=== PATIENT | female | born 1955 | race Caucasian/White ===

== ENCOUNTER → 2018-06-28 14:50 | Outpatient (CLI) | payer OTHER, SELFPAY ==
[2016-03-18 11:58] VITALS: BMI 38.9
[2018-06-28 17:03] LABS: Absolute Lymphocyte Count 2.25 X10^3/ul (0.83-4.51); Absolute Neutrophil Count 7.1 X10^3/uL (2.0-7.7); Basophil# 0.04 X10^3/uL; Basophil% 0.4 % (0-1); Eosinophil# 0.26 X10^3/uL; Eosinophils% 2.5 % (0-5); Hematocrit 44.6 % (37-47); Hemoglobin 14.6 g/dl (12.0-15.0); Lymphocyte # 2.25 X10^3/ul (4.0); Lymphocyte % 21.8 % (19-41); Mean Corp Hgb Conc 32.7 g/gl (32-36); Mean Corpuscular Hgb 28.9 pg (27.0-32.0); Mean Corpuscular Volume 88.1 fL (81-99); Monocyte# 0.66 X10^3/uL; Monocyte% 6.4 % (0-10); Neutrophil # 7.06 X10^3/uL (2.7-7.7); Neutrophil % 68.6 % (47-70); POSITIVE COUNT NO; POSITIVE DIFFERENTIAL NO; POSITIVE MORPHOLOGY NO; Platelet Count 277 K/mm3 (150-450); RBC Distribution Width CV 13.2 % (11.6-14.6); RBC Distribution Width SD 41.8 fl (35.1-43.9); Red Blood Count 5.06 M/mm3 (4.2-5.4); White Blood Count 10.3 K/mm3 (4.4-11.0)
[2018-06-28 17:26] LABS: AST(SGOT) 22 U/L (15-37); Alanine Aminotransfer ALT/SGPT 25 U/L (13-56); Alkaline Phosphatase 84 U/L (45-117); Anion Gap 9 (5-15); BUN 24 mg/dL (7-18); BUN/Creat Ratio 20.9 RATIO (10-20); Calcium,Total 9.1 mg/dL (8.5-10.1); Chloride 109 mmol/L (98-107); Creatinine, Serum 1.15 mg/dL (0.55-1.02); EST Glomerular Filtration Rate 51 mL/min (>60); Est Glom Filt Rate - Afr Amer 61 mL/min (>60); Glucose 93 mg/dL (74-106); Potassium 4.5 mmol/L (3.5-5.1); Sodium Level 143 mmol/L (136-145); Thyroid Stim Hormone (TSH) 1.44 uIU/mL (0.358-3.74)
== END ==
PROVIDERS: Visit Provider Family Medicine Geriatric Medicine
DX: R53.83 Other fatigue (principal)
CPT/HCPCS: 36415; 80053; 84443; 85025

== ENCOUNTER → 2019-07-01 | Outpatient (CLI) | payer OTHER, SELFPAY ==
[2016-03-18 11:58] VITALS: BMI 38.9
[2019-07-01 17:25] LABS: Absolute Lymphocyte Count 1.74 X10^3/uL (0.83-4.51); Absolute Neutrophil Count 5.8 X10^3/uL (2.0-7.7); Basophil# 0.05 X10^3/uL; Basophil% 0.6 % (0-1); Eosinophils% 2.4 % (0-5); Hematocrit 44.8 % (37-47); Hemoglobin 14.3 g/dL (12.0-15.0); Lymphocyte # 1.74 X10^3/ul (4.0); Lymphocyte % 20.7 % (19-41); Mean Corp Hgb Conc 31.9 g/dL (32-36); Mean Corpuscular Hgb 28.4 pg (27.0-32.0); Mean Corpuscular Volume 88.9 fL (81-99); Mean Platelet Vol. 10.7 fl (6.2-12.0); Monocyte# 0.64 X10^3/uL; Monocyte% 7.6 % (0-10); NRBC Flagged by Analyzer 0 % (0-5); Neutrophil # 5.75 X10^3/uL (2.7-7.7); Neutrophil % 68.5 % (47-70); Platelet Count 270 K/mm3 (150-450); RBC Distribution Width CV 13.2 % (11.6-14.6); RBC Distribution Width SD 42.6 fl (35.1-43.9); Red Blood Count 5.04 M/mm3 (4.2-5.4); White Blood Count 8.4 K/mm3 (4.4-11.0)
[2019-07-01 17:36] LABS: ALB/GLOB Ratio 0.9 RATIO (0.9-2.4); AST(SGOT) 21 U/L (15-37); Alanine Aminotransfer ALT/SGPT 27 U/L (13-56); Albumin, Serum 3.8 g/dL (3.2-5.0); Alkaline Phosphatase 73 U/L (45-117); Anion Gap 5 (5-15); BUN 18 mg/dL (7-18); BUN/Creat Ratio 15.9 RATIO (10-20); Chloride 107 mmol/L (98-107); Creatinine, Serum 1.13 mg/dL (0.55-1.02); EST Glomerular Filtration Rate 51 mL/min (>60); Est Glom Filt Rate - Afr Amer 62 mL/min (>60); Globulin 4.1 g/dL (2.2-4.2); Glucose 75 mg/dL (74-106); Potassium 3.8 mmol/L (3.5-5.1); Protein, Total 7.9 g/dL (6.4-8.2); Sodium Level 142 mmol/L (136-145); Thyroid Stim Hormone (TSH) 1.65 uIU/mL (0.358-3.74)
== END | disposition home or self-care (01) ==
LOC: POLAB3 13:11
PROVIDERS: PCP Family Medicine Geriatric Medicine; Visit Provider Family Medicine Geriatric Medicine
DX: R53.83 Other fatigue (principal)
CPT/HCPCS: 36415; 80053; 84443; 85025

== ENCOUNTER → 2019-07-12 | Outpatient (CLI) | payer OTHER, SELFPAY ==
--- NOTE | 2019-07-12 09:50 | BI_ITS ---
MAMMOGRAPHY - BILATERAL SCREENING REASON FOR EXAM: Female, 63 years old. Routine annual screening examination. PERTINENT HISTORY: Patient diagnosed with neurofibromatosis-1 TECHNIQUE: Digital bilateral breast jimmy (3D mammographic acquisition) in the CC and MLO projections. 2-D mediolateral oblique (MLO) and craniocaudad (CC) views of both breasts were obtained. CAD: Full Field Digital Mammography with Computer Added Detection was performed. COMPARISON: Previous mammogram obtained on 03/14/2018 FINDINGS: Breast Composition: Scattered gas density is identified. There are no dominant masses or suspicious calcifications. No other significant abnormalities are identified. BI/SCREEN MAMM (CAD) W/JIMMY BILAT IMPRESSION: Stable bilateral screening mammogram. Yearly follow-up mammogram recommended. (A) ASSESSMENT CATEGORY: BIRADS Category 1: Negative. A letter regarding these results will be sent to the patient by the facility within 30 days. Approximately 10% of breast cancers are not detected by mammography. A normal mammogram should not delay biopsy of a clinically suspicious abnormality. [id number] Electronically Signed: Augustine Marie, at 15:48 EST Tel , Service support ,
== END | disposition home or self-care (01) ==
LOC: OPBI 09:49
PROVIDERS: PCP Family Medicine Geriatric Medicine; Referring Provider Family Medicine Geriatric Medicine; Visit Provider Family Medicine Geriatric Medicine
DX: Z12.31 Encounter for screening mammogram for malignant neoplasm of breast (principal)
CPT/HCPCS: 77063; 77067

== ENCOUNTER → 2020-01-03 | Outpatient (CLI) | payer MEDICARE, SELFPAY ==
[2016-03-18 11:58] VITALS: BMI 38.9
[2020-01-03 11:04] LABS: Absolute Lymphocyte Count 1.82 X10^3/uL (0.83-4.51); Basophil# 0.03 X10^3/uL; Basophil% 0.5 % (0-1); Eosinophil# 0.25 X10^3/uL; Eosinophils% 3.8 % (0-5); Hematocrit 43.4 % (37-47); Hemoglobin 13.7 g/dL (12.0-15.0); Lymphocyte # 1.82 X10^3/ul (4.0); Lymphocyte % 27.5 % (19-41); Mean Corp Hgb Conc 31.6 g/dL (32-36); Mean Corpuscular Hgb 28.2 pg (27.0-32.0); Mean Corpuscular Volume 89.3 fL (81-99); Mean Platelet Vol. 10.3 fl (6.2-12.0); Monocyte# 0.53 X10^3/uL; NRBC Flagged by Analyzer 0 % (0-5); Neutrophil # 3.97 X10^3/uL (2.7-7.7); Neutrophil % 59.9 % (47-70); Platelet Count 276 K/mm3 (150-450); RBC Distribution Width CV 12.9 % (11.6-14.6); RBC Distribution Width SD 41.8 fl (35.1-43.9); Red Blood Count 4.86 M/mm3 (4.2-5.4); White Blood Count 6.6 K/mm3 (4.4-11.0)
[2020-01-03 11:21] LABS: Vitamin D,25 Hydroxy 36.5 ng/mL
[2020-01-03 11:27] LABS: ALB/GLOB Ratio 1.1 RATIO (0.9-2.4); AST(SGOT) 18 U/L (15-37); Alanine Aminotransfer ALT/SGPT 19 U/L (13-56); Albumin, Serum 3.8 g/dL (3.2-5.0); Alkaline Phosphatase 66 U/L (45-117); Anion Gap 2 (5-15); BUN 19 mg/dL (7-18); BUN/Creat Ratio 18.3 RATIO (10-20); Calcium,Total 8.8 mg/dL (8.5-10.1); Chloride 110 mmol/L (98-107); Creatinine, Serum 1.04 mg/dL (0.55-1.02); EST Glomerular Filtration Rate 57 mL/min (>60); Est Glom Filt Rate - Afr Amer 68 mL/min (>60); Globulin 3.6 g/dL (2.2-4.2); Glucose 96 mg/dL (74-106); Potassium 4.7 mmol/L (3.5-5.1); Protein, Total 7.4 g/dL (6.4-8.2); Sodium Level 142 mmol/L (136-145); Thyroid Stim Hormone (TSH) 1.77 uIU/mL (0.358-3.74)
== END | disposition home or self-care (01) ==
LOC: POLAB3 10:24
PROVIDERS: PCP Family Medicine Geriatric Medicine; Visit Provider Family Medicine Geriatric Medicine
DX: E55.9 Vitamin D deficiency, unspecified (principal); R53.83 Other fatigue
CPT/HCPCS: 36415; 80053; 82306; 84443; 85025

== ENCOUNTER → 2020-07-02 10:10 | Outpatient (CLI) | payer MEDICARE, SELFPAY ==
[2016-03-18 11:58] VITALS: BMI 38.9
[2020-07-02 12:50] LABS: Absolute Lymphocyte Count 1.71 X10^3/uL (0.83-4.51); Absolute Neutrophil Count 4.5 X10^3/uL (2.0-7.7); Basophil# 0.04 X10^3/uL; Basophil% 0.6 % (0-1); Eosinophil# 0.19 X10^3/uL; Eosinophils% 2.7 % (0-5); Hematocrit 44.2 % (37-47); Hemoglobin 14.2 g/dL (12.0-15.0); Lymphocyte # 1.71 X10^3/ul (4.0); Lymphocyte % 24.7 % (19-41); Mean Corp Hgb Conc 32.1 g/dL (32-36); Mean Corpuscular Hgb 28.2 pg (27.0-32.0); Mean Corpuscular Volume 87.9 fL (81-99); Monocyte# 0.46 X10^3/uL; Monocyte% 6.7 % (0-10); NRBC Flagged by Analyzer 0 % (0-5); Neutrophil # 4.47 X10^3/uL (2.7-7.7); Neutrophil % 64.7 % (47-70); Platelet Count 281 K/mm3 (150-450); RBC Distribution Width CV 12.8 % (11.6-14.6); RBC Distribution Width SD 41.1 fl (35.1-43.9); Red Blood Count 5.03 M/mm3 (4.2-5.4); White Blood Count 6.9 K/mm3 (4.4-11.0)
[2020-07-02 13:13] LABS: Vitamin D,25 Hydroxy 28.4 ng/mL
[2020-07-02 13:24] LABS: AST(SGOT) 20 U/L (15-37); Alanine Aminotransfer ALT/SGPT 20 U/L (13-56); Albumin, Serum 3.9 g/dL (3.2-5.0); Alkaline Phosphatase 69 U/L (45-117); Anion Gap 4 (5-15); BUN 20 mg/dL (7-18); BUN/Creat Ratio 18.3 RATIO (10-20); Calcium,Total 9.1 mg/dL (8.5-10.1); Chloride 107 mmol/L (98-107); Creatinine, Serum 1.09 mg/dL (0.55-1.02); EST Glomerular Filtration Rate 53 mL/min (>60); Est Glom Filt Rate - Afr Amer 65 mL/min (>60); Globulin 4.1 g/dL (2.2-4.2); Glucose 87 mg/dL (74-106); Potassium 4.4 mmol/L (3.5-5.1); Sodium Level 140 mmol/L (136-145); Thyroid Stim Hormone (TSH) 1.63 uIU/mL (0.358-3.74)
== END ==
PROVIDERS: PCP Family Medicine Geriatric Medicine; Visit Provider Family Medicine Geriatric Medicine
DX: E55.9 Vitamin D deficiency, unspecified (principal); R53.83 Other fatigue
CPT/HCPCS: 36415; 80053; 82306; 84443; 85025

== ENCOUNTER → 2021-01-21 10:01 | Outpatient (CLI) | payer MEDICARE, SELFPAY ==
[2021-01-21 11:12] LABS: Absolute Lymphocyte Count 1.61 X10^3/uL (0.83-4.51); Absolute Neutrophil Count 4.5 X10^3/uL (2.0-7.7); Basophil# 0.03 X10^3/uL; Basophil% 0.4 % (0-1); Eosinophil# 0.18 X10^3/uL; Eosinophils% 2.6 % (0-5); Hematocrit 42.3 % (37-47); Lymphocyte # 1.61 X10^3/ul (0.83-4.51); Mean Corp Hgb Conc 33.1 g/dL (32-36); Mean Corpuscular Hgb 29.2 pg (27.0-32.0); Mean Corpuscular Volume 88.1 fL (81-99); Mean Platelet Vol. 10.5 fl (6.2-12.0); Monocyte# 0.62 X10^3/uL; Monocyte% 8.9 % (0-10); NRBC Flagged by Analyzer 0 % (0-5); Neutrophil # 4.52 X10^3/uL (2.7-7.7); Neutrophil % 64.7 % (47-70); Platelet Count 270 K/mm3 (150-450); RBC Distribution Width CV 12.9 % (11.6-14.6); RBC Distribution Width SD 41.8 fl (35.1-43.9)
[2021-01-21 11:38] LABS: Vitamin D,25 Hydroxy 32.5 ng/mL
[2021-01-21 11:46] LABS: ALB/GLOB Ratio 0.9 RATIO (0.9-2.4); AST(SGOT) 17 U/L (15-37); Alanine Aminotransfer ALT/SGPT 23 U/L (13-56); Albumin, Serum 3.7 g/dL (3.2-5.0); Alkaline Phosphatase 81 U/L (45-117); Anion Gap 6 (5-15); BUN 18 mg/dL (7-18); BUN/Creat Ratio 18.6 RATIO (10-20); Calcium,Total 9.1 mg/dL (8.5-10.1); Chloride 107 mmol/L (98-107); Creatinine, Serum 0.97 mg/dL (0.55-1.02); EST Glomerular Filtration Rate 61 mL/min (>60); Est Glom Filt Rate - Afr Amer 74 mL/min (>60); Glucose 89 mg/dL (74-106); Potassium 4.3 mmol/L (3.5-5.1); Protein, Total 7.7 g/dL (6.4-8.2); Sodium Level 141 mmol/L (136-145); Thyroid Stim Hormone (TSH) 1.31 uIU/mL (0.358-3.74)
== END ==
PROVIDERS: PCP Family Medicine Geriatric Medicine; Referring Provider Family Medicine Geriatric Medicine; Visit Provider Family Medicine Geriatric Medicine
DX: E55.9 Vitamin D deficiency, unspecified (principal); R53.83 Other fatigue
CPT/HCPCS: 36415; 80053; 82306; 84443; 85025

== ENCOUNTER 2021-05-21 11:30 | Outpatient (CLI) | payer MEDICARE, SELFPAY | END 2021-05-21 23:59 | disposition short-term general hospital (02) | LOC: PSN 11:31 | PROVIDERS: PCP Family Medicine Geriatric Medicine; Referring Provider Family Medicine Geriatric Medicine; Visit Provider Family Medicine Geriatric Medicine | DX: R68.83 Chills (without fever) (principal) | CPT/HCPCS: 87635; 87804; 87807; C9803; U0003; U0005 ==

== ENCOUNTER 2021-06-04 08:05 | Outpatient (CLI) | payer MEDICARE, SELFPAY ==
--- NOTE | 2021-06-04 08:10 | RAD_ITS ---
STUDY: X-RAY CHEST REASON FOR EXAM: Female, 65 years old. Technologist Notes HX BRONCHITIS X COUPLE WEEKS, HAD PAIN COUPLE DAYS AGO BUT NOT TODAY COUGH TECHNIQUE: XR Chest 2 Views COMPARISON: Prior comparison studies are not available for review at this time. FINDINGS: There is no demonstrated pleural abnormality. Normal size heart. Normal mediastinum and marcos. Normal visualized pulmonary arteries. There is atherosclerotic calcification of the aortic arch with tortuosity. There are diffuse degenerative changes of the visualized thoracic spine. There is degenerative osteoarthritis of the bilateral shoulders. There is no demonstrated abnormality of the visualized soft tissue structures of the upper abdomen. RAD/Chest PA and Lateral IMPRESSION: There are no acute findings. Electronically Signed: Darwin Garcia MD at 14:53 EST , Service support ,
== END 2021-06-04 23:59 | disposition short-term general hospital (02) ==
PROVIDERS: PCP Family Medicine Geriatric Medicine; Referring Provider Family Medicine Geriatric Medicine; Visit Provider Family Medicine Geriatric Medicine
DX: R05.9 Cough, unspecified (principal)
CPT/HCPCS: 71046

== ENCOUNTER 2021-07-20 14:32 | Outpatient (CLI) | payer MEDICARE, SELFPAY ==
--- NOTE | 2021-07-20 14:33 | BI_ITS ---
MAMMOGRAPHY - BILATERAL SCREENING REASON FOR EXAM: Female, 65 years old. Routine annual screening examination. PERTINENT HISTORY: Non-contributory. Remote left excisional breast biopsy. TECHNIQUE: Digital bilateral breast jimmy (3D mammographic acquisition) in the CC and MLO projections. 2-D mediolateral oblique (MLO) and craniocaudad (CC) views of both breasts were obtained. CAD: Full Field Digital Mammography with Computer Added Detection was performed. COMPARISON: Comparison is made with prior examination of 07/12/2019. FINDINGS: Breast Composition: There are scattered areas of fibroglandular density. There are no dominant masses or suspicious calcifications. A tissue clip marker is seen in the upper slightly medial portion of the right breast. No other significant abnormalities are identified. There has been no significant change since the prior study. BI/SCRN MAMM (CAD)W/JIMMY BILAT IMPRESSION: Stable bilateral screening mammogram. Yearly follow-up mammogram recommended. (A) ASSESSMENT CATEGORY: BIRADS Category 2: Benign. A letter regarding these results will be sent to the patient by the facility within 30 days. Approximately 10% of breast cancers are not detected by mammography. A normal mammogram should not delay biopsy of a clinically suspicious abnormality. [id number] Electronically Signed: Homero Mantilla MD at 15:20 EST ,
== END 2021-07-20 23:59 | disposition home or self-care (01) ==
LOC: OPBI 14:32
PROVIDERS: Visit Provider Internal Medicine
DX: Z12.31 Encounter for screening mammogram for malignant neoplasm of breast (principal)
CPT/HCPCS: 77063; 77067

== ENCOUNTER → 2022-01-20 | Outpatient (CLI) | payer MEDICARE, SELFPAY ==
[2022-01-20 10:08] LABS: Absolute Lymphocyte Count 1.71 X10^3/uL (0.83-4.51); Absolute Neutrophil Count 4.2 X10^3/uL (2.0-7.7); Basophil# 0.03 X10^3/uL; Basophil% 0.4 % (0-1); Eosinophil# 0.27 X10^3/uL; Hemoglobin 14.4 g/dL (12.0-15.0); Lymphocyte # 1.71 X10^3/ul (0.83-4.51); Lymphocyte % 25.2 % (19-41); Mean Corp Hgb Conc 32.7 g/dL (32-36); Mean Corpuscular Hgb 29.1 pg (27.0-32.0); Mean Corpuscular Volume 89.1 fL (81-99); Mean Platelet Vol. 9.5 fl (6.2-12.0); Monocyte# 0.57 X10^3/uL; Monocyte% 8.4 % (0-10); NRBC Flagged by Analyzer 0 % (0-5); Neutrophil # 4.15 X10^3/uL (2.7-7.7); Neutrophil % 61.1 % (47-70); Platelet Count 247 K/mm3 (150-450); RBC Distribution Width CV 13.6 % (11.6-14.6); RBC Distribution Width SD 44.3 fl (35.1-43.9); Red Blood Count 4.94 M/mm3 (4.2-5.4); White Blood Count 6.8 K/mm3 (4.4-11.0)
[2022-01-20 10:36] LABS: Vitamin D,25 Hydroxy 22.4 ng/mL
[2022-01-20 11:08] LABS: ALB/GLOB Ratio 0.8 RATIO (0.9-2.4); AST(SGOT) 36 U/L (15-37); Alanine Aminotransfer ALT/SGPT 37 U/L (13-56); Albumin, Serum 3.5 g/dL (3.2-5.0); Alkaline Phosphatase 84 U/L (45-117); Anion Gap 6 (5-15); BUN 13 mg/dL (7-18); BUN/Creat Ratio 12.3 RATIO (10-20); Calcium,Total 9.4 mg/dL (8.5-10.1); Chloride 107 mmol/L (98-107); Cholesterol 238 mg/dL (200); Creatinine, Serum 1.06 mg/dL (0.55-1.02); EST Glomerular Filtration Rate 55 mL/min (>60); Est Glom Filt Rate - Afr Amer 66 mL/min (>60); Globulin 4.2 g/dL (2.2-4.2); Glucose 95 mg/dL (74-106); High Density Lipoprotein 63 mg/dL; Potassium 4.3 mmol/L (3.5-5.1); Protein, Total 7.7 g/dL (6.4-8.2); Sodium Level 141 mmol/L (136-145); Triglycerides 212 mg/dL; Very Low Density Lipoprotein 42 mg/dL (5-40)
== END | disposition home or self-care (01) ==
LOC: LAB 09:26
PROVIDERS: Visit Provider Internal Medicine
DX: Q85.02 Neurofibromatosis, type 2 (principal); E78.00 Pure hypercholesterolemia, unspecified; M17.0 Bilateral primary osteoarthritis of knee; J45.909 Unspecified asthma, uncomplicated; E55.9 Vitamin D deficiency, unspecified
CPT/HCPCS: 36415; 80053; 80061; 82306; 84443; 85025

== ENCOUNTER → 2022-05-25 | Outpatient (CLI) | payer MEDICARE, SELFPAY ==
[2022-05-25 10:19] LABS: Erythrocyte Sedimentation Rate 39 mm/hr (0-30)
[2022-05-25 10:24] LABS: Absolute Lymphocyte Count 1.96 X10^3/uL (0.83-4.51); Absolute Neutrophil Count 4.5 X10^3/uL (2.0-7.7); Basophil# 0.03 X10^3/uL; Basophil% 0.4 % (0-1); Eosinophil# 0.25 X10^3/uL; Eosinophils% 3.4 % (0-5); Hematocrit 44.6 % (37-47); Hemoglobin 14.5 g/dL (12.0-15.0); Lymphocyte # 1.96 X10^3/ul (0.83-4.51); Lymphocyte % 26.6 % (19-41); Mean Corp Hgb Conc 32.5 g/dL (32-36); Mean Corpuscular Hgb 28.7 pg (27.0-32.0); Mean Corpuscular Volume 88.1 fL (81-99); Mean Platelet Vol. 10.3 fl (6.2-12.0); Monocyte# 0.65 X10^3/uL; Monocyte% 8.8 % (0-10); NRBC Flagged by Analyzer 0 % (0-5); Neutrophil # 4.46 X10^3/uL (2.7-7.7); Neutrophil % 60.5 % (47-70); Platelet Count 258 K/mm3 (150-450); RBC Distribution Width CV 13.6 % (11.6-14.6); RBC Distribution Width SD 43.7 fl (35.1-43.9); Red Blood Count 5.06 M/mm3 (4.2-5.4); White Blood Count 7.4 K/mm3 (4.4-11.0)
[2022-05-25 10:54] LABS: ALB/GLOB Ratio 0.9 RATIO (0.9-2.4); AST(SGOT) 16 U/L (15-37); Alanine Aminotransfer ALT/SGPT 17 U/L (13-56); Albumin, Serum 3.6 g/dL (3.2-5.0); Alkaline Phosphatase 76 U/L (45-117); Anion Gap 5 (5-15); BUN 14 mg/dL (7-18); BUN/Creat Ratio 14.2 RATIO (10-20); CPK Total, Creatine Kinase 53 U/L (26-192); CRP 5.24 mg/L (0.0-3.0); Calcium,Total 9.5 mg/dL (8.5-10.1); Chloride 109 mmol/L (98-107); Creatinine, Serum 0.99 mg/dL (0.55-1.02); EST Glomerular Filtration Rate 60 mL/min (>60); Est Glom Filt Rate - Afr Amer 72 mL/min (>60); Globulin 3.9 g/dL (2.2-4.2); Glucose 92 mg/dL (74-106); Potassium 4.3 mmol/L (3.5-5.1); Protein, Total 7.5 g/dL (6.4-8.2); Sodium Level 141 mmol/L (136-145); Thyroid Stim Hormone (TSH) 3.46 uIU/mL (0.358-3.74)
== END | disposition home or self-care (01) ==
LOC: LAB 08:35
PROVIDERS: Referring Provider Internal Medicine; Visit Provider Internal Medicine
DX: Q85.02 Neurofibromatosis, type 2 (principal); R52 Pain, unspecified; M79.10 Myalgia, unspecified site; E78.00 Pure hypercholesterolemia, unspecified
CPT/HCPCS: 36415; 80053; 82550; 84443; 85025; 85652; 86140

== ENCOUNTER → 2023-03-10 | Outpatient (CLI) | payer MEDICARE, SELFPAY ==
--- NOTE | 2023-03-10 10:26 | BI_ITS ---
MAMMOGRAPHY - BILATERAL SCREENING REASON FOR EXAM: Female, 67 years old. Routine annual screening examination. PERTINENT HISTORY: Non-contributory. Remote left excisional breast biopsy and right needle breast biopsy. TECHNIQUE: Digital bilateral breast jimmy (3D mammographic acquisition) in the CC and MLO projections. 2-D mediolateral oblique (MLO) and craniocaudad (CC) views of both breasts were obtained. CAD: Full Field Digital Mammography with Computer Added Detection was performed. COMPARISON: Comparison is made with prior study of July 20, 2021 and February 10, 2020. FINDINGS: Breast Composition: There are scattered areas of fibroglandular density. There are no dominant masses or suspicious calcifications. A tissue clip marker is seen in the upper slightly medial portion of the right breast. No other significant abnormalities are identified. There has been no significant change since the prior study. BI/SCRN MAMM (CAD)W/JIMMY BILAT IMPRESSION: Stable bilateral screening mammogram. Yearly follow-up mammogram recommended. (A) ASSESSMENT CATEGORY: BIRADS Category 2: Benign. A letter regarding these results will be sent to the patient by the facility within 30 days. Approximately 10% of breast cancers are not detected by mammography. A normal mammogram should not delay biopsy of a clinically suspicious abnormality. [id number] Electronically Signed: Homero Mantilla MD at 12:17 EDT ,
== END | disposition home or self-care (01) ==
LOC: OPBI 10:25
PROVIDERS: PCP Internal Medicine; Referring Provider Internal Medicine; Visit Provider Internal Medicine
DX: Z12.31 Encounter for screening mammogram for malignant neoplasm of breast (principal)
CPT/HCPCS: 77063; 77067

== ENCOUNTER → 2023-12-12 | Outpatient (CLI) | payer MEDICARE, SELFPAY ==
[2023-12-12 09:14] LABS: Absolute Lymphocyte Count 1.73 X10^3/uL (0.83-4.51); Absolute Neutrophil Count 4.4 X10^3/uL (2.0-7.7); Basophil# 0.05 X10^3/uL; Basophil% 0.7 % (0-1); Eosinophil# 0.26 X10^3/uL; Eosinophils% 3.7 % (0-5); Hematocrit 40.1 % (37-47); Hemoglobin 13.2 g/dL (12.0-15.0); Lymphocyte # 1.73 X10^3/ul (0.83-4.51); Lymphocyte % 24.7 % (19-41); Mean Corp Hgb Conc 32.9 g/dL (32-36); Mean Corpuscular Hgb 28.7 pg (27.0-32.0); Mean Corpuscular Volume 87.2 fL (81-99); Mean Platelet Vol. 10.4 fl (6.2-12.0); Monocyte# 0.52 X10^3/uL; Monocyte% 7.4 % (0-10); NRBC Flagged by Analyzer 0 % (0-5); Neutrophil % 62.9 % (47-70); Platelet Count 259 K/mm3 (150-450); RBC Distribution Width CV 13.3 % (11.6-14.6); RBC Distribution Width SD 42.3 fl (35.1-43.9)
[2023-12-12 09:42] LABS: Vitamin D,25 Hydroxy 40.1 ng/mL
[2023-12-12 09:51] LABS: Hemoglobin A1c 5.3 % (3.8-5.6)
[2023-12-12 09:54] LABS: Cholesterol 154 mg/dL (200); High Density Lipoprotein 56 mg/dL; Thyroid Stim Hormone (TSH) 2.11 uIU/mL (0.358-3.74); Triglycerides 125 mg/dL; Very Low Density Lipoprotein 25 mg/dL (5-40)
== END | disposition home or self-care (01) ==
LOC: LAB 08:22
PROVIDERS: PCP Internal Medicine; Referring Provider Internal Medicine; Visit Provider Internal Medicine
DX: E78.00 Pure hypercholesterolemia, unspecified (principal); Q85.02 Neurofibromatosis, type 2; E55.9 Vitamin D deficiency, unspecified; Z13.220 Encounter for screening for lipoid disorders; R73.9 Hyperglycemia, unspecified; R52 Pain, unspecified
CPT/HCPCS: 36415; 80061; 82306; 83036; 84443; 85025

== ENCOUNTER 2024-10-15 15:12 | Emergency (ER) | payer MEDICARE, SELFPAY ==
[2024-10-15 15:14] VITALS: BP 162/100; PULSE 84; RESP 18; TEMP 36.5; O2SAT 97; BMI 39.1
--- NOTE | 2024-10-15 15:25 | EX.ED.GENINJ ---
HPI History of Present Illness Chief Complaint: Bite Narrative Narrative: 69-year-old female past medical history of neurofibromatosis 2, presents with injury to her right hand and her right lower extremity. She states she was out walking her dog when one of the neighbors dogs came out of nowhere and tried to attack her dog. She got tangled up and spun around. She says Andreas does scratch versus a bite to her right lower extremity on the anterior tibial area near her ankle. She also experienced a dog bite to her right hand on the thenar eminence. She states her shoulders are sore bilaterally. She did not fall and hit her head. There was no loss of consciousness. This happened approximately 2 hours prior to arrival. She is unsure of her last tetanus immunization. While she states she has sore shoulders, she can move them around. She was able to get up and ambulate independently. She complains of right hand soreness and the linear abrasion to her right lower leg. [facility] Medical History Need for influenza vaccination SVT (supraventricular tachycardia) COVID hx of gamma knife Asthma High cholesterol NF2 (neurofibromatosis 2) Home Medications ?Medication ?Instructions ?Recorded ?Last Taken ?Type montelukast 10 mg tablet 10 mg PO DAILY PRN allergy 07/05/21 Unknown Rx symptoms #90 tabs albuterol sulfate 90 mcg/actuation inhalation PRN 07/28/22 Unknown History aerosol inhaler Handicap placard #1 ea 02/09/23 Unknown Rx ginseng PO 02/09/23 Unknown History multivitamin 1 tab PO DAILY 02/09/23 Unknown History probiotic PO 02/09/23 Unknown History trazodone 50 mg tablet 50 mg PO BID #180 tabs 04/16/24 Unknown Rx atorvastatin 20 mg tablet 20 mg PO DAILY #90 tabs 06/24/24 Unknown Rx amoxicillin 875 mg-potassium 1 tab PO BID #10 tabs 10/15/24 Unknown Rx clavulanate 125 mg tablet Allergy/AdvReac Type Severity Reaction Status Date / Time codeine AdvReac Mild Nausea Verified 10/15/24 15:13 Family History Other Diabetes Heart disease Surgical History Hx of hysterectomy Social History household members: spouse Smoking Status: Never smoker alcohol intake: never substance use type: does not use ROS ROS ED ROS Narrative Was positive for dog bite to right hand and scratch versus bite to right lower extremity. Positive shoulder soreness. No hitting of head, no loss of consciousness. EXAM Physical Exam Narrative Exam Narrative: GCS 15. ABCs are intact. PERRL, EOMI. Cardiovascular examination regular rate and rhythm. Lungs are clear to auscultation bilaterally. Abdomen soft nontender with positive bowel sounds. Neurological examination is nonfocal, nonlateralizing, able to ambulate in the ED. Able to raise arms above head without difficulty. Inspection of the right hand does show small puncture wound to the thenar eminence. Able to oppose thumb. No active bleeding. Positive linear abrasion approximately 3 cm anterior tibial surface/anterior ankle without active bleeding, not gaping. Const Vital Signs: 10/15/24 15:14 Temperature 97.7 F L Temperature Source Temporal Pulse Rate 84 Respiratory Rate 18 Blood Pressure 162/100 H Blood Pressure Mean 120 Pulse Ox 97 Oxygen Delivery Method Room Air MDM MDM MDM Narrative Medical decision making narrative: Differential diagnosis includes but not limited to dog bite causing contusion to right hand versus underlying fracture. Patient was concerned because it is a neighborhood dog, but they were told that rabies vaccination is not current. She was told of the low incidence of rabies in a domesticated animal, and additionally the animal in question can be watched and quarantined. X-rays of the right hand interpreted by myself independently shows no evidence of acute osseous abnormality. I reviewed the radiology report which confirms my independent interpretation. I do not feel that she needs x-rays of the shoulders as I have very low suspicion for dislocation and she has full range of motion and only describes soreness, there is no bony tenderness. Her wounds were cleansed and dressed. As there are only small wounds on her hand, I discussed with her the possibility of infection and advised not to close any wounds regardless. She was given her first dose of Augmentin here in the emergency department and prophylaxis written for the next 5 days. She will take [id number] medications as needed. She was given a Boostrix immunization. She is motivated for discharge. She had already been seen ambulating in the emergency department without difficulty. Return instructions to the emergency department were reviewed. She should have a wound check by her primary care provider in 2 days and return with any drainage of pus from the wounds, fever, increased redness, new or worsening symptoms. Disposition is discharged home in stable condition. Radiography Diagnostic Testing: Clinical Impression(s) from Imaging Studies Hand X-Ray 10/15/24 15:40 IMPRESSION: Degenerative changes at the 1st carpometacarpal joint. No acute osseous abnormalities. Reading Location: [place] [address] Discharge Plan Triage Chief Complaint: Bite ED Provider: Asaf Haskins Dx/Rx/DC Orders Clinical Impression: Dog bite of right hand, Dog scratch Instructions: ED Abrasion, ED Dog Bite Prescriptions: New amoxicillin-pot clavulanate 875-125 mg tablet 1 tab PO BID Qty: 10 0RF No Action albuterol sulfate 90 mcg/actuation HFA aerosol inhaler INHALATION PRN multivitamin Tablet 1 tab PO DAILY ginseng PO probiotic PO (DME) Handicap placard See Rx Instructions .Route .MEDSUPPLY Qty: 1 0RF Rx Instructions: 5 year rx [id number] montelukast 10 mg tablet 10 mg PO DAILY PRN (Reason: allergy symptoms) Qty: 90 3RF trazodone 50 mg tablet 50 mg PO BID Qty: 180 3RF atorvastatin 20 mg tablet 20 mg PO DAILY Qty: 90 3RF Primary Care Provider: Maria Elena Sapp Referrals: Maria Elena Sapp MD [Primary Care Provider] - 2 Days for wound check Activity Restrictions/Additional Instructions: Antibiotic as directed for prophylaxis. Ice and elevate your hand when possible. Return to the emergency department with fever, drainage of pus from wounds, new or worsening symptoms. Print Language: Portuguese Disposition Disposition: Home, Self Care
--- NOTE | 2024-10-15 15:40 | RAD_ITS ---
PROCEDURE: HAND MIN 3 VIEWS 10/15/2024 REASON FOR EXAM: Dog bite. TECHNIQUE: Three (3) view(s) of the right hand. COMPARISON: No relevant prior FINDINGS: Bones: Degenerative changes at the 1st carpometacarpal joint. No fractures, dislocations, or subluxations. Joints: Unremarkable. Soft tissues: Unremarkable. Other: Other significant findings. RAD/Hand Min 3 Views IMPRESSION: Degenerative changes at the 1st carpometacarpal joint. No acute osseous abnormalities. Reading Location: [place] [id number]
[2024-10-15] MEDS: Diphth,Pertuss(Acell),Tet Vac 0.5 ML Vial IM (15:44)
[2024-10-15] MEDS: Amox/Clavulanate 875 MG Tablet PO (16:30)
[2024-10-15 16:31] VITALS: BP 109/93; PULSE 77; RESP 19; TEMP 36.6; O2SAT 97
== END 2024-10-15 16:38 | disposition home or self-care (01) ==
PROVIDERS: Emergency Provider Emergency Medicine; PCP Internal Medicine; Visit Provider Emergency Medicine
DX: S61.451A Open bite of right hand, initial encounter (principal); Q85.02 Neurofibromatosis, type 2; E78.00 Pure hypercholesterolemia, unspecified; W54.0XXA Bitten by dog, initial encounter; Y93.K1 Activity, walking an animal; Z23 Encounter for immunization
CPT/HCPCS: 73130; 90471; 90715; 99282

== ENCOUNTER → 2025-02-20 | Outpatient (CLI) | payer MEDICARE, SELFPAY ==
[2025-02-20 08:53] LABS: Hematocrit 40.0 % (37-47); Hemoglobin 13.2 g/dL (12.0-15.0); Immature Granulocytes Count 0.060 X10^3/uL (0.0-0.0); Mean Corp Hgb Conc 33.0 g/dL (32-36); Mean Corpuscular Volume 86.8 fL (81-99); Mean Platelet Vol. 9.9 fl (6.2-12.0); NRBC Flagged by Analyzer 0 % (0-5); Platelet Count 300 K/mm3 (150-450); RBC Distribution Width CV 13.4 % (11.6-14.6); RBC Distribution Width SD 42.4 fl (35.1-43.9); Red Blood Count 4.61 M/mm3 (4.2-5.4); White Blood Count 9.0 K/mm3 (4.4-11.0)
[2025-02-20 09:51] LABS: AST(SGOT) 18 U/L (<=31); Alanine Aminotransfer ALT/SGPT 8 U/L (<=34); Albumin, Serum 4.1 g/dL (3.4-4.8); Alkaline Phosphatase 108 U/L (35-104); Anion Gap 9 (5-15); BUN 17 mg/dL (4-19); BUN/Creat Ratio 16.3 RATIO (10-20); Calcium,Total 9.1 mg/dL (7.6-11.0); Carbon Dioxide 26.6 mmol/L (21.0-32.0); Chloride 106 mmol/L (98-108); Globulin 3.2 g/dL (2.2-4.2); Glucose 101 mg/dL (70-99); Potassium 5.0 mmol/L (3.3-5.1); Vitamin B12 882 pg/mL (180-914); Vitamin D,25 Hydroxy 31.9 ng/mL (30-100)
[2025-02-20 11:24] LABS: Cholesterol 179 mg/dL (<=200); Low Density Lipoprotein Calc. 93 mg/dL; Triglycerides 150 mg/dL; Very Low Density Lipoprotein 30 mg/dL (5-40); cholesterol:hdl ratio screen 3.21
== END | disposition home or self-care (01) ==
LOC: LAB 07:50
PROVIDERS: PCP Internal Medicine; Referring Provider Internal Medicine; Visit Provider Internal Medicine
DX: E78.00 Pure hypercholesterolemia, unspecified (principal); Q85.02 Neurofibromatosis, type 2; M17.0 Bilateral primary osteoarthritis of knee; I47.10 Supraventricular tachycardia, unspecified; Z13.220 Encounter for screening for lipoid disorders; E55.9 Vitamin D deficiency, unspecified; E53.8 Deficiency of other specified B group vitamins
CPT/HCPCS: 36415; 80053; 80061; 82306; 82607; 84443; 85025

== ENCOUNTER → 2025-02-25 | Outpatient (CLI) | payer MEDICARE, SELFPAY ==
--- NOTE | 2025-02-25 14:45 | BI_ITS ---
EXAM: SCRN MAMM (CAD)W/JIMMY BILAT DATE: 02/25/2025 CLINICAL HISTORY: F, Age 69 y/o , BREAST CANCER SCREENING No family history. Prior right needle breast biopsy as well as left excisional breast biopsy. TECHNIQUE: Procedure Code: BISMWCADBTOM Modality: MG Procedure: SCRN MAMM (CAD)W/JIMMY BILAT COMPARISON: Prior exam(s) dated March 10, 2023.. FINDINGS: TISSUE DENSITY: There are scattered areas of fibroglandular density. Bilateral Breast Mammographic Findings: No significant masses, calcifications or other abnormalities are identified. A tissue clip marker is once again seen in the deep upper medial aspect of the right breast. No suspicious masses, areas of developing architectural distortion, or suspicious calcifications. There has been no significant interval change. BI/SCRN MAMM (CAD)W/JIMMY BILAT IMPRESSION: Stable bilateral screening mammogram. OVERALL FINAL ASSESSMENT BI-RADS 2: BENIGN RECOMMENDATION: Routine annual follow-up in 1 Year Additional Recommendation none A letter with findings and recommendations will be mailed to the patient. Reading Location: [place] [address]
--- NOTE | 2025-02-25 14:45 | BI_ITS ---
EXAM: SCRN MAMM (CAD)W/JIMMY BILAT DATE: 02/25/2025 CLINICAL HISTORY: F, Age 69 y/o , BREAST CANCER SCREENING No family history. Prior right needle breast biopsy as well as left excisional breast biopsy. TECHNIQUE: Procedure Code: BISMWCADBTOM Modality: MG Procedure: SCRN MAMM (CAD)W/JIMMY BILAT COMPARISON: Prior exam(s) dated March 10, 2023.. FINDINGS: TISSUE DENSITY: There are scattered areas of fibroglandular density. Bilateral Breast Mammographic Findings: No significant masses, calcifications or other abnormalities are identified. A tissue clip marker is once again seen in the deep upper medial aspect of the right breast. No suspicious masses, areas of developing architectural distortion, or suspicious calcifications. There has been no significant interval change. BI/SCRN MAMM (CAD)W/JIMMY BILAT IMPRESSION: Stable bilateral screening mammogram. OVERALL FINAL ASSESSMENT BI-RADS 2: BENIGN RECOMMENDATION: Routine annual follow-up in 1 Year Additional Recommendation none A letter with findings and recommendations will be mailed to the patient. Reading Location: [place] [address]
== END | disposition home or self-care (01) ==
LOC: OPBI 14:23
PROVIDERS: PCP Internal Medicine; Referring Provider Internal Medicine; Visit Provider Internal Medicine
DX: Z12.31 Encounter for screening mammogram for malignant neoplasm of breast (principal)
CPT/HCPCS: 77063; 77067

== ENCOUNTER 2025-05-03 08:06 | Emergency (ER) | payer MEDICARE, SELFPAY ==
[2025-05-03] VITALS (7 sets, daily range): BP systolic 104–154; BP diastolic 54–113; PULSE 66–108; RESP 18–19; TEMP 36.8; O2SAT 98–100; BMI 40.8
--- NOTE | 2025-05-03 08:25 | EKG12_ITS ---
Test Reason : REPEAT Blood Pressure : */* mmHG Vent. Rate : 67 BPM Atrial Rate : 67 BPM P-R Int : 142 ms QRS Dur : 84 ms QT Int : 396 ms P-R-T Axes : 48 9 8 degrees QTcB Int : 418 ms Normal sinus rhythm Normal ECG Confirmed by Luis Felipe Egan ([id number]), supervising editor news reel AMBER WHEATLEY ([id number]) on 05/06/2025 11:23:54 AM Also confirmed by Luis Felipe Egan ([id number]), supervising editor news reel AMBER WHEATLEY ([id number]) on 05/07/2025 10:48:07 AM Referred By: Confirmed By: Luis Felipe Egan
--- NOTE | 2025-05-03 08:45 | EDS_ITS ---
HPI History of Present Illness Chief Complaint: Palpitations Narrative Narrative: Patient is a 69-year-old female presenting to the emergency department for palpitations, lightheadedness and shortness of breath. Patient has a past medical history of SVT, neurofibromatosis 2, hyperlipidemia and asthma. Patient states she woke up this morning and felt normal. She put on her tennis shoes to walk on the treadmill when she began having heart palpitations and then developed shortness of breath and lightheadedness. She states the symptoms lasted about an hour until she got here and sat down. She states all of her symptoms except some mild shortness of breath are gone now. She denies recent viral-like symptoms including fever, chills, sore throat or congestion. Denies any GI symptoms including abdominal pain, nausea or vomiting. Denies any history of DVT or PE. Denies any recent travel, hospitalizations or surgeries. Denies any leg swelling that she knows of. Denies any new medications, excessive caffeine or alcohol/drug use. [facility] Medical History Need for influenza vaccination SVT (supraventricular tachycardia) COVID hx of gamma knife Asthma High cholesterol NF2 (neurofibromatosis 2) Home Medications ?Medication ?Instructions ?Recorded ?Last Taken ?Type montelukast 10 mg tablet 10 mg PO DAILY PRN allergy 0 07/05/21 Unknown Rx symptoms #90 tabs albuterol sulfate 90 mcg/actuation inhalation PRN 07/13 11/04 Unknown History aerosol inhaler Handicap placard #1 ea 02/09/23 Unknown Rx ginseng PO 02/09/23 Unknown History multivitamin 1 tab PO DAILY 02/09/23 Unkn own History probiotic PO 02/09/23 Unknown History atorvastatin 20 mg tablet 20 mg PO DAILY #90 tabs 06/15 Unknown Rx azithromycin 250 mg tablet See Rx Instructions PO .COM PLEX #6 02/18/25 Unknown Rx (Zithromax) tabs trazodone 50 mg tablet 50 mg PO BID #180 tabs 02/20 Unknown Rx Allergy/AdvReac Type Severity Reaction Status Date / Time codeine AdvReac Mild Nausea Verified 05/03/25 08:11 Family History Other Diabetes Heart disease Surgical History Hx of hysterectomy Social History household members: spouse Smoking Status: Never smoker alcohol intake: never substance use type: does not use ROS ROS ED ROS Narrative see HPI EXAM Physical Exam Narrative Exam Narrative: Vital signs: Reviewed General: Alert and orientedx3. No acute distress. Well appearing, nontoxic. HEENT: Head is normocephalic and atraumatic, sinuses nontender, pupils equal round and reactive. Nares are patent. Oropharynx and throat exams normal. Neck: Supple without lymphadenopathy nontender Cardiovascular: Tachycardic rate and regular rhythm, no murmurs. No rubs or gallops. Normal S1 and S2 Respiratory: Clear to auscultation bilaterally. No wheezes, rales, rhonchi Abdominal: Soft and nontender. Normal bowel sounds. No guarding or rebound. Nonsurgical abdomen Extremities: No leg swelling. No tenderness. No bruising. Normal range of motion. Normal sensation. Skin: No rash or redness. Neurological: Cranial nerves II through XII are grossly intact. Normal strength and sensation. Normal cerebellar function The rest of the physical exam is unremarkable Const Vital Signs: 05/03/25 08:06 05/03/25 08:12 05/03/25 09:30 Temperature 98.3 F Temperature Source Oral Pulse Rate 108 H Respiratory Rate 18 Respiratory Effort Normal Respiratory Pattern Normal Blood Pressure 154/113 H 104/72 Blood Pressure Mean 126 82 Pulse Ox 100 Oxygen Delivery Method Room Air Room Air 05/03/25 10:00 05/03/25 11:05 05/03/25 12:00 Temperature Temperature Source Pulse Rate 88 75 67 Respiratory Rate 19 H 18 Respiratory Effort Respiratory Pattern Blood Pressure 119/54 L 137/79 H 110/87 H Blood Pressure Mean 75 98 94 Pulse Ox 98 99 99 Oxygen Delivery Method Room Air Room Air Room Air 05/03/25 13:00 05/03/25 14:00 Temperature Temperature Source Pulse Rate 66 66 Respiratory Rate 18 18 Respiratory Effort Respiratory Pattern Blood Pressure 112/82 H 110/80 Blood Pressure Mean 92 90 Pulse Ox 99 99 Oxygen Delivery Method MDM MDM MDM Narrative Medical decision making narrative: Patient is a 69-year-old female presenting to the emergency department for palpitations, shortness of breath and lightheadedness. Patient was seen and examined. Vitals show tachycardia at a rate of 108 with respirations of 18. Patient saturating 100% on room air and is afebrile. Initial blood pressure of 154/113. Differential includes but is not limited to: Cardiac dysrhythmia including her history of SVT, ACS, pneumonia, electrolyte disturbance, thyroid disturbance EKG shows sinus tachycardia at a rate of [address] and T wave abnormalities. Nothing meeting STEMI criteria. No dysrhythmia. CBC with no leukocytosis and a normal hemoglobin. TSH and magnesium within normal limits. BMP with no significant abnormalities. D-dimer is elevated at .79, CTA of the chest ordered. On my review I do not see any large pulmonary embolism. Radiology read with no evidence of pulmonary embolism. Initial troponin of 21. Patient was reevaluated and updated on the lab findings. Heart rate is much improved now in the 80s. She states that she is no longer short of breath. She does not have a special agent secret service that she has seen for her palpitations. I will refer her to the on-call special agent secret service, Dr. Rogers for follow up. She has had about 3 episodes in the past year I do not think she requires a beta-felecia at time of discharge in the emergency department. There was issues with her second troponin hemolyzing. Second troponin was delayed for this reason. Repeat troponin of 80. Given the significant change in troponin a repeat EKG was ordered that shows normal sinus rhythm at a rate of 67 with no ischemic changes. No dysrhythmia. I did speak with on-call special agent secret service, Dr. Rogers who recommended if the third troponin was stable she could be discharged. If it changed significantly to call back. Third troponin stable at 77. Patient is asymptomatic now. With this significant initial delta change I did discuss admission with her for further cardiac workup. May be secondary to an episode of a fib with RVR or SVT but difficulty to prove and she has never had a cardiac workup such as ECHO or stress test. She is agreeable. I spoke with hospitalist, Dr. Vera who evaluated the patient and spoke with Dr. Rogers again and he recommended discharge. Dr. Vera recommended discharge based on this discussion and she discussed plan with the patient. Patient states she would like to go home and follow up with cardiology. Again, I did recommended admission for cards but cardiology and hospitalist felt that she could be discharged and patient herself felt that she could go home and will follow up. She was given strict return precautions if she develops any new or worsening symptoms. Clinical impression Palpitations History & Record Review Discussion w/independent historian: Patient Lab Data Attestation: I reviewed the patient's lab results. Labs: Laboratory Results - last 24 hr 05/03/25 05/03/25 05/03/25 08:35 10:35 11:41 WBC 8.2 RBC 5.20 Hgb 15.0 Hct 45.5 MCV 87.5 MCH 28.8 MCHC 33.0 RDW Std Deviation 42.5 RDW Coeff of Charles 13.2 Plt Count 348 MPV 10.4 Immature Gran % (Auto) 0.500 Neut % (Auto) 63.2 Lymph % (Auto) 26.6 [place] % (Auto) 5.5 Eos % (Auto) 3.6 Baso % (Auto) 0.6 Absolute Neuts (auto) 5.2 Absolute Lymphs (auto) 2.19 Nucleated RBC % 0 D-Dimer Quant (PE/DVT) 0.79 H* Sodium 144 Potassium 3.9 Chloride 107 Carbon Dioxide 21.8 Anion Gap 16 H BUN 19 Creatinine 1.07 Estim Creat Clear Calc 46.60 L Est GFR (MDRD) Non-Af 56 L BUN/Creatinine Ratio 17.5 Glucose 131 H Calcium 9.5 Magnesium 2.0 Troponin T High Sens 21 H Troponin T Hi Sens 2 Hr Cancelled 80 H* Troponin T Hi Sens 4Hr TSH 2.840 05/03/25 13:38 WBC RBC Hgb Hct MCV MCH MCHC RDW Std Deviation RDW Coeff of Charles Plt Count MPV Immature Gran % (Auto) Neut % (Auto) Lymph % (Auto) [place] % (Auto) Eos % (Auto) Baso % (Auto) Absolute Neuts (auto) Absolute Lymphs (auto) Nucleated RBC % D-Dimer Quant (PE/DVT) Sodium Potassium Chloride Carbon Dioxide Anion Gap BUN Creatinine Estim Creat Clear Calc Est GFR (MDRD) Non-Af BUN/Creatinine Ratio Glucose Calcium Magnesium Troponin T High Sens Troponin T Hi Sens 2 Hr Troponin T Hi Sens 4Hr 77 H* TSH Radiography Diagnostic Testing: Clinical Impression(s) from Imaging Studies Chest CTA 05/03/25 09:20 IMPRESSION: No evidence of pulmonary embolism. Reading Location: [facility] Discharge Plan Triage Chief Complaint: Palpitations ED Provider: Zahra Kong Dx/Rx/DC Orders Clinical Impression: Heart palpitations, Dyspnea, Light-headedness Instructions: ED Dyspnea, ED Heart Palpitations, Arrhythmias Prescriptions: No Action albuterol sulfate 90 mcg/actuation HFA aerosol inhaler INHALATION PRN multivitamin Tablet 1 tab PO DAILY ginseng PO probiotic PO (DME) Handicap placard See Rx Instructions .Route .MEDSUPPLY Qty: 1 0RF Rx Instructions: 5 year rx [id number] montelukast 10 mg tablet 10 mg PO DAILY PRN (Reason: allergy symptoms) Qty: 90 3RF atorvastatin 20 mg tablet 20 mg PO DAILY Qty: 90 3RF azithromycin [Zithromax] 250 mg tablet See Rx Instructions PO .COMPLEX Qty: 6 0RF Rx Instructions: For 250 mg dose pack: take 500 mg today (day 1), then 250 mg for 4 days (days 2-5) PO trazodone 50 mg tablet 50 mg PO BID Qty: 180 3RF Primary Care Provider: Maria Elena Sapp Referrals: Daniel Rogers MD [Med Staff - Active Staff, Interventional Cardiology] - As soon as possible Maria Elena Sapp MD [Primary Care Provider, Internal Medicine - [facility]] Activity Restrictions/Additional Instructions: Follow-up with the special agent secret service below as soon as possible. Your evaluation in the Emergency Department did not reveal any acute reason for admission. However, I want to emphasize that you may be early in the course of a disease process or illness even if it is not present. For this reason you should follow-up within 24 hours for reevaluation with either your primary care physician or if necessary back here in the Emergency Department. You should return to the Emergency Department immediately if your symptoms worsen or new symptoms develop. Print Language: [place] Disposition Disposition: Home, Self Care
[2025-05-03] MEDS: 0.9% Normal Saline (1000mL) 1,000 ML 1000 ML IV (08:48)
[2025-05-03 08:50] LABS: Hematocrit 45.5 % (37-47); Hemoglobin 15.0 g/dL (12.0-15.0); Immature Granulocytes Count 0.040 X10^3/uL (0.0-0.0); Mean Corp Hgb Conc 33.0 g/dL (32-36); Mean Corpuscular Volume 87.5 fL (81-99); Mean Platelet Vol. 10.4 fl (6.2-12.0); NRBC Flagged by Analyzer 0 % (0-5); Platelet Count 348 K/mm3 (150-450); RBC Distribution Width CV 13.2 % (11.6-14.6); RBC Distribution Width SD 42.5 fl (35.1-43.9); Red Blood Count 5.20 M/mm3 (4.2-5.4); White Blood Count 8.2 K/mm3 (4.4-11.0)
[2025-05-03 09:16] LABS: D-Dimer Quantitative (DVT/PE) 0.79 FEU/ug/m (0.27-0.49)
[2025-05-03 09:19] LABS: Magnesium 2.0 mg/dL (1.5-2.2); Troponin T High Sensitivity 21 ng/L (<=14)
[2025-05-03 09:20] LABS: Anion Gap 16 (5-15); BUN 19 mg/dL (4-19); BUN/Creat Ratio 17.5 RATIO (10-20); Calcium,Total 9.5 mg/dL (7.6-11.0); Carbon Dioxide 21.8 mmol/L (21.0-32.0); Chloride 107 mmol/L (98-108); Estimated Creatinine Clearance 46.60 ml/min (50-250); Glucose 131 mg/dL (70-99); Potassium 3.9 mmol/L (3.3-5.1)
--- NOTE | 2025-05-03 09:20 | CT_ITS ---
PROCEDURE: CTA CHEST W/WO CONTRAST 05/03/2025 REASON FOR EXAM: TACHY, ELEVATED DDIMER TECHNIQUE: Procedure Code: [id number] Modality: CT Procedure: CTA CHEST W/WO CONTRAST Multiplanar Sagittal and Coronal images were obtained. CONTRAST: Isovue 370 VOLUME: 75 mL One or more dose reduction techniques were used (e.g., Automated exposure control, adjustment of the mA and/or kV according to patient size, use of iterative reconstruction technique). RADIATION DOSE SUMMARY: CTDlvol: 14.09 mGy DLP: 444.36 mGycm COMPARISON: None. # of known CTs in the past 12 months: 0 # of known Cardiac Nuclear Medicine Studies in the past 12 months: 0 FINDINGS: Thoracic Aorta: No aneurysm. No dissection. Heart: No cardiomegaly. Atherosclerotic calcifications of the coronary arteries. Pulmonary Vessels: No evidence of pulmonary embolism. Hardware: Unremarkable. Lymph nodes: No lymphadenopathy. Lungs and Airways: Clear. Pleura: No pleural effusion or pneumothorax. Upper Abdomen: No acute abdominal abnormalities. Bones: No acute bony abnormalities. CT/CTA Chest W/WO Contrast IMPRESSION: No evidence of pulmonary embolism. Reading Location: [id number]
--- OUTSIDE RECORDS SUMMARY | 2025-05-03 09:38 | XMS RPT_ITS | CCD ---
Author Organization [facility] Care Team Providers Care Construction Project Administrator Name Role Phone Leif Rose Chi Primary Care Provider MD Merrill Sapp Primary Care Provider Unavail able MD Merrill Sapp Referring Provider UnavailGLYNN Lyles Attending Provider Unavailab Dr. Merrill Cassidy Attending Provider Merrill Sapp MD Primary Care Provider Merrill Sapp MD Primary Care Provider [facility], Chel Unavailable Unavailable MD Merrill Sapp Primary Care Provider Unavail able Dr. Merrill Sapp Attending Provider [phone] Eddi CHARLES, Concha A Unavailable [phone] MD Merrill Pittman Primary Care Provider Tsering vailable Dr. Merrill Sapp Attending Provider [phone] Merrill Sapp MD Primary Care Provider [phone] [facility], Chel Unavailable Unavailable Dr. Merrill Sapp MD Primary Care Provider Asaf Haskins MD Emergency Provider Dr. Merrill Sapp MD Primary Care Physician Dr. Merrill Sapp MD Attending Physician Asaf Haskins Attending Unavailable Merrill Sapp Primary Care Unavailable Merrill Sapp Referring Unavailable Merrill Sapp Attending Unavailable Merrill Sapp Primary Care Unavailable Merrill Sapp Referring Unavailable Merrill Sapp Attending Unavailable Merrill Sapp Primary Care Unavailable Merrill Sapp Attending Unavailable Senait, Merrill Primary Care Unavailable Senait, Merrill Attending Unavailable Senait, Merrill Primary Care Unavailable PEERXAVIER BANEGAS Referring Unavailable SENAIT, MERRILL M Primary Care Unavailable PEERXAVIER BANEGAS Attending Unavailable SELF Referring Unavailable SENAIT, MERRILL M Primary Care Unavailable PEERXAVIER BANEGAS Referring Unavailable SENAIT, MERRILL M Primary Care Unavailable PEERBASSAM, XAVIER Attending Unavailable PEERBASSAM, XAVIER Referring Unavailable SENAIT, MERRILL M Primary Care Unavailable PEERBASSAM, XAVIER Referring Unavailable SENAIT, MERRILL M Primary Care Unavailable PEEREBCYNMXAVIER Referring Unavailable SENAIT, MERRILL M Primary Care Unavailable PEERALISEM, XAVIER Referring Unavailable SENAIT, MERRILL M Primary Care Unavailable PEERBASSAM, XAVIER Attending Unavailable PEERBASSAM, XAVIER Referring Unavailable SENAIT, MERRILL M Primary Care Unavailable SHERINE ADAMS Attending Unavailable XAVIER SIDHU Referring Unavailable SENAIT, MERRILL M Primary Care Unavailable Allergies Allergy Classification Reported Allergen(s) Allergy Type Date of Onset Reaction(s) Facility (20 sources) Acetaminophen / HYDROcodone; Translations: [HYDROCODONE-ACETA MINOPHEN] Drug Allergy 12-28-2011 [facility] (20 sources) Acetaminophen / oxyCODONE; Translations: [OXYCODONE-ACETAMI NOPHEN] Drug Allergy 12-28-2011 [facility] (20 sources) Codeine; Translations: [CODEINE] Drug Allergy 12-28-2011 [facility] (20 sources) Erythromycin; Translations: [ERYTHROMYCIN] Drug Allergy 03-31-2005 [facility] (1 source) Codeine Drug Allergy 02-13-2025 [facility] Repository Medications Current Medications Medication Drug Class(es) Dates Sig (Normalized) Sig (Original) [id number] 200 actuat albuterol 0.09 mg/actuat metered dose inhaler (20 sources) beta2-Adrenergic Agonist Start: 07-22-2020 End: 07-28-2022 Albuterol Sulfate 90 mcg/actuation HFA aerosol inhaler Active INHALATION as needed July 28, 2022 9:02am Complies with drug therapy Start: 07-22-2020 End: 07-28-2022 Albuterol Sulfate Active INHALATION July 28, 2022 9:02am Start: 05-29-2014 take 2 puff(s) by in halation every four hours as needed albuterol HFA (PROAIR HFA) 90 mcg/actuation inhaler Indications: Unspecified asthma, with status asthmaticus Inhale 2 Puffs as instructed every 4 hours as needed. 2 Inhaler 3 05/29/2014 Active Comment on above: Inhale 2 Puffs as in structed every 4 hours as needed. cholecalciferol 0.125 mg oral capsule (1 source) Vitamin D Start: 07-31-19 17 End: 08-17-19 22 take 1 capsule by mouth once daily Cholecalciferol, Vitamin D3, 5,000 unit cap Indications: Vitamin D deficiency Take 1 capsule by mouth once daily. 0 07/30/2016 08/16/2021 Discontinued Comment on above: Take 1 capsule by mo [facility] once daily. cholecalciferol, vitamin D3, (VITAMIN D3 ORAL) (20 sources) take 2000 mg by mouth once daily cholecalciferol, vitamin D3, (VITAMIN D3 ORAL) Take 2,000 mg by mouth once daily. Active take 2000 mg by mouth once daily cholecalciferol, vitamin D3, (VITAMIN D3 ORAL) Take 2,000 mg by mouth once daily. 0 Active Comment on above: Take 2,000 mg by shaylee once daily. COMPOUNDED PRESCRIPTION (20 sources) Start: 12-14-19 13 COMPOUNDED PRESCRIPTION CPAP @ 13 cm of water with humidification. Mask (per patient preference) optional chin strap (if indicated) , filters, tubing, humidifier and lifetime supplies. Dx. QUINTIN 327.23 1 Device 0 12/13/2012 Active Comment on above: CPAP @ 13 cm of wate r with humidification. Mask (per patient preference) optional chin strap (if indicated) , filters, tubing, humidifier and lifetime supplies. Dx. QUINTIN 327.23 fluticasone / salmeterol (20 sources) Corticosteroid, beta2-Adrenergic Agonist take 1 puff(s) by inhalation twice daily as needed fluticasone-salmeter ol (ADVAIR, WIXELA) 250-50 mcg/dose inhaler Inhale 1 Puff as instructed as needed. Uses as needed, originally prescribed as twice daily Active take 1 puff(s) by in halation twice daily as needed fluticasone-salmeterol (ADVAIR, WIXELA) 250-50 mcg/dose inhaler Inhale 1 Puff as instructed as needed. Uses as needed, originally prescribed as twice daily 0 Active take 1 puff(s) by in halation twice daily fluticasone-salmeterol (ADVAIR DISKUS) 2 50-50 mcg/dose inhaler Inhale 1 Puff as instructed twice daily. 0 Active take 1 puff(s) by in halation twice daily fluticasone-salmeterol (ADVAIR DISKUS) 2 50-50 mcg/dose inhaler Inhale 1 Puff as instructed twice daily. 0 Active Comment on above: Inhale 1 Puff as ins tructed twice daily. Inhale 1 Puff as ins tructed as needed. Uses as needed, originally prescribed as twice daily ginseng (3 sources) Start: 02-09-2023 ginseng Active PO February 09, 2023 12:00am Complies with drug therapy Start: 02-09-2023 ginseng Active PO February 09, 2023 12:00am Handicap placard (3 sources) Start: 02-09-[address] Active 0 .Route .MEDSUPPLY 1 0 February 09, 2023 12:00am Primary osteoarthritis of both knees Bilateral primary osteoarthritis of knee 5 year rx [id number] , M17.0 osteoarthritis 5 year rx [id number] Start: 02-09-[address] Active 0 .Route .MEDSUPPLY 1 February 09, 2023 12:00am 5 year rx [id number] iv contrast (will be provided with radiology test) (19 sources) Start: 04-17-2024 iv contrast (w ill be provided with radiology test) 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 If Pt. 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 If Pt. 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 If Pt. has a central line or IVAD, may access for administration according to line specific nursing protocol.Once exam is complete flush line and de-access according to line specific nursing protocol in the MR contrast administration guidelines link 1 Each 03/04/2024 Active Start: 03-04-2024 End: 03-05-2024 inject 1 dose intravenously once, then inject 1 dose intravenously once iv contrast (will be provided with radiology test) Indications: Neurofibromatosis (HCC) MRI C,T,L SPINE Inject, intravenously, once for 1 dose. No IV access, insert saline lock prior to the beginning of sedation, infusion, injection of imaging exam. Discontinue saline lock post exam. If Pt. has a central line or IVAD, may access for administration according to line specific nursing protocol. Once exam is complete flush line and de-access according to line specific nursing protocol in the MR contrast administration guidelines link. 1 Each 03/04/2024 03/05/2024 Active Start: 02-20-2023 End: 02-21-2023 inject 1 dose intravenously once iv contrast (will be provided with radiology test) Indications: Neurofibromatosis (HCC) , Vestibular schwannoma (HCC) MRI Brain Inject, intravenously, once for 1 dose.No IV access, insert saline lock prior to beginning of sedation, infusion, injection of imaging exam.Discontinue saline lock post exam. If Pt. has a central line or IVAD, may access for administration according to line specific nursing protocol.Once exam is complete flush line and de-access according to line specific nursing protocol in the MR contrast administration guidelines link 1 Each 0 02/20/2023 02/21/2023 Active Start: 08-17-2022 End: 08-18-2022 inject 1 dose intravenously once iv contrast (will be provided with radiology test) Indications: Neurofibromatosis (HCC) MRI Brain Inject, intravenously, once for 1 dose.No IV access, insert saline lock prior to beginning of sedation, infusion, injection of imaging exam.Discontinue saline lock post exam. If Pt. has a central line or IVAD, may access for administration according to line specific nursing protocol.Once exam is complete flush line and de-access according to line specific nursing protocol in the MR contrast administration guidelines link 1 Each 0 08/17/2022 08/18/2022 Active Start: 07-13-2022 End: 07-14-2022 iv contrast (will be provide d with radiology test) Indications: Neurofibromatosis (HCC) , NF2 (neurofibromatosis 2) (HCC) MRI C,T,L SPINE Inject, intravenously, once for 1 dose. No IV access, insert saline lock prior to the beginning of sedation, infusion, injection of imaging exam. Discontinue saline lock post exam. If Pt. has a central line or IVAD, may access for administration according to line specific nursing protocol. Once exam is complete flush line and de-access according to line specific nursing protocol in the MR contrast administration guidelines link. 1 Each 0 07/13/2022 07/14/2022 Active Start: 01-10-2022 End: 01-11-2022 inject 1 dose intravenously once iv contrast (will be provided with radiology test) Indications: Vestibular schwannoma (HCC) MRI Brain Inject, intravenously, once for 1 dose.No IV access, insert saline lock prior to beginning of sedation, infusion, injection of imaging exam.Discontinue saline lock post exam. If Pt. has a central line or IVAD, may access for administration according to line specific nursing protocol.Once exam is complete flush line and de-access according to line specific nursing protocol in the MR contrast administration guidelines link 1 Each 0 01/10/2022 01/11/2022 Active Comment on above: MRI Brain Inject, in travenously, once for 1 dose.No IV access, insert saline lock prior to beginning of sedation, infusion, injection of imaging exam.Discontinue saline lock post exam. If Pt. has a central line or IVAD, may access for administration according to line specific nursing protocol.Once exam is complete flush line and de-access according to line specific nursing protocol in the MR contrast administration guidelines link MRI C,T,L SPINE Inje ct, intravenously, once for 1 dose. No IV access, insert saline lock prior to the beginning of sedation, infusion, injection of imaging exam. Discontinue saline lock post exam. If Pt. has a central line or IVAD, may access for administration according to line specific nursing protocol. Once exam is complete flush line and de-access according to line specific nursing protocol in the MR contrast administration guidelines link. lapatinib 250 mg oral tablet (1 source) Kinase Inhibitor Start: End: 022 take 5 tablets by mouth once daily lapatinib (TYKERB) 250 mg tablet Indications: Vestibular schwannoma (HCC) , Sensorineural hearing loss (SNHL) of both ears , NF2 (neurofibromatosis 2) (HCC) Take 5 tablets (1250mg) by mouth once daily. Take on an empty stomach. 150 tablet 2 03/11/2021 08/16/2021 Discontinued Comment on above: Take 5 tablets (1250 mg) by mouth once daily. Take on an empty stomach. MULTIVITAMIN ORAL (20 sources) take 1 capsule by mouth once daily MULTIVITAMIN ORAL Take 1 capsule by mouth once daily. Active take 1 capsule by mouth once sharon ly MULTIVITAMIN ORAL Take 1 capsule by mouth once daily. 0 Active Comment on above: Take 1 capsule by [facility] once daily. Multivitamin preparation (1 source) Start: 02-09-2023 take 1 tablet by mouth once daily Multivitamin Active 1 TABLET PO DAILY February 09, 2023 12:00am Multivitamin tablet (2 sources) Start: 02-09-2023 Multivitamin tablet Active 1 {tbl} PO DAILY February 09, 2023 12:00am Complies with drug therapy Start: 02-09-2023 Multivitamin t ablet Active 1 {tbl} PO DAILY February 09, 2023 12:00am probiotic (3 sources) Start: 02-09-2023 probiotic Acti ve PO February 09, 2023 12:00am Complies with drug therapy Start: 02-09-2023 probiotic Acti ve PO February 09, 2023 12:00am Completed/Discontinued Medications Medication Drug Class(es) Dates Sig (Normalized) Sig (Original) amLODIPine (5 sources) Dihydropyridine Calcium Channel Jean Carlos Start: 03-18-2016 End: 07-28-2022 Amlodipine Besylate (Bulk) 1 GM powder Discontinued 5 g PO DAILY March 18, 2016 12:00am July 28, 2022 9:02am Start: 03-18-2016 End: 07-28-2022 take 5 g by mouth once daily Amlodipine Besylate (Bulk ) Discontinued 5 GM PO DAILY March 18, 2016 12:00am July 28, 2022 9:02am Start: 03-18-2016 take 5 g by mouth once daily A mlodipine Besylate (Bulk) Active 5 GM PO DAILY March 17, 2016 11:00pm Start: 03-18-2016 take 5 g by mouth once daily A mlodipine Besylate (Bulk) Active 5 GM PO DAILY March 18, 2016 12:00am amoxicillin 875 mg / clavulanate 125 mg oral tablet (2 sources) Penicillin-class Antibacterial Start: 10-15-2024 End: 02-13-2025 Amoxicillin-Pot Clavulanate 875-125 mg tablet Discontinued 1 {tbl} PO TWICE A DAY 10 October 15, 2024 12:00am February 13, 2025 10:53am atorvastatin 20 mg oral tablet (20 sources) HMG-CoA Reductase Inhibitor Start: 06-04-2018 End: 06-24-2024 take 1 tablet by mouth once daily Atorvastatin 20 mg tablet Discontinued 20 mg PO DAILY 90 3 August 09, 2023 1:09pm June 24, 2024 4:32pm Start: 03-18-2016 End: 07-05-2021 Lipitor Discontinued Novembe r 2015 11:00pm July 05, 2021 8:44am Start: 03-18-2016 End: 07-05-2021 Lipitor Discontinued Novembe r 2015 12:00am July 05, 2021 9:44am Comment on above: Take 1 tablet by shaylee th daily at bedtime. benzonatate 200 mg oral capsule (5 sources) Non-narcotic Antitussive Start: End: take 1 capsule by mouth three times daily as needed for cough Benzonatate 200 mg capsule Discontinued 200 mg PO THREE TIMES A DAY as needed for cough 60 1 December 23, 2021 12:00am February 14, 2024 2:57pm 4 ml bevacizumab 25 mg/ml injection (14 sources) Vascular Endothelial Growth Factor Inhibitor Start: End: 3 Bevacizumab (Avastin) 25 mg/mL solution Discontinued mg INTRAVIT January 20, 2022 12:00am July 28, 2022 9:03am every 6 weeks End: 07-13-2022 bevacizumab (AVASTIN INTRAVE NOUS) Inject intravenously every 6 weeks. 0 07/13/2022 Discontinued bevacizumab (DENVER STIN INTRAVENOUS) Inject intravenously every 6 weeks. 0 Active Comment on above: Inject intravenously every 6 weeks. clobetasol propionate 0.5 mg/ml topical cream (5 sources) Corticosteroid Start: 07-22-2020 End: 07-28-2022 Clobetasol 0.05 % cream Discontinued g TOPICAL July 22, 2020 1:00am July 28, 2022 9:03am Start: 07-22-2020 End: 07-28-2022 Clobetasol Discontinued GM T OPICAL July 22, 2020 1:00am July 28, 2022 9:03am dexamethasone 6 mg oral tablet (5 sources) Corticosteroid Start: 12-23-2021 End: 07-28-2022 take 1 tablet by mouth once daily Dexamethasone 6 mg tablet Discontinued 6 mg PO DAILY 5 0 December 23, 2021 12:00am July 28, 2022 9:03am guaiFENesin 400 mg oral tablet (5 sources) Start: 12-23-2021 End: 07-28-2022 take 1 tablet by mouth three times daily as needed for cough Guaifenesin 400 mg tablet Discontinued 400 mg PO THREE TIMES A DAY as needed for congestion, cough 30 0 December 23, 2021 12:00am July 28, 2022 9:03am methylPREDNISolone 4 mg oral tablet (4 sources) Corticosteroid Start: 05-26-2022 End: 07-28-2022 take 1 tablet by mouth once Methylprednisolone (Medrol (Ricardo)) 4 mg tablets,dose pack Discontinued 0 PO per package directions 21 0 May 26, 2022 1:00am July 28, 2022 9:03am PO PER PKG DIR montelukast 10 mg oral tablet (20 sources) Leukotriene Receptor Antagonist Start: 07-22-2020 End: 07-05-2021 Montelukast 10 mg tablet Discontinued {tbl} PO July 22, 2020 1:00am July 05, 2021 10:27am Start: 05-29-2014 End: 07-05-2021 take 1 tablet by mouth once daily as needed Montelukast 10 mg tablet Discontinued 10 mg PO DAILY as needed for allergy symptoms 60 1 July 05, 2021 10:26am July 05, 2021 4:17pm Comment on above: Take 1 tablet by shaylee once daily. predniSONE 10 mg oral tablet (8 sources) Start: 2 End: 3 predniSONE (DELTASONE) 10 mg tablet Take by mouth four (4) tabs x3 days; then three (3) tabs x3days; then two (2) tabs x3 days; then one (1) tab a day x3 days 30 tablet 0 03/31/2022 07/13/2022 Discontinued Comment on above: Take by mouth four ( 4) tabs x3 days; then three (3) tabs x3days; then two (2) tabs x3 days; then one (1) tab a day x3 days traZODone hydrochloride 50 mg oral tablet (20 sources) Serotonin Reuptake Inhibitor Start: End: 4 take 1 tablet by mouth twice daily Trazodone 50 mg tablet Discontinued 50 mg PO TWICE A DAY 180 3 August 09, 2023 1:09pm April 16, 2024 5:07pm Start: 07-22-2020 End: 07-05-2021 Trazodone 50 mg tablet Disco ntinued {tbl} PO July 22, 2020 1:00am July 05, 2021 9:45am Start: 06-05-2018 take 2 tablets by mo uth once daily at bedtime traZODone (DESYREL) 50 mg tablet Indications: Insomnia, unspecified type Take 2 tablets by mouth daily at bedtime. 180 tablet 06/05/2018 Active Comment on above: Take 2 tablets by mo uth daily at bedtime. Problems Active Problems Problem Classification Problem Date Documented Date Episodic/Chronic Asthma (20 sources) Mild intermittent asthma; Translations: [Mild intermittent asthma, uncomplicated] 01-12-2016 Chronic Cardiac dysrhythmias (2 sources) Supraventricular tachycardia; Translations: [Supraventricular tachycardia] 02-14-2024 Chronic Chronic kidney disease (20 sources) Chronic kidney disease stage 3; Translations: [CKD (chronic kidney disease) stage 3, GFR 30-59 ml/min] Onset: 03-09-2018 03-09-2018 Chronic Disorders of lipid metabolism (20 sources) Hyperlipidemia; Translations: [Hyperlipidemia, unspecified] Onset: 03-06-2025 01-31-2017 Chronic E Codes: Natural/environment (2 sources) Dog scratch; Translations: [Other contact with dog, initial encounter] 10-15-2024 Episodic Essential hypertension (20 sources) Essential hypertension; Translations: [Essential (primary) hypertension] Onset: 07-30-2016 07-30-2016 Chronic Immunizations and screening for infectious disease (3 sources) Needs influenza immunization; Translations: [Encounter for immunization] Onset: 02-13-2025 04-18-2024 Episodic Nervous system congenital anomalies (20 sources) Neurofibromatosis type 2; Translations: [Neurofibromatosis, type 2] Onset: 02-04-2013 03-07-2018 Chronic Nutritional deficiencies (20 sources) Vitamin D deficiency; Translations: [Vitamin D deficiency, unspecified] Onset: 12-13-2012 12-13-2012 Chronic Osteoarthritis (8 sources) Primary gonarthrosis, bilateral; Translations: [Bilateral primary osteoarthritis of knee] Onset: 02-13-2025 Chronic Other and unspecified benign neoplasm (20 sources) Acoustic neuroma; Translations: [Benign neoplasm of cranial nerves] Onset: 04-21-2016 04-21-2016 Chronic Other and unspecified benign neoplasm (2 sources) Benign neoplasm of cranial nerves; Translations: [Benign neoplasm of cranial nerves] Chronic Other connective tissue disease (4 sources) Muscle pain; Translations: [Myalgia, unspecified site] 05-25-2022 Episodic Other connective tissue disease (2 sources) Myalgia, unspecified site; Translations: [Myalgia and myositis, unspecified] 05-25-2022 Episodic Other ear and sense organ disorders (20 sources) Sensorineural hearing loss, bilateral; Translations: [Sensorineural hearing loss, bilateral] Onset: 03-07-2018 03-07-2018 Chronic Other ear and sense organ disorders (1 source) Asymmetrical sensorineural hearing loss; Translations: [Sensorineural hearing loss, bilateral] Chronic Other ear and sense organ disorders (1 source) Bilateral tinnitus; Translations: [Tinnitus, bilateral] Episodic Other nutritional; endocrine; and metabolic disorders (20 sources) Body mass index 40+ - severely obese; Translations: [Body mass index (BMI) 40.0-44.9, adult] Onset: 01-13-2016 01-13-2016 Chronic Other screening for suspected conditions (not mental disorders or infectious disease) (6 sources) Patient encounter status; Translations: [Encounter for other screening for malignant neoplasm of breast] Onset: 03-07-2025 07-05-2021 Episodic Residual codes; unclassified (20 sources) Obstructive sleep apnea syndrome; Translations: [Obstructive sleep apnea (adult) (pediatric)] Onset: 11-28-2013 05-10-2021 Chronic Residual codes; unclassified (4 sources) Diffuse pain; Translations: [Pain, unspecified] 05-25-2022 Episodic Residual codes; unclassified (2 sources) Pain, unspecified; Translations: [Generalized pain] 05-25-2022 Episodic Unclassified (1 source) Supraventricular tachycardia, unspecified; Translations: [Supraventricular tachycardia, unspecified] Onset: 02-13-2025 Unclassified (1 source) Established Patient Onset: 09-03-2024 Viral infection (6 sources) Disease caused by 2019-nCoV; Translations: [COVID-19] Episodic Past or Other Problems Problem Classification Problem Date Documented Date Episodic/Chronic Malaise and fatigue (20 sources) Malaise and fatigue; Translations: [Other malaise] Onset: 03-07-2018 03-07-2018 Episodic Open wounds of extremities (3 sources) Dog bite of hand; Translations: [Open bite of right hand, initial encounter] Onset: 10-17-2024 10-15-2024 Episodic Other and unspecified benign neoplasm (14 sources) Benign neoplasm of cranial nerve; Translations: [Benign neoplasm of cranial nerves] Onset: 10-31-2011 Resolved: 01-31-2017 01-31-2017 Chronic Other connective tissue disease (14 sources) Plantar fascial fibromatosis; Translations: [Plantar fascial fibromatosis] Onset: 06-21-2005 Resolved: 01-31-2017 01-31-2017 Episodic Other ear and sense organ disorders (20 sources) Hearing loss; Translations: [Unspecified hearing loss, unspecified ear] Onset: 06-24-2013 Resolved: 07-13-2022 06-24-2013 Chronic Other nervous system disorders (20 sources) Abnormal gait; Translations: [Unspecified abnormalities of gait and mobility] Onset: 05-20-2005 05-20-2005 Episodic Other nervous system disorders (20 sources) Facial palsy; 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] Onset: 03-07-2018 03-07-2018 Episodic Residual codes; unclassified (20 sources) Insomnia; Translations: [Insomnia, unspecified] Onset: 01-12-2016 01-12-2016 Episodic Spondylosis; intervertebral disc disorders; other back problems (20 sources) Spinal stenosis in cervical region; Translations: [Spinal stenosis, cervical region] Onset: 05-13-2016 05-13-2016 Episodic Sprains and strains (14 sources) Sprain of foot; Translations: [Unspecified sprain of unspecified foot, initial encounter] Onset: 12-13-2005 Resolved: 01-12-2016 01-12-2016 Episodic Unclassified (5 sources) hx of gamma knife 12-11-2021 Results Test Name Value Interpretation Reference Range Facility MRI BRAIN WO/W IVCONon 03-17 MRI BRAIN WO/W IVCON * * *Final Report* * * DATE OF EXAM: Mar 17 2025 11:21AM WRM [id number] - MRI BRAIN WO/W IVCON / PROCEDURE REASON: NF2 (neurofibromatosis 2) ([facility]) * * * * Physician Interpretation * * * * COMPARISONS: MRI brain from 09/03/2024. HISTORY: Neurofibromatosis 2. TECHNIQUE: MRI brain without and with contrast. MRI perfusion examination. MQ: [id number] CONTRAST: 16 mL Dotarem IV. RESULT: MRI BRAIN and MR PERFUSION: Acute abnormality: None. 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 These do not reveal any elevated CBV on perfusion to suggest neovascularity. Overall appearance remains stable from prior MR. No restricted diffusion concerning for acute ischemia. No susceptibility concerning for acute bleed. Age expected stable sulci, gyri, ventricles, CSF spaces, brain, bones and skull base with mild microvascular ischemia. No collections. On contrast no additional abnormal enhancement in brain or meninges. IMPRESSION: 1. 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 2. Stable senescent microvascular ischemia. 3. Overall stable brain without any acute intracranial abnormality. Sales And Marketing Agent: [facility] COUNTY[facility]elsey Transcribe Date/Time: Mar 17 2025 11:29A Dictated by : KEELEY RODRIGUES MD This examination was interpreted and the report reviewed and electronically signed by: KEELEY RODRIGUES MD on Mar 17 2025 11:32AM EST [id number] N Normal [facility] SCRN MAMM (CAD)W/JIMMY BILATo n 02-25-2025 SCRN MAMM (CAD)W/JIMMY BILAT [facility] Imaging Services [address] [place] [id number] SCRN MAMM (CAD)W/JIMMY BILAT MR#: [id number] Acct: [id number] Name: CLAIRE WHITING Rep #: [id number] : 1955 F 69 From: Homero zambrano MD PCP: Dr. Merrill Sapp MD Status: [facility] Study: SCRN MAMM (CAD)W/JIMMY BILAT Date of Exam: 02/12 09/06 Exam# [id number] Ordering Dr: Merrill Sapp MD EXAM: SCRN MAMM (CAD)W/JIMMY BILAT DATE: 02/25/2025 CLINICAL HISTORY: F, Age 69 y/o , BREAST CANCER SCREENING No family history. Prior right needle breast biopsy as well as left excisional breast biopsy. TECHNIQUE: Procedure Code: BISMWCADBTOM Modality: MG Procedure: SCRN MAMM (CAD)W/JIMMY BILAT COMPARISON: Prior exam(s) dated March 10, 2023.. FINDINGS: TISSUE DENSITY: There are scattered areas of fibroglandular density. Bilateral Breast Mammographic Findings: No significant masses, calcifications or other abnormalities are identified. A tissue clip marker is once again seen in the deep upper medial aspect of the right breast. No suspicious masses, areas of developing architectural distortion, or suspicious calcifications. There has been no significant interval change. BI/SCRN MAMM (CAD)W/JIMMY BILAT IMPRESSION: Stable bilateral screening mammogram. OVERALL FINAL ASSESSMENT BI-RADS 2: BENIGN RECOMMENDATION: Routine annual follow-up in 1 Year Additional Recommendation none A letter with findings and recommendations will be mailed to the patient. Reading Location: [place] [address] CC: Dr. Merrill Sapp MD Sales And Marketing Agent: Signed Normal [facility] CBC W/Diff, Automatedon 10-0 Absolute Lymph 2.13 X10 3/uL Normal 0.83-4.51 [facility] Comment on above: Performed By: #### L 100.0100, L500.4100, L506.1001, L500.4050, L501.9520, L503.0106 #### [facility] [address] [place], [address] Absolute Neut 5.8 X10 3/uL Normal 2.0-7.7 [facility] Comment on above: Performed By: #### L 100.0100, L500.4100, L506.1001, L500.4050, L501.9520, L503.0106 #### [facility] [address] [place], [address] Basophils/100 WBC (Bld) 0.6 % Normal 0-1 [facility] Comment on above: Performed By: #### L 100.0100, L500.4100, L506.1001, L500.4050, L501.9520, L503.0106 #### [facility] [address] [place], [address] Eosinophils/100 WBC (Bld) 3.7 % Normal 0-5 [facility] Comment on above: Performed By: #### L 100.0100, L500.4100, L506.1001, L500.4050, L501.9520, L503.0106 #### [facility] [address] [place], [address] Erythrocyte distribution width (RBC) [Ratio] 13.4 % Normal 11.6-14.6 [facility] Comment on above: Performed By: #### L 100.0100, L500.4100, L506.1001, L500.4050, L501.9520, L503.0106 #### [facility] [address] [place], [address] Hematocrit (Bld) [Volume fraction] 40.0 % Normal 37-47 [facility] Comment on above: Performed By: #### L 100.0100, L500.4100, L506.1001, L500.4050, L501.9520, L503.0106 #### [facility] [address] [place], [address] Hemoglobin (Bld) [Mass/Vol] 13.2 g/dL Normal 12.0-15.0 [facility] Comment on above: Performed By: #### L 100.0100, L500.4100, L506.1001, L500.4050, L501.9520, L503.0106 #### [facility] [address] [place], [address] IG% 0.700 Normal 0.0-0.9 [facility] Comment on above: Result Comment: IG% - Immature Granulocytes (promyelocytes, myelocytes and metamyelocytes) > 1% indicates that a LEFT SHIFT is Present. Performed By: #### L 100.0100, L500.4100, L506.1001, L500.4050, L501.9520, L503.0106 #### [facility] [address] [place], [address] Lymphocytes/100 WBC (Bld) 23.7 % Normal 19-41 [facility] Comment on above: Performed By: #### L 100.0100, L500.4100, L506.1001, L500.4050, L501.9520, L503.0106 #### [facility] [address] [place], [address] MCH (RBC) [Entitic mass] 28.6 pg Normal 27.0-32.0 [facility] Comment on above: Performed By: #### L 100.0100, L500.4100, L506.1001, L500.4050, L501.9520, L503.0106 #### [facility] [address] [place], [address] MCHC (RBC) [Mass/Vol] 33.0 g/dL Normal 32-36 [facility] Comment on above: Performed By: #### L 100.0100, L500.4100, L506.1001, L500.4050, L501.9520, L503.0106 #### [facility] [address] [place], [address] MCV (RBC) [Entitic vol] 86.8 fL Normal 81-99 [facility] Comment on above: Performed By: #### L 100.0100, L500.4100, L506.1001, L500.4050, L501.9520, L503.0106 #### [facility] [address] [place], [address] Monocytes/100 WBC (Bld) 7.0 % Normal 0-10 [facility] Comment on above: Performed By: #### L 100.0100, L500.4100, L506.1001, L500.4050, L501.9520, L503.0106 #### [facility] [address] [place], [address] Neutrophils/100 WBC (Bld) 64.3 % Normal 47-70 [facility] Comment on above: Performed By: #### L 100.0100, L500.4100, L506.1001, L500.4050, L501.9520, L503.0106 #### [facility] [address] [place], [address] Nucleated RBC (Bld) [#/Vol] 0 10*3/uL Normal 0-5 [facility] Comment on above: Performed By: #### L 100.0100, L500.4100, L506.1001, L500.4050, L501.9520, L503.0106 #### [facility] [address] [place], [address] Platelet mean volume (Bld) [Entitic vol] 9.9 fL Normal 6.2-12.0 [facility] Comment on above: Performed By: #### L 100.0100, L500.4100, L506.1001, L500.4050, L501.9520, L503.0106 #### [facility] [address] [place], [address] Platelets (Bld) [#/Vol] 300 10*3/uL Normal 150-450 [facility] Comment on above: Performed By: #### L 100.0100, L500.4100, L506.1001, L500.4050, L501.9520, L503.0106 #### [facility] [address] [place], [address] RBC (Bld) [#/Vol] 4.61 10*6/uL Normal 4.2-5.4 [facility] Comment on above: Performed By: #### L 100.0100, L500.4100, L506.1001, L500.4050, L501.9520, L503.0106 #### [facility] [address] [place], [address] RDW SD 42.4 fl Normal 35.1-43.9 [facility] Comment on above: Performed By: #### L 100.0100, L500.4100, L506.1001, L500.4050, L501.9520, L503.0106 #### [facility] [address] [place], [address] WBC (Bld) [#/Vol] 9.0 10*3/uL Normal 4.4-11.0 [facility] Comment on above: Performed By: #### L 100.0100, L500.4100, L506.1001, L500.4050, L501.9520, L503.0106 #### [facility] [address] [place], [address] Comprehensive Metabolic Prof [facility] 02-20-2025 Albumin [Mass/Vol] 4.1 g/dL Normal 3.4-4.8 [facility] Comment on above: Performed By: #### L 100.0100, L500.4100, L506.1001, L500.4050, L501.9520, L503.0106 #### [facility] [address] [place], [address] Albumin/Globulin [Mass ratio] 1.3 {ratio} Normal 0.9-2.4 [facility] Comment on above: Performed By: #### L 100.0100, L500.4100, L506.1001, L500.4050, L501.9520, L503.0106 #### [facility] [address] [place], [address] ALK PHOS 108 U/L High 35-104 [facility] Comment on above: Performed By: #### L 100.0100, L500.4100, L506.1001, L500.4050, L501.9520, L503.0106 #### [facility] [address] [place], [address] ALT [Catalytic activity/Vol] 8 U/L Normal <=34 [facility] Comment on above: Performed By: #### L 100.0100, L500.4100, L506.1001, L500.4050, L501.9520, L503.0106 #### [facility] [address] [place], [address] AST [Catalytic activity/Vol] 18 U/L Normal <=31 [facility] Comment on above: Performed By: #### L 100.0100, L500.4100, L506.1001, L500.4050, L501.9520, L503.0106 #### [facility] [address] [place], [address] Bilirubin [Mass/Vol] 0.50 mg/dL Normal 0.00-1.30 [facility] Comment on above: Performed By: #### L 100.0100, L500.4100, L506.1001, L500.4050, L501.9520, L503.0106 #### [facility] [address] [place], [address] BUN/CRE 16.3 RATIO Normal 10-20 [facility] Comment on above: Performed By: #### L 100.0100, L500.4100, L506.1001, L500.4050, L501.9520, L503.0106 #### [facility] [address] [place], [address] Calcium [Mass/Vol] 9.1 mg/dL Normal 7.6-11.0 [facility] Comment on above: Performed By: #### L 100.0100, L500.4100, L506.1001, L500.4050, L501.9520, L503.0106 #### [facility] [address] [place], [address] Chloride [Moles/Vol] 106 mmol/L Normal 98-108 [facility] Comment on above: Performed By: #### L 100.0100, L500.4100, L506.1001, L500.4050, L501.9520, L503.0106 #### [facility] [address] [place], [address] CO2 [Moles/Vol] 26.6 mmol/L Normal 21.0-32.0 [facility] Comment on above: Performed By: #### L 100.0100, L500.4100, L506.1001, L500.4050, L501.9520, L503.0106 #### [facility] [address] [place], [address] Creatinine [Mass/Vol] 1.01 mg/dL Normal 0.70-1.20 [facility] Comment on above: Performed By: #### L 100.0100, L500.4100, L506.1001, L500.4050, L501.9520, L503.0106 #### [facility] [address] [place], [address] GAP 9 Normal 5-15 [facility] Comment on above: Performed By: #### L 100.0100, L500.4100, L506.1001, L500.4050, L501.9520, L503.0106 #### [facility] [address] [place], [address] GFR/1.73 sq M.predicted among non-blacks MDRD (S/P/Bld) [Vol rate/Area] 60 mL/min/{1.73_m2} Normal >60 [facility] Comment on above: Result Comment: mL/m in/1.73m2 CKD-EPI Creatinine Equation (2020) Performed By: #### L 100.0100, L500.4100, L506.1001, L500.4050, L501.9520, L503.0106 #### [facility] [address] [place], [address] Globulin (S) [Mass/Vol] 3.2 g/dL Normal 2.2-4.2 [facility] Comment on above: Performed By: #### L 100.0100, L500.4100, L506.1001, L500.4050, L501.9520, L503.0106 #### [facility] [address] [place], [address] Glucose [Mass/Vol] 101 mg/dL High 70-99 [facility] Comment on above: Performed By: #### L 100.0100, L500.4100, L506.1001, L500.4050, L501.9520, L503.0106 #### [facility] [address] [place], [address] Potassium [Moles/Vol] 5.0 mmol/L Normal 3.3-5.1 [facility] Comment on above: Performed By: #### L 100.0100, L500.4100, L506.1001, L500.4050, L501.9520, L503.0106 #### [facility] [address] [place], [address] Sodium [Moles/Vol] 141 mmol/L Normal 133-145 [facility] Comment on above: Performed By: #### L 100.0100, L500.4100, L506.1001, L500.4050, L501.9520, L503.0106 #### [facility] [address] [place], [address] T PROT 7.3 g/dL Normal 5.9-8.4 [facility] Comment on above: Performed By: #### L 100.0100, L500.4100, L506.1001, L500.4050, L501.9520, L503.0106 #### [facility] [address] [place], [address] Urea nitrogen [Mass/Vol] 17 mg/dL Normal 4-19 [facility] Comment on above: Performed By: #### L 100.0100, L500.4100, L506.1001, L500.4050, L501.9520, L503.0106 #### [facility] [address] [place], [address] Lipid Profileon 02-20-2025 CHOL:HDL 3.21 Normal [facility] Comment on above: Performed By: #### L 100.0100, L500.4100, L506.1001, L500.4050, L501.9520, L503.0106 ####[facility] [address] [place], [address] Cholesterol [Mass/Vol] 179 mg/dL Normal <=200 [facility] Comment on above: Result Comment: Chol esterol level, Desirable <200 mg/dL Borderline high cholesterol 200-239 mg/dL High cholesterol >=240 mg/dL Recommendations of the NCEP Adult Treatment Panel for the following risk-cutoff thresholds for the [place] population. Performed By: #### L 100.0100, L500.4100, L506.1001, L500.4050, L501.9520, L503.0106 ####[facility] [address] [place], [address] Cholesterol in HDL [Mass/Vol] 56 mg/dL Normal [facility] Comment on above: Result Comment: Yesenia onal Cholesterol Education Program (NCEP) guidelines: <40 mg/dL: Low HDL-cholesterol (major risk factor for CHD) >= 60 mg/dL: High HDL-cholesterol (negative risk factor for CHD) HDL-cholesterol is affected by a number of factors, e.g. smoking, exercise, hormones, sex and age. Performed By: #### L 100.0100, L500.4100, L506.1001, L500.4050, L501.9520, L503.0106 ####[facility] [address], [address] Cholesterol in LDL [Mass/Vol] 93 mg/dL Normal [facility] Comment on above: Result Comment: Bord ftsbqh=116-756 mg/dL Higher Pnhx=831 mg/dL or greater Friedwald Equation for LDL-C Performed By: #### L 100.0100, L500.4100, L506.1001, L500.4050, L501.9520, L503.0106 ####[facility] [address] [place], [address] Cholesterol in VLDL [Mass/Vol] 30 mg/dL Normal 5-40 [facility] Comment on above: Performed By: #### L 100.0100, L500.4100, L506.1001, L500.4050, L501.9520, L503.0106 ####[facility] [address], [address] Triglyceride [Mass/Vol] 150 mg/dL Normal [facility] Comment on above: Result Comment: The drugs N-Acetylcysteine and Metamizole may falsely depress this assay. Normal range: <150 mg/dL Borderline High: 150-199 mg/dL High: 200-499 mg/dL Very High: >500 mg/dL Performed By: #### L 100.0100, L500.4100, L506.1001, L500.4050, L501.9520, L503.0106 ####[facility] [address] [place], [address] Thyroid Stim Hormone (TSH)on 02-20-2025 TSH 2.790 uIU/mL Normal 0.300-4.200 [facility] Comment on above: Performed By: #### L 100.0100, L500.4100, L506.1001, L500.4050, L501.9520, L503.0106 #### [facility] [address] [place], [address] Vitamin B12on 02-20-2025 Cobalamin (Vitamin B12) [Mass/Vol] 882 pg/mL Normal 180-914 [facility] Comment on above: Performed By: #### L 100.0100, L500.4100, L506.1001, L500.4050, L501.9520, L503.0106 #### [facility] [address] [place], [address] Vitamin D,25 Hydroxyon 02-20 Vitamin D 25-OH 31.9 ng/mL Normal 30-100 [facility] Comment on above: Result Comment: Rahel min D Status Deficiency: <20 ng/mL (50nmol/L) Insufficiency: 20-30 ng/mL (50-75 nmol/L) Sufficiency: 30-100 ng/mL (75-250 nmol/L) Toxicity: >100 ng/mL (>250 nmol/L) Performed By: #### L 100.0100, L500.4100, L506.1001, L500.4050, L501.9520, L503.0106 #### [facility] [address] [place], [address] MR/BMS.Bon 02-13-2025 MR/BMS.B [facility] [address] [place] [address] OFFICE VISIT Date of Service: 02/13/25 MR#: [id number] Acct: [id number] Name: CLAIRE WHITING Rep #: [id number] : 1955 Provider: Dr. Merrill leong MD Age/Sex: 69/F Location: 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 Accompanied by: Is patient in pain?: No Allergies codeine Adverse Reaction (Mild, Verified 02/13/25 10:52) Nausea Medications ???Medication ???Instructions ???Recorded ???Confirmed ???Type montelukast 10 mg tablet 10 mg PO DAILY PRN allergy 2 2 02/13/25 Rx symptoms #90 tabs albuterol sulfate 90 mcg/actuation inhalation PRN 07/28/22 02/13/25 History aerosol inhaler Handicap placard #1 ea 02/09/23 02/13/25 Rx ginseng PO 02/09/23 02/13/25 History multivitamin 1 tab PO DAILY 02/09/23 02/13/25 H istory probiotic PO 02/09/23 02/13/25 History trazodone 50 mg tablet 50 mg PO BID #180 tabs 04/16/24 Rx atorvastatin 20 mg tablet 20 mg PO DAILY #90 tabs 06/24/24 1 Rx Have you fallen in the past year?: No PFSH Medical History Need for influenza vaccination SVT (supraventricular tachycardia) COVID hx of gamma knife Asthma High cholesterol NF2 (neurofibromatosis 2) Surgical History Hx of hysterectomy Family History Other Diabetes Heart disease Social History household members: spouse Smoking Status: Never smoker alcohol intake: never substance use type: does not use HPI HPI Chief Complaint: No acute concerns Details: CLAIRE WHITING, is a 69 F who presents to the office today for annual follow-up. Overall patient states she has been. She has no new specific concerns or issues. She has been getting twice yearly MRI. She has a history of neurofibromatosis, bilateral acoustic neuromas. They have been stable issues. 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 High cholesterol for which she is taking atorvastatin 20 mg daily for primary prevention long-term. She is on trazodone which has been stable. Otherwise multivitamin, ginseng, probiotic [id number]. Review of systems per chart. Denies any chest pain, chest pains, shortness of breath wheeze cough or congestion. No fever or chills. No nausea or vomiting. Appetite has been stable. No change in bowel movements. No dysuria, urgency or frequency. No significant nocturia symptoms. No urinary incontinence. Due for mammogram. States she has been having some difficulty with her CPAP. Was previously initially initiated by Dr. Barrett. Her DME supplier is all at [facility]. She states she believes the machine is about 5 years old. She states when it is turned on, it wants to shut off on its own within about 10 minutes. When she turns it back on again it seems to be fine she states so she is not sure what is going on with that. Have asked her to reach out to her DME provider. If it needs replaced they can update us if needed. Physical exam. Vital signs on chart. PERRLA. Sclera are clear. TMs are unremarkable with normal light reflexes. Canals are unremarkable. Left hearing appliance. Posterior pharynx is unremarkable. No cervical or supraclavicular lymph nodes enlarged or tender. No clear thyromegaly. No thyroid nodules readily palpable. Lungs are without wheeze, rhonchi, rales. No E/A changes are heard. Heart is regular. Not tachycardic. No clear murmur, rub, or gallop is identified. The abdomen is soft. Bowel sounds are present. Nontender nondistended abdomen. No clear palpable masses in the abdomen. No significant leg edema. Cranial nerve examination 2 through 12 are grossly unremarkable nonlateralizing. No obvious rashes. ROS Const Constitutional: No body ache, chills, excessive sweating, fatigue, fever(s), frequent falls, headache(s), snoring, weakness or change in appetite Eyes Eyes: No blurry vision, change in vision, eye pain or Light sensitivity ENT ENT: No abnormal hearing, ear or mastoid pain, tinnitus, nasal congestion, headache(s), neck pain or sore throat Resp Respiratory: No cough, shortness of breath, snoring or wheezing Cardio Cardiology: No chest pain at rest, chest pain (more content not included)... Normal [facility] Emergency Department Summary on 10-15-2024 Emergency Department Summary [facility] Medical Records Department [address] [place] [address] Emergency Department Summary 10/15/24 MR#: [id number] Acct: [id number] Name: CLAIRE WHITING Rep #: [id number] : 1955 69 From: Asaf Haskins MD PCP: Dr. Merrill Sapp MD Status:REG ER Location: ED HPI History of Present Illness Chief Complaint: Bite Narrative Narrative: 69-year-old female past medical history of neurofibromatosis 2, presents with injury to her right hand and her right lower extremity. She states she was out walking her dog when one of the neighbors dogs came out of nowhere and tried to attack her dog. She got tangled up and spun around. She says Andreas does scratch versus a bite to her right lower extremity on the anterior tibial area near her ankle. She also experienced a dog bite to her right hand on the thenar eminence. She states her shoulders are sore bilaterally. She did not fall and hit her head. There was no loss of consciousness. This happened approximately 2 hours prior to arrival. She is unsure of her last tetanus immunization. While she states she has sore shoulders, she can move them around. She was able to get up and ambulate independently. She complains of right hand soreness and the linear abrasion to her right lower leg. [facility] Medical History Need for influenza vaccination SVT (supraventricular tachycardia) COVID hx of gamma knife Asthma High cholesterol NF2 (neurofibromatosis 2) Home Medications ???Medication ???Instructions ???Recorded ???Last Taken ???Type montelukast 10 mg tablet 10 mg PO DAILY PRN allergy 2 Unknown Rx symptoms #90 tabs albuterol sulfate 90 mcg/actuation inhalation PRN 07/28/22 Unknown History aerosol inhaler Handicap placard #1 ea 02/09/23 Unknown Rx ginseng PO 02/09/23 Unknown History multivitamin 1 tab PO DAILY 02/09/23 Unknown Hi story probiotic PO 02/09/23 Unknown History trazodone 50 mg tablet 50 mg PO BID #180 tabs 04/16/24 Un known Rx atorvastatin 20 mg tablet 20 mg PO DAILY #90 tabs 06/24/24 U nknown Rx amoxicillin 875 mg-potassium 1 tab PO BID #10 tabs 10/15/24 Unk nown Rx clavulanate 125 mg tablet Allergy/AdvReac Type Severity Reaction Status Date / Time codeine AdvReac Mild Nausea Verified 10/15/24 15:13 Family History Other Diabetes Heart disease Surgical History Hx of hysterectomy Social History household members: spouse Smoking Status: Never smoker alcohol intake: never substance use type: does not use ROS ROS ED ROS Narrative Was positive for dog bite to right hand and scratch versus bite to right lower extremity. Positive shoulder soreness. No hitting of head, no loss of consciousness. EXAM Physical Exam Narrative Exam Narrative: GCS 15. ABCs are intact. PERRL, EOMI. Cardiovascular examination regular rate and rhythm. Lungs are clear to auscultation bilaterally. Abdomen soft nontender with positive bowel sounds. Neurological examination is nonfocal, nonlateralizing, able to ambulate in the ED. Able to raise arms above head without difficulty. Inspection of the right hand does show small puncture wound to the thenar eminence. Able to oppose thumb. No active bleeding. Positive linear abrasion approximately 3 cm anterior tibial surface/anterior ankle without active bleeding, not gaping. Const Vital Signs: 10/15/24 15:14 Temperature 97.7 F L Temperature Source Temporal Pulse Rate 84 Respiratory Rate 18 Blood Pressure 162/100 H Blood Pressure Mean 120 Pulse Ox 97 Oxygen Delivery Method Room Air MDM MDM MDM Narrative Medical decision making narrative: Differential diagnosis includes but not limited to dog bite causing contusion to right hand versus underlying fracture. Patient was concerned because it is a neighborhood dog, but they were told that rabies vaccination is not current. She was told of the low incidence of rabies in a domesticated animal, and additionally the animal in question can be watched and quarantined. X-rays of the right hand interpreted by myself independently shows no evidence of acute osseous abnormality. I reviewed the radiology report which confirms my independent interpretation. I do not feel that she needs x-rays of the shoulders as I have very low suspicion for dislocation and she has full range of motion and only describes soreness, there is no bony tenderness. Her wounds were cleansed and dressed. As there are only small wounds on her hand, I discussed with her the possibility of infection and advised not to close any wounds regardless. She was given her first d (more content not included)... Normal [facility] Hand Min 3 Viewson Hand Min 3 Views [facility] [address], [place] [id number] Hand Min 3 Views MR#: [id number] Acct: [id number] Name: CLAIRE WHITING Rep #: [id number] : 1955 F 69 From: Eddie Cortes MD PCP: Dr. Merrill Sapp MD Status: REG ER Study: Hand Min 3 Views Date of Exam: 10/15/24 Exam# [id number] Ordering Dr: Asaf Haskins MD PROCEDURE: HAND MIN 3 VIEWS 10/15/2024 REASON FOR EXAM: Dog bite. TECHNIQUE: Three (3) view(s) of the right hand. COMPARISON: No relevant prior FINDINGS: Bones: Degenerative changes at the 1st carpometacarpal joint. No fractures, dislocations, or subluxations. Joints: Unremarkable. Soft tissues: Unremarkable. Other: Other significant findings. RAD/Hand Min 3 Views IMPRESSION: Degenerative changes at the 1st carpometacarpal joint. No acute osseous abnormalities. Reading Location: [place] [address] CC: Dr. Asaf Haskins MD; Dr. Merrill Sapp MD Sales And Marketing Agent: Signed Normal [facility] CNOVon 09-03-2024 CNOV Office Visit (NSCAMN ) CLAIRE WHITING ([id number]) 1955 F Date Time Provider Department 09/03/24 3:00 PM XAVIER SIDHU [facility] During your visit today, we recorded the following information about you: Temperature Pulse Respiration Blood pressure 98.1 degrees 74/minute 18/minute 149/82 Weight 79.5 kg Xavier Sidhu MD 09/06/2024 6:55 AM Signed [facility] CLINICAL NOTE [facility] Solid Tumor Oncology PATIENT NAME: Claire Whiting CLINIC NO.: [id number] ATTENDING PHYSICIAN: Xavier Sidhu MD DATE OF SERVICE: September 03, 2024 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 Right sided lesion measuring 1.0 x 1.4 cm, left sided lesion measuring 1.3 x 0.7 cm. Audiogram on 09/19/11 showed mild hearing loss on the left. Dec 2011: stereotactic radiosurgery (Gamma knife) right Feb 2013: stereotactic radiosurgery (Gamma knife) left Aug 2013: Began 3-month course of bevacizumab for progressive left hearing loss Jul 2014: Restarted bevacizumab with notable improvement in hearing. Jan 2015: Johnson stopped and hearing improvement maintained for 8 months September 2015: Hearing worse treated with steroids with improvement Nov 2015: Hearing began to decline and she restarted steroids. Dec 2015: Began bevacizumab. Mar 2016: Progressive disease clinically in face of MRI improvement. Johnson stopped per patient preference Mar 2021: Restarted bevacizumab. May 2022: Johnson stopped due to intolerance (arthralgias, myalgias). CURRENT MANAGEMENT: Surveillance SUBJECTIVE: January 05, 2016 - Accompanied today by: spouse. Currently, the patient reports stable hearing loss on the left side, wears a hearing aid, stable imbalance sensation/continues to use a cane; no falls, improved left facial droop. Of note, she has trouble with balance and uses a cane intermittently or hangs on to her for support when walking. Frequently stumbles. No recent falls. In addition she noticed her short term memory loss has worsened since she started treatment. Patient denies ARORA, weakness, numbness, difficulty walking, difficulty using arms, syncope, seizures, speech difficulty, vision difficulty. No fevers/chills or other constitutional symptoms. April 21, 2016 - Here for follow up. For past 6 weeks she has had worsening LE (R>L) numbness with weakness necessitating transition from cane to walker. Several falls without injury. Hearing went away 5 days ago and restarted prednisone on her own. She now takes 20 mg q am and feels the hearing is returning to level 6 days ago. States that it feels like she has sand in her shoes. Feels exhausted and had HTN necessitating antihypertensives. In fact she had HTNsive crisis with ARORA and BP 260/130. With these effects and the loss of hearing, she does not want further bevacizumab. Progress notes from intervening providers: 09/28/18 - She presents today with her for follow-up with new MRI brain and spine for review. She complains of sharp, shooting, non radiating pain on the right frontal side of her head, occurring multiple times a day and lasting 5 to 30 seconds each time. The head pain started back in August and has become more frequent throughout the day. She has not tried taking medication for the pain. She continues to have numbness and tingling (Neuropathy) in bilateral feet and issues with balance. She uses a cane to ambulate and denies any falls. Does admit to 4/10 lower back pain that is worse in the morning and gets better throughout the day. She has since stopped taking the Ritalin for fatigue, and states she did not notice a difference in her fatigue. She is otherwise doing well. 03/09/20 - Here today via VIRTUAL VISIT for follow-up and new imaging to review. Since her last visit, she notes her fatigue has improved. She continues to have headaches, neuropathy, and balance issues, ambulating with a cane. Otherwise she is doing well and denies any new concerns or complaints. 12/29/20 - Presents today unaccompanied via VIRTUAL VISIT for follow-up with new MRI brain for review. Last seen by me 03/09/20; today she states her balance has continued to worsen. She notes gradual decrease even over the last 3 months. She continues to ambulate with a cane. February 02, 2021 - Last seen by me 04/21/16. Has worsened balance; when she stands up from chair she easily falls back. Ambulates with a cane. Has twitching in face - right and left, lateral to chin with numbness/tingling right upper lip. Deaf in right ear (more content not included)... Normal [facility] Office Visit (CDISMN ) CLAIRE WHITING ([id number]) 1955 F Date Time Provider Department 09/03/24 11:30 [facility] today, we recorded the following information about you: Sherine Adams AUD 09/06/2024 8:32 AM Signed [facility] Surgical [place] [facility] Department Section of Audiology AUDIOLOGIC EVALUATION REPORT Name: Claire Von Whiting [facility]#: [id number] Date of Service: 09/03/2024 Date of : 1955 Age: [age] year old Referred by: Xavier Sidhu MD Referred for: Evaluation of suspected change in hearing, tinnitus, or balance. Referral documented: In an order in [facility] Patient's major complaints: Re-test hearing bilateral Claire Longoria Henok was seen for recheck audiologic evaluation. 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 Previous audiologic evaluation conducted on 03/31/2022 indicated moderately-severe sloping to profound hearing loss in the right ear and moderate sloping to severe sensorineural hearing loss in the left ear. Patient currently utilizes hearing aids fit at [facility] in [place] 3 years ago. The following history was obtained by way of patients previous medical record and direct patient interview: Hearing loss: No change in hearing. Tinnitus:constant bilateral tinnitus Dizziness: balance concerns, however denied true vertigo. Of note, utilizes a cane to ambulate. Otalgia: Denied Otorrhea:Denied Aural Pressure: Denied Noise Exposure: Denied Family History of Hearing Loss: Denied History of ear infections: Denied Otologic Surgical History: Denied History of chemotherapy/ radiation: History is significant for gamma knife radiation in 2011 and 2013 Head trauma: Denied Hearing Aid Use: Utilizes monaural right hearing aid from [employer] in [place] 3 years ago. Refer to audiogram under Procedures tab for results. Risk of Falls Documentation for over 65 years old: No history of falls reported so minimal to no risk IMPRESSIONS RIGHT EAR: Sensorineural hearing loss LEFT EAR: Sensorineural hearing loss Comparison of today's results with previous test results (03/31/2022): Today's results reveal no significant change in both ears. NOTE: A decrease of 20 dB HL at any one test frequency, a decrease of 10 dB HL at any two adjacent test frequencies, or a loss of response at three consecutive frequencies where responses were previously obtained is considered a significant change per JOSE EDUARDO 1994 guidelines. AUDIOLOGIC EVALUATION Following is a brief interpretation of the obtained findings from the audiologic evaluation. Refer to the Auditory Test Record for complete audiometric results. The patient was counseled about the test findings and appropriate audiologic recommendations were made. SUMMARY: Audiogram can be viewed under Procedures tab. OTOSCOPY RIGHT EAR: Otoscopic inspection revealed ear canal was clear with an identifiable cone of light. LEFT EAR: Otoscopic inspection revealed ear canal was clear with an identifiable cone of light. TYMPANOMETRY Description of procedure: This test is an objective evaluation of middle ear function. CPT code: 20966 RIGHT EAR: Did not test. LEFT EAR: Did not test. ACOUSTIC REFLEXES Description of procedure: This test is an objective measure of auditory and facial nerve pathways. CPT code: 41412, 79919 RIGHT EAR PROBE EAR: (ipsi right stimulus ear; contralateral left stimulus ear): Acoustic Reflex Pattern Did not test Acoustic Reflex Decay (left stimulus ear): Did not test. LEFT EAR PROBE EAR: (ipsi left stimulus ear; contralateral right stimulus ear): Acoustic Reflex Pattern Did not test Acoustic Reflex Decay (right stimulus ear):Did not test. PURE TONE AUDIOMETRY AND SPEECH TESTING Description of procedure: This test is an objective evaluation hearing sensitivity via air and bone conduction and speech recognition testing. CPT code:00804 RIGHT EAR: Hearing Sensitivity: Severe to profound SNHL. No audible AC responses obtained at the level of the equipment. No BC responses obtained at the limits for the equipment 750-8000 Hz. Masked bone conduction documented on previous audiogram from outside facility (12/13/2021), no responses at the limits of the equipment. See scanned docs for results/above. Word Recognition Score: WRS deferred due to inability to obtain SRT/SAT. NR at 110 dB HL. LEFT EAR: Hearing Sensitivity: Mild at 125 Hz sloping to severe at 8000 Hz. Word Recognition Score: Poor (62%). WRS is consistent with hearing sensitivity. Words were presented at 95 dB HL which is above (greater than or equal to 60 dB HL) intensity level for average conversational speech. The NU-6 Word List (25 words) was used. and Contralateral masking was used. RECOMMENDATIONS * Continue medical follow-up with (more content not included)... Normal [facility] MR Brain WO and W contrast I Von 09-03-2024 IMPRESSION: * Bilateral presumed vestibular schwannomas, unchanged since 02/23/2024. * No acute intracranial abnormality. No new lesion. Chronic changes as described. Sales And Marketing Agent: MARLI Transcribe Date/Time: Sep 03 2024 1:26P Dictated by : FESTUS WOODWARD MD This examination was interpreted and the report reviewed and electronically signed by: KATY SAWYER MD on Sep 03 2024 4:12PM [facility] DIVISION OF RADIOLOGY * * *Final Report* * * DATE OF EXAM: Sep 03 2024 1:21PM [facility] 0295 - MRI BRAIN WO/W IVCON / PROCEDURE REASON: NF2 (neurofibromatosis 2) (HCC) * * * * Physician Interpretation * * * * EXAMINATION: MRI BRAIN WO/W IVCON HISTORY: Neurofibromatosis type II. Vestibular schwannomas, presumed. Surveillance study. TECHNIQUE: Routine brain MRI protocol without and with contrast including diffusion and perfusion images. MQ: MRBWOW_2 Contrast: 15 mL Dotarem IV COMPARISON: MR brain dated 02/23/2024 RESULT: Acute Change: No acute intracranial process. Hemorrhage: No parenchymal hemorrhage on susceptibility weighted images. Mass Lesion / Mass Effect: Two homogenously enhancing masses at the bilateral cerebellopontine angles extending into the internal auditory canal, larger on the left compared to the right. The mass on the left measures approximately 12 x 15 x 12 mm (AP x TV x CC), and the mass on the right measures 7 x 11 x 7 mm (AP x TV x CC). Utilizing the 3-D coefficient technique, no significant interval change. Elsewhere, no new parenchymal, dural, or leptomeningeal leptomeningeal enhancement. No extra-axial collection. No midline shift. Perfusion: Suspected mildly increased CBV perfusion parameter along the bilateral enhancing lesions along the internal auditory canals. No definite perfusion abnormality. Chronic Change: Punctate T2/FLAIR hyperintensities in the supratentorial white matter. Parenchyma: Mild parenchymal volume loss for age. Ventricles: Ventricular enlargement concordant with the degree of parenchymal volume loss. Skull Base: Grossly normal pituitary region. Unremarkable craniocervical junction. No marrow replacing process. Vasculature: Patent major intracranial arterial structures and dural venous sinuses. Other: Grossly clear imaged paranasal sinuses. Clear mastoid air cells. Bilateral lens replacements. Unremarkable extracranial soft tissues. DIVISION OF RADIOLOGY Provider, [facility] - 09/03/2024 * * *Final Report* * * DATE OF EXAM: Sep 03 2024 1:21PM [facility] 0295 - MRI BRAIN WO/W IVCON / PROCEDURE REASON: NF2 (neurofibromatosis 2) (HCC) * * * * Physician Interpretation * * * * EXAMINATION: MRI BRAIN WO/W IVCON HISTORY: Neurofibromatosis type II. Vestibular schwannomas, presumed. Surveillance study. TECHNIQUE: Routine brain MRI protocol without and with contrast including diffusion and perfusion images. MQ: MRBWOW_2 Contrast: 15 mL Dotarem IV COMPARISON: MR brain dated 02/23/2024 RESULT: Acute Change: No acute intracranial process. Hemorrhage: No parenchymal hemorrhage on susceptibility weighted images. Mass Lesion / Mass Effect: Two homogenously enhancing masses at the bilateral cerebellopontine angles extending into the internal auditory canal, larger on the left compared to the right. The mass on the left measures approximately 12 x 15 x 12 mm (AP x TV x CC), and the mass on the right measures 7 x 11 x 7 mm (AP x TV x CC). Utilizing the 3-D coefficient technique, no significant interval change. Elsewhere, no new parenchymal, dural, or leptomeningeal leptomeningeal enhancement. No extra-axial collection. No midline shift. Perfusion: Suspected mildly increased CBV perfusion parameter along the bilateral enhancing lesions along the internal auditory canals. No definite perfusion abnormality. Chronic Change: Punctate T2/FLAIR hyperintensities in the supratentorial white matter. Parenchyma: Mild parenchymal volume loss for age. Ventricles: Ventricular enlargement concordant with the degree of parenchymal volume loss. Skull Base: Grossly normal pituitary region. Unremarkable craniocervical junction. No marrow replacing process. Vasculature: Patent major intracranial arterial structures and dural venous sinuses. Other: Grossly clear imaged paranasal sinuses. Clear mastoid air cells. Bilateral lens replacements. Unremarkable extracranial soft tissues. IMPRESSION IMPRESSION: * Bilateral presumed vestibular schwannomas, unchanged since 02/23/2024. * No acute intracranial abnormality. No new lesion. Chronic changes as described. Sales And Marketing Agent: MARLI Transcribe Date/Time: Sep 03 2024 1:26P Dictated by : FESTUS WOODWARD MD This examination was interpreted and the report reviewed and electronically signed by: KATY SAWYER MD on Sep 03 2024 4:12PM EST [facility] Radiology Study observation (narrative) [facility] MR Brain WO and W contrast I VOrdered By: [facility]cf Provider on 09-03-2024 [facility] MRI BRAIN WO/W IVCONon 09-03 MRI BRAIN WO/W IVCON * * *Final Report* * * DATE OF EXAM: Sep 03 2024 1:21PM [facility] 0295 - MRI BRAIN WO/W IVCON / PROCEDURE REASON: NF2 (neurofibromatosis 2) (HCC) * * * * Physician Interpretation * * * * EXAMINATION: MRI BRAIN WO/W IVCON HISTORY: Neurofibromatosis type II. Vestibular schwannomas, presumed. Surveillance study. TECHNIQUE: Routine brain MRI protocol without and with contrast including diffusion and perfusion images. MQ: MRBWOW_2 Contrast: 15 mL Dotarem IV COMPARISON: MR brain dated 02/23/2024 RESULT: Acute Change: No acute intracranial process. Hemorrhage: No parenchymal hemorrhage on susceptibility weighted images. Mass Lesion / Mass Effect: Two homogenously enhancing masses at the bilateral cerebellopontine angles extending into the internal auditory canal, larger on the left compared to the right. The mass on the left measures approximately 12 x 15 x 12 mm (AP x TV x CC), and the mass on the right measures 7 x 11 x 7 mm (AP x TV x CC). Utilizing the 3-D coefficient technique, no significant interval change. Elsewhere, no new parenchymal, dural, or leptomeningeal leptomeningeal enhancement. No extra-axial collection. No midline shift. Perfusion: Suspected mildly increased CBV perfusion parameter along the bilateral enhancing lesions along the internal auditory canals. No definite perfusion abnormality. Chronic Change: Punctate T2/FLAIR hyperintensities in the supratentorial white matter. Parenchyma: Mild parenchymal volume loss for age. Ventricles: Ventricular enlargement concordant with the degree of parenchymal volume loss. Skull Base: Grossly normal pituitary region. Unremarkable craniocervical junction. No marrow replacing process. Vasculature: Patent major intracranial arterial structures and dural venous sinuses. Other: Grossly clear imaged paranasal sinuses. Clear mastoid air cells. Bilateral lens replacements. Unremarkable extracranial soft tissues. IMPRESSION: * Bilateral presumed vestibular schwannomas, unchanged since 02/23/2024. * No acute intracranial abnormality. No new lesion. Chronic changes as described. Sales And Marketing Agent: MARLI Transcribe Date/Time: Sep 03 2024 1:26P Dictated by : FESTUS WOODWARD MD This examination was interpreted and the report reviewed and electronically signed by: KATY SAWYER MD on Sep 03 2024 4:12PM EST [id number] Normal [facility] Office Visit Reporton [address] [facility] [address] [place] [id number] OFFICE VISIT Date of Service: 04/18/24 MR#: [id number] Acct: [id number] Patient: CLAIRE WHITING Rep #: [id number] : 1955 Provider: IMB NURSE Age/Sex: 68/F Location: [facility] Status: Signed Intake Vital Signs 02/14/24 15:00 Height 4 ft 7 in Weight: 172 lb BMI 39.9 BP 135/81 H Blood Pressure Location Lt brachial Position Sitting Pulse 58 L Pulse Source Monitor Temp 98.7 F Temp Source Temporal Pulse Oximetry (%) 94 Oxygen Delivery Method room air Intake Visit Reasons: Flu Shot Chief Complaint: 1 year fu Allergies codeine Adverse Reaction (Mild, Verified 02/14/24 14:50) Nausea Have you fallen in the past year?: No Immunizations Fluad Triv (65y up)(PF) 45 mcg (15 mcg x 3)/0.5 mL IM syringe Performing Provider: Merrill Sapp MD Performing Location: [facility] Administered by: Anastasia Call RN on 04/18/24 14:26 Dose Route Admin Location Dispensed Lot Number Expiration Date [facility] Man ufacturer 45 mcg IM Right Deltoid 0.5 mL [id number] 09/13/24 52963-514-34 [employer]. VIS Given Date VIS Provided VIS Publication Date 04/18/24 Single Vaccine 24 Eligibility Eligibility Date Funding Source Not Applicable Assessment and Plan Assessment and Plan (1) Need for influenza vaccination: Status: Acute Orders: Orders Influenza Immunization Today Z23 - Encounter for immunization Clinical Quality Measures Falls Risk Screening/Assistive Devices Have you fallen in the past year?: No 04/18/24 1436 Date Merrill Sapp MD Cosign Signature: Date (if applicable) CC: Normal [facility] MR Cervical spine WO and W c ontrast Robin 04-15-2024 * * *Final Report* * * DATE OF EXAM: Apr 15 2024 2:46PM [facility] 0298 - MRI CERVICAL SPINE WO/W IVCON / PROCEDURE REASON: Neurofibromatosis (HCC) * * * * Physician Interpretation * * * * EXAMINATION: MRI THORACIC SPINE WO/W IVCON, MRI LUMBAR SPINE WO/W IVCON, MRI CERVICAL SPINE WO/W IVCON CLINICAL HISTORY: Neurofibromatosis (HCC) TECHNIQUE: Routine cervical, thoracic, and lumbosacral spine MR protocol without gadolinium. MQ: MRCTLWO_3 COMPARISON: Spine MRI from 08/16/2022 and 09/26/2018 RESULT: No abnormal intrinsic cord signal. No abnormal enhancing intradural or extradural enhancing lesions of the spine. CERVICAL: Counting reference: Craniocervical junction. Anatomic Variants: None. 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 Alignment: Alignment is anatomic. Craniocervical junction: Craniocervical junction is normal. Cord: The cervical spinal cord is within normal limits of signal intensity and morphology. Bone marrow signal/fracture: No evidence of pathologic marrow infiltration. No evidence of prior fracture. Cervical soft tissues: The paraspinal soft tissues are within normal limits. Canal and foramina: Intervertebral discs: Multilevel disc desiccation with loss of intranuclear T2 signal and disc height. C2-C3: No significant canal or foraminal stenosis. C3-C4: No significant canal or foraminal stenosis. C4-C5: No significant canal or foraminal stenosis. C5-C6: Posterior disc osteophyte complex with left posterolateral disc protrusion effaces ventral CSF and deforms the ventral cord, asymmetric to the left, mild to moderate canal stenosis. Uncovertebral proliferation with moderate left and mild right neural foraminal stenosis. C6-C7: Broad-based posterolateral disc bulge with right paracentral disc protrusion reaches and deforms the cord with mild canal stenosis. Uncovertebral proliferation with moderate right and mild left neural foraminal stenosis. C7-T1 No significant canal and neural foraminal stenosis. THORACIC: Counting reference: Craniocervical and lumbosacral junctions. For the purposes of this report, L4-5 is considered the level of the iliac crest and assume there are 5 lumbar-type vertebrae. Anatomic variant: None. Localizer images: Unremarkable. Alignment: Alignment is anatomic. Cord: The thoracic spinal cord is within normal limits of signal intensity and morphology. Bone marrow signal/fracture: No evidence of pathologic marrow infiltration. No evidence of prior fracture. Thoracic soft tissues: The paraspinal soft tissues are within normal limits. Canal and foramina: No significant thoracic canal or foraminal stenosis within the constraints of the study. LUMBAR: Counting reference: Craniocervical and lumbosacral junctions. For the purposes of this report, L4-5 is considered the level of the iliac crest and there are 5 lumbar-type vertebrae. Anatomic variant: Transitional S1 vertebral body. Localizer images: Unremarkable. Alignment: Alignment is anatomic. Bone marrow signal/fracture: No evidence of pathologic marrow infiltration. No evidence of prior fracture. Endplate changes are seen at L2-L3 with endplate edema as before. Conus: The conus is within normal limits of signal intensity and morphology. Paraspinal soft tissues: Paraspinal soft tissues are within normal limits. Canal and foramina: No significant lumbar canal or foraminal stenosis within the constraints of the study. L1-L2: No significant canal stenosis. L2-L3: Posterolateral disc osteophyte complex, extends into the neural foramen and facet joint arthrosis with mild to moderate bilateral canal stenosis. Mild to moderate canal stenosis. L3-L4: Mild posterolateral disc bulge is no significant stenosis. L4-L5: Posterolateral disc bulge, slightly asymmetric to the left, with associated annular fissure, with minimal left neural foraminal stenosis. No significant canal or right neural foraminal stenosis. L5-S1: No significant canal or foraminal stenosis. Mild bilateral facet joint arthrosis. Sacrum and iliac wings: The visualized sacrum and iliac wings are within normal limits. The presacral soft tissues are normal in appearance. DIVISION OF RADIOLOGY Provider, [facility] - 04/15/2024 * * *Final Report* * * DATE OF EXAM: Apr 15 2024 2:46PM [facility] 0298 - MRI CERVICAL SPINE WO/W IVCON / PROCEDURE REASON: Neurofibromatosis (HCC) * * * * Physician Interpretation * * * * EXAMINATION: MRI THORACIC SPINE WO/W IVCON, MRI LUMBAR SPINE WO/W IVCON, MRI CERVICAL SPINE WO/W IVCON CLINICAL HISTORY: Neurofibromatosis (HCC) TECHNIQUE: Routine cervical, thoracic, and lumbosacral spine MR protocol without gadolinium. MQ: [id number] COMPARISON: Spine MRI from 08/16/2022 and 09/26/2018 RESULT: No abnormal intrinsic cord signal. No abnormal enhancing intradural or extradural enhancing lesions of the spine. CERVICAL: Counting reference: Craniocervical junction. Anatomic Variants: None. 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 Alignment: Alignment is anatomic. Craniocervical junction: Craniocervical junction is normal. Cord: The cervical spinal cord is within normal limits of signal intensity and morphology. Bone marrow signal/fracture: No evidence of pathologic marrow infiltration. No evidence of prior fracture. Cervical soft tissues: The paraspinal soft tissues are within normal limits. Canal and foramina: Intervertebral discs: Multilevel disc desiccation with loss of intranuclear T2 signal and disc height. C2-C3: No significant canal or foraminal stenosis. C3-C4: No significant canal or foraminal stenosis. C4-C5: No significant canal or foraminal stenosis. C5-C6: Posterior disc osteophyte complex with left posterolateral disc protrusion effaces ventral CSF and deforms the ventral cord, asymmetric to the left, mild to moderate canal stenosis. Uncovertebral proliferation with moderate left and mild right neural foraminal stenosis. C6-C7: Broad-based posterolateral disc bulge with right paracentral disc protrusion reaches and deforms the cord with mild canal stenosis. Uncovertebral proliferation with moderate right and mild left neural foraminal stenosis. C7-T1 No significant canal and neural foraminal stenosis. THORACIC: Counting reference: Craniocervical and lumbosacral junctions. For the purposes of this report, L4-5 is considered the level of the iliac crest and assume there are 5 lumbar-type vertebrae. Anatomic variant: None. Localizer images: Unremarkable. Alignment: Alignment is anatomic. Cord: The thoracic spinal cord is within normal limits of signal intensity and morphology. Bone marrow signal/fracture: No evidence of pathologic marrow infiltration. No evidence of prior fracture. Thoracic soft tissues: The paraspinal soft tissues are within normal limits. Canal and foramina: No significant thoracic canal or foraminal stenosis within the constraints of the study. LUMBAR: Counting reference: Craniocervical and lumbosacral junctions. For the purposes of this report, L4-5 is considered the level of the iliac crest and there are 5 lumbar-type vertebrae. Anatomic variant: Transitional S1 vertebral body. Localizer images: Unremarkable. Alignment: Alignment is anatomic. Bone marrow signal/fracture: No evidence of pathologic marrow infiltration. No evidence of prior fracture. Endplate changes are seen at L2-L3 with endplate edema as before. Conus: The conus is within normal limits of signal intensity and morphology. Paraspinal soft tissues: Paraspinal soft tissues are within normal limits. Canal and foramina: No significant lumbar canal or foraminal stenosis within the constraints of the study. L1-L2: No significant canal stenosis. L2-L3: Posterolateral disc osteophyte complex, extends into the neural foramen and facet joint arthrosis with mild to moderate bilateral canal stenosis. Mild to moderate canal stenosis. L3-L4: Mild posterolateral disc bulge is no significant stenosis. L4-L5: Posterolateral disc bulge, slightly asymmetric to the left, with associated annular fissure, with minimal left neural foraminal stenosis. No significant canal or right neural foraminal stenosis. L5-S1: No significant canal or foraminal stenosis. Mild bilateral facet joint arthrosis. Sacrum and iliac wings: The visualized sacrum and iliac wings are within normal limits. The presacral soft tissues are normal in appearance. IMPRESSION IMPRESSION: No mass or pathological intradural enhancing lesions involving the cervicothoracic or lumbar spine. No abnormal intrinsic cord signal. Mild to moderate degenerative spondylosis at L2-L3 and, as described above. Degenerative cervical spondylosis particularly at C5-C6 and C6-C7, as described above. Cervical Anatomic Variant: None. Assume 7 cervical vertebrae with counting from the craniocervical junction. Anatomic Thoracic/Lumbar Variant: Transitional S1 vertebral body. L4-5 is considered th (more content not included)... [facility] MR Lumbar spine WO and W con trast Robin 04-15-2024 * * *Final Report* * * DATE OF EXAM: Apr 15 2024 2:46PM [facility] 0304 - MRI LUMBAR SPINE WO/W IVCON / PROCEDURE REASON: Neurofibromatosis (HCC) * * * * Physician Interpretation * * * * EXAMINATION: MRI THORACIC SPINE WO/W IVCON, MRI LUMBAR SPINE WO/W IVCON, MRI CERVICAL SPINE WO/W IVCON CLINICAL HISTORY: Neurofibromatosis (HCC) TECHNIQUE: Routine cervical, thoracic, and lumbosacral spine MR protocol without gadolinium. MQ: [id number]_[email or web address] COMPARISON: Spine MRI from 08/16/2022 and 09/26/2018 RESULT: No abnormal intrinsic cord signal. No abnormal enhancing intradural or extradural enhancing lesions of the spine. CERVICAL: Counting reference: Craniocervical junction. Anatomic Variants: None. 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 Alignment: Alignment is anatomic. Craniocervical junction: Craniocervical junction is normal. Cord: The cervical spinal cord is within normal limits of signal intensity and morphology. Bone marrow signal/fracture: No evidence of pathologic marrow infiltration. No evidence of prior fracture. Cervical soft tissues: The paraspinal soft tissues are within normal limits. Canal and foramina: Intervertebral discs: Multilevel disc desiccation with loss of intranuclear T2 signal and disc height. C2-C3: No significant canal or foraminal stenosis. C3-C4: No significant canal or foraminal stenosis. C4-C5: No significant canal or foraminal stenosis. C5-C6: Posterior disc osteophyte complex with left posterolateral disc protrusion effaces ventral CSF and deforms the ventral cord, asymmetric to the left, mild to moderate canal stenosis. Uncovertebral proliferation with moderate left and mild right neural foraminal stenosis. C6-C7: Broad-based posterolateral disc bulge with right paracentral disc protrusion reaches and deforms the cord with mild canal stenosis. Uncovertebral proliferation with moderate right and mild left neural foraminal stenosis. C7-T1 No significant canal and neural foraminal stenosis. THORACIC: Counting reference: Craniocervical and lumbosacral junctions. For the purposes of this report, L4-5 is considered the level of the iliac crest and assume there are 5 lumbar-type vertebrae. Anatomic variant: None. Localizer images: Unremarkable. Alignment: Alignment is anatomic. Cord: The thoracic spinal cord is within normal limits of signal intensity and morphology. Bone marrow signal/fracture: No evidence of pathologic marrow infiltration. No evidence of prior fracture. Thoracic soft tissues: The paraspinal soft tissues are within normal limits. Canal and foramina: No significant thoracic canal or foraminal stenosis within the constraints of the study. LUMBAR: Counting reference: Craniocervical and lumbosacral junctions. For the purposes of this report, L4-5 is considered the level of the iliac crest and there are 5 lumbar-type vertebrae. Anatomic variant: Transitional S1 vertebral body. Localizer images: Unremarkable. Alignment: Alignment is anatomic. Bone marrow signal/fracture: No evidence of pathologic marrow infiltration. No evidence of prior fracture. Endplate changes are seen at L2-L3 with endplate edema as before. Conus: The conus is within normal limits of signal intensity and morphology. Paraspinal soft tissues: Paraspinal soft tissues are within normal limits. Canal and foramina: No significant lumbar canal or foraminal stenosis within the constraints of the study. L1-L2: No significant canal stenosis. L2-L3: Posterolateral disc osteophyte complex, extends into the neural foramen and facet joint arthrosis with mild to moderate bilateral canal stenosis. Mild to moderate canal stenosis. L3-L4: Mild posterolateral disc bulge is no significant stenosis. L4-L5: Posterolateral disc bulge, slightly asymmetric to the left, with associated annular fissure, with minimal left neural foraminal stenosis. No significant canal or right neural foraminal stenosis. L5-S1: No significant canal or foraminal stenosis. Mild bilateral facet joint arthrosis. Sacrum and iliac wings: The visualized sacrum and iliac wings are within normal limits. The presacral soft tissues are normal in appearance. DIVISION OF RADIOLOGY Provider, [facility] - 04/15/2024 * * *Final Report* * * DATE OF EXAM: Apr 15 2024 2:46PM [facility] 0304 - MRI LUMBAR SPINE WO/W IVCON / PROCEDURE REASON: Neurofibromatosis (HCC) * * * * Physician Interpretation * * * * EXAMINATION: MRI THORACIC SPINE WO/W IVCON, MRI LUMBAR SPINE WO/W IVCON, MRI CERVICAL SPINE WO/W IVCON CLINICAL HISTORY: Neurofibromatosis (HCC) TECHNIQUE: Routine cervical, thoracic, and lumbosacral spine MR protocol without gadolinium. MQ: [id number]_[email or web address] COMPARISON: Spine MRI from 08/16/2022 and 09/26/2018 RESULT: No abnormal intrinsic cord signal. No abnormal enhancing intradural or extradural enhancing lesions of the spine. CERVICAL: Counting reference: Craniocervical junction. Anatomic Variants: None. 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 Alignment: Alignment is anatomic. Craniocervical junction: Craniocervical junction is normal. Cord: The cervical spinal cord is within normal limits of signal intensity and morphology. Bone marrow signal/fracture: No evidence of pathologic marrow infiltration. No evidence of prior fracture. Cervical soft tissues: The paraspinal soft tissues are within normal limits. Canal and foramina: Intervertebral discs: Multilevel disc desiccation with loss of intranuclear T2 signal and disc height. C2-C3: No significant canal or foraminal stenosis. C3-C4: No significant canal or foraminal stenosis. C4-C5: No significant canal or foraminal stenosis. C5-C6: Posterior disc osteophyte complex with left posterolateral disc protrusion effaces ventral CSF and deforms the ventral cord, asymmetric to the left, mild to moderate canal stenosis. Uncovertebral proliferation with moderate left and mild right neural foraminal stenosis. C6-C7: Broad-based posterolateral disc bulge with right paracentral disc protrusion reaches and deforms the cord with mild canal stenosis. Uncovertebral proliferation with moderate right and mild left neural foraminal stenosis. C7-T1 No significant canal and neural foraminal stenosis. THORACIC: Counting reference: Craniocervical and lumbosacral junctions. For the purposes of this report, L4-5 is considered the level of the iliac crest and assume there are 5 lumbar-type vertebrae. Anatomic variant: None. Localizer images: Unremarkable. Alignment: Alignment is anatomic. Cord: The thoracic spinal cord is within normal limits of signal intensity and morphology. Bone marrow signal/fracture: No evidence of pathologic marrow infiltration. No evidence of prior fracture. Thoracic soft tissues: The paraspinal soft tissues are within normal limits. Canal and foramina: No significant thoracic canal or foraminal stenosis within the constraints of the study. LUMBAR: Counting reference: Craniocervical and lumbosacral junctions. For the purposes of this report, L4-5 is considered the level of the iliac crest and there are 5 lumbar-type vertebrae. Anatomic variant: Transitional S1 vertebral body. Localizer images: Unremarkable. Alignment: Alignment is anatomic. Bone marrow signal/fracture: No evidence of pathologic marrow infiltration. No evidence of prior fracture. Endplate changes are seen at L2-L3 with endplate edema as before. Conus: The conus is within normal limits of signal intensity and morphology. Paraspinal soft tissues: Paraspinal soft tissues are within normal limits. Canal and foramina: No significant lumbar canal or foraminal stenosis within the constraints of the study. L1-L2: No significant canal stenosis. L2-L3: Posterolateral disc osteophyte complex, extends into the neural foramen and facet joint arthrosis with mild to moderate bilateral canal stenosis. Mild to moderate canal stenosis. L3-L4: Mild posterolateral disc bulge is no significant stenosis. L4-L5: Posterolateral disc bulge, slightly asymmetric to the left, with associated annular fissure, with minimal left neural foraminal stenosis. No significant canal or right neural foraminal stenosis. L5-S1: No significant canal or foraminal stenosis. Mild bilateral facet joint arthrosis. Sacrum and iliac wings: The visualized sacrum and iliac wings are within normal limits. The presacral soft tissues are normal in appearance. IMPRESSION IMPRESSION: No mass or pathological intradural enhancing lesions involving the cervicothoracic or lumbar spine. No abnormal intrinsic cord signal. Mild to moderate degenerative spondylosis at L2-L3 and, as described above. Degenerative cervical spondylosis particularly at C5-C6 and C6-C7, as described above. Cervical Anatomic Variant: None. Assume 7 cervical vertebrae with counting from the craniocervical junction. Anatomic Thoracic/Lumbar Variant: Transitional S1 vertebral body. L4-5 is considered the (more content not included)... [facility] MR Thoracic spine WO and W c ontrast Robin 04-15-2024 * * *Final Report* * * DATE OF EXAM: Apr 15 2024 2:46PM [facility] 0326 - MRI THORACIC SPINE WO/W IVCON / PROCEDURE REASON: Neurofibromatosis (HCC) * * * * Physician Interpretation * * * * EXAMINATION: MRI THORACIC SPINE WO/W IVCON, MRI LUMBAR SPINE WO/W IVCON, MRI CERVICAL SPINE WO/W IVCON CLINICAL HISTORY: Neurofibromatosis (HCC) TECHNIQUE: Routine cervical, thoracic, and lumbosacral spine MR protocol without gadolinium. MQ: [id number]_[email or web address] COMPARISON: Spine MRI from 08/16/2022 and 09/26/2018 RESULT: No abnormal intrinsic cord signal. No abnormal enhancing intradural or extradural enhancing lesions of the spine. CERVICAL: Counting reference: Craniocervical junction. Anatomic Variants: None. 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 Alignment: Alignment is anatomic. Craniocervical junction: Craniocervical junction is normal. Cord: The cervical spinal cord is within normal limits of signal intensity and morphology. Bone marrow signal/fracture: No evidence of pathologic marrow infiltration. No evidence of prior fracture. Cervical soft tissues: The paraspinal soft tissues are within normal limits. Canal and foramina: Intervertebral discs: Multilevel disc desiccation with loss of intranuclear T2 signal and disc height. C2-C3: No significant canal or foraminal stenosis. C3-C4: No significant canal or foraminal stenosis. C4-C5: No significant canal or foraminal stenosis. C5-C6: Posterior disc osteophyte complex with left posterolateral disc protrusion effaces ventral CSF and deforms the ventral cord, asymmetric to the left, mild to moderate canal stenosis. Uncovertebral proliferation with moderate left and mild right neural foraminal stenosis. C6-C7: Broad-based posterolateral disc bulge with right paracentral disc protrusion reaches and deforms the cord with mild canal stenosis. Uncovertebral proliferation with moderate right and mild left neural foraminal stenosis. C7-T1 No significant canal and neural foraminal stenosis. THORACIC: Counting reference: Craniocervical and lumbosacral junctions. For the purposes of this report, L4-5 is considered the level of the iliac crest and assume there are 5 lumbar-type vertebrae. Anatomic variant: None. Localizer images: Unremarkable. Alignment: Alignment is anatomic. Cord: The thoracic spinal cord is within normal limits of signal intensity and morphology. Bone marrow signal/fracture: No evidence of pathologic marrow infiltration. No evidence of prior fracture. Thoracic soft tissues: The paraspinal soft tissues are within normal limits. Canal and foramina: No significant thoracic canal or foraminal stenosis within the constraints of the study. LUMBAR: Counting reference: Craniocervical and lumbosacral junctions. For the purposes of this report, L4-5 is considered the level of the iliac crest and there are 5 lumbar-type vertebrae. Anatomic variant: Transitional S1 vertebral body. Localizer images: Unremarkable. Alignment: Alignment is anatomic. Bone marrow signal/fracture: No evidence of pathologic marrow infiltration. No evidence of prior fracture. Endplate changes are seen at L2-L3 with endplate edema as before. Conus: The conus is within normal limits of signal intensity and morphology. Paraspinal soft tissues: Paraspinal soft tissues are within normal limits. Canal and foramina: No significant lumbar canal or foraminal stenosis within the constraints of the study. L1-L2: No significant canal stenosis. L2-L3: Posterolateral disc osteophyte complex, extends into the neural foramen and facet joint arthrosis with mild to moderate bilateral canal stenosis. Mild to moderate canal stenosis. L3-L4: Mild posterolateral disc bulge is no significant stenosis. L4-L5: Posterolateral disc bulge, slightly asymmetric to the left, with associated annular fissure, with minimal left neural foraminal stenosis. No significant canal or right neural foraminal stenosis. L5-S1: No significant canal or foraminal stenosis. Mild bilateral facet joint arthrosis. Sacrum and iliac wings: The visualized sacrum and iliac wings are within normal limits. The presacral soft tissues are normal in appearance. DIVISION OF RADIOLOGY Provider, [facility] - 04/15/2024 * * *Final Report* * * DATE OF EXAM: Apr 15 2024 2:46PM [facility] 0326 - MRI THORACIC SPINE WO/W IVCON / PROCEDURE REASON: Neurofibromatosis (HCC) * * * * Physician Interpretation * * * * EXAMINATION: MRI THORACIC SPINE WO/W IVCON, MRI LUMBAR SPINE WO/W IVCON, MRI CERVICAL SPINE WO/W IVCON CLINICAL HISTORY: Neurofibromatosis (HCC) TECHNIQUE: Routine cervical, thoracic, and lumbosacral spine MR protocol without gadolinium. MQ: [email or web address] COMPARISON: Spine MRI from 08/16/2022 and 09/26/2018 RESULT: No abnormal intrinsic cord signal. No abnormal enhancing intradural or extradural enhancing lesions of the spine. CERVICAL: Counting reference: Craniocervical junction. Anatomic Variants: None. 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 Alignment: Alignment is anatomic. Craniocervical junction: Craniocervical junction is normal. Cord: The cervical spinal cord is within normal limits of signal intensity and morphology. Bone marrow signal/fracture: No evidence of pathologic marrow infiltration. No evidence of prior fracture. Cervical soft tissues: The paraspinal soft tissues are within normal limits. Canal and foramina: Intervertebral discs: Multilevel disc desiccation with loss of intranuclear T2 signal and disc height. C2-C3: No significant canal or foraminal stenosis. C3-C4: No significant canal or foraminal stenosis. C4-C5: No significant canal or foraminal stenosis. C5-C6: Posterior disc osteophyte complex with left posterolateral disc protrusion effaces ventral CSF and deforms the ventral cord, asymmetric to the left, mild to moderate canal stenosis. Uncovertebral proliferation with moderate left and mild right neural foraminal stenosis. C6-C7: Broad-based posterolateral disc bulge with right paracentral disc protrusion reaches and deforms the cord with mild canal stenosis. Uncovertebral proliferation with moderate right and mild left neural foraminal stenosis. C7-T1 No significant canal and neural foraminal stenosis. THORACIC: Counting reference: Craniocervical and lumbosacral junctions. For the purposes of this report, L4-5 is considered the level of the iliac crest and assume there are 5 lumbar-type vertebrae. Anatomic variant: None. Localizer images: Unremarkable. Alignment: Alignment is anatomic. Cord: The thoracic spinal cord is within normal limits of signal intensity and morphology. Bone marrow signal/fracture: No evidence of pathologic marrow infiltration. No evidence of prior fracture. Thoracic soft tissues: The paraspinal soft tissues are within normal limits. Canal and foramina: No significant thoracic canal or foraminal stenosis within the constraints of the study. LUMBAR: Counting reference: Craniocervical and lumbosacral junctions. For the purposes of this report, L4-5 is considered the level of the iliac crest and there are 5 lumbar-type vertebrae. Anatomic variant: Transitional S1 vertebral body. Localizer images: Unremarkable. Alignment: Alignment is anatomic. Bone marrow signal/fracture: No evidence of pathologic marrow infiltration. No evidence of prior fracture. Endplate changes are seen at L2-L3 with endplate edema as before. Conus: The conus is within normal limits of signal intensity and morphology. Paraspinal soft tissues: Paraspinal soft tissues are within normal limits. Canal and foramina: No significant lumbar canal or foraminal stenosis within the constraints of the study. L1-L2: No significant canal stenosis. L2-L3: Posterolateral disc osteophyte complex, extends into the neural foramen and facet joint arthrosis with mild to moderate bilateral canal stenosis. Mild to moderate canal stenosis. L3-L4: Mild posterolateral disc bulge is no significant stenosis. L4-L5: Posterolateral disc bulge, slightly asymmetric to the left, with associated annular fissure, with minimal left neural foraminal stenosis. No significant canal or right neural foraminal stenosis. L5-S1: No significant canal or foraminal stenosis. Mild bilateral facet joint arthrosis. Sacrum and iliac wings: The visualized sacrum and iliac wings are within normal limits. The presacral soft tissues are normal in appearance. IMPRESSION IMPRESSION: No mass or pathological intradural enhancing lesions involving the cervicothoracic or lumbar spine. No abnormal intrinsic cord signal. Mild to moderate degenerative spondylosis at L2-L3 and, as described above. Degenerative cervical spondylosis particularly at C5-C6 and C6-C7, as described above. Cervical Anatomic Variant: None. Assume 7 cervical vertebrae with counting from the craniocervical junction. Anatomic Thoracic/Lumbar Variant: Transitional S1 vertebral body. L4-5 is considered th (more content not included)... [facility] Radiology Study observation (narrative) [facility] MRI CERVICAL SPINE WO/W IVCO Non 04-15-2024 MRI CERVICAL SPINE WO/W IVCON * * *Final Report* * * DATE OF EXAM: Apr 15 2024 2:46PM [id number] - MRI CERVICAL SPINE WO/W IVCON / PROCEDURE REASON: Neurofibromatosis (HCC) * * * * Physician Interpretation * * * * EXAMINATION: MRI THORACIC SPINE WO/W IVCON, MRI LUMBAR SPINE WO/W IVCON, MRI CERVICAL SPINE WO/W IVCON CLINICAL HISTORY: Neurofibromatosis (HCC) TECHNIQUE: Routine cervical, thoracic, and lumbosacral spine MR protocol without gadolinium. MQ: [id number] COMPARISON: Spine MRI from 08/16/2022 and 09/26/2018 RESULT: No abnormal intrinsic cord signal. No abnormal enhancing intradural or extradural enhancing lesions of the spine. CERVICAL: Counting reference: Craniocervical junction. Anatomic Variants: None. 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 Alignment: Alignment is anatomic. Craniocervical junction: Craniocervical junction is normal. Cord: The cervical spinal cord is within normal limits of signal intensity and morphology. Bone marrow signal/fracture: No evidence of pathologic marrow infiltration. No evidence of prior fracture. Cervical soft tissues: The paraspinal soft tissues are within normal limits. Canal and foramina: Intervertebral discs: Multilevel disc desiccation with loss of intranuclear T2 signal and disc height. C2-C3: No significant canal or foraminal stenosis. C3-C4: No significant canal or foraminal stenosis. C4-C5: No significant canal or foraminal stenosis. C5-C6: Posterior disc osteophyte complex with left posterolateral disc protrusion effaces ventral CSF and deforms the ventral cord, asymmetric to the left, mild to moderate canal stenosis. Uncovertebral proliferation with moderate left and mild right neural foraminal stenosis. C6-C7: Broad-based posterolateral disc bulge with right paracentral disc protrusion reaches and deforms the cord with mild canal stenosis. Uncovertebral proliferation with moderate right and mild left neural foraminal stenosis. C7-T1 No significant canal and neural foraminal stenosis. THORACIC: Counting reference: Craniocervical and lumbosacral junctions. For the purposes of this report, L4-5 is considered the level of the iliac crest and assume there are 5 lumbar-type vertebrae. Anatomic variant: None. Localizer images: Unremarkable. Alignment: Alignment is anatomic. Cord: The thoracic spinal cord is within normal limits of signal intensity and morphology. Bone marrow signal/fracture: No evidence of pathologic marrow infiltration. No evidence of prior fracture. Thoracic soft tissues: The paraspinal soft tissues are within normal limits. Canal and foramina: No significant thoracic canal or foraminal stenosis within the constraints of the study. LUMBAR: Counting reference: Craniocervical and lumbosacral junctions. For the purposes of this report, L4-5 is considered the level of the iliac crest and there are 5 lumbar-type vertebrae. Anatomic variant: Transitional S1 vertebral body. Localizer images: Unremarkable. Alignment: Alignment is anatomic. Bone marrow signal/fracture: No evidence of pathologic marrow infiltration. No evidence of prior fracture. Endplate changes are seen at L2-L3 with endplate edema as before. Conus: The conus is within normal limits of signal intensity and morphology. Paraspinal soft tissues: Paraspinal soft tissues are within normal limits. Canal and foramina: No significant lumbar canal or foraminal stenosis within the constraints of the study. L1-L2: No significant canal stenosis. L2-L3: Posterolateral disc osteophyte complex, extends into the neural foramen and facet joint arthrosis with mild to moderate bilateral canal stenosis. Mild to moderate canal stenosis. L3-L4: Mild posterolateral disc bulge is no significant stenosis. L4-L5: Posterolateral disc bulge, slightly asymmetric to the left, with associated annular fissure, with minimal left neural foraminal stenosis. No significant canal or right neural foraminal stenosis. L5-S1: No significant canal or foraminal stenosis. Mild bilateral facet joint arthrosis. Sacrum and iliac wings: The visualized sacrum and iliac wings are within normal limits. The presacral soft tissues are normal in appearance. IMPRESSION: No mass or pathological intradural enhancing lesions involving the cervicothoracic or lumbar spine. No abnormal intrinsic cord signal. Mild to moderate degenerative spondylosis at L2-L3 and, as described above. Degenerative cervical spondylosis particularly at C5-C6 and C6-C7, as described above. Cervical Anatomic Variant: None. Assume 7 cervical vertebrae with counting from the craniocervical junction. Anatomic Thoracic/Lumbar Variant: Transitional S1 vertebral body. L4-5 is considered the level of the iliac crest and there are 5 lumbar-type vertebrae. Sales And Marketing Agent: MARLI Transcribe Date/Time: Apr 15 2024 3:28P Dictated by : Saul REGAN (more content not included)... Normal [facility] MRI LUMBAR SPINE WO/W IVCONo n 04-15-2024 MRI LUMBAR SPINE WO/W IVCON * * *Final Report* * * DATE OF EXAM: Apr 15 2024 2:46PM [id number] - MRI LUMBAR SPINE WO/W IVCON / PROCEDURE REASON: Neurofibromatosis (HCC) * * * * Physician Interpretation * * * * EXAMINATION: MRI THORACIC SPINE WO/W IVCON, MRI LUMBAR SPINE WO/W IVCON, MRI CERVICAL SPINE WO/W IVCON CLINICAL HISTORY: Neurofibromatosis (HCC) TECHNIQUE: Routine cervical, thoracic, and lumbosacral spine MR protocol without gadolinium. MQ: [id number]_3 COMPARISON: Spine MRI from 08/16/2022 and 09/26/2018 RESULT: No abnormal intrinsic cord signal. No abnormal enhancing intradural or extradural enhancing lesions of the spine. CERVICAL: Counting reference: Craniocervical junction. Anatomic Variants: None. 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 Alignment: Alignment is anatomic. Craniocervical junction: Craniocervical junction is normal. Cord: The cervical spinal cord is within normal limits of signal intensity and morphology. Bone marrow signal/fracture: No evidence of pathologic marrow infiltration. No evidence of prior fracture. Cervical soft tissues: The paraspinal soft tissues are within normal limits. Canal and foramina: Intervertebral discs: Multilevel disc desiccation with loss of intranuclear T2 signal and disc height. C2-C3: No significant canal or foraminal stenosis. C3-C4: No significant canal or foraminal stenosis. C4-C5: No significant canal or foraminal stenosis. C5-C6: Posterior disc osteophyte complex with left posterolateral disc protrusion effaces ventral CSF and deforms the ventral cord, asymmetric to the left, mild to moderate canal stenosis. Uncovertebral proliferation with moderate left and mild right neural foraminal stenosis. C6-C7: Broad-based posterolateral disc bulge with right paracentral disc protrusion reaches and deforms the cord with mild canal stenosis. Uncovertebral proliferation with moderate right and mild left neural foraminal stenosis. C7-T1 No significant canal and neural foraminal stenosis. THORACIC: Counting reference: Craniocervical and lumbosacral junctions. For the purposes of this report, L4-5 is considered the level of the iliac crest and assume there are 5 lumbar-type vertebrae. Anatomic variant: None. Localizer images: Unremarkable. Alignment: Alignment is anatomic. Cord: The thoracic spinal cord is within normal limits of signal intensity and morphology. Bone marrow signal/fracture: No evidence of pathologic marrow infiltration. No evidence of prior fracture. Thoracic soft tissues: The paraspinal soft tissues are within normal limits. Canal and foramina: No significant thoracic canal or foraminal stenosis within the constraints of the study. LUMBAR: Counting reference: Craniocervical and lumbosacral junctions. For the purposes of this report, L4-5 is considered the level of the iliac crest and there are 5 lumbar-type vertebrae. Anatomic variant: Transitional S1 vertebral body. Localizer images: Unremarkable. Alignment: Alignment is anatomic. Bone marrow signal/fracture: No evidence of pathologic marrow infiltration. No evidence of prior fracture. Endplate changes are seen at L2-L3 with endplate edema as before. Conus: The conus is within normal limits of signal intensity and morphology. Paraspinal soft tissues: Paraspinal soft tissues are within normal limits. Canal and foramina: No significant lumbar canal or foraminal stenosis within the constraints of the study. L1-L2: No significant canal stenosis. L2-L3: Posterolateral disc osteophyte complex, extends into the neural foramen and facet joint arthrosis with mild to moderate bilateral canal stenosis. Mild to moderate canal stenosis. L3-L4: Mild posterolateral disc bulge is no significant stenosis. L4-L5: Posterolateral disc bulge, slightly asymmetric to the left, with associated annular fissure, with minimal left neural foraminal stenosis. No significant canal or right neural foraminal stenosis. L5-S1: No significant canal or foraminal stenosis. Mild bilateral facet joint arthrosis. Sacrum and iliac wings: The visualized sacrum and iliac wings are within normal limits. The presacral soft tissues are normal in appearance. IMPRESSION: No mass or pathological intradural enhancing lesions involving the cervicothoracic or lumbar spine. No abnormal intrinsic cord signal. Mild to moderate degenerative spondylosis at L2-L3 and, as described above. Degenerative cervical spondylosis particularly at C5-C6 and C6-C7, as described above. Cervical Anatomic Variant: None. Assume 7 cervical vertebrae with counting from the craniocervical junction. Anatomic Thoracic/Lumbar Variant: Transitional S1 vertebral body. L4-5 is considered the level of the iliac crest and there are 5 lumbar-type vertebrae. Sales And Marketing Agent: [employer] Transcribe Date/Time: Apr 15 2024 3:28P Dictated by : MARIA M LOPEZ MD (more content not included)... Normal [facility] MRI THORACIC SPINE WO/W IVCO Non 04-15-2024 MRI THORACIC SPINE WO/W IVCON * * *Final Report* * * DATE OF EXAM: Apr 15 2024 2:46PM [id number] - MRI THORACIC SPINE WO/W IVCON / PROCEDURE REASON: Neurofibromatosis (HCC) * * * * Physician Interpretation * * * * EXAMINATION: MRI THORACIC SPINE WO/W IVCON, MRI LUMBAR SPINE WO/W IVCON, MRI CERVICAL SPINE WO/W IVCON CLINICAL HISTORY: Neurofibromatosis (HCC) TECHNIQUE: Routine cervical, thoracic, and lumbosacral spine MR protocol without gadolinium. MQ: [email or web address]_3 COMPARISON: Spine MRI from 08/16/2022 and 09/26/2018 RESULT: No abnormal intrinsic cord signal. No abnormal enhancing intradural or extradural enhancing lesions of the spine. CERVICAL: Counting reference: Craniocervical junction. Anatomic Variants: None. 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 Alignment: Alignment is anatomic. Craniocervical junction: Craniocervical junction is normal. Cord: The cervical spinal cord is within normal limits of signal intensity and morphology. Bone marrow signal/fracture: No evidence of pathologic marrow infiltration. No evidence of prior fracture. Cervical soft tissues: The paraspinal soft tissues are within normal limits. Canal and foramina: Intervertebral discs: Multilevel disc desiccation with loss of intranuclear T2 signal and disc height. C2-C3: No significant canal or foraminal stenosis. C3-C4: No significant canal or foraminal stenosis. C4-C5: No significant canal or foraminal stenosis. C5-C6: Posterior disc osteophyte complex with left posterolateral disc protrusion effaces ventral CSF and deforms the ventral cord, asymmetric to the left, mild to moderate canal stenosis. Uncovertebral proliferation with moderate left and mild right neural foraminal stenosis. C6-C7: Broad-based posterolateral disc bulge with right paracentral disc protrusion reaches and deforms the cord with mild canal stenosis. Uncovertebral proliferation with moderate right and mild left neural foraminal stenosis. C7-T1 No significant canal and neural foraminal stenosis. THORACIC: Counting reference: Craniocervical and lumbosacral junctions. For the purposes of this report, L4-5 is considered the level of the iliac crest and assume there are 5 lumbar-type vertebrae. Anatomic variant: None. Localizer images: Unremarkable. Alignment: Alignment is anatomic. Cord: The thoracic spinal cord is within normal limits of signal intensity and morphology. Bone marrow signal/fracture: No evidence of pathologic marrow infiltration. No evidence of prior fracture. Thoracic soft tissues: The paraspinal soft tissues are within normal limits. Canal and foramina: No significant thoracic canal or foraminal stenosis within the constraints of the study. LUMBAR: Counting reference: Craniocervical and lumbosacral junctions. For the purposes of this report, L4-5 is considered the level of the iliac crest and there are 5 lumbar-type vertebrae. Anatomic variant: Transitional S1 vertebral body. Localizer images: Unremarkable. Alignment: Alignment is anatomic. Bone marrow signal/fracture: No evidence of pathologic marrow infiltration. No evidence of prior fracture. Endplate changes are seen at L2-L3 with endplate edema as before. Conus: The conus is within normal limits of signal intensity and morphology. Paraspinal soft tissues: Paraspinal soft tissues are within normal limits. Canal and foramina: No significant lumbar canal or foraminal stenosis within the constraints of the study. L1-L2: No significant canal stenosis. L2-L3: Posterolateral disc osteophyte complex, extends into the neural foramen and facet joint arthrosis with mild to moderate bilateral canal stenosis. Mild to moderate canal stenosis. L3-L4: Mild posterolateral disc bulge is no significant stenosis. L4-L5: Posterolateral disc bulge, slightly asymmetric to the left, with associated annular fissure, with minimal left neural foraminal stenosis. No significant canal or right neural foraminal stenosis. L5-S1: No significant canal or foraminal stenosis. Mild bilateral facet joint arthrosis. Sacrum and iliac wings: The visualized sacrum and iliac wings are within normal limits. The presacral soft tissues are normal in appearance. IMPRESSION: No mass or pathological intradural enhancing lesions involving the cervicothoracic or lumbar spine. No abnormal intrinsic cord signal. Mild to moderate degenerative spondylosis at L2-L3 and, as described above. Degenerative cervical spondylosis particularly at C5-C6 and C6-C7, as described above. Cervical Anatomic Variant: None. Assume 7 cervical vertebrae with counting from the craniocervical junction. Anatomic Thoracic/Lumbar Variant: Transitional S1 vertebral body. L4-5 is considered the level of the iliac crest and there are 5 lumbar-type vertebrae. Sales And Marketing Agent: [employer] Transcribe Date/Time: Apr 15 2024 3:28P Dictated by : Saul REGAN (more content not included)... Normal [facility] No Panel Informationon 04-15 IMPRESSION: No mass or pathological intradural enhancing lesions involving the cervicothoracic or lumbar spine. No abnormal intrinsic cord signal. Mild to moderate degenerative spondylosis at L2-L3 and, as described above. Degenerative cervical spondylosis particularly at C5-C6 and C6-C7, as described above. Cervical Anatomic Variant: None. Assume 7 cervical vertebrae with counting from the craniocervical junction. Anatomic Thoracic/Lumbar Variant: Transitional S1 vertebral body. L4-5 is considered the level of the iliac crest and there are 5 lumbar-type vertebrae. Sales And Marketing Agent: PS[employer]CH[employer]IC Transcribe Date/Time: Apr 15 2024 3:28P Dictated by : MARIA M LOPEZ MD This examination was interpreted and the report reviewed and electronically signed by: MARIA M LOPEZ MD on Apr 15 2024 3:55PM [facility] DIVISION OF RADIOLOGY Radiology Study observation (narrative) [facility] No Panel InformationOrdered By: Ccf Provider on 04-15-2024 [facility] MR Brain WO and W contrast I Von 02-23-2024 IMPRESSION: Unchanged vestibular schwannomas bilaterally Sales And Marketing Agent: PSYCHIATRIC Transcribe Date/Time: Feb 23 2024 1:35P Dictated by : ELIOT KELSEY MD This examination was interpreted and the report reviewed and electronically signed by: ELIOT KELSEY MD on Feb 23 2024 1:49PM [facility] DIVISION OF RADIOLOGY * * *Final Report* * * DATE OF EXAM: Feb 23 2024 12:10PM 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 MQ: MRBWOW_2 Contrast: 15 mL Dotarem IV COMPARISON: Multiple prior brain MRIs, most recently 02/13/2023 RESULT: Acute Change: There is no evidence of restricted diffusion to suggest an acute infarct. Hemorrhage: No evidence of prior parenchymal hemorrhage on the gradient echo images. Mass Lesion/ Mass Effect: An enhancing masses in the internal auditory canal and cerebellopontine angle bilaterally measure up to 0.7 x 1.0 cm on the right and 1.1 x 1.7 cm on the left, similar to previous No significant mass effect.. No new mass or abnormal enhancement. No abnormal extra-axial collection. Chronic Change: Nonspecific T2 hyperintense signal in the white matter, similar to previous and likely related to chronic small vessel ischemic disease. Parenchyma: No significant volume loss for age. The brain parenchyma is otherwise within normal limits of signal intensity and morphology. Ventricles: Normal caliber and morphology. Skull Base: Hypothalamic and pituitary region are unremarkable. Craniocervical junction is normal. No significant marrow replacement process. Vasculature: Major intracranial arterial structures and dural venous sinuses show typical flow voids. Other: Bilateral lens replacements. The paranasal sinuses and mastoid air cells are clear. The extracranial soft tissues are unremarkable. DIVISION OF RADIOLOGY Provider, [facility] - 02/23/2024 * * *Final Report* * * DATE OF EXAM: Feb 23 2024 12:10PM 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 MQ: MRBWOW_2 Contrast: 15 mL Dotarem IV COMPARISON: Multiple prior brain MRIs, most recently 02/13/2023 RESULT: Acute Change: There is no evidence of restricted diffusion to suggest an acute infarct. Hemorrhage: No evidence of prior parenchymal hemorrhage on the gradient echo images. Mass Lesion/ Mass Effect: An enhancing masses in the internal auditory canal and cerebellopontine angle bilaterally measure up to 0.7 x 1.0 cm on the right and 1.1 x 1.7 cm on the left, similar to previous No significant mass effect.. No new mass or abnormal enhancement. No abnormal extra-axial collection. Chronic Change: Nonspecific T2 hyperintense signal in the white matter, similar to previous and likely related to chronic small vessel ischemic disease. Parenchyma: No significant volume loss for age. The brain parenchyma is otherwise within normal limits of signal intensity and morphology. Ventricles: Normal caliber and morphology. Skull Base: Hypothalamic and pituitary region are unremarkable. Craniocervical junction is normal. No significant marrow replacement process. Vasculature: Major intracranial arterial structures and dural venous sinuses show typical flow voids. Other: Bilateral lens replacements. The paranasal sinuses and mastoid air cells are clear. The extracranial soft tissues are unremarkable. IMPRESSION IMPRESSION: Unchanged vestibular schwannomas bilaterally Sales And Marketing Agent: [facility] Transcribe Date/Time: Feb 23 2024 1:35P Dictated by : ELIOT KELSEY MD This examination was interpreted and the report reviewed and electronically signed by: ELIOT KELSEY MD on Feb 23 2024 1:49PM [facility] Radiology Study observation (narrative) [facility] MR Brain WO and W contrast I VOrdered By: Ccf Provider on 02-23-2024 [facility] MRI BRAIN WO/W IVCONon 02-13 [facility] No Panel Informationon 08-14 [facility] MRI BRAIN WO/W IVCONon 07-12 [facility] Absolute lymphocyte countOrd ered By: Dr. Sapp on 05-25-2022 Lymphocytes Auto (Unsp spec) [#/Vol] 1.96 10*3/uL 0.83-4.51 [facility] Basophil percentageOrdered B y: Dr. Sapp on 05-25-2022 Basophils/100 WBC (Bld) 0.4 % 0-1 [facility] Bilirubin [Mass/Vol] 0.60 mg/dL 0.20-1.00 [facility] Comment on above: For patients on eltr ombopag therapy, use of Dimension [place] TBIL is not recommended. Chloride [Moles/Vol] 109 mmol/L 98-107 [facility] Eosinophils/100 WBC (Bld) 3.4 % 0-5 [facility] Glucose [Mass/Vol] 92 mg/dL 74-106 [facility] Neutrophils (Bld) [#/Vol] 4.5 10*3/uL 2.0-7.7 [facility] Neutrophils/100 WBC (Bld) 60.5 % 47-70 [facility] Potassium [Moles/Vol] 4.3 mmol/L 3.5-5.1 [facility] Protein [Mass/Vol] 7.5 g/dL 6.4-8.2 [place] [facility] S[facility] [Moles/Vol] 141 mmol/L 136-145 [facility] WBC (Bld) [#/Vol] 7.4 10*3/uL 4.4-11.0 [facility] Blood erythrocytes count (nu mber/volume)Ordered By: Dr. Sapp on 05-25-2022 RBC (Bld) [#/Vol] 5.06 10*6/uL 4.2-5.4 [facility] Blood hemoglobin measurement (mass/volume)Ordered By: Dr. Sapp on 05-25-2022 Hemoglobin (Bld) [Mass/Vol] 14.5 g/dL 12.0-15.0 [facility] Blood lymphocytes/100 leukoc ytesOrdered By: Dr. Sapp on 05-25-2022 Lymphocytes/100 WBC (Bld) 26.6 % 19-41 [facility] Blood monocytes/100 leukocyt esOrdered By: Dr. Sapp on 05-25-2022 Monocytes/100 WBC (Bld) 8.8 % 0-10 [facility] Blood platelet mean volumeOr dered By: Dr. Sapp on 05-25-2022 Platelet mean volume (Bld) [Entitic vol] 10.3 fL 6.2-12.0 [facility] Determination of erythrocyte mean corpuscular volume (MCV)Ordered By: Dr. Sapp on 05-25-2022 MCV (RBC) [Entitic vol] 88.1 fL 81-99 [facility] Erythrocyte sedimentation ra teOrdered By: Dr. Sapp on 05-25-2022 ESR (Bld) [Velocity] 39 mm/h 0-30 [facility] Hematocrit Auto (Bld) [Volum e fraction]Ordered By: Dr. Sapp on 05-25-2022 Hematocrit (Bld) [Volume fraction] 44.6 % 37-47 [facility] Laboratory - Chemistry and C hemistry - challengeOrdered By: Dr. Sapp on 05-25-2022 ALP [Catalytic activity/Vol] 76 U/L 45-117 [facility] ALT [Catalytic activity/Vol] 17 U/L 13-56 [facility] CK [Catalytic activity/Vol] 53 U/L 26-192 [facility] CO2 [Moles/Vol] 27.0 mmol/L 21.0-32.0 [facility] Globulin (S) [Mass/Vol] 3.9 g/dL 2.2-4.2 [facility] Urea nitrogen/Creatinine [Mass ratio] 14.2 mg/mg 10-20 [facility] Laboratory - Hematology and Cell countsOrdered By: Dr. Sapp on 05-25-2022 Erythrocyte distribution width (RBC) [Entitic vol] 43.7 fL 35.1-43.9 [facility] Erythrocyte distribution width (RBC) [Ratio] 13.6 % 11.6-14.6 [facility] Immature granulocytes/100 WBC (Bld) 0.300 % 0.0-0.9 [facility] Comment on above: IG% - Immature Granu locytes (promyelocytes, myelocytes and metamyelocytes) > 1% indicates that a LEFT SHIFT is Present. MCH (RBC) [Entitic mass] 28.7 pg 27.0-32.0 [facility] Nucleated RBC/100 WBC (Bld) [Ratio] 0 % 0-5 [facility] MCHC Auto (RBC) [Mass/Vol]Or dered By: Dr. Sapp on 05-25-2022 MCHC (RBC) [Mass/Vol] 32.5 g/dL 32-36 [facility] No Panel InformationOrdered By: Dr. Sapp on 05-25-2022 Estimated GFR (MDRD) Amer 72 mL/min >60 [facility] Comment on above: GFR Calc Estimated GFR (MDRD) Non-Af Amer 60 mL/min >60 [facility] Comment on above: Non- GFR Calc Thyroid Stimulating Hormone (TSH) 3.46 uIU/mL 0.358-3.74 [facility] Platelets bldOrdered By: Dr. Sapp on 05-25-2022 Platelets (Bld) [#/Vol] 258 10*3/uL 150-450 [facility] Serum or plasma C reactive p rotein measurement (mass/volume)Ordered By: Dr. Sapp on 05-25-2022 CRP [Mass/Vol] 5.24 mg/L 0.0-3.0 [facility] Comment on above: C-Reactive Protein ( CRP) provides useful information for thediagnosis, therapy and monitoring of inflammatory processesand associated diseases. For the evaluation of Relative Riskfor Cardiovascular Disease, a High Sensitivity CRP (HSCRP)should be ordered. Serum or plasma albumin afsaneh urement (mass/volume)Ordered By: Dr. Sapp on 05-25-2022 Albumin [Mass/Vol] 3.6 g/dL 3.2-5.0 [facility] Serum or plasma albumin/glob ulin mass ratioOrdered By: Dr. Sapp on 05-25-2022 Albumin/Globulin [Mass ratio] 0.9 {ratio} 0.9-2.4 [facility] Serum or plasma calcium afsaneh urement (mass/volume)Ordered By: Dr. Sapp on 05-25-2022 Calcium [Mass/Vol] 9.5 mg/dL 8.5-10.1 [facility] Serum or plasma creatinine m easurement (mass/volume)Ordered By: Dr. Sapp on 05-25-2022 Creatinine [Mass/Vol] 0.99 mg/dL 0.55-1.02 [facility] Comment on above: The validity of the calculated GFR & GFRAA in patients over 70 years has not been determined. Clinical correlation is essential. Serum or plasma urea nitroge n measurement (mass/volume)Ordered By: Dr. Sapp on 05-25-2022 Urea nitrogen [Mass/Vol] 14 mg/dL 7-18 [facility] Thin prep Papanicolaou smear with manual screeningOrdered By: Dr. Sapp on 05-25-2022 Thin prep Papanicolaou smear with manual screening 16 U/L 15-37 [facility] Thin prep Papanicolaou smear with manual screening 5 5-15 [facility] CBC W Auto Differential pane l (Bld)on 05-19-2022 Basophils (Bld) [#/Vol] 0.04 10*3/uL <0.11 k/uL [facility] Basophils/100 WBC (Bld) 0.4 % [facility] Differential cell count method Nom (Bld) Auto [facility] Eosinophils (Bld) [#/Vol] 0.24 10*3/uL <0.46 k/uL [facility] Eosinophils/100 WBC (Bld) 2.5 % [facility] Erythrocyte distribution width (RBC) [Ratio] 13.5 % 11.5 - 15.0 % [facility] Hematocrit (Bld) [Volume fraction] 41.9 % 36.0 - 46.0 % [facility] Hemoglobin (Bld) [Mass/Vol] 14.0 g/dL 11.5 - 15.5 g/dL [facility] Immature granulocytes (Bld) [#/Vol] 0.04 10*3/uL <0.10 k/uL [facility] Immature granulocytes/100 WBC (Bld) 0.4 % [facility] Lymphocytes (Bld) [#/Vol] 2.39 10*3/uL 1.00 - 4.00 k/uL [facility] Lymphocytes/100 WBC (Bld) 24.9 % [facility] MCH (RBC) [Entitic mass] 28.8 pg 26.0 - 34.0 pg [facility] MCHC (RBC) [Mass/Vol] 33.4 g/dL 30.5 - 36.0 g/dL [facility] MCV (RBC) [Entitic vol] 86.2 fL 80.0 - 100.0 fL [facility] Monocytes (Bld) [#/Vol] 0.77 10*3/uL <0.87 k/uL [facility] Monocytes/100 WBC (Bld) 8.0 % [facility] Neutrophils (Bld) [#/Vol] 6.13 10*3/uL 1.45 - 7.50 k/uL [facility] Neutrophils/100 WBC (Bld) 63.8 % [facility] Nucleated RBC (Bld) [#/Vol] <0.01 k/uL [facility] Nucleated RBC/100 WBC (Bld) [Ratio] 0.0 /100 WBC [facility] Platelet mean volume (Bld) [Entitic vol] 9.8 fL 9.0 - 12.7 fL [facility] Platelets (Bld) [#/Vol] 260 10*3/uL 150 - 400 k/uL [facility] RBC (Bld) [#/Vol] 4.86 10*6/uL 3.90 - 5.2 0 m/uL [facility] WBC (Bld) [#/Vol] 9.61 10*3/uL 3.70 - 11. 00 k/uL [facility] URINALYSIS, DIPSTICK ONLYon 05-19-2022 Bilirubin Ql (U) Negative Negative [facility] Clarity (Unsp spec) Clear Clear [facility] Color (U) Colorless Yellow [facility] Glucose Test strip (U) [Mass/Vol] Negative Trace, Negative [facility] Hemoglobin Ql (U) Negative Negative, Trace [facility] Ketones Ql (U) Negative Trace, Negative [facility] Leukocyte esterase Test strip Ql (U) Negative Negative, 25 [place]/mL [facility] Nitrite Ql (U) Negative Negative [facility] pH (U) 5.5 [pH] 5.0 - 8.0 [facility] Protein (U) [Mass/Vol] Negative Trace , Negative [facility] Specific gravity (U) [Rel density] 1.010 1.005 - 1.030 [facility] Urobilinogen Ql (U) Negative Negative [facility] Absolute lymphocyte counton 01-20-2022 Lymphocytes Auto (Unsp spec) [#/Vol] 1.71 10*3/uL 0.83-4.51 [facility] Work Phone: Basophil percentageon 2021 Basophils/100 WBC (Bld) 0.4 % 0-1 [facility] Work Phone: Bilirubin [Mass/Vol] 0.60 mg/dL 0.20-1.00 [facility] Work Phone: [phone] Comment on above: For patients on eltr ombopag therapy, use of Dimension [place] TBIL is not recommended. Chloride [Moles/Vol] 107 mmol/L 98-107 [facility] Work Phone: [phone] Cholesterol [Mass/Vol] 238 mg/dL <200 [facility] Work Phone: [phone] Comment on above: <200 mg/dL Desirable 200-240 mg/dL Borderline >240 mg/dL High Risk Eosinophils/100 WBC (Bld) 4.0 % 0-5 [facility] Work Phone: [phone] Glucose [Mass/Vol] 95 mg/dL 74-106 [facility] Work Phone: [phone] Neutrophils (Bld) [#/Vol] 4.2 10*3/uL 2.0-7.7 [facility] Work Phone: Neutrophils/100 WBC (Bld) 61.1 % 47-70 [facility] Work Phone: [phone] Potassium [Moles/Vol] 4.3 mmol/L 3.5-5.1 [facility] Work Phone: Protein [Mass/Vol] 7.7 g/dL 6.4-8.2 [facility] Work Phone: [phone] Sodium [Moles/Vol] 141 mmol/L 136-145 [facility] Work Phone: Triglyceride [Mass/Vol] 212 mg/dL <199 [facility] Work Phone: [phone] Comment on above: The drugs N-Acetylcy steine and Metamizole may falsely depress this assay.Serum Triglycerides Reference Interval Normal <150 mg/dL Borderline high 150 - 199 mg/dL High 200 - 499 mg/dL Very High > or = 500 mg/dL WBC (Bld) [#/Vol] 6.8 10*3/uL 4.4-11.0 [facility] Work Phone: Blood erythrocytes count (nu mber/volume)on 01-20-2022 RBC (Bld) [#/Vol] 4.94 10*6/uL 4.2-5.4 [facility] Work Phone: Blood hemoglobin measurement (mass/volume)on 01-20-2022 Hemoglobin (Bld) [Mass/Vol] 14.4 g/dL 12.0-15.0 [facility] Work Phone: Blood lymphocytes/100 leukoc yteson 01-20-2022 Lymphocytes/100 WBC (Bld) 25.2 % 19-41 [facility] Work Phone: Blood monocytes/100 leukocyt eson 01-20-2022 Monocytes/100 WBC (Bld) 8.4 % 0-10 [facility] Work Phone: Blood platelet mean volumeon 01-20-2022 Platelet mean volume (Bld) [Entitic vol] 9.5 fL 6.2-12.0 [facility] Work Phone: Determination of erythrocyte mean corpuscular volume (MCV)on 01-20-2022 MCV (RBC) [Entitic vol] 89.1 fL 81-99 [facility] Work Phone: Hematocrit Auto (Bld) [Volum e fraction]on 01-20-2022 Hematocrit (Bld) [Volume fraction] 44.0 % 37-47 [facility] Work Phone: Laboratory - Chemistry and C hemistry - challengeon 01-20-2022 ALP [Catalytic activity/Vol] 84 U/L 45-117 [facility] Work Phone: ALT [Catalytic activity/Vol] 37 U/L 13-56 [facility] Work Phone: CO2 [Moles/Vol] 28.0 mmol/L 21.0-32.0 [facility] Work Phone: Globulin (S) [Mass/Vol] 4.2 g/dL 2.2-4.2 [facility] Work Phone: Urea nitrogen/Creatinine [Mass ratio] 12.3 mg/mg 10-20 [facility] Work Phone: Laboratory - Hematology and Cell countson 01-20-2022 Erythrocyte distribution width (RBC) [Entitic vol] 44.3 fL 35.1-43.9 [facility] Work Phone: Erythrocyte distribution width (RBC) [Ratio] 13.6 % 11.6-14.6 [facility] Work Phone: Immature granulocytes/100 WBC (Bld) 0.900 % 0.0-0.9 [facility] Work Phone: Comment on above: IG% - Immature Granu locytes (promyelocytes, myelocytes and metamyelocytes) > 1% indicates that a LEFT SHIFT is Present. MCH (RBC) [Entitic mass] 29.1 pg 27.0-32.0 [facility] Work Phone: Nucleated RBC/100 WBC (Bld) [Ratio] 0 % 0-5 [facility] Work Phone: MCHC Auto (RBC) [Mass/Vol]on 01-20-2022 MCHC (RBC) [Mass/Vol] 32.7 g/dL 32-36 [facility] Work Phone: No Panel Informationon 01-20 Estimated GFR (MDRD) Amer 66 mL/min >60 [facility] Work Phone: Comment on above: GFR Calc Estimated GFR (MDRD) Non-Af Amer 55 mL/min >60 [facility] Work Phone: Comment on above: Non- GFR Calc Thyroid Stimulating Hormone (TSH) 2.80 uIU/mL 0.358-3.74 [facility] Work Phone: Vitamin D 25-Hydroxy 22.4 ng/mL [facility] Work Phone: Comment on above: Vitamin D 25(OH) Sta tus Range Deficiency <20 ng/mL (50nmol/L) Insufficiency 20 - 30 ng/mL (50 - 75 nmol/L) Sufficiency 30 - 100 ng/mL (75 - 250 nmol/L) Toxicity >100 ng/mL (>250 nmol/L) Platelets bldon 01-20-2022 Platelets (Bld) [#/Vol] 247 10*3/uL 150-450 [facility] Work Phone: Serum or plasma albumin afsaneh urement (mass/volume)on 01-20-2022 Albumin [Mass/Vol] 3.5 g/dL 3.2-5.0 [facility] Work Phone: Serum or plasma albumin/glob ulin mass ratioon 01-20-2022 Albumin/Globulin [Mass ratio] 0.8 {ratio} 0.9-2.4 [facility] Work Phone: Serum or plasma calcium afsaneh urement (mass/volume)on 01-20-2022 Calcium [Mass/Vol] 9.4 mg/dL 8.5-10.1 [facility] Work Phone: Serum or plasma cholesterol in HDL measurement (mass/volume)on 01-20-2022 Cholesterol in HDL [Mass/Vol] 63 mg/dL >40 [facility] Work Phone: Comment on above: The drugs N-Acetylcy steine and Metamizole may falsely depress this assay. Reference Range HDL <40 mg/dL Low HDL Cholesterol HDL >or= 60 mg/dL High HDL Cholesterol Serum or plasma cholesterol in VLDL measurement (mass/volume)on 01-20-2022 Cholesterol in VLDL [Mass/Vol] 42 mg/dL 5-40 [facility] Work Phone: Serum or plasma creatinine m easurement (mass/volume)on 01-20-2022 Creatinine [Mass/Vol] 1.06 mg/dL 0.55-1.02 [facility] Work Phone: Comment on above: The validity of the calculated GFR & GFRAA in patients over 70 years has not been determined. Clinical correlation is essential. Serum or plasma low density lipoprotein (LDL) cholesterol measurement (mass/volume)on 01-20-2022 Cholesterol in LDL [Mass/Vol] 133 mg/dL 0-130 [facility] Work Phone: Serum or plasma urea nitroge n measurement (mass/volume)on 01-20-2022 Urea nitrogen [Mass/Vol] 13 mg/dL 7-18 [facility] Work Phone: Thin prep Papanicolaou smear with manual screeningon 01-20-2022 Thin prep Papanicolaou smear with manual screening 36 U/L 15-37 [facility] Work Phone: Thin prep Papanicolaou smear with manual screening 6 5-15 [facility] Work Phone: MRI BRAIN WO/W IVCONon 01-03 [facility] CBC W Auto Differential pane l (Bld)on 09-15-2021 Abs Immature Gran 0.07 k/uL <0.10 k/uL [facility] Basophils (Bld) [#/Vol] 0.04 10*3/uL <0.11 k/uL [facility] Basophils/100 WBC (Bld) 0.3 % [facility] Differential cell count method Nom (Bld) Auto [facility] Eosinophils (Bld) [#/Vol] 10*3/uL <0.46 k/uL [facility] Eosinophils/100 WBC (Bld) 0.0 % [facility] Erythrocyte distribution width (RBC) [Ratio] 14.1 % 11.5 - 15.0 % [facility] Hematocrit (Bld) [Volume fraction] 39.4 % 36.0 - 46.0 % [facility] Hemoglobin (Bld) [Mass/Vol] 13.3 g/dL 11.5 - 15.5 g/dL [facility] Immature Gran % 0.6 % [facility] Lymphocytes (Bld) [#/Vol] 1.11 10*3/uL 1.00 - 4.00 k/uL [facility] Lymphocytes/100 WBC (Bld) 9.2 % [facility] MCH (RBC) [Entitic mass] 30.8 pg 26.0 - 34.0 pg [facility] MCHC (RBC) [Mass/Vol] 33.8 g/dL 30.5 - 36.0 g/dL [facility] MCV (RBC) [Entitic vol] 91.2 fL 80.0 - 100.0 fL [facility] Monocytes (Bld) [#/Vol] 0.26 10*3/uL <0.87 k/uL [facility] Monocytes/100 WBC (Bld) 2.2 % [facility] Neutrophils (Bld) [#/Vol] 10.55 10*3/uL High 1.45 - 7.50 k/uL [facility] Neutrophils/100 WBC (Bld) 87.7 % [facility] Nucleated RBC (Bld) [#/Vol] 10*3/uL <0.01 k/uL [facility] Nucleated RBC/100 WBC (Bld) [Ratio] 0.0 /100 WBC [facility] Platelet mean volume (Bld) [Entitic vol] 8.0 fL Low 9.0 - 12.7 fL [facility] Platelets (Bld) [#/Vol] 312 10*3/uL 150 - 400 k/uL [facility] RBC (Bld) [#/Vol] 4.32 10*6/uL 3.90 - 5.2 0 m/uL [facility] WBC (Bld) [#/Vol] 12.03 10*3/uL High 3.70 - 11 .00 k/uL [facility] Comprehensive metabolic 2000 panelon 09-15-2021 Albumin [Mass/Vol] 4.1 g/dL 3.9 - 4.9 g/dL [facility] ALP [Catalytic activity/Vol] 91 U/L 34 - 123 U/L [facility] ALT [Catalytic activity/Vol] 37 U/L 7 - 38 U/L [facility] Anion gap [Moles/Vol] 12 mmol/L 9 - 18 mmol/L [facility] AST [Catalytic activity/Vol] 18 U/L 13 - 35 U/L [facility] Bilirubin [Mass/Vol] 0.3 mg/dL 0.2 - 1 .3 mg/dL [facility] Calcium [Mass/Vol] 8.8 mg/dL 8.5 - 10. 2 mg/dL [facility] Chloride [Moles/Vol] 105 mmol/L 97 - 10 5 mmol/L [facility] CO2 [Moles/Vol] 22 mmol/L 22 - 30 mmol/L [facility] Creatinine [Mass/Vol] 0.66 mg/dL 0.58 - 0.96 mg/dL [facility] Estimated Glomerular Filtration Rate 97 mL/min/1.73m >=60 mL/min/1.73m [facility] Glucose [Mass/Vol] 142 mg/dL High 74 - 99 mg/dL [facility] Potassium [Moles/Vol] 3.7 mmol/L 3.7 - 5.1 mmol/L [facility] Protein [Mass/Vol] 6.4 g/dL 6.3 - 8.0 g/dL [facility] Sodium [Moles/Vol] 139 mmol/L 136 - 144 mmol/L [facility] Urea nitrogen [Mass/Vol] 16 mg/dL 7 - 21 mg/dL [facility] Vital Signs Date Time Vital Sign Value Performing Clinician Facility 02-13-2025 10:59-0400 Body height 142.[address] Merrill Sapp MD Work Phone: [facility] 02-13-2025 10:59-0400 Body mass index (BMI) [Ratio] 39.2 kg/m2 Dr. Merrill Sapp MD Work Phone: [facility] 02-13-2025 10:59-0400 Body temperature 98.4 [degF] Dr. Merrill Sapp MD Work Phone: [facility] 02-13-2025 10:59-0400 Body weight 79.[address] Merrill Sapp MD Work Phone: [facility] 02-13-2025 10:59-0400 Diastolic blood pressure 78 mm[Hg] Dr. Merrill Sapp MD Work Phone: [facility] 02-13-2025 10:59-0400 Heart rate 66 /min Dr. Merrill Sapp MD Work Phone: [facility] 02-13-2025 10:59-0400 Respiratory rate 16 /min Dr. Merrill Sapp MD Work Phone: [facility] 02-13-2025 10:59-0400 SaO2% (BldA) [Mass fraction] 97 % Dr. Merrill Sapp MD Work Phone: [facility] 02-13-2025 10:59-0400 Systolic blood pressure 134 mm[Hg] Dr. Merrill Sapp MD Work Phone: [facility] 10-15-2024 16:31-0400 Body temperature 98 [degF] Dr. Merrill Sapp MD Work Phone: [facility] 10-15-2024 16:31-0400 Diastolic blood pressure 93 mm[Hg] Dr. Merrill Sapp MD Work Phone: [facility] 10-15-2024 16:31-0400 Heart rate 77 /min Dr. Merrill Sapp MD Work Phone: [facility] 10-15-2024 16:31-0400 Respiratory rate 19 /min Dr. Merrill Sapp MD Work Phone: [facility] 10-15-2024 16:31-0400 SaO2% (BldA) [Mass fraction] 97 % Dr. Merrill Sapp MD Work Phone: [facility] 10-15-2024 16:31-0400 Systolic blood pressure 109 mm[Hg] Dr. Merrill Sapp MD Work Phone: [facility] 10-15-2024 15:14-0400 Body height 142.[address] Merrill Sapp MD Work Phone: [facility] 10-15-2024 15:14-0400 Body mass index (BMI) [Ratio] 39.1 kg/m2 Dr. Merrill Sapp MD Work Phone: [facility] 10-15-2024 15:14-0400 Body weight 79.[address] Merrill Sapp MD Work Phone: [facility] 02-09-2023 14:32-0400 Body height 139.7 cm MD Merrill NORTON [facility] 02-09-2023 14:32-0400 Body mass index (BMI) [Ratio] 39.8 kg/m2 MD Merrill Senait [facility] 02-09-2023 14:32-0400 Body temperature 98.3 [degF] MD Merrill Sapp [facility] 02-09-2023 14:32-0400 Body weight 77.79 kg MD Merrill Sapp [facility] 02-09-2023 14:32-0400 Diastolic blood pressure 85 mm[Hg] MD Merrill Sapp [facility] 02-09-2023 14:32-0400 Heart rate 65 /min Merrillyadira Sapp [facility] 02-09-2023 14:32-0400 Respiratory rate 16 /min MD Merrill Sapp [facility] 02-09-2023 14:32-0400 SaO2% (BldA) [Mass fraction] 95 % Merrillyadira Sapp [facility] 02-09-2023 14:32-0400 Systolic blood pressure 129 mm[Hg] Merrillyadira Sapp [facility] 05-25-2022 08:03-0500 Body temperature 97.6 [degF] Merrillyadira Sapp [facility] 05-25-2022 08:03-0500 Body weight 73.65 kg Merrillyadira Sapp [facility] 05-25-2022 08:03-0500 Diastolic blood pressure 86 mm[Hg] Merrillyadira Sapp [facility] 05-25-2022 08:03-0500 Heart rate 69 /min MD Merrill Sapp [facility] 05-25-2022 08:03-0500 Respiratory rate 16 /min Merrillyadira Sapp [facility] 05-25-2022 08:03-0500 SaO2% (BldA) [Mass fraction] 97 % Merrillyadira Sapp [facility] 05-25-2022 08:03-0500 Systolic blood pressure 144 mm[Hg] Merrillyadira Sapp [facility] 05-23-2022 08:11-0500 Body height 139.7 cm MD Merrill Sapp [facility] 05-19-2022 12:49-0500 Body temperature 97.39 [degF] Treatment Wstr Work Phone: [facility] 05-19-2022 12:49-0500 Body weight 73.94 kg Treatment [facility]str Work Phone: [facility] 05-19-2022 12:49-0500 Diastolic blood pressure 65 mm[Hg] Treatment [facility]str Work Phone: [facility] 05-19-2022 12:49-0500 Heart rate 67 /min Treatment [facility] Work Phone: [facility] 05-19-2022 12:49-0500 Respiratory rate 22 /min Treatment [facility]str Work Phone: [facility] 05-19-2022 12:49-0500 Systolic blood pressure 139 mm[Hg] Treatment [facility]str Work Phone: [facility] 04-08-2022 12:59-0500 Body temperature 98.01 [degF] Treatment [facility]str Work Phone: [facility] 04-08-2022 12:59-0500 Body weight 74.62 kg Treatment [facility] Work Phone: [facility] 04-08-2022 12:59-0500 Diastolic blood pressure 56 mm[Hg] Treatment [facility]str Work Phone: [facility] 04-08-2022 12:59-0500 Heart rate 69 /min Treatment [facility] Work Phone: [facility] 04-08-2022 12:59-0500 Systolic blood pressure 149 mm[Hg] Treatment [facility] Work Phone: [facility] 02-24-2022 13:07-0400 Body temperature 98.6 [degF] Treatment [facility]str Work Phone: [facility] 02-24-2022 13:07-0400 Body weight 74.39 kg Treatment [facility]str Work Phone: [facility] 02-24-2022 13:07-0400 Diastolic blood pressure 61 mm[Hg] Treatment [facility]str Work Phone: [facility] 02-24-2022 13:07-0400 Heart rate 65 /min Treatment [facility] Work Phone: [facility] 02-24-2022 13:07-0400 Systolic blood pressure 142 mm[Hg] Treatment [facility]str Work Phone: [facility] 01-20-2022 08:22-0400 Body temperature 98.1 [degF] MD Merrill Sapp [facility] Work Phone: 01-20-2022 08:22-0400 Body weight 74.55 kg MD Merrill Sapp [facility] Work Phone: 01-20-2022 08:22-0400 Diastolic blood pressure 80 mm[Hg] MD Merrill Sapp [facility] Work Phone: 01-20-2022 08:22-0400 Heart rate 65 /min MD Arredondo Senait [facility] Work Phone: 01-20-2022 08:22-0400 Respiratory rate 16 /min MD Merrill Gomezchner [facility] Work Phone: 01-20-2022 08:22-0400 SaO2% (BldA) [Mass fraction] 97 % MD Arredondo [facility] Work Phone: 01-20-2022 08:22-0400 Systolic blood pressure 126 mm[Hg] MD Arredondo [facility] Work Phone: 01-12-2022 13:18-0400 Body temperature 97.39 [degF] Treatment Wstr Work Phone: [facility] 01-12-2022 13:18-0400 Body weight 74.84 kg Treatment Wstr Work Phone: [facility] 01-12-2022 13:18-0400 Diastolic blood pressure 85 mm[Hg] Treatment Wstr Work Phone: [facility] 01-12-2022 13:18-0400 Heart rate 73 /min Treatment Wstr Work Phone: [facility] 01-12-2022 13:18-0400 Systolic blood pressure 147 mm[Hg] Treatment Wstr Work Phone: [facility] 12-23-2021 09:35-0400 Body height 139.7 cm MD Merrill Sapp [facility] Work Phone: 12-23-2021 09:35-0400 Body mass index (BMI) [Ratio] 36.7 kg/m2 [facility] 12-23-2021 09:35-0400 Body temperature 99.6 [degF] MD Merrill Sapp [facility] Work Phone: 12-23-2021 09:35-0400 Body weight 71.66 kg Merrill [facility] Work Phone: 12-23-2021 09:35-0400 Diastolic blood pressure 72 mm[Hg] [facility] Work Phone: 12-23-2021 09:35-0400 Heart rate 82 /min Merrill [facility] Work Phone: 12-23-2021 09:35-0400 Respiratory rate 14 /min Merrill [facility] Work Phone: 12-23-2021 09:35-0400 SaO2% (BldA) [Mass fraction] 96 % MD Arredondo [facility] Work Phone: 12-23-2021 09:35-0400 Systolic blood pressure 138 mm[Hg] MD Arredondo [facility] Work Phone: 11-10-2021 15:15-0400 Body temperature 96.91 [degF] Treatment Wstr Work Phone: [facility] 11-10-2021 15:15-0400 Diastolic blood pressure 73 mm[Hg] Treatment Wstr Work Phone: [facility] 11-10-2021 15:15-0400 Heart rate 66 /min Treatment Wstr Work Phone: [facility] 11-10-2021 15:15-0400 Systolic blood pressure 152 mm[Hg] Treatment Wstr Work Phone: [facility] 10-13-2021 15:08-0400 Body temperature 97.11 [degF] Treatment Wstr Work Phone: [facility] 10-13-2021 15:08-0400 Body weight 73.48 kg Treatment Wstr Work Phone: [facility] 10-13-2021 15:08-0400 Diastolic blood pressure 72 mm[Hg] Treatment Wstr Work Phone: [facility] 10-13-2021 15:08-0400 Heart rate 67 /min Treatment Wstr Work Phone: [facility] 10-13-2021 15:08-0400 Systolic blood pressure 152 mm[Hg] Treatment Wstr Work Phone: [facility] 09-15-2021 15:00-0400 Body temperature 97.81 [degF] Treatment Wstr Work Phone: [facility] 09-15-2021 15:00-0400 Body weight 67.13 kg Treatment Wstr Work Phone: [facility] 09-15-2021 15:00-0400 Diastolic blood pressure 54 mm[Hg] Treatment Wstr Work Phone: [facility] 09-15-2021 15:00-0400 Heart rate 74 /min Treatment Wstr Work Phone: [facility] 09-15-2021 15:00-0400 Systolic blood pressure 126 mm[Hg] Treatment Wstr Work Phone: [facility] 08-18-2021 14:55-0400 Body temperature 97.2 [degF] Treatment Wstr Work Phone: [facility] 08-18-2021 14:55-0400 Body weight 73.94 kg Treatment Wstr Work Phone: [facility] 08-18-2021 14:55-0400 Diastolic blood pressure 74 mm[Hg] Treatment Wstr Work Phone: [facility] 08-18-2021 14:55-0400 Heart rate 63 /min Treatment Wstr Work Phone: [facility] 08-18-2021 14:55-0400 SaO2% (BldA) [Mass fraction] 96 % Treatment Wstr Work Phone: [facility] 08-18-2021 14:55-0400 Systolic blood pressure 142 mm[Hg] Treatment Wstr Work Phone: [facility] Encounters Encounter Date Encounter Type Care Provider Facility Start: 03-19-2025 End: 03-19-2025 ambulatory XAVIER SIDHU Facility:[facility] Start: 03-17-2025 ambulatory XAVIER SIDHU Facilit y:[facility] Start: 02-25-2025 End: 02-25-2025 ambulatory Merrill Sapp Facility:[facility] Start: 02-20-2025 End: 02-20-2025 ambulatory Merrill Sapp Facility:[facility] Start: 02-13-2025 End: 02-13-[address] Merrill Sapp MD [facility] Work Phone: Start: 02-13-2025 End: 02-13-[address] Merrill Sapp MD Work Phone: -[facility] Start: 10-15-2024 End: 10-15-2024 Emergency department patient visit Dr. 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] Start: 09-03-2024 End: 09-03-2024 ambulatory SHERINE ADAMS Facility:[facility] Start: 06-05-2024 End: 06-05-2024 Orders Only [place] Gilman RN Work Phone: [facility] Comment on above: 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) Start: 04-18-2024 End: 04-18-2024 ambulatory Merrill Sapp Facility:[facility] Start: 04-17-2024 End: 04-17-2024 Orders Only [place] Gilman RN Work Phone: [facility] Comment on above: 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) Start: 04-16-2024 End: 04-16-2024 ambulatory Xavier Sidhu MD Work Phone: [facility] Comment on above: 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) Start: 04-16-2024 End: 04-16-2024 Telemedicine consultation with patient Xavier Sidhu MD Work Phone: [facility] Start: 04-15-2024 End: 04-15-2024 ambulatory XAVIER SIDHU Facility:[facility] Start: 04-15-2024 End: 04-15-2024 Subsequent hospital visit by physician Mri Radio [facility] Wstr (I-Stat/1.5t) Work Phone: Radiology Comment on above: Neurofibromatosis (H CC) [Q85.00] Start: 03-04-2024 End: 03-05-2024 Orders Only Xavier Sidhu MD Work Phone: [facility] Comment on above: Neurofibromatosis (H CC) (Primary Dx) 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) [facility] Start: 02-26-2024 End: 02-26-2024 ambulatory Xavier Sidhu MD Work Phone: [facility] Comment on above: 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) Start: 02-26-2024 End: 02-26-2024 Telemedicine consultation with patient Xavier Sidhu MD Work Phone: [facility] Start: 02-23-2024 End: 02-23-2024 Subsequent hospital visit by physician Mri Radio [facility] Wstr (I-Stat/1.5t) Work Phone: Radiology Comment on above: Neurofibromatosis (H CC) [Q85.00] Start: 07-17-2023 Orders Only [place] Gilman R N Work Phone: [facility] Comment on above: 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); Vestibular schwannoma (HCC) Start: 03-10-2023 End: 03-10-2023 ambulatory MD Merrill Sapp [facility] Work Phone: Start: 03-10-2023 End: 03-10-2023 Patient encounter procedure MD Merrill Sapp [facility] Work Phone: Start: 02-20-2023 Orders Only [place] Gilman R N Work Phone: [facility] Comment on above: Neurofibromatosis (H CC) (Primary Dx); Vestibular schwannoma (HCC) Start: 02-16-2023 End: 02-16-2023 ambulatory Xavier Sidhu MD Work Phone: [facility] Comment on above: 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) Neurofibromatosis (H CC) (Primary Dx) Start: 08-17-2022 End: 08-17-2022 Telemedicine consultation with patient Xavier Sidhu MD Work Phone: [facility] Start: 08-16-2022 End: 08-16-2022 Subsequent hospital visit by physician Mri Radio [facility] Wstr (I-Stat/1.5t) Work Phone: Radiology Comment on above: Neurofibromatosis (H CC) [Q85.00] Start: 07-14-2022 Telephone encounter Xavier banegas MD Work Phone: Palliative Medicine Comment on above: Palliative Care; Ini tial Consult Start: 07-13-2022 End: 07-13-2022 Orders Only Xavier Sidhu MD Work Phone: [facility] Comment on above: Neurofibromatosis (H CC) (Primary Dx); 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) [facility] Start: 07-12-2022 End: 07-12-2022 Subsequent hospital visit by physician Mri Radio [facility] Wstr (I-Stat/1.5t) Work Phone: Radiology Comment on above: 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] Start: 06-10-2022 Telephone encounter Xavier banegas MD Work Phone: [facility] [place] Comment on above: Tumor [facility] Brain Start: 06-06-2022 End: 06-06-2022 ambulatory Xavier Sidhu MD Work Phone: [facility] Comment on above: Vestibular schwannom a (HCC) (Primary Dx) Start: 06-06-2022 End: 06-06-2022 Telemedicine consultation with patient Xavier Sidhu MD Work Phone: [facility] Start: 05-25-2022 End: 05-25-2022 ambulatory MD Merrill Sapp [facility] Work Phone: Start: 05-25-2022 End: 05-25-2022 [facility] Start: 05-19-2022 End: 05-19-2022 ambulatory Treatment Rm 8 [facility] Wstr Work Phone: Hematology/Oncology Comment on above: 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); Vestibular schwannoma (HCC) Start: 05-17-2022 Orders Only Xavier garcia MD Work Phone: [facility] Start: 04-08-2022 End: 04-08-2022 ambulatory Treatment 8 [facility]str Work Phone: Hematology/Oncology Comment on above: Vestibular schwannom a (HCC) (Primary Dx); NF2 (neurofibromatosis 2) (HCC) Start: 03-31-2022 End: 03-31-2022 Patient encounter procedure Day Gustavo SELBY Work Phone: Audiology Comment on above: Sensorineural hearin g loss, bilateral (Primary Dx); Asymmetrical sensorineural hearing loss; Tinnitus, bilateral Vestibular schwannom a (HCC); Sensorineural hearing loss (SNHL) of both ears; NF2 (neurofibromatosis 2) (HCC) Start: 03-23-2022 Orders Only Indiana Gilman RN Work Phone: [facility] Comment on above: 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) Start: 02-24-2022 End: 02-24-2022 ambulatory Treatment Rm 12 Abdoulaye [facility]str Work Phone: Hematology/Oncology Comment on above: Vestibular schwannom a (HCC) (Primary Dx); NF2 (neurofibromatosis 2) (HCC) Start: 02-22-2022 Orders Only Gilbert Lux MD Work Phone: [facility] [place] Start: 02-08-2022 Orders Only Indiana Gilman RN Work Phone: [facility] Comment on above: Vestibular schwannom a (HCC) (Primary Dx); Sensorineural hearing loss (SNHL) of both ears; NF2 (neurofibromatosis 2) ([facility]) Start: 02-04-2022 Telephone encounter Xavier banegas MD Work Phone: [facility] Comment on above: Tumor [facility] Brain Start: 01-20-2022 End: 01-20-2022 ambulatory MD Merrill Sapp [facility] Work Phone: Start: 01-20-2022 End: 01-20-2022 Patient encounter procedure MD Merrill Sapp [facility] Start: 01-20-2022 End: 01-20-2022 Patient encounter procedure MD Merrill Sapp [facility] Start: 01-12-2022 End: 01-12-2022 ambulatory Treatment Rm 7 [facility] Work Phone: Hematology/Oncology Comment on above: Vestibular schwannom a (HCC) (Primary Dx); NF2 (neurofibromatosis 2) (HCC) Start: 01-10-2022 Orders Only Indiana Gilman RN Work Phone: [facility] Comment on above: Vestibular schwannom a (HCC) (Primary Dx) Start: 01-05-2022 End: 01-05-2022 ambulatory Xavier Sidhu MD Work Phone: [facility] Comment on above: Vestibular schwannom a (HCC) (Primary Dx) Start: 01-05-2022 End: 01-05-2022 Telemedicine consultation with patient Xavier Sidhu MD Work Phone: [facility] Start: 01-03-2022 End: 01-03-2022 Subsequent hospital visit by physician Mri Radio [facility] Wstr (I-Stat/1.5t) Work Phone: Radiology Comment on above: 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] Start: 12-23-2021 End: 12-23-2021 Patient [facility] Start: 11-26-2021 ambulatory Xavier garcia MD Work Phone: [facility] Comment on above: [facility] Start: 11-10-2021 End: 11-10-2021 ambulatory Treatment Rm 1 Abdoulaye [facility]str Work Phone: Hematology/Oncology Comment on above: Vestibular schwannom a (HCC) (Primary Dx); NF2 (neurofibromatosis 2) (HCC) Start: 11-08-2021 Orders Only Xavier garcia MD Work Phone: [facility] Start: 10-13-2021 End: 10-13-2021 ambulatory Treatment Rm 5 Abdoulaye [facility]str Work Phone: Hematology/Oncology Comment on above: Vestibular schwannom a (HCC) (Primary Dx); NF2 (neurofibromatosis 2) (HCC) Start: 10-12-2021 Orders Only Xavier garcia MD Work Phone: [facility] Start: 09-15-2021 End: 09-15-2021 ambulatory Treatment Rm 5 Abdoulaye [facility] Work Phone: Hematology/Oncology Comment on above: Vestibular schwannom a (HCC) (Primary Dx); NF2 (neurofibromatosis 2) (HCC) Start: 08-18-2021 End: 08-18-2021 ambulatory Treatment Rm 5 Abdoulaye [facility]str Work Phone: Hematology/Oncology Comment on above: Vestibular schwannom a (HCC) (Primary Dx); NF2 (neurofibromatosis 2) (HCC) Start: 08-16-2021 Orders Only Xavier garica MD Work Phone: [facility] Procedures Date Procedure Procedure Detail Performing Clinician Start: 10-15-2024 Plain x-ray of hand Dr. Merrill Sapp MD Work Phone: Start: 09-03-2024 Mri brain brain stem w/o w/contrast material Xavier Sidhu MD Work Phone: Start: 04-15-2024 Mri spinal canal tho racic w/o & w/contr matrl Xavier Sidhu MD Work Phone: Start: 02-23-2024 Mri brain brain stem w/o w/contrast material Xavier Sidhu MD Work Phone: Start: 03-10-2023 Screening mammography Saul NORTON Start: 02-13-2023 Mri brain brain stem w/o w/contrast material Xavier Sidhu MD Work Phone: Start: 08-16-2022 Mri spinal canal cer vical w/o & w/contr matrl Xavier Sidhu MD Work Phone: Start: 07-12-2022 Mri brain brain stem w/o w/contrast material Xavier Sidhu MD Work Phone: Start: 01-03-2022 Mri brain brain stem w/o w/contrast material Xavier Sidhu MD Work Phone: Start: 09-15-2021 End: 09-15-2021 Blood count complete auto&auto difrntl wbc Xavier Sidhu MD Work Phone: Start: 04-24-2018 Colonoscopy Xavier banegas MD Work Phone: Start: 03-14-2018 Mammography Xavier banegas MD Work Phone: Start: 03-08-2018 Lipid 1996 panel - S chris or Plasma Xavier Sidhu MD Work Phone: Start: 03-06-2018 Adult depression scr eening assessment Xavier Sidhu MD Work Phone: Plan of Treatment Date Care Activity Detail Author Start: 01-11-2026 Urine microalbumin profile [facility] Start: 04-08-2025 DIABETES SCREEN DIABETES SCREEN [facility] Start: 04-08-2025 Diabetes Screening Diabetes Screening [facility] Start: 02-13-2025 Thyroid stimulating hormone measurement [facility] Start: 02-13-2025 Vitamin B12 measurement [facility] Start: 02-13-2025 Vitamin D, 25-hydroxy measurement [facility] Start: 10-15-2024 [facility] Start: 09-15-2024 DIABETES SCREEN DIABETES SCREEN [facility] Start: 09-03-2024 End: 09-03-2024 Patient encounter procedure 09/03/2024 1:10 PM EDT Appointment MRI Q [address] [address] Diagnosis: NF2 (neurofibromatosis 2) (HCC) [Q85.02] MRI Q Comment on above: Diagnosis: NF2 (neurofibromatosis 2) ([facility]) [Q85.02] Start: 09-03-2024 End: 09-03-2024 Patient encounter procedure Audiology Comment on above: Diagnosis: NF2 (neurofibromatosis 2) ([facility]) [Q85.02] MRI BRAIN AND AUDIOG DEBBIE- 6 MONTHS-MAIN WITH IN PERSON APPT THEA Start: 07-21-2024 DIABETES SCREEN DIABETES SCREEN [facility] Start: 05-15-2024 Advance Directive Discussion Advance Directive Discussion [facility] Start: 05-15-2024 Medicare Advantage Annual Wellness Visit Medicare Advantage Annual Wellness Visit [facility] Start: 04-16-2024 End: 04-16-2024 [facility] visit, estab pt 04/16/2024 11:00 AM [facility] [address] [place] [address] Xavier Sidhu MD [address] [id number] Scheduling Request - Established Patient [facility] Comment on above: Scheduling Request - Established Patient Start: 04-15-2024 End: 04-15-2024 Patient encounter procedure Radiology Comment on above: Neurofibromatosis (HCC) [Q85.00] Start: 02-26-2024 End: 02-26-2024 ambulatory 02/26/2024 10:00 AM [facility] [address] [place] [address] Xavier Sidhu MD [address] [place] [address] MRI BRAIN AND AUDIOGRAM- 6 MONTHS- AMBER- February 2024 [facility] Comment on above: MRI BRAIN AND AUDIOGRAM- 6 MONTHS- [place] - February 2024 Start: 01-14-2024 Covid-19 Vaccine ( season) Covid-19 Vaccine () [facility] Start: 01-14-2024 Influenza [facility] Start: 05-15-2023 Advance Directive Discussion Advance Directive Discussion [facility] Start: 05-15-2023 Depression Assessment Depression Assessment [facility] Start: 04-24-2023 Colonoscopy COLONOSCOPY [facility] Start: 04-24-2023 COLORECTAL CANCER SCREENING COLORECTAL CANCER SCREENING [facility] Start: 04-24-2023 Screening for malignant neoplasm of colon [facility] Start: 04-08-2023 Creatinine measurement Serum Creatinine [facility] Start: 04-08-2023 SERUM CREATININE SERUM CREATININE [facility] Start: 03-08-2023 Lipid 1996 panel - Serum or Plasma Lipid Screening [facility] Start: 03-08-2023 Lipid panel Lipid Screening [facility] Start: 03-08-2023 LIPID SCREEN LIPID SCREEN [facility] Start: 01-13-2023 Covid-19 Vaccine ( season) Covid-19 Vaccine ( season) [facility] Start: 01-13-2023 Influenza vaccination INFLUENZA (Season Ended) [facility] Start: 09-15-2022 SERUM CREATININE SERUM CREATININE [facility] Start: 07-21-2022 SERUM CREATININE SERUM CREATININE [facility] Start: 05-15-2022 ADVANCE DIRECTIVE DISCUSSION ADVANCE DIRECTIVE DISCUSSION [facility] Start: 05-15-2022 DEPRESSION ASSESSMENT DEPRESSION ASSESSMENT [facility] Start: 04-08-2022 End: 06-08-2022 Comprehensive metabolic 2000 panel - Serum or Plasma COMP METABOLIC PANEL Lab STAT NF2 (neurofibromatosis 2) (HCC) Expected: 04/08/2022 (Approximate), Expires: 06/08/2022 [facility] Work Phone: Comment on above: Expected: 04/08/2022 (Approximate), Expi res: 06/08/2022 Start: 01-13-2022 Influenza vaccination INFLUENZA (#1) [facility] Start: 07-29-2021 COVID-19 VACCINE (4 - Booster for Pfizer series) COVID-19 VACCINE (4 - Booster for Pfizer series) [facility] Start: 05-26-2021 COVID-19 VACCINE (4 - Booster for Pfizer series) COVID-19 VACCINE (4 - Booster for Pfizer series) [facility] Start: 05-26-2021 Covid-19 Vaccine (4 - Pfizer series) Covid-19 Vaccine (4 - Pfizer series) [facility] Start: 05-15-2021 ADVANCE DIRECTIVE DISCUSSION ADVANCE DIRECTIVE DISCUSSION [facility] Start: 05-15-2021 DEPRESSION ASSESSMENT DEPRESSION ASSESSMENT [facility] Start: 09-24-2019 Pneumococcal Vaccine: 65+ (2 of 2 - PCV) Pneumococcal Vaccine: 65+ (2 of 2 - PCV) [facility] Start: 09-24-2019 PNEUMOVAX AGE 65 AND OVER WITH 5YR LOOKBACK (#1) PNEUMOVAX AGE 65 AND OVER WITH 5YR LOOKBACK (#1) [facility] Start: 06-28-2019 Pneumococcal Vaccine: 50+ (2 of 2 - PCV) Pneumococcal Vaccine: 50+ (2 of 2 - PCV) [facility] Start: 06-28-2019 Pneumococcal Vaccine: 65+ (2 - PCV) Pneumococcal Vaccine: 65+ (2 - PCV) [facility] Start: 03-14-2019 Mammography [facility] Start: 03-14-2019 Screening for malignant neoplasm of breast Mammogram Screening [facility] Start: 03-09-2019 ANNUAL PCP TEAM CHRONIC DISEASE VISIT ANNUAL PCP TEAM CHRONIC DISEASE VISIT [facility] Start: 03-06-2019 Adult depression screening assessment DEPRESSION SCREENING [facility] Start: 01-26-2017 FECAL OCCULT BLOOD FECAL OCCULT BLOOD [facility] Start: 01-26-2017 Screening for malignant neoplasm of colon Fecal Occult Blood [facility] Start: 2014 RSV Vaccine (1 - 1-dose 60+ series) RSV Vaccine (1 - 1-dose 60+ series) [facility] Start: 2014 RSV Vaccine (1 - Risk 60-74 years 1-dose series) RSV Vaccine (1 - Risk 60-74 years 1-dose series) [facility] Start: 04-22-2014 Pneumococcal Vaccine: 65+ (2 - PCV) Pneumococcal Vaccine: 65+ (2 - PCV) [facility] Start: 04-22-2014 PNEUMOCOCCAL: 65+ (2 - PCV) PNEUMOCOCCAL: 65+ (2 - PCV) [facility] Start: 2004 SHINGRIX VACCINE (1 of 2) SHINGRIX VACCINE (1 of 2) [facility] Start: 09-24-1999 COLOGUARD (FIT-DNA) COLOGUARD (FIT-DNA) [facility] Start: 09-24-[address] COLONOGRAPHY [facility] Start: 09-24-1999 Screening for malignant neoplasm of colon [facility] Start: 09-24-1999 SIGMOIDOSCOPY SIGMOIDOSCOPY [facility] Start: 1973 SHINGRIX VACCINE (1 of 2) SHINGRIX VACCINE (1 of 2) [facility] Start: 1972 Annual PCP Team Chronic Disease Visit Annual PCP Team Chronic Disease Visit [facility] Start: 1972 Anxiety Screening Anxiety Screening [facility] Start: 1972 BP CONTROLLED (<130/80) BP CONTROLLED (<130/80) [facility] Start: 1972 Depression Screening Depression Screening [facility] Start: 1972 SPIROMETRY SPIROMETRY [facility] End: 05-19-2023 CBC W Auto Differential panel - Blood CBC + DIFF Lab STAT NF2 (neurofibromatosis 2) (HCC) Every 6 weeks for 15 Occurrences starting 05/19/2022 until 05/19/2023, 1 completed [facility] Work Phone: Comment on above: Every 6 weeks for 15 Occurrences startin g 05/19/2022 until 05/19/2023, 1 completed CBC W Auto Different ial panel - Blood [facility] CBC W Auto Different ial panel - Blood [facility] Comprehensive metabo lic 2000 panel - Serum or Plasma [facility] HEARING TEST/AUDIOGRAM HEARING T EST/AUDIOGRAM Audiology Routine Neurofibromatosis (HCC) Vestibular schwannoma (HCC) Ordered: 02/20/2023 [facility] Work Phone: Comment on above: Ordered: 02/20/2023 End: 07-17-2024 HEARING TEST/AUDIOGRAM HEARING TEST/AUDIOGRAM Audiology Routine NF2 (neurofibromatosis 2) (HCC) Vestibular schwannoma (HCC) 1 Occurrences starting 07/17/2023 until 07/17/2024 [facility] Work Phone: Comment on above: 1 Occurrences starting 07/17/2023 until 07/17/2024 End: 06-06-2025 HEARING TEST/AUDIOGRAM HEARING TEST/AUDIOGRAM Audiology Routine NF2 (neurofibromatosis 2) ([facility]) 1 Occurrences starting 06/05/2024 until 06/06/2025 [facility] Work Phone: Comment on above: 1 Occurrences starting 06/05/2024 until 06/06/2025 Hemoglobin A1c/Hemoglobin.total in Blood [facility] Lipid 1996 panel - S chris or Plasma [facility] Lipid 1996 panel - S chris or Plasma [facility] End: 04-03-2025 MR Brain WO and W contrast IV MRI BRAIN WO/W IVCON Radiology Routine NF2 (neurofibromatosis 2) ([facility]) 1 Occurrences starting 03/04/2024 until 04/03/2025 [facility] Work Phone: Comment on above: 1 Occurrences starting 03/04/2024 until 04/03/2025 End: 05-17-2025 MR Brain WO and W contrast IV MRI BRAIN WO/W IVCON Radiology Routine NF2 (neurofibromatosis 2) ([facility]) 1 Occurrences starting 04/17/2024 until 05/17/2025 [facility] Work Phone: Comment on above: 1 Occurrences starting 04/17/2024 until 05/17/2025 End: 04-03-2025 MR Cervical spine WO and W contrast IV MRI CERVICAL SPINE WO/W IVCON Radiology Routine Neurofibromatosis (HCC) 1 Occurrences starting 03/04/2024 until 04/03/2025 [facility] Work Phone: Comment on above: 1 Occurrences starting 03/04/2024 until 04/03/2025 End: 04-03-2025 MR Lumbar spine WO and W contrast IV MRI LUMBAR SPINE WO/W IVCON Radiology Routine Neurofibromatosis (HCC) 1 Occurrences starting 03/04/2024 until 04/03/2025 [facility] Comment on above: 1 Occurrences starting 03/04/2024 until 04/03/2025 End: 04-03-2025 MR Thoracic spine WO and W contrast IV MRI THORACIC SPINE WO/W IVCON Radiology Routine Neurofibromatosis ([facility]) 1 Occurrences starting 03/04/2024 until 04/03/2025 [facility] Comment on above: 1 Occurrences starting 03/04/2024 until 04/03/2025 End: 02-09-2023 Mri brain brain stem w/o w/contrast material MRI BRAIN WO/W IVCON Radiology Routine Vestibular schwannoma ([facility]) 1 Occurrences starting 01/10/2022 until 02/09/2023 [facility] Work Phone: Comment on above: 1 Occurrences starting 01/10/2022 until 02/09/2023 End: 09-16-2023 Mri brain brain stem w/o w/contrast material MRI BRAIN WO/W IVCON Radiology Routine Neurofibromatosis ([facility]) 1 Occurrences starting 08/17/2022 until 09/16/2023 [facility] Work Phone: Comment on above: 1 Occurrences starting 08/17/2022 until 09/16/2023 End: 03-21-2024 Mri brain brain stem w/o w/contrast material MRI BRAIN WO/W IVCON Radiology Routine Neurofibromatosis ([facility]) Vestibular schwannoma ([facility]) 1 Occurrences starting 02/20/2023 until 03/21/2024 [facility] Work Phone: Comment on above: 1 Occurrences starting 02/20/2023 until 03/21/2024 End: 08-12-2023 Mri spinal canal cervical w/o & w/contr matrl MRI CERVICAL SPINE WO/W IVCON Radiology Routine Neurofibromatosis ([facility]) NF2 (neurofibromatosis 2) ([facility]) 1 Occurrences starting 07/13/2022 until 08/12/2023 [facility] Work Phone: Comment on above: 1 Occurrences starting 07/13/2022 until 08/12/2023 End: 08-12-2023 Mri spinal canal lumbar w/o & w/contr matrl MRI LUMBAR SPINE WO/W IVCON Radiology Routine Neurofibromatosis ([facility]) NF2 (neurofibromatosis 2) (HCC) 1 Occurrences starting 07/13/2022 until 08/12/2023 [facility] Work Phone: Comment on above: 1 Occurrences starting 07/13/2022 until 08/12/2023 End: 08-12-2023 Mri spinal canal thoracic w/o & w/contr matrl MRI THORACIC SPINE WO/W IVCON Radiology Routine Neurofibromatosis (HCC) NF2 (neurofibromatosis 2) (HCC) 1 Occurrences starting 07/13/2022 until 08/12/2023 [facility] Work Phone: Comment on above: 1 Occurrences starting 07/13/2022 until 08/12/2023 Patient Education ED Abrasion ED Dog Bite [facility] Work Phone: Patient referral [facility] Work Phone: Thyroid stimulating hormone measurement [facility] End: 05-19-2023 URINALYSIS, DIPSTICK ONLY URINALYSIS, DIPSTICK ONLY Lab Routine 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 Merrill Sapp MD Work Phone: [facility] 10-15-2024 tetanus toxoid, redu bonny diphtheria toxoid, and acellular pertussis vaccine, adsorbed Dr. Merrill Sapp MD Work Phone: [facility] 04-18-2024 Seasonal trivalent influenza vaccine, adjuvanted, preservative free Dr. Merrill Sapp MD Work Phone: [facility] 02-09-2023 influenza, injectabl e, quadrivalent, preservative free MD Merrill NORTON [facility] 02-09-2023 influenza virus vacc ine, unspecified formulation Mri (I-Stat/1.5t) Work Phone: [facility] 03-31-2021 Covid (Pfizer) MD Merrill Sapp [facility] 01-21-2021 influenza, injectabl e, quadrivalent, preservative free Merrillyadira NORTON [facility] 01-21-2021 influenza, seasonal, injectable Merrill [facility] 08-26-2020 Covid (Pfizer) Merrill [facility] 06-28-2018 pneumococcal polysaccharide vaccine, 23 valent [facility] 03-09-2018 influenza, injectabl e, quadrivalent, contains preservative Xavier Sidhu MD Work Phone: [facility] 01-31-2017 influenza, injectabl e, quadrivalent, contains preservative Xavier Sidhu MD Work Phone: [facility] 01-12-2016 tetanus toxoid, redu bonny diphtheria toxoid, and acellular pertussis vaccine, adsorbed Xavier Sidhu MD Work Phone: [facility] 04-29-2015 influenza, injectabl e, quadrivalent, contains preservative Xavier Sidhu MD Work Phone: [facility] Work Phone: 03-11-2014 influenza, seasonal, injectable Xavier Sidhu MD Work Phone: [facility] 04-22-2013 pneumococcal polysaccharide vaccine, 23 valent Xavier Sidhu MD Work Phone: [facility] 03-15-2012 influenza virus vacc ine, unspecified formulation Xavier Sidhu MD Work Phone: [facility] 03-26-2010 influenza virus vacc ine, unspecified formulation Xavier Sidhu MD Work Phone: [facility] 03-06-2009 influenza virus vacc ine, unspecified formulation Xavier Sidhu MD Work Phone: [facility] Work Phone: 04-18-2007 influenza virus vacc ine, unspecified formulation Xavier Sidhu MD Work Phone: [facility] Work Phone: 11-08-2006 tuberculin skin test ; purified protein derivative solution, intradermal Mri (I-Stat/1.5t) Work Phone: [facility] 03-14-2006 influenza virus vacc ine, unspecified formulation Xavier Sidhu MD Work Phone: [facility] Work Phone: 10-17-2005 tetanus and diphther ia toxoids, adsorbed, preservative free, for adult use (2 Lf of tetanus toxoid and 2 Lf of diphtheria toxoid) Xavier Sidhu MD Work Phone: [facility] Payers Date Payer Category Payer Self-pay [id number] 2023 Medicare AETNA MEDICARE A ETNA MEDICARE PPO [id number] 2023-Present [phone] [address] [place] [address] PPO [id number] 2023 Medicare (Managed Care) [employer] [place] [id number] 2023 Private Health Insurance [id number] 2019 Unknown PRIMETIME [employer]IMET [employer]GEY HMO POS [id number] 2019-Present [phone] [address] [place] [address] HMO [id number] 2019 Unknown [id number] 2012 Unknown [place] [id number] Unknown URVASHI PRIMETIME H EALTH PLAN O [id number] Unknown [id number] Unknown [id number] 62 Unknown [id number] 62 Unknown [id number] 62 Unknown [id number] Social History Date Type Detail Facility Start: 09-13-2011 End: 10-15-2024 Tobacco smoking status NHIS Never smoked tobacco [facility] Work Phone: Start: 02-02-2021 End: 09-03-2024 Alcohol intake Current drinker of alcohol (finding) [facility] Start: 01-31-2017 History SDOH Alcohol Comment 1-2 drinks per year [facility] Start: 1955 Sex Assigned At Not on file [facility] Start: 06-21-2021 End: 04-08-2022 Exposure to SARS-CoV-2 (event) Not sure [facility] Start: 10-24-2021 End: 11-03-2021 Exposure to SARS-CoV-2 (event) Unable to assess [facility] Start: 09-13-2011 Tobacco use and exposure Smokeless tobacco non-user [facility] Start: 01-20-2022 End: 02-09-2023 Tobacco smoking status MOIS Unknown if ever smoked [facility] Start: 1955 Sex Assigned At Female [facility] Start: 03-31-2022 End: 02-16-2023 History of Social function [facility] Start: 03-31-2022 End: 02-16-2023 Tobacco use panel [facility] Adult Depression Screening Assessment 0 [facility] Functional Status Date Assessment Result Facility 12-08-2014 Are you deaf, or do you have serious difficulty hearing Yes 12/08/2014 11:14 AM Ana Toussaint LPN Yes [facility] 12-08-2014 Are you blind, or do you have serious difficulty seeing, even when wearing glasses No 12/08/2014 11:14 AM Ana Toussaint LPN No [facility] 12-08-2014 Do you have serious difficulty walking or climbing stairs Yes 12/08/2014 11:14 AM Ana Toussaint LPN Yes [facility] 12-08-2014 Do you have difficul ty dressing or bathing No 12/08/2014 11:14 AM Ana Toussaint LPN No [facility] 12-08-2014 Because of a physica l, mental, or emotional condition, do you have difficulty doing errands alone such as visiting a physician's office or shopping No 12/08/2014 11:14 AM Ana Toussaint LPN No [facility] Mental Status Date Assessment Result Facility 12-08-2014 Because of a physica l, mental, or emotional condition, do you have serious difficulty concentrating, remembering, or making decisions Yes 12/08/2014 11:14 AM EDT Ana Arango LPN Yes [facility] Clinical Notes 10-31-2011 to 03-19-2025 Note Date & Type Note Facility 03-19-2025 Note HNO ID: [id number] Author: XAVIER SIDHU MD Service: ? 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 Right sided lesion measuring 1.0 x 1.4 cm, left sided lesion measuring 1.3 x 0.7 cm. Audiogram on 09/19/11 showed mild hearing loss on the left. Dec 2011: stereotactic radiosurgery (Gamma knife) right Feb 2013: stereotactic radiosurgery (Gamma knife) left Aug 2013: Began 3-month course of bevacizumab for progressive left hearing loss Jul 2014: Restarted bevacizumab with notable improvement in hearing. Jan 2015: Johnson stopped and hearing improvement maintained for 8 months September 2015: Hearing worse treated with steroids with improvement Nov 2015: Hearing began to decline and she restarted steroids. Dec 2015: Began bevacizumab. Mar 2016: Progressive disease clinically in face of MRI improvement. Johnson stopped per patient preference Mar 2021: Restarted bevacizumab. May 2022: Johnson stopped due to intolerance (arthralgias, myalgias). CURRENT MANAGEMENT: Surveillance SUBJECTIVE: January 05, 2016 - Accompanied today by: spouse. Currently, the patient reports stable hearing loss on the left side, wears a hearing aid, stable imbalance sensation/continues to use a cane; no falls, improved left facial droop. Of note, she has trouble with balance and uses a cane intermittently or hangs on to her for support when walking. Frequently stumbles. No recent falls. In addition she noticed her short term memory loss has worsened since she started treatment. Patient denies ARORA, weakness, numbness, difficulty walking, difficulty using arms, syncope, seizures, speech difficulty, vision difficulty. No fevers/chills or other constitutional symptoms. April 21, 2016 - Here for follow up. For past 6 weeks she has had worsening LE (R>L) numbness with weakness necessitating transition from cane to walker. Several falls without injury. Hearing went away 5 days ago and restarted prednisone on her own. She now takes 20 mg q am and feels the hearing is returning to level 6 days ago. States that it feels like she has sand in her shoes. Feels exhausted and had HTN necessitating antihypertensives. In fact she had HTNsive crisis with ARORA and BP 260/130. With these effects and the loss of hearing, she does not want further bevacizumab. Progress notes from intervening providers: 09/28/18 - She presents today with her for follow-up with new MRI brain and spine for review. She complains of sharp, shooting, non radiating pain on the right frontal side of her head, occurring multiple times a day and lasting 5 to 30 seconds each time. The head pain started back in August and has become more frequent throughout the day. She has not tried taking medication for the pain. She continues to have numbness and tingling (Neuropathy) in bilateral feet and issues with balance. She uses a cane to ambulate and denies any falls. Does admit to 4/10 lower back pain that is worse in the morning and gets better throughout the day. She has since stopped taking the Ritalin for fatigue, and states she did not notice a difference in her fatigue. She is otherwise doing well. 03/09/20 - Here today via VIRTUAL VISIT for follow-up and new imaging to review. Since her last visit, she notes her fatigue has improved. She continues to have headaches, neuropathy, and balance issues, ambulating with a cane. Otherwise she is doing well and denies any new concerns or complaints. 12/29/20 - Presents today unaccompanied via VIRTUAL VISIT for follow-up with new MRI brain for review. Last seen by me 03/09/20; today she states her balance has continued to worsen. She notes gradual decrease even over the last 3 months. She continues to ambulate with a cane. February 02, 2021 - Last seen by me 04/21/16. Has worsened balance; when she stands up from chair she easily falls back. Ambulates with a cane. Has twitching in face - right and left, lateral to chin with numbness/tingling right upper lip. Deaf in right ear; some hearing in left with a hearing aid in place. Reports runny nose ever since her diagnosis. 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 July 01, 2021 - Virtual visit for follow up. Her hearing is ~ stab (more content not included)... [facility] 03-17-2025 Note HNO ID: [id number] Author: ADA FITZGERALD RT(R) Service: ? Author Type: Technologist Type: Progress Notes Filed: 03/17/2025 11:06 Note Text: Radiology Service Progress Note DATE OF SERVICE: March 17, 2025 TIME: 11:06 AM PATIENT IDENTITY VERIFICATION COMPLETED USING TWO (2) STANDARD IDENTIFIERS: Name and Date of confirmed by patient verbally. FALL SCREENING: Has the patient had 2 falls in the last year or 1 fall with injury or currently using an Ambulatory Assistive Device (Walker, Cane, Wheelchair, Crutches, etc.)? Yes, Patient High Risk for Falls What interventions were put in place to prevent falls during this visit? Instructed Patient to Call for Help if Needed, Offered Assistance with Transfers/Clothing, Instructed Patient to Remain Seated (Not on Exam Table) Until Exam, and Increased Observations by Caregivers PATIENT GENDER DATA: Assigned female at . status: : No status: NO. PATIENT RELEVANT IMPLANT DATA REVIEWED: Yes PATIENT PRESENTS WITH AN IMPLANTABLE OR ATTACHED CUSHION FORMER: No ALLERGIES: Reviewed and unchanged CONTRAST ALLERGY: NO. EXAM: MRI - CONTRAST TYPE: GROUP II PERIPHERAL IV DATA: Ambulatory: A peripheral IV was started in the Left antecubital site with a Angio cath: 20 gauge. RADIOLOGY DEPARTMENT: MR; Exam(s) Completed: Head: Routine Brain with Perfusion. Anesthesia: No. Aromatherapy Administered: No SIGNATURE: RT Kody(Daisha) PATIENT NAME: Claire Whiting DATE: March 17, 2025 TIME: 11:06 AM [facility] 10-15-2024 Discharge summary [facility] 10-15-2024 Radiology Diagnostic study note [facility] Imaging Services [address] [place] [address] Hand Min 3 Views MR#: [id number] Acct: [id number] Name: CLAIRE WHITING Rep #: [id number] : 1955 F 69 From: Antonella Cortes MD PCP: Dr. Merrill Sapp MD Status: REG ER Study:Hand Min 3 Views Date of Exam: 08/06 Exam# [id number] Ordering Dr: Asaf Haskins MD PROCEDURE: HAND MIN 3 VIEWS 10/15/2024 REASON FOR EXAM: Dog bite. TECHNIQUE: Three (3) view(s) of the right hand. COMPARISON: No relevant prior FINDINGS: Bones: Degenerative changes at the 1st carpometacarpal joint. No fractures, dislocations, or subluxations. Joints: Unremarkable. Soft tissues: Unremarkable. Other: Other significant findings. RAD/Hand Min 3 Views IMPRESSION: Degenerative changes at the 1st carpometacarpal joint. No acute osseous abnormalities. Reading Location: [place] [address] CC: Dr. Asaf Haskins MD; Dr. Merrill Sapp MD ~ Sales And Marketing Agent: Signed [facility] 10-15-2024 Discharge summary Note Date/Time October 15, 2024 4:33pm [facility] Medical Records Department [address] [place] [address] Emergency Department Summary 10/15/24 MR#: [id number] Acct: [id number] Name: CLAIRE WHITING Rep #:[id number] : 1955 69 From: Asaf Haskins MD PCP: Dr. Merrill Sapp MD Status:REG ER Location: ED HPI History of Present Illness Chief Complaint: Bite Narrative Narrative: 69-year-old female past medical history of neurofibromatosis 2, presents with injury to her right hand and her right lower extremity. She states she was out walking her dog when one of the neighbors dogs came out of nowhere and tried to attack her dog. She got tangled up and spun around. She says Andreas does scratchversus a bite to her right lower extremity on the anterior tibial area near her ankle. She also experienced a dog bite to her right hand on the thenar eminence. She states her shoulders are sore bilaterally. She did not fall and hit her head. There was no loss of consciousness. This happened approximately 2 hours prior to arrival. She is unsure of her last tetanus immunization. While she states she has sore shoulders, she can move them around. She was ableto get up and ambulate independently. She complains of right hand soreness and the linear abrasion to her right lower leg. [facility] Medical History Need for influenza vaccination SVT (supraventricular tachycardia) COVID hx of gamma knife Asthma High cholesterol NF2 (neurofibromatosis 2) Home Medications ?Medication ?Instructions ?Recorded ?Last Taken ?Type montelukast 10 mg tablet 10 mg PO DAILY PRN allergy 0 07/05/21 Unknown Rx symptoms #90 tabs albuterol sulfate 90 mcg/actuation inhalation PRN 07/13 11/04 Unknown History aerosol inhaler Handicap placard #1 ea 02/09/23 Unknown Rx ginseng PO 02/09/23 Unknown History multivitamin 1 tab PO DAILY 02/09/23 Unkn own History probiotic PO 02/09/23 Unknown History trazodone 50 mg tablet 50 mg PO BID #180 tabs 04/16 Unknown Rx atorvastatin 20 mg tablet 20 mg PO DAILY #90 tabs 06/15 Unknown Rx amoxicillin 875 mg-potassium 1 tab PO BID #10 tabs 08/06 Unknown Rx clavulanate 125 mg tablet Allergy/AdvReac Type Severity Reaction Status Date / Time codeine AdvReac Mild Nausea Verified 10/15/24 15:13 Family History Other Diabetes Heart disease Surgical History Hx of hysterectomy Social History household members: spouse Smoking Status: Never smoker alcohol intake: never substance use type: does not use ROS ROS ED ROS Narrative Was positive for dog bite to right hand and scratch versus bite to right lower extremity. Positive shoulder soreness. No hitting of head, no loss of consciousness. EXAM Physical Exam Narrative Exam Narrative: GCS 15. ABCs are intact. PERRL, EOMI. Cardiovascular examination regular rateand rhythm. Lungs are clear to auscultation bilaterally. Abdomen soft nontender with positive bowel sounds. Neurological examination is nonfocal, nonlateralizing, able to ambulate in the ED. Able to raise arms above head without difficulty. Inspection of the right hand does show small puncture woundto the thenar eminence. Able to oppose thumb. No active bleeding. Positive linear abrasion approximately 3 cm anterior tibial surface/anterior ankle without active bleeding, not gaping. Const Vital Signs: 10/15/24 15:14 Temperature 97.7 F L Temperature Source Temporal Pulse Rate 84 Respiratory Rate 18 Blood Pressure 162/100 H Blood Pressure Mean 120 Pulse Ox 97 Oxygen Delivery Method Room Air MDM MDM MDM Narrative Medical decision making narrative: Differential diagnosis includes but not limited to dog bite causing contusion toright hand versus underlying fracture. Patient was concerned because it is a neighborhood dog, but they were told that rabies vaccination is not current. She was told of the low incidence of rabies in a domesticated animal, and additionally the animal in question can be watched and quarantined. X-rays of the right hand interpreted by myself independently shows no evidence of acute osseous abnormality. I reviewed the radiology report which confirms myindependent interpretation. I do not feel that she needs x-rays of the shoulders as I have very low suspicion for dislocation and she has full range ofmotion and only describes soreness, there is no bony tenderness. Her wounds were cleansed and dressed. As there are only small wounds on her hand, I discussed with her the possibility of infection and advised not to close any wounds regardless. She was given her first dose of Augmentin here in the emergency department and prophylaxis written for the next 5 days. She will gdxvpyit-rxc-oxyjyid medications as needed. She was given a Boostrix immunization. She is motivated for discharge. She had already been seen ambulating in the emergency department without difficulty. Return instructions to the emergency department were reviewed. She should have a wound check by her primary care provider in 2 days and return with any drainage of pus from the wounds, fever, increased redness, new or worsening symptoms. Disposition is discharged home instable condition. Radiography Diagnostic Testing: Clinical Impression(s) from Imaging Studies Hand X-Ray 10/15/24 15:40 IMPRESSION: Degenerative changes at the 1st carpometacarpal joint. No acute osseous abnormalities. Reading Location: [place] [address] Discharge Plan Triage Chief Complaint: Bite ED Provider: Asaf Haskins Dx/Rx/DC Orders Clinical Impression: Dog bite of right hand, Dog scratch Instructions: ED Abrasion, ED Dog Bite Prescriptions: New amoxicillin-pot clavulanate 875-125 mg tablet 1 tab PO BID Qty: 10 0RF No Action albuterol sulfate 90 mcg/actuation HFA aerosol inhaler INHALATION PRN multivitamin Tablet 1 tab PO DAILY ginseng PO probiotic PO (DME) Handicap placard See Rx Instructions .Route .MEDSUPPLY Qty: 1 0RF Rx Instructions: 5 year rx [id number] montelukast 10 mg tablet 10 mg PO DAILY PRN (Reason: allergy symptoms) Qty: 90 3RF trazodone 50 mg tablet 50 mg PO BID Qty: 180 3RF atorvastatin 20 mg tablet 20 mg PO DAILY Qty: 90 3RF Primary Care Provider: Merrill Sapp Referrals: Merrill Sapp MD [Primary Care Provider] - 2 Days for wound check Activity Restrictions/Additional Instructions: Antibiotic as directed for prophylaxis. Ice and elevate your hand when possible. Return to the emergency department with fever, drainage of pus from wounds, new or worsening symptoms. Print Language: Macedonian Disposition Disposition: Home, Self Care What to do if you have Problems For any increased pain, shortness of breath, bleeding, nausea or vomiting, chestpain, or any unexpected problems, contact your Primary Care Provider. Call [facility] ([phone]) or report to the closest Emergency Room. Call 911 if necessary. 10/15/24 0719 <Electronically signed by Asaf Haskins MD> Cosigner Signature (if applicable): CC: Dr. Merrill Sapp MD ~ Signed [facility] Work Phone: 1(742) 815-150204-22-2025 NoteHNO ID: [id number] Author: KAREN ROSS MA Service: ? Author Type: Waste Disposal Leakage Tester Type: Progress Notes Filed: 09/06/2024 06:55 Note Text: Additional intake questions: Has the patient had fever, nausea, vomiting, diarrhea, constipation, fatigue for > 1 week? No Does the patient have a decreased appetite? No Does patient want to see a Doctor Chiropractic? No (yes to any of above refer patient to schedulers for dietitian appointment) ) Does patient have any new or increased numbness or tingling of extremities? No Is patient interested in fertility information? No Does patient need any prescription refills? No Does patient have an advanced directive in place? No, Patient referred to Resource Center Electronically Signed By: Karen Ross [facility] 09-03-2024 NoteHNO ID: [id number] Author: XAVIER SIDHU MD Service: ? 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 Right sided lesion measuring 1.0 x 1.4 cm, left sided lesion measuring 1.3 x 0.7 cm. Audiogram on 09/19/11 showed mild hearing loss on the left. Dec 2011: stereotactic radiosurgery (Gamma knife) right Feb 2013: stereotactic radiosurgery (Gamma knife) left Aug 2013: Began 3-month course of bevacizumab for progressive left hearing loss Jul 2014: Restarted bevacizumab with notable improvement in hearing. Jan 2015: Johnson stopped and hearing improvement maintained for 8 months September 2015: Hearing worse treated with steroids with improvement Nov 2015: Hearing began to decline and she restarted steroids. Dec 2015: Began bevacizumab. Mar 2016: Progressive disease clinically in face of MRI improvement. Johnson stopped per patient preference Mar 2021: Restarted bevacizumab. May 2022: Johnson stopped due to intolerance (arthralgias, myalgias). CURRENT MANAGEMENT: Surveillance SUBJECTIVE: January 05, 2016 - Accompanied today by: spouse. Currently, the patient reports stable hearing loss on the left side, wears a hearing aid, stable imbalance sensation/continues to use a cane; no falls, improved left facial droop. Of note, she has trouble with balance and uses a cane intermittently or hangs on to her for support when walking. Frequently stumbles. No recent falls. In addition she noticed her short term memory loss has worsened since she started treatment. Patient denies ARORA, weakness, numbness, difficulty walking, difficulty using arms, syncope, seizures, speech difficulty, vision difficulty. No fevers/chills or other constitutional symptoms. April 21, 2016 - Here for follow up. For past 6 weeks she has had worsening LE (R>L) numbness with weakness necessitating transition from cane to walker. Several falls without injury. Hearing went away 5 days ago and restarted prednisone on her own. She now takes 20 mg q am and feels the hearing is returning to level 6 days ago. States that it feels like she has sand in her shoes. Feels exhausted and had HTN necessitating antihypertensives. In fact she had HTNsive crisis with ARORA and BP 260/130. With these effects and the loss of hearing, she does not want further bevacizumab. Progress notes from intervening providers: 09/28/18 - She presents today with her for follow-up with new MRI brain and spine for review. She complains of sharp, shooting, non radiating pain on the right frontal side of her head, occurring multiple times a day and lasting 5 to 30 seconds each time. The head pain started back in August and has become more frequent throughout the day. She has not tried taking medication for the pain. She continues to have numbness and tingling (Neuropathy) in bilateral feet and issues with balance. She uses a cane to ambulate and denies any falls. Does admit to 4/10 lower back pain that is worse in the morning and gets better throughout the day. She has since stopped taking the Ritalin for fatigue, and states she did not notice a difference in her fatigue. She is otherwise doing well. 03/09/20 - Here today via VIRTUAL VISIT for follow-up and new imaging to review. Since her last visit, she notes her fatigue has improved. She continues to have headaches, neuropathy, and balance issues, ambulating with a cane. Otherwise she is doing well and denies any new concerns or complaints. 12/29/20 - Presents today unaccompanied via VIRTUAL VISIT for follow-up with new MRI brain for review. Last seen by me 03/09/20; today she states her balance has continued to worsen. She notes gradual decrease even over the last 3 months. She continues to ambulate with a cane. February 02, 2021 - Last seen by me 04/21/16. Has worsened balance; when she stands up from chair she easily falls back. Ambulates with a cane. Has twitching in face - right and left, lateral to chin with numbness/tingling right upper lip. Deaf in right ear; some hearing in left with a hearing aid in place. Reports runny nose ever since her diagnosis. 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 July 01, 2021 - Virtual visit for follow up. Her hearing is ~ stable (more content not included)...[facility]04-22-2025 History of Present illness Narrative* Roberta Johnson RN - 09/03/2024 1:10 PM EDT Radiology Service Progress Note DATE OF SERVICE: September 03, 2024 TIME: 12:37 PM PATIENT WEIGHT: 163 LBS PATIENT IDENTITY VERIFICATION COMPLETED USING TWO (2) STANDARD IDENTIFIERS: Name and Date of confirmed by patient verbally and Name and Date of confirmed by identification band. FALL SCREENING: Has the patient had 2 falls in the last year or 1 fall with injury or currently using an Ambulatory Assistive Device (Walker, Cane, Wheelchair, Crutches, etc.)? No PATIENT GENDER DATA: Assigned female at . status: : No status:NO. ALLERGIES: Reviewed and unchanged CONTRAST ALLERGY: No EXAM: MRI - CONTRAST TYPE: GROUP II IV SITE: Ambulatory: A peripheral IV was started in the Right antecubital site with a Angio cath: 22 gauge. and A Saline lock was inserted per protocol IV SITE APPEARANCE: Clean,Dry and Intact SIGNATURE: Roberta Johnson RN PATIENT NAME: Claire Whiting DATE: September 03, 2024 TIME: 12:37 PM * Tuan Bonilla RT(R) - 09/03/2024 1:10 PM EDT Radiology Service Progress Note PATIENT NAME: Claire Whiting DATE OF SERVICE: September 03, 2024 TIME: 12:59 PM PATIENT IDENTITY VERIFICATION COMPLETED USING TWO (2) IDENTIFIERS: Name and Date of confirmedby patient verbally and Name and Date of confirmed by identification band. FALL SCREENING: Has the patient had 2 falls in the last year or 1 fall with injury or currently using an Ambulatory Assistive Device (Walker, Cane, Wheelchair, Crutches, etc.)? No PATIENT GENDER DATA: Assigned female at . status: : No status:NO. PATIENT RELEVANT IMPLANT DATA REVIEWED: Yes PATIENT PRESENTS WITH AN IMPLANTABLE OR ATTACHED CUSHION FORMER: No RADIOLOGY DEPARTMENT: MR; Exam(s) Completed: Head: Routine Brain with Perfusion PERIPHERAL IV DATA: Site assessment: Clean,Dry and Intact, Site disposition Discontinued SIGNED BY: RT Jose(MR) September 03, 2024 12:59 PM [facility] NoteHNO ID: [id number] Author: TUAN BONILLA RT(R) Service: Radiology Author Type: Technologist Type: Progress Notes Filed: 09/03/2024 12:59 Note Text: Radiology Service Progress Note PATIENT NAME: Claire Whiting DATE OF SERVICE: September 03, 2024 TIME: 12:59 PM PATIENT IDENTITY VERIFICATION COMPLETED USING TWO (2) IDENTIFIERS: Name and Date of confirmed by patient verbally and Name and Date of confirmed by identification band. FALL SCREENING: Has the patient had 2 falls in the last year or 1 fall with injury or currently using an Ambulatory Assistive Device (Walker, Cane, Wheelchair, Crutches, etc.)? No PATIENT GENDER DATA: Assigned female at . status: : No status: NO. PATIENT RELEVANT IMPLANT DATA REVIEWED: Yes PATIENT PRESENTS WITH AN IMPLANTABLE OR ATTACHED CUSHION FORMER: No RADIOLOGY DEPARTMENT: MR; Exam(s) Completed: Head: Routine Brain with Perfusion PERIPHERAL IV DATA: Site assessment: Clean,Dry and Intact, Site disposition Discontinued SIGNED BY: RT Jose(MR) September 03, 2024 12:59 [facility]04-22-2025 NoteHNO ID: [id number] Author: ROBERTA JOHNSON RN Service: Nursing Author Type: Registered Nurse Type: Progress Notes Filed: 09/03/2024 12:47 Note Text: Radiology Service Progress Note DATE OF SERVICE: September 03, 2024 TIME: 12:37 PM PATIENT WEIGHT: 163 LBS PATIENT IDENTITY VERIFICATION COMPLETED USING TWO (2) STANDARD IDENTIFIERS: Name and Date of confirmed by patient verbally and Name and Date of confirmed by identification band. FALL SCREENING: Has the patient had 2 falls in the last year or 1 fall with injury or currently using an Ambulatory Assistive Device (Walker, Cane, Wheelchair, Crutches, etc.)? No PATIENT GENDER DATA: Assigned female at . status: : No status: NO. ALLERGIES: Reviewed and unchanged CONTRAST ALLERGY: No EXAM: MRI - CONTRAST TYPE: GROUP II IV SITE: Ambulatory: A peripheral IV was started in the Right antecubital site with a Angio cath: 22 gauge. and A Saline lock was inserted per protocol IV SITE APPEARANCE: Clean,Dry and Intact SIGNATURE: Roberta Johnson RN PATIENT NAME: Claire K Henok DATE: September 03, 2024 TIME: 12:37 [facility]04-22-2025 NoteHNO ID: [id number] Author: SHERINE ADAMS AUD Service: ? Author Type: [employer]ters [employer] Type: Progress Notes Filed: 09/06/2024 08:32 Note Text: [facility] [place] [facility] Department Section of Audiology AUDIOLOGIC EVALUATION REPORT Name: Claire Von Henok [facility]#: [id number] Date of Service: 09/03/2024 Date of : 1955 Age: [age] year old Referred by: Xavier Sidhu MD Referred for: Evaluation of suspected change in hearing, tinnitus, or balance. Referral documented: In an order in [facility] Patient's major complaints: Re-test hearing bilateral Claire Whiting was seen for recheck audiologic evaluation. 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 Previous audiologic evaluation conducted on 03/31/2022 indicated moderately-severe sloping to profound hearing loss in the right ear and moderate sloping to severe sensorineural hearing loss in the left ear. Patient currently utilizes hearing aids fit at [facility] in [place] 3 years ago. The following history was obtained by way of patients previous medical record and direct patient interview: Hearing loss: No change in hearing. Tinnitus:constant bilateral tinnitus Dizziness: balance concerns, however denied true vertigo. Of note, utilizes a cane to ambulate. Otalgia: Denied Otorrhea:Denied Aural Pressure: Denied Noise Exposure: Denied Family History of Hearing Loss: Denied History of ear infections: Denied Otologic Surgical History: Denied History of chemotherapy/ radiation: History is significant for gamma knife radiation in 2011 and 2012 Head trauma: Denied Hearing Aid Use: Utilizes monaural right hearing aid from [facility] in [place] 3 years ago. Refer to audiogram under Procedures tab for results. Risk of Falls Documentation for over 65 years old: No history of falls reported so minimal to no risk IMPRESSIONS RIGHT EAR: Sensorineural hearing loss LEFT EAR: Sensorineural hearing loss Comparison of today's results with previous test results (03/31/2022): Today's results reveal no significant change in both ears. NOTE: A decrease of 20 dB HL at any one test frequency, a decrease of 10 dB HL at any two adjacent test frequencies, or a loss of response at three consecutive frequencies where responses were previously obtained is considered a significant change per JOSE EDUARDO 1994 guidelines. AUDIOLOGIC EVALUATION Following is a brief interpretation of the obtained findings from the audiologic evaluation. Refer to the Auditory Test Record for complete audiometric results. The patient was counseled about the test findings and appropriate audiologic recommendations were made. SUMMARY: Audiogram can be viewed under Procedures tab. OTOSCOPY RIGHT EAR: Otoscopic inspection revealed ear canal was clear with an identifiable cone of light. LEFT EAR: Otoscopic inspection revealed ear canal was clear with an identifiable cone of light. TYMPANOMETRY Description of procedure: This test is an objective evaluation of middle ear function. CPT code: 13535 RIGHT EAR: Did not test. LEFT EAR: Did not test. ACOUSTIC REFLEXES Description of procedure: This test is an objective measure of auditory and facial nerve pathways. CPT code: 42138, 66927 RIGHT EAR PROBE EAR: (ipsi right stimulus ear; contralateral left stimulus ear): Acoustic Reflex Pattern Did not test Acoustic Reflex Decay (left stimulus ear): Did not test. LEFT EAR PROBE EAR: (ipsi left stimulus ear; contralateral right stimulus ear): Acoustic Reflex Pattern Did not test Acoustic Reflex Decay (right stimulus ear):Did not test. PURE TONE AUDIOMETRY AND SPEECH TESTING Description of procedure: This test is an objective evaluation hearing sensitivity via air and bone conduction and speech recognition testing. CPT code:31812 RIGHT EAR: Hearing Sensitivity: Severe to profound SNHL. No audible AC responses obtained at the level of the equipment. No BC responses obtained at the limits for the equipment 750-8000 Hz. Masked bone conduction documented on previous audiogram from outside facility (12/13/2021), no responses at the limits of the equipment. See scanned docs for results/above. Word Recognition Score: WRS deferred due to inability to obtain SRT/SAT. NR at 110 dB HL. LEFT EAR: Hearing Sensitivity: Mild at 125 Hz sloping to severe at 8000 Hz. Word Recognition Score: Poor (62%). WRS is consistent with hearing sensitivity. Words were presented at 95 dB HL which is above (greater than or equal to 60 dB HL) intensity level for average conversational speech. The NU-6 Word List (25 words) was used. and Contralateral masking was used. RECOMMENDATIONS * Continue medical follow-up with Xavier Sidhu MD. * The patient was counseled regarding the need to continue to monitor hearing and have regular hearing assessments. * The patient was counseled about hearing conserv (more content not included)... [facility]12-03-2024 NoteHNO ID: [id number] Author: XAVIER SIDHU MD Service: ? 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 Right sided lesion measuring 1.0 x 1.4 cm, left sided lesion measuring 1.3 x 0.7 cm. Audiogram on 09/19/11 showed mild hearing loss on the left. Dec 2011: stereotactic radiosurgery (Gamma knife) right Feb 2013: stereotactic radiosurgery (Gamma knife) left Aug 2013: Began 3-month course of bevacizumab for progressive left hearing loss Jul 2014: Restarted bevacizumab with notable improvement in hearing. Jan 2015: Johnson stopped and hearing improvement maintained for 8 months September 2015: Hearing worse treated with steroids with improvement Nov 2015: Hearing began to decline and she restarted steroids. Dec 2015: Began bevacizumab. Mar 2016: Progressive disease clinically in face of MRI improvement. Jonhson stopped per patient preference Mar 2021: Restarted bevacizumab. May 2022: Johnson stopped due to intolerance (arthralgias, myalgias). CURRENT MANAGEMENT: Surveillance SUBJECTIVE: January 05, 2016 - Accompanied today by: spouse. Currently, the patient reports stable hearing loss on the left side, wears a hearing aid, stable imbalance sensation/continues to use a cane; no falls, improved left facial droop. Of note, she has trouble with balance and uses a cane intermittently or hangs on to her for support when walking. Frequently stumbles. No recent falls. In addition she noticed her short term memory loss has worsened since she started treatment. Patient denies ARORA, weakness, numbness, difficulty walking, difficulty using arms, syncope, seizures, speech difficulty, vision difficulty. No fevers/chills or other constitutional symptoms. April 21, 2016 - Here for follow up. For past 6 weeks she has had worsening LE (R>L) numbness with weakness necessitating transition from cane to walker. Several falls without injury. Hearing went away 5 days ago and restarted prednisone on her own. She now takes 20 mg q am and feels the hearing is returning to level 6 days ago. States that it feels like she has sand in her shoes. Feels exhausted and had HTN necessitating antihypertensives. In fact she had HTNsive crisis with ARORA and BP 260/130. With these effects and the loss of hearing, she does not want further bevacizumab. Progress notes from intervening providers: 09/28/18 - She presents today with her for follow-up with new MRI brain and spine for review. She complains of sharp, shooting, non radiating pain on the right frontal side of her head, occurring multiple times a day and lasting 5 to 30 seconds each time. The head pain started back in August and has become more frequent throughout the day. She has not tried taking medication for the pain. She continues to have numbness and tingling (Neuropathy) in bilateral feet and issues with balance. She uses a cane to ambulate and denies any falls. Does admit to 4/10 lower back pain that is worse in the morning and gets better throughout the day. She has since stopped taking the Ritalin for fatigue, and states she did not notice a difference in her fatigue. She is otherwise doing well. 03/09/20 - Here today via VIRTUAL VISIT for follow-up and new imaging to review. Since her last visit, she notes her fatigue has improved. She continues to have headaches, neuropathy, and balance issues, ambulating with a cane. Otherwise she is doing well and denies any new concerns or complaints. 12/29/20 - Presents today unaccompanied via VIRTUAL VISIT for follow-up with new MRI brain for review. Last seen by me 03/09/20; today she states her balance has continued to worsen. She notes gradual decrease even over the last 3 months. She continues to ambulate with a cane. February 02, 2021 - Last seen by me 04/21/16. Has worsened balance; when she stands up from chair she easily falls back. Ambulates with a cane. Has twitching in face - right and left, lateral to chin with numbness/tingling right upper lip. Deaf in right ear; some hearing in left with a hearing aid in place. Reports runny nose ever since her diagnosis. 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 July 01, 2021 - Virtual visit for follow up. 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 Right sided lesion measuring 1.0 x 1.4 cm, left sided lesion measuring 1.3 x 0.7 cm. Audiogram on09/19/11 showed mild hearing loss on the left. Dec 2011: stereotactic radiosurgery (Gamma knife) right Feb 2013: stereotactic radiosurgery (Gamma knife) left Aug 2013: Began 3-month course of bevacizumab for progressive left hearing loss Jul 2014: Restarted bevacizumab with notable improvement in hearing. Jan 2015: Johnson stopped and hearing improvement maintained for 8 months September 2015: Hearing worse treated with steroids with improvement Nov 2015: Hearing began to decline and she restarted steroids. Dec 2015: Began bevacizumab. Mar 2016: Progressive disease clinically in face of MRI improvement. Johnson stopped per patient preference Mar 2021: Restarted bevacizumab. May 2022: Johnson stopped due to intolerance (arthralgias, myalgias). CURRENT MANAGEMENT: Surveillance SUBJECTIVE: January 05, 2016 - Accompanied today by: spouse. Currently, the patient reports stable hearing loss on the left side, wears a hearing aid, stable imbalance sensation/continues to use a cane; no falls, improved left facial droop. Of note, she has trouble with balance and uses a cane intermittently or hangs on to her [facility] when walking. Frequently stumbles. No recent falls. In addition she noticed her short term memory loss has worsened since she started treatment. Patient denies ARORA, weakness, numbness, difficulty walking, difficulty using arms, syncope, seizures, speech difficulty, vision difficulty. No fever s/chills or other constitutional symptoms. April 21, 2016 - Here for follow up. For past 6 weeks she has had worsening LE (R>L) numbness with weakness necessitating transition from cane to walker. Several falls without injury. Hearing went away 5 days ago and restarted prednisone on her own. She now takes 20 mg q am and feels the hearing is returning to level 6 days ago. States that it feels like she has sand in her shoes. Feels exhausted and had HTN necessitating antihypertensives. In fact she had HTNsive crisis with ARORA and BP 260/130. With these effects and the loss of hearing, she does not want further bevacizumab. Progress notes from intervening providers: 09/28/18 - She presents today with her for follow-up with new MRI brain and spine for review. She complains of sharp, shooting, non radiating pain on the right frontal side of her head, occurring multiple times a day and lasting 5 to 30 seconds each time. The head pain started back in Augustand has become more frequent throughout the day. She has not tried taking medication for the pain. S he continues to have numbness and tingling (Neuropathy) in bilateral feet and issues with balance. She uses a cane to ambulate and denies any falls. Does admit to 4/10 lower back pain that is worse in the morning and gets better throughout the day. She has since stopped taking the Ritalin for fatigue, and states she did not notice a difference in her fatigue. She is otherwise doing well. 03/09/20 - Here today via VIRTUAL VISIT for follow-up and new imaging to review. Since her last visit, she notes her fatigue has improved. She continues to have headaches, neuropathy, and balance issues, ambulating with a cane. Otherwise she is doing well and denies any new concerns or complaints. 12/29/20 - Presents today unaccompanied via VIRTUAL VISIT for follow-up with new MRI brain for review. Last seen by me 03/09/20; today she states her balance has continued to worsen. She notes gradual decrease even over the last 3 months. She continues to ambulate with a cane. February 02, 2021 - Last seen by me 04/21/16. Has worsened balance; when she stands up from chair she easily falls back. Ambulates with a cane. Has twitching in face - right and left, lateral to chinwith numbness/tingling right upper lip. Deaf in right ear; some hearing in left with a hearing aid in place. Reports runny nose ever since her diagnosis. 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 July 01, 2021 - Virtual visit for follow up. Her hearing is ~ stable. Has episodes of feeling shaky, sweatiness which resolves after eating something. Has fatigue. Has soreness of tongue; very bothersome, especially when she brushes her teeth. This happened with her prior episodes of johnson. Previously it was bad enough that she could not tolerate ketchup. Bowling and working out at gym almost daily. January 05, 2022 - Virtual visit for follow up. Has fatigue and thinning of hair. Had audiogram 12/13/21 which showed 5dB loss throughout compared to 07/13/21. Notices slight decline in hearing. June 06, 2022 - Here for follow up to discuss whether or not to continue johnson. Here alone. She feels her pain (generalized from shoulders, legs and ankles - joints, muscles) got worse after johnson as it has after prior johnson treatment and therefore she wishes to stop johnson. Her pain got substantially better when she started 6-day steroid pack. Finished steroid taper a few weeks ago and is noticing return of pain. July 13, 2022 - Telephone (failed virtual visit) visit for follow up. Here alone. Pain now 6/10. Pain diffuse. Her legs feel heavy intermittently over the past 6 months. Has had neuropathy - numbness/tingling in feet and in the past few months, in her hands. LE symptoms occurred while on bevacizumab (johnson) and got somewhat better when she went off. August 17, 2022 - Virtual visit for follow up. Here alone. Much of the peripheral pain has improved. She still has ankle pain but has noticed relief with topical anti-inflammatory. Did 60-min workout on treadmill 2 days ago. Energy level is also improved. Still has heavy feeling in legs 3-4 times perweek. Episodes last 1-2 minutes. No falls but occasionally bumps into door posts. February 16, 2023 - Virtual visit for follow up. Here alone. Feels OK; no new symptoms. Had recent audiogram which was stable per her report. Energy level is improved - she describes occasional days oflow energy but that resolves with a nap, but not like the fatigue which lasted the whole day. Cruise to [place] summer 2022February 26, 2024 - Virtual visit for follow up. Here alone. Feels pretty good. On a 2 week Holterdue to episode of tachycardia. Recent audiogram stable. Has episodes of pain in left groin and moves proximally to umbilical area. If she lies down for ~5 minutes it improves. April 16, 2024 - Here for follow up. Here alone. Back pain occurs only when she twists and turns.Uses occasional naprosyn. Her sister was found to have a schwannoma and meningioma and thus also meets criteria for NF2. 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 Barrett. Recent titration 2012 CPAP 14 cm. Other and unspecified hyperlipidemia 10/17/2005 Plantar fasciitis Spinal stenosis in cervical region 05/13/2016 Vestibular schwannoma ([facility]) MEDICATIONS Current Outpatient Medications Medication Sig iv contrast (will be provided with radiology test) MRI Brain Inject, intravenously, once for 1 dose.No IV access, insert saline lock prior to beginning of sedation, infusion, injection of imaging exam.Discontinue saline lock post exam. If Pt. has a central line or IVAD, may access for administration according to line specific nursing protocol.Once exam is complete flush line and de-access according to line specific nursing protocol in the MR contrast administration guidelines link cholecalciferol, vitamin D3, (VITAMIN D3 ORAL) Take 2,000 mg by mouth once daily. MULTIVITAMIN ORAL Take 1 capsule by mouth once daily. fluticasone-salmeterol (ADVAIR, WIXELA) 250-50 mcg/dose inhaler Inhale 1 Puff as instructed as needed. Uses as needed, originally prescribed as twice daily traZODone (DESYREL) 50 mg tablet Take 2 tablets by mouth daily at bedtime. atorvastatin (LIPITOR) 20 mg tablet Take 1 tablet by mouth daily at bedtime. albuterol HFA (PROAIR HFA) 90 mcg/actuation inhaler Inhale 2 Puffs as instructed every 4 hours as needed. montelukast (SINGULAIR) 10 mg tablet Take 1 tablet by mouth once daily. (Patient taking differently: Take 10 mg by mouth twice daily as needed.) COMPOUNDED PRESCRIPTION CPAP @ 13 cm of water with humidification. Mask (per patient preference) optional chin strap (if indicated) , filters, tubing, humidifier and lifetime supplies. Dx. QUINTIN 327.23 No current facility-administered medications for this visit. ALLERGIES Allergen Reactions Codeine Vomiting Erythromycin Vomiting Percocet [Oxycodone* Vomiting Vicodin [Hydrocodon* Vomiting FAMILY HISTORY: Family History Problem Relation Age of Onset Diabetes Father other (congestive heart failure) Father Diabetes Maternal Aunt other (Lupus) Sister Multiple Sclerosis Sister Lipids Mother None Brother No history of cancer in first degree relatives PHYSICAL EXAMINATION: Patient is in no distress. Mental status: clear Speech: fluent. IMAGING - MRI BRAIN (baseline = ): MRI Spine Report MRI LUMBAR SPINE WO/W IVCON Exam End: 04/15/2024 2:46 PM (Final result) Narrative: * * *Final Report* * * DATE OF EXAM: Apr 15 2024 2:46PM [facility] [id number] - MRI LUMBAR SPINE WO/W IVCON / PROCEDURE REASON: Neurofibromatosis (HCC) * * * * Physician Interpretation * * * * EXAMINATION: MRI THORACIC SPINE WO/W IVCON, MRI LUMBAR SPINE WO/W IVCON, MRI CERVICAL SPINE WO/W IVCON CLINICAL HISTORY: Neurofibromatosis (HCC) TECHNIQUE: Routine cervical, thoracic, and lumbosacral spine MR protocol without gadolinium. MQ: [id number] COMPARISON: Spine MRI from 08/16/2022 and 09/26/2018 RESULT: No abnormal intrinsic cord signal. No abnormal enhancing intradural or extradural enhancing lesions of the spine. CERVICAL: Counting reference: Craniocervical junction. Anatomic Variants: None. 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 Alignment: Alignment is anatomic. Craniocervical junction: Craniocervical junction is normal. Cord: The cervical spinal cord is within normal limits of signal intensity and morphology. Bone marrow signal/fracture: No evidence of pathologic marrow infiltration. No evidence of prior fracture. Cervical soft tissues: The paraspinal soft tissues are within normal limits. Canal and foramina: Intervertebral discs: Multilevel disc desiccation with loss of intranuclear T2 signal and disc height. C2-C3: No significant canal or foraminal stenosis. C3-C4: No significant canal or foraminal stenosis. C4-C5: No significant canal or foraminal stenosis. C5-C6: Posterior disc osteophyte complex with left posterolateral disc protrusion effaces ventral CSF and deforms the ventral cord, asymmetric to the left, mild to moderate canal stenosis. Uncovertebral proliferation with moderate left and mild right neural foraminal stenosis. C6-C7: Broad-based posterolateral disc bulge with right paracentral disc protrusion reaches and deforms the cord with mild canal stenosis. Uncovertebral proliferation with moderate right and mild left neural foraminal stenosis. C7-T1 No significant canal and neural foraminal stenosis. THORACIC: Counting reference: Craniocervical and lumbosacral junctions. For the purposes of this report, L4-5 is considered the level of the iliac crest and assume there are 5 lumbar-type vertebrae. Anatomic variant: None. Localizer images: Unremarkable. Alignment: Alignment is anatomic. Cord: The thoracic spinal cord is within normal limits of signal intensity and morphology. Bone marrow signal/fracture: No evidence of pathologic marrow infiltration. No evidence of prior fracture. Thoracic soft tissues: The paraspinal soft tissues are within normal limits. Canal and foramina: No significant thoracic canal or foraminal stenosis within the constraints of the study. LUMBAR: Counting reference: Craniocervical and lumbosacral junctions. For the purposes of this report, L4-5 is considered the level of the iliac crest and there are 5 lumbar-type vertebrae. Anatomic variant: Transitional S1 vertebral body. Localizer images: Unremarkable. Alignment: Alignment is anatomic. Bone marrow signal/fracture: No evidence of pathologic marrow infiltration. No evidence of prior fracture. Endplate changes are seen at L2-L3 with endplate edema as before. Conus: The conus is within normal limits of signal intensity and morphology. Paraspinal soft tissues: Paraspinal soft tissues are within normal limits. Canal and foramina: No significant lumbar canal or foraminal stenosis within the constraints of the study. L1-L2: No significant canal stenosis. L2-L3: Posterolateral disc osteophyte complex, extends into the neural foramen and facet joint arthrosis with mild to moderate bilateral canal stenosis. Mild to moderate canal stenosis. L3-L4: Mild posterolateral disc bulge is no significant stenosis. L4-L5: Posterolateral disc bulge, slightly asymmetric to the left, with associated annular fissure, with minimal left neural foraminal stenosis. No significant canal or right neural foraminal stenosis. L5-S1: No significant canal or foraminal stenosis. Mild bilateral facet joint arthrosis. Sacrum and iliac wings: The visualized sacrum and iliac wings are within normal limits. The presacral soft tissues are normal in appearance. Impression: IMPRESSION: No mass or pathological intradural enhancing lesions involving the cervicothoracic or lumbar spine. No abnormal intrinsic cord signal. Mild to moderate degenerative spondylosis at L2-L3 and, as described above. Degenerative cervical spondylosis particularly at C5-C6 and C6-C7, as described above. Cervical Anatomic Variant: None. Assume 7 cervical vertebrae with counting from the craniocervical junction. Anatomic Thoracic/Lumbar Variant: Transitional S1 vertebral body. L4-5 is considered the level of the iliac crest and there are 5 lumbar-type vertebrae. Sales And Marketing Agent: PSCB Transcribe Date/Time: Apr 15 2024 3:28P Dictated by : MARIA M LOPEZ MD This examination was interpreted and the report reviewed and electronically signed by: MARIA M LOPEZ MD on Apr 15 2024 3:55PM EST KPS: 80 IMPRESSION (April 16, 2024): NF2 with bilateral vestibular schwannomas (VS). Audiogram Jan 2024 in [place] said to be unchanged from prior audiogram-patient cannot recall when the last audiogram was performed. We discussed the surveillance intervals for her and outlined them as listed below. Overall she is stable and we will continue surveillance. Regarding her back pain, I offered an evaluation in the spine clinic but she declined for now. Options at progression Brigatinib Selumetinib - clinical trial at [facility] allows only pts <45. Everolimus Lapatinib PLAN (April 16, 2024): Surveillance with MRI brain q 6 months (next Aug 2024) Audiogram q 12 months (Jan 2025 [at [facility] if feasible]; sooner if change in symptoms) F/U with ENT if hearing drops (RTC recommendation from Dr. Montague at most recent visit Mar 31, 2022) Surveillance MRI spine in 4 years (2027) Xavier Sidhu MD cc: Dr. Merrill Sapp (work) [address] [place] [address] Concha Montague MD - [facility] Annual history and physical examination, including: Audiology with measurement of pure-tone thresholds and word recognition scores Ophthalmologic evaluation - visual impairment due to ??t?ra?ts, optic nerve meningiomas, retinal hamartomas, and epiretinal membrane Cutaneous examination - ~70% pts have some cutaneous manifestations ?Annual brain MRI, beginning at 10 years of age. If baseline imaging shows no characteristic sites of involvement, frequency can be reduced to every two years. If tumors are detected, brain MRI should be performed twice yearly in the first year, then annually. Brain MRI protocol should include high-resolution (1 to 3 mm slice thickness) postcontrast imaging through the internal auditory meatus, preferably in at least two orthogonal planes. ?Surveillance spinal MRI every 24 to 36 months beginning at 10 years of age. The interval between scans may be reduced to every three to five years if there is no disease detected on baseline imaging. If tumors are detected, imaging should be repeated in six months to evaluate tumor growth rate. ?Whole-body MRI, including brain and spine, is used at some centers for surveillance. Visit/prep/note time: 30 min of which greater than 50 % was spent on education and treatment planning. Services included preparing to see the patient, [id number] patient care, completing clinical documentation, obtaining and/or reviewing separately obtained history, performing a medically appropriate examination, counseling and educating the patient/family/caregiver, ordering medications, tests, or procedures, communicating with other HCPs (not separately reported), independently interpretingresults (not separately reported), communicating results to the patient/family/caregiver and care coordination (not separately reported). This was a virtual visit using HIPAA compliant video platform. I received consent from the patient to perform the visit using this platform. It required patient-provider interaction for the medical decision making as documented. documented in [facility] encounterC[facility] History of Present illness Narrative* Mackenzie Waters RT(Daisha) - 04/15/2024 1:30 PM EST Radiology Service Progress Note DATE OF SERVICE: April 15, 2024 TIME: 1:34 PM PATIENT IDENTITY VERIFICATION COMPLETED USING TWO (2) STANDARD IDENTIFIERS: Name and Date of confirmed by patient verbally. FALL SCREENING: Has the patient had 2 falls in the last year or 1 fall with injury or currently using an Ambulatory Assistive Device (Walker, Cane, Wheelchair, Crutches, etc.)? Yes, Patient High Riskfor Falls What interventions were put in place to prevent falls during this visit? Instructed Patient to Callfor Help if Needed, Offered Assistance with Transfers/Clothing, Instructed Patient to Remain Seated(Not on Exam Table) Until Exam, and Increased Observations by Caregivers PATIENT GENDER DATA: Female. status: : No status: NO. PATIENT RELEVANT IMPLANT DATA REVIEWED: Yes PATIENT PRESENTS WITH AN IMPLANTABLE OR ATTACHED CUSHION FORMER: No ALLERGIES: Reviewed and unchanged CONTRAST ALLERGY: NO. EXAM: MRI - CONTRAST TYPE: GROUP II PERIPHERAL IV DATA: Ambulatory: A peripheral IV was started in the Left antecubital site with a Angio cath: 22 gauge. RADIOLOGY DEPARTMENT: MR; Exam(s) Completed: Spine: Cervical spine, Thoracic spine, and Lumbar spine SIGNATURE: RT Ramón(Daisha) PATIENT NAME: Claire Whiting DATE: April 15, 2024 TIME: 1:34 PM documented in this encounterCleveland [facility]12-02-2024 NoteHNO ID: [id number] Author: MACKENZIE WATERS RT(R) Service: ? Author Type: Technologist Type: Progress Notes Filed: 04/15/2024 13:35 Note Text: Radiology Service Progress Note DATE OF SERVICE: April 15, 2024 TIME: 1:34 PM PATIENT IDENTITY VERIFICATION COMPLETED USING TWO (2) STANDARD IDENTIFIERS: Name and Date of confirmed by patient verbally. FALL SCREENING: Has the patient had 2 falls in the last year or 1 fall with injury or currently using an Ambulatory Assistive Device (Walker, Cane, Wheelchair, Crutches, etc.)? Yes, Patient High Risk for Falls What interventions were put in place to prevent falls during this visit? Instructed Patient to Call for Help if Needed, Offered Assistance with Transfers/Clothing, Instructed Patient to Remain Seated (Not on Exam Table) Until Exam, and Increased Observations by Caregivers PATIENT GENDER DATA: Female. status: : No status: NO. PATIENT RELEVANT IMPLANT DATA REVIEWED: Yes PATIENT PRESENTS WITH AN IMPLANTABLE OR ATTACHED CUSHION FORMER: No ALLERGIES: Reviewed and unchanged CONTRAST ALLERGY: NO. EXAM: MRI - CONTRAST TYPE: GROUP II PERIPHERAL IV DATA: Ambulatory: A peripheral IV was started in the Left antecubital site with a Angio cath: 22 gauge. RADIOLOGY DEPARTMENT: MR; Exam(s) Completed: Spine: Cervical spine, Thoracic spine, and Lumbar spine SIGNATURE: Mackenzie Waters, (R) PATIENT NAME: Claire Whiting DATE: April 15, 2024 TIME: 1:34 [facility]10-21-2024 Telephone encounter Note* Telephone Encounter - Indiana Gilman RN - 03/04/2024 10:38 AM EDT Scheduling Request - Established Patient Time Frame: DANNY Orders: MRI COMPLETE SPINE- [facility] Provider: PEEREBOOM Visit type: Virtual Visit Diagnosis: NF, SCIATICA Thanks Indiana T [facility] Work Phone: [phone] Miscellaneous Notes* Telephone Encounter - Indiana Gilman RN - 03/04/2024 10:38 AM EDT Scheduling Request - Established Patient Time Frame: DANNY Orders: MRI COMPLETE SPINE- AMBER Provider: PEEREBOOM Visit type: Virtual Visit Diagnosis: NF, SCIATICA Thanks Indiana documented in this encounterC[facility]10-14-2024 History of Present illness Narrative* Xavier Sidhu MD - 02/26/2024 10:29 AM EDT [facility] CLINICAL NOTE [facility] Oncology PATIENT NAME: Claire Whiting [facility] NO.: [id number] ATTENDING PHYSICIAN: Xavier Sidhu MD DATE OF SERVICE: February 26, 2024 - VIRTUAL VISIT DIAGNOSIS: 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 Right sided lesion measuring 1.0 x 1.4 cm, left sided lesion measuring 1.3 x 0.7 cm. Audiogram on09/19/11 showed mild hearing loss on the left. Dec 2011: stereotactic radiosurgery (Gamma knife) right Feb 2013: stereotactic radiosurgery (Gamma knife) left Aug 2013: Began 3-month course of bevacizumab for progressive left hearing loss Jul 2014: Restarted bevacizumab with notable improvement in hearing. Jan 2015: Johnson stopped and hearing improvement maintained for 8 months September 2015: Hearing worse treated with steroids with improvement Nov 2015: Hearing began to decline and she restarted steroids. Dec 2015: Began bevacizumab. Mar 2016: Progressive disease clinically in face of MRI improvement. Johnson stopped per patient preference Mar 2021: Restarted bevacizumab. May 2022: Johnson stopped due to intolerance (arthralgias, myalgias). CURRENT MANAGEMENT: Surveillance SUBJECTIVE: January 05, 2016 - Accompanied today by: spouse. Currently, the patient reports stable hearing loss on the left side, wears a hearing aid, stable imbalance sensation/continues to use a cane; no falls, improved left facial droop. Of note, she has trouble with balance and uses a cane intermittently or hangs on to her [facility] when walking. Frequently stumbles. No recent falls. In addition she noticed her short term memory loss has worsened since she started treatment. Patient denies ARORA, weakness, numbness, difficulty walking, difficulty using arms, syncope, seizures, speech difficulty, vision difficulty. No fever s/chills or other constitutional symptoms. April 21, 2016 - Here for follow up. For past 6 weeks she has had worsening LE (R>L) numbness with weakness necessitating transition from cane to walker. Several falls without injury. Hearing went away 5 days ago and restarted prednisone on her own. She now takes 20 mg q am and feels the hearing is returning to level 6 days ago. States that it feels like she has sand in her shoes. Feels exhausted and had HTN necessitating antihypertensives. In fact she had HTNsive crisis with ARORA and BP 260/130. With these effects and the loss of hearing, she does not want further bevacizumab. Progress notes from intervening providers: 09/28/18 - She presents today with her for follow-up with new MRI brain and spine for review. She complains of sharp, shooting, non radiating pain on the right frontal side of her head, occurring multiple times a day and lasting 5 to 30 seconds each time. The head pain started back in Augustand has become more frequent throughout the day. She has not tried taking medication for the pain. S he continues to have numbness and tingling (Neuropathy) in bilateral feet and issues with balance. She uses a cane to ambulate and denies any falls. Does admit to 4/10 lower back pain that is worse in the morning and gets better throughout the day. She has since stopped taking the Ritalin for fatigue, and states she did not notice a difference in her fatigue. She is otherwise doing well. 03/09/20 - Here today via VIRTUAL VISIT for follow-up and new imaging to review. Since her last visit, she notes her fatigue has improved. She continues to have headaches, neuropathy, and balance issues, ambulating with a cane. Otherwise she is doing well and denies any new concerns or complaints. 12/29/20 - Presents today unaccompanied via VIRTUAL VISIT for follow-up with new MRI brain for review. Last seen by me 03/09/20; today she states her balance has continued to worsen. She notes gradual decrease even over the last 3 months. She continues to ambulate with a cane. February 02, 2021 - Last seen by me 04/21/16. Has worsened balance; when she stands up from chair she easily falls back. Ambulates with a cane. Has twitching in face - right and left, lateral to chinwith numbness/tingling right upper lip. Deaf in right ear; some hearing in left with a hearing aid in place. Reports runny nose ever since her diagnosis. 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 July 01, 2021 - Virtual visit for follow up. Her hearing is ~ stable. Has episodes of feeling shaky, sweatiness which resolves after eating something. Has fatigue. Has soreness of tongue; very bothersome, especially when she brushes her teeth. This happened with her prior episodes of johnson. Previously it was bad enough that she could not tolerate ketchup. Bowling and working out at gym almost daily. January 05, 2022 - Virtual visit for follow up. Has fatigue and thinning of hair. Had audiogram 12/13/21 which showed 5dB loss throughout compared to 07/13/21. Notices slight decline in hearing. June 06, 2022 - Here for follow up to discuss whether or not to continue johnson. Here alone. She feels her pain (generalized from shoulders, legs and ankles - joints, muscles) got worse after johnson as it has after prior johnson treatment and therefore she wishes to stop johnson. Her pain got substantially better when she started 6-day steroid pack. Finished steroid taper a few weeks ago and is noticing return of pain. July 13, 2022 - Telephone (failed virtual visit) visit for follow up. Here alone. Pain now 6/10. Pain diffuse. Her legs feel heavy intermittently over the past 6 months. Has had neuropathy - numbness/tingling in feet and in the past few months, in her hands. LE symptoms occurred while on bevacizumab (johnson) and got somewhat better when she went off. August 17, 2022 - Virtual visit for follow up. Here alone. Much of the peripheral pain has improved. She still has ankle pain but has noticed relief with topical anti-inflammatory. Did 60-min workout on treadmill 2 days ago. Energy level is also improved. Still has heavy feeling in legs 3-4 times perweek. Episodes last 1-2 minutes. No falls but occasionally bumps into door posts. February 16, 2023 - Virtual visit for follow up. Here alone. Feels OK; no new symptoms. Had recent audiogram which was stable per her report. Energy level is improved - she describes occasional days oflow energy but that resolves with a nap, but not like the fatigue which lasted the whole day. Cruise to [place] summer 2022February 26, 2024 - Virtual visit for follow up. Here alone. Feels pretty good. On a 2 week Holterdue to episode of tachycardia. Recent audiogram stable. Has episodes of pain in left groin and moves proximally to umbilical area. If she lies down for ~5 minutes it improves. Her sister was found to have a schwannoma and meningioma and thus also meets criteria for NF2. 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 Barrett. Recent titration 2012 CPAP 14 cm. Other and unspecified hyperlipidemia 10/17/2005 Plantar fasciitis Spinal stenosis in cervical region 05/13/2016 Vestibular schwannoma (HCC) MEDICATIONS Current Outpatient Medications Medication Sig cholecalciferol, vitamin D3, (VITAMIN D3 ORAL) Take 2,000 mg by mouth once daily. MULTIVITAMIN ORAL Take 1 capsule by mouth once daily. fluticasone-salmeterol (ADVAIR, WIXELA) 250-50 mcg/dose inhaler Inhale 1 Puff as instructed as needed. Uses as needed, originally prescribed as twice daily traZODone (DESYREL) 50 mg tablet Take 2 tablets by mouth daily at bedtime. atorvastatin (LIPITOR) 20 mg tablet Take 1 tablet by mouth daily at bedtime. albuterol HFA (PROAIR HFA) 90 mcg/actuation inhaler Inhale 2 Puffs as instructed every 4 hours as needed. montelukast (SINGULAIR) 10 mg tablet Take 1 tablet by mouth once daily. (Patient taking differently: Take 10 mg by mouth twice daily as needed.) COMPOUNDED PRESCRIPTION CPAP @ 13 cm of water with humidification. Mask (per patient preference) optional chin strap (if indicated) , filters, tubing, humidifier and lifetime supplies. Dx. QUINTIN 327.23 No current facility-administered medications for this visit. ALLERGIES Allergen Reactions Codeine Vomiting Erythromycin Vomiting Percocet [Oxycodone* Vomiting Vicodin [Hydrocodon* Vomiting FAMILY HISTORY: Family History Problem Relation Age of Onset Diabetes Father other (congestive heart failure) Father Diabetes Maternal Aunt other (Lupus) Sister Multiple Sclerosis Sister Lipids Mother None Brother No history of cancer in first degree relatives PHYSICAL EXAMINATION: Patient is in no distress. Mental status: clear Speech: fluent. IMAGING - MRI BRAIN (baseline = ): MRI Report MRI BRAIN WO/W IVCON Exam End: 02/23/2024 12:49 PM (Final result) Narrative: * * *Final Report* * * DATE OF EXAM: Feb 23 2024 12:10PM 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 MQ: [id number] Contrast: 15 mL Dotarem IV COMPARISON: Multiple prior brain MRIs, most recently 02/13/2023 RESULT: Acute Change: There is no evidence of restricted diffusion to suggest an acute infarct. Hemorrhage: No evidence of prior parenchymal hemorrhage on the gradient echo images. Mass Lesion/ Mass Effect: An enhancing masses in the internal auditory canal and cerebellopontine angle bilaterally measure up to 0.7 x 1.0 cm on the right and 1.1 x 1.7 cm on the left, similar to previous No significant mass effect.. No new mass or abnormal enhancement. No abnormal extra-axial collection. Chronic Change: Nonspecific T2 hyperintense signal in the white matter, similar to previous and likely related to chronic small vessel ischemic disease. Parenchyma: No significant volume loss for age. The brain parenchyma is otherwise within normal limits of signal intensity and morphology. Ventricles: Normal caliber and morphology. Skull Base: Hypothalamic and pituitary region are unremarkable. Craniocervical junction is normal. No significant marrow replacement process. Vasculature: Major intracranial arterial structures and dural venous sinuses show typical flow voids. Other: Bilateral lens replacements. The paranasal sinuses and mastoid air cells are clear. The extracranial soft tissues are unremarkable. Impression: IMPRESSION: Unchanged vestibular schwannomas bilaterally Sales And Marketing Agent: PSYCHIATRIC Transcribe Date/Time: Feb 23 2024 1:35P Dictated by : ELIOT KELSEY MD This examination was interpreted and the report reviewed and electronically signed by: ELIOT KELSEY MD on Feb 23 2024 1:49PM EST KPS: 80 IMPRESSION (February 26, 2024): NF2 with bilateral vestibular schwannomas (VS). Bilat VS stable but sciatic pain concerning for possible intraspinal NF2-related tumor. Did have a spine MRI 08/16/22 which was negative. We will continue surveillance of VS with further surveillance per guidelines below. Options at progression Brigatinib Selumetinib - clinical trial at [facility] allows only pts <45. Everolimus Lapatinib PLAN (February 26, 2024): MRI spine [place] for sciatic symptoms VV thereafter to discuss result and NF2 guidelines Surveillance with MRIs q 6 months (next Aug 2024), audiograms q 12 months (Aug 2024 [at [facility] iffeasible]; sooner if change in symptoms. F/U with ENT if hearing drops (RTC recommendation from Dr. Montague at most recent visit Mar 31, 2022) Xavier Sidhu MD cc: Dr. Merrill Sapp (work) [address] [place] [address] Concha Montague MD - [facility] Annual history and physical examination, including: Audiology with measurement of pure-tone thresholds and word recognition scores Ophthalmologic evaluation - visual impairment due to ??t?ra?ts, optic nerve meningiomas, retinal hamartomas, and epiretinal membrane Cutaneous examination - ~70% pts have some cutaneous manifestations ?Annual brain MRI, beginning at 10 years of age. If baseline imaging shows no characteristic sites of involvement, frequency can be reduced to every two years. If tumors are detected, brain MRI should be performed twice yearly in the first year, then annually. Brain MRI protocol should include high-resolution (1 to 3 mm slice thickness) postcontrast imaging through the internal auditory meatus, preferably in at least two orthogonal planes. ?Surveillance spinal MRI every 24 to 36 months beginning at 10 years of age. The interval between scans may be reduced to every three to five years if there is no disease detected on baseline imaging. If tumors are detected, imaging should be repeated in six months to evaluate tumor growth rate. ?Whole-body MRI, including brain and spine, is used at some centers for surveillance. Visit/prep/note time: 40 min of which greater than 50 % was spent on education and treatment planning. Services included preparing to see the patient, [id number] patient care, completing clinical documentation, obtaining and/or reviewing separately obtained history, performing a medically appropriate examination, counseling and educating the patient/family/caregiver, ordering medications, tests, or procedures, communicating with other HCPs (not separately reported), independently interpretingresults (not separately reported), communicating results to the patient/family/caregiver and care coordination (not separately reported). This was a virtual visit using HIPAA compliant video platform. I received consent from the patient to perform the visit using this platform. It required patient-provider interaction for the medical decision making as documented. [facility] History of Present illness Narrative* Ada Fitzgerald RT(R) - 02/23/2024 11:20 AM EDT Radiology Service Progress Note DATE OF SERVICE: February 23, 2024 TIME: 11:55 AM PATIENT IDENTITY VERIFICATION COMPLETED USING TWO (2) STANDARD IDENTIFIERS: Name and Date of confirmed by patient verbally. FALL SCREENING: Has the patient had 2 falls in the last year or 1 fall with injury or currently using an Ambulatory Assistive Device (Walker, Cane, Wheelchair, Crutches, etc.)? Yes, Patient High Riskfor Falls What interventions were put in place to prevent falls during this visit? Instructed Patient to Callfor Help if Needed, Offered Assistance with Transfers/Clothing, Instructed Patient to Remain Seated(Not on Exam Table) Until Exam, and Increased Observations by Caregivers PATIENT GENDER DATA: Female. status: : No status: NO. PATIENT RELEVANT IMPLANT DATA REVIEWED: Yes PATIENT PRESENTS WITH AN IMPLANTABLE OR ATTACHED CUSHION FORMER: No ALLERGIES: Reviewed and unchanged CONTRAST ALLERGY: NO. EXAM: MRI - CONTRAST TYPE: GROUP II PERIPHERAL IV DATA: Ambulatory: A peripheral IV was started in the Right upper extremity with a Angio cath: 22 gauge. RADIOLOGY DEPARTMENT: MR; Exam(s) Completed: Head: Routine Brain SIGNATURE: RT Kody(R) PATIENT NAME: Claire Whiting DATE: February 23, 2024 TIME: 11:55 AM documented in this encounterC[facility]10-05-[facility] History of Present illness Narrative* Xavier Sidhu MD - 02/16/2023 10:00 AM EDT [facility] CLINICAL NOTE [facility] Solid Tumor Oncology PATIENT NAME: Claire Whiting [facility] NO.: [id number] ATTENDING PHYSICIAN: Xavier Sidhu MD DATE OF SERVICE: February 16, 2023 - VIRTUAL VISIT DIAGNOSIS: NF2 with bilateral vestibular schwannomas HISTORY OF PRESENT ILLNESS: Aug 2011: Pt developed tingling around the left side of her mouth, left facial drop and incomplete closure of her left eye. 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 Right sided lesion measuring 1.0 x 1.4 cm, left sided lesion measuring 1.3 x 0.7 cm. Audiogram on09/19/11 showed mild hearing loss on the left. Dec 2011: stereotactic radiosurgery (Gamma knife) right Feb 2013: stereotactic radiosurgery (Gamma knife) left Aug 2013: Began 3-month course of bevacizumab for progressive left hearing loss Jul 2014: Restarted bevacizumab with notable improvement in hearing. Jan 2015: Johnson stopped and hearing improvement maintained for 8 months September 2015: Hearing worse treated with steroids with improvement Nov 2015: Hearing began to decline and she restarted steroids. Dec 2015: Began bevacizumab. Mar 2016: Progressive disease clinically in face of MRI improvement. Johnson stopped per patient preference Mar 2021: Restarted bevacizumab. May 2022: Johnson stopped due to intolerance (arthralgias, myalgias). CURRENT MANAGEMENT: Surveillance SUBJECTIVE: January 05, 2016 - Accompanied today by: spouse. Currently, the patient reports stable hearing loss on the left side, wears a hearing aid, stable imbalance sensation/continues to use a cane; no falls, improved left facial droop. Of note, she has trouble with balance and uses a cane intermittently or hangs on to her [facility] when walking. Frequently stumbles. No recent falls. In addition she noticed her short term memory loss has worsened since she started treatment. Patient denies ARORA, weakness, numbness, difficulty walking, difficulty using arms, syncope, seizures, speech difficulty, vision difficulty. No fever s/chills or other constitutional symptoms. April 21, 2016 - Here for follow up. For past 6 weeks she has had worsening LE (R>L) numbness with weakness necessitating transition from cane to walker. Several falls without injury. Hearing went away 5 days ago and restarted prednisone on her own. She now takes 20 mg q am and feels the hearing is returning to level 6 days ago. States that it feels like she has sand in her shoes. Feels exhausted and had HTN necessitating antihypertensives. In fact she had HTNsive crisis with ARORA and BP 260/130. With these effects and the loss of hearing, she does not want further bevacizumab. Progress notes from intervening providers: 09/28/18 - She presents today with her for follow-up with new MRI brain and spine for review. She complains of sharp, shooting, non radiating pain on the right frontal side of her head, occurring multiple times a day and lasting 5 to 30 seconds each time. The head pain started back in Augustand has become more frequent throughout the day. She has not tried taking medication for the pain. S he continues to have numbness and tingling (Neuropathy) in bilateral feet and issues with balance. She uses a cane to ambulate and denies any falls. Does admit to 4/10 lower back pain that is worse in the morning and gets better throughout the day. She has since stopped taking the Ritalin for fatigue, and states she did not notice a difference in her fatigue. She is otherwise doing well. 03/09/20 - Here today via VIRTUAL VISIT for follow-up and new imaging to review. Since her last visit, she notes her fatigue has improved. She continues to have headaches, neuropathy, and balance issues, ambulating with a cane. Otherwise she is doing well and denies any new concerns or complaints. 12/29/20 - Presents today unaccompanied via VIRTUAL VISIT for follow-up with new MRI brain for review. Last seen by me 03/09/20; today she states her balance has continued to worsen. She notes gradual decrease even over the last 3 months. She continues to ambulate with a cane. February 02, 2021 - Last seen by me 04/21/16. Has worsened balance; when she stands up from chair she easily falls back. Ambulates with a cane. Has twitching in face - right and left, lateral to chinwith numbness/tingling right upper lip. Deaf in right ear; some hearing in left with a hearing aid in place. Reports runny nose ever since her diagnosis. 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 July 01, 2021 - Virtual visit for follow up. Her hearing is ~ stable. Has episodes of feeling shaky, sweatiness which resolves after eating something. Has fatigue. Has soreness of tongue; very bothersome, especially when she brushes her teeth. This happened with her prior episodes of johnson. Previously it was bad enough that she could not tolerate ketchup. Bowling and working out at gym almost daily. January 05, 2022 - Virtual visit for follow up. Has fatigue and thinning of hair. Had audiogram 12/13/21 which showed 5dB loss throughout compared to 07/13/21. Notices slight decline in hearing. June 06, 2022 - Here for follow up to discuss whether or not to continue johnson. Here alone. She feels her pain (generalized from shoulders, legs and ankles - joints, muscles) got worse after johnson as it has after prior johnson treatment and therefore she wishes to stop johnson. Her pain got substantially better when she started 6-day steroid pack. Finished steroid taper a few weeks ago and is noticing return of pain. July 13, 2022 - Telephone (failed virtual visit) visit for follow up. Here alone. Pain now 10/22. Pain diffuse. Her legs feel heavy intermittently over the past 6 months. Has had neuropathy - numbness/tingling in feet and in the past few months, in her hands. LE symptoms occurred while on bevacizumab (johnson) and got somewhat better when she went off. August 17, 2022 - Virtual visit for follow up. Here alone. Much of the peripheral pain has improved. She still has ankle pain but has noticed relief with topical anti-inflammatory. Did 60-min workout on treadmill 2 days ago. Energy level is also improved. Still has heavy feeling in legs 3-4 times perweek. Episodes last 1-2 minutes. No falls but occasionally bumps into door posts. February 16, 2023 - Virtual visit for follow up. Here alone. Feels OK; no new symptoms. Had recent audiogram which was stable per her report. Energy level is improved - she describes occasional days oflow energy but that resolves with a nap, but not like the fatigue which lasted the whole day. Cruise to [place] summer 2022 Her sister was found to have a schwannoma and meningioma and thus also meets criteria for NF2. 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 Barrett. Recent titration 2012 CPAP 14 cm. Other and unspecified hyperlipidemia 10/17/2005 Plantar fasciitis Spinal stenosis in cervical region 05/13/2016 Vestibular schwannoma (HCC) MEDICATIONS Current Outpatient Medications Medication Sig cholecalciferol, vitamin D3, (VITAMIN D3 ORAL) Take 2,000 mg by mouth once daily. MULTIVITAMIN ORAL Take 1 capsule by mouth once daily. fluticasone-salmeterol (ADVAIR, WIXELA) 250-50 mcg/dose inhaler Inhale 1 Puff as instructed as needed. Uses as needed, originally prescribed as twice daily traZODone (DESYREL) 50 mg tablet Take 2 tablets by mouth daily at bedtime. atorvastatin (LIPITOR) 20 mg tablet Take 1 tablet by mouth daily at bedtime. albuterol HFA (PROAIR HFA) 90 mcg/actuation inhaler Inhale 2 Puffs as instructed every 4 hours as needed. montelukast (SINGULAIR) 10 mg tablet Take 1 tablet by mouth once daily. (Patient taking differently: Take 10 mg by mouth twice daily as needed.) COMPOUNDED PRESCRIPTION CPAP @ 13 cm of water with humidification. Mask (per patient preference) optional chin strap (if indicated) , filters, tubing, humidifier and lifetime supplies. Dx. QUINTIN 327.23 No current facility-administered medications for this visit. ALLERGIES Allergen Reactions Codeine Vomiting Erythromycin Vomiting Percocet [Oxycodone* Vomiting Vicodin [Hydrocodon* Vomiting FAMILY HISTORY: Family History Problem Relation Age of Onset Diabetes Father other (congestive heart failure) Father Diabetes Maternal Aunt other (Lupus) Sister Multiple Sclerosis Sister Lipids Mother None Brother No history of cancer in first degree relatives PHYSICAL EXAMINATION: Patient is in no distress. Mental status: clear Speech: fluent. IMAGING - MRI BRAIN (baseline = ): MRI Report - Impression Only MRI BRAIN WO/W IVCON Exam End: 02/13/2023 3:31 PM (Final result) Impression: IMPRESSION: Stable bilateral vestibular schwannomas in the setting of neurofibromatosis, without significant change since 07/12/2022. Sales And Marketing Agent: PSCB Transcribe Date/Time: Feb 13 2023 3:33P Dictated by : MARIA M LOPEZ MD This examination was interpreted and the report reviewed and electronically signed by: MARIA M LOPEZ MD on Feb 13 2023 4:06PM EST 02/13/23: Stable back to Dec KPS: 80 IMPRESSION (February 16, 2023): NF2 with bilateral vestibular schwannomas. Patient is clinically and radiographically stable. Regarding her constitutional symptoms of fatigue and pain, she has improvedsteadily over time. We will continue surveillance. Options at progression Brigatinib Selumetinib - clinical trial at [facility] allows only pts <45. Everolimus Lapatinib PLAN (February 16, 2023): Surveillance with MRIs q 6 months (next Aug 2023), audiograms q 12 months (Aug 2023 [at [facility] iffeasible] most recent was in [place] Aug 2022); sooner if change in symptoms. Xavier Sidhu MD cc: Dr. Merrill Sapp (work) [address] [place] [address] Concha Montague MD - [facility] Visit/prep/note time: 25 min of which greater than 50 % was spent on education and treatment planning. Services included preparing to see the patient, [id number] patient care, completing clinical documentation, obtaining and/or reviewing separately obtained history, performing a medically appropriate examination, counseling and educating the patient/family/caregiver, ordering medications, tests, or procedures, communicating with other HCPs (not separately reported), independently interpretingresults (not separately reported), communicating results to the patient/family/caregiver and care coordination (not separately reported). This was a virtual visit using HIPAA compliant video platform. I received consent from the patient to perform the visit using this platform. It required patient-provider interaction for the medical decision making as documented. documented in this encounterC[facility]10-02-2023 History of Present illness Narrative* Ada Fitzgerald, RT(R) - 02/13/2023 1:00 PM EDT Radiology Service Progress Note DATE OF SERVICE: February 13, 2023 TIME: 2:15 PM PATIENT IDENTITY VERIFICATION COMPLETED USING TWO (2) STANDARD IDENTIFIERS: Name and Date of confirmed by patient verbally. FALL SCREENING: Has the patient had 2 falls in the last year or 1 fall with injury or currently using an Ambulatory Assistive Device (Walker, Cane, Wheelchair, Crutches, etc.)? Yes, Patient High Riskfor Falls What interventions were put in place to prevent falls during this visit? Instructed Patient to Callfor Help if Needed, Offered Assistance with Transfers/Clothing, Instructed Patient to Remain Seated(Not on Exam Table) Until Exam, and Increased Observations by Caregivers PATIENT GENDER DATA: Female. status: : No status: NO. PATIENT RELEVANT IMPLANT DATA REVIEWED: Yes ALLERGIES: Reviewed and unchanged CONTRAST ALLERGY: NO. EXAM: MRI - CONTRAST TYPE: GROUP II PERIPHERAL IV DATA: Ambulatory: A peripheral IV was started in the Right antecubital site with a Angio cath: 22 gauge. RADIOLOGY DEPARTMENT: MR; Exam(s) Completed: Head: Routine Brain SIGNATURE: RT Kody(R) PATIENT NAME: Claire Whiting DATE: February 13, 2023 TIME: 2:15 PM documented in this encounterC[facility] History of Present illness Narrative* Xavier Sidhu MD - 08/17/2022 1:36 PM EDT [facility] CLINICAL NOTE [facility] Solid Tumor Oncology PATIENT NAME: Claire Whiting [facility] NO.: [id number] ATTENDING PHYSICIAN: Xavier Sidhu MD DATE OF SERVICE: August 17, 2022 - VIRTUAL VISIT DIAGNOSIS: NF2 with bilateral vestibular schwannomas HISTORY OF PRESENT ILLNESS: Aug 2011: Pt developed tingling around the left side of her mouth, left facial drop and incomplete closure of her left eye. 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 Right sided lesion measuring 1.0 x 1.4 cm, left sided lesion measuring 1.3 x 0.7 cm. Audiogram on09/19/11 showed mild hearing loss on the left. Dec 2011: stereotactic radiosurgery (Gamma knife) right Feb 2013: stereotactic radiosurgery (Gamma knife) left Aug 2013: Began 3-month course of bevacizumab for progressive left hearing loss Jul 2014: Restarted bevacizumab with notable improvement in hearing. Jan 2015: Johnson stopped and hearing improvement maintained for 8 months September 2015: Hearing worse treated with steroids with improvement Nov 2015: Hearing began to decline and she restarted steroids. Dec 2015: Began bevacizumab. Mar 2016: Progressive disease clinically in face of MRI improvement. Johnosn stopped per patient preference Mar 2021: Restarted bevacizumab. May 2022: Johnson stopped due to intolerance (arthralgias, myalgias) CURRENT MANAGEMENT: SUBJECTIVE: January 05, 2016 - Accompanied today by: spouse. Currently, the patient reports stable hearing loss on the left side, wears a hearing aid, stable imbalance sensation/continues to use a cane; no falls, improved left facial droop. Of note, she has trouble with balance and uses a cane intermittently or hangs on to her [facility] when walking. Frequently stumbles. No recent falls. In addition she noticed her short term memory loss has worsened since she started treatment. Patient denies ARORA, weakness, numbness, difficulty walking, difficulty using arms, syncope, seizures, speech difficulty, vision difficulty. No fever s/chills or other constitutional symptoms. April 21, 2016 - Here for follow up. For past 6 weeks she has had worsening LE (R>L) numbness with weakness necessitating transition from cane to walker. Several falls without injury. Hearing went away 5 days ago and restarted prednisone on her own. She now takes 20 mg q am and feels the hearing is returning to level 6 days ago. States that it feels like she has sand in her shoes. Feels exhausted and had HTN necessitating antihypertensives. In fact she had HTNsive crisis with ARORA and BP 260/130. With these effects and the loss of hearing, she does not want further bevacizumab. Progress notes from intervening providers: 09/28/18 - She presents today with her for follow-up with new MRI brain and spine for review. She complains of sharp, shooting, non radiating pain on the right frontal side of her head, occurring multiple times a day and lasting 5 to 30 seconds each time. The head pain started back in Augustand has become more frequent throughout the day. She has not tried taking medication for the pain. S he continues to have numbness and tingling (Neuropathy) in bilateral feet and issues with balance. She uses a cane to ambulate and denies any falls. Does admit to 4/10 lower back pain that is worse in the morning and gets better throughout the day. She has since stopped taking the Ritalin for fatigue, and states she did not notice a difference in her fatigue. She is otherwise doing well. 03/09/20 - Here today via VIRTUAL VISIT for follow-up and new imaging to review. Since her last visit, she notes her fatigue has improved. She continues to have headaches, neuropathy, and balance issues, ambulating with a cane. Otherwise she is doing well and denies any new concerns or complaints. 12/29/20 - Presents today unaccompanied via VIRTUAL VISIT for follow-up with new MRI brain for review. Last seen by me 03/09/20; today she states her balance has continued to worsen. She notes gradual decrease even over the last 3 months. She continues to ambulate with a cane. February 02, 2021 - Last seen by me 04/21/16. Has worsened balance; when she stands up from chair she easily falls back. Ambulates with a cane. Has twitching in face - right and left, lateral to chinwith numbness/tingling right upper lip. Deaf in right ear; some hearing in left with a hearing aid in place. Reports runny nose ever since her diagnosis. 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 July 01, 2021 - Virtual visit for follow up. Her hearing is ~ stable. Has episodes of feeling shaky, sweatiness which resolves after eating something. Has fatigue. Has soreness of tongue; very bothersome, especially when she brushes her teeth. This happened with her prior episodes of johnson. Previously it was bad enough that she could not tolerate ketchup. Bowling and working out at gym almost daily. January 05, 2022 - Virtual visit for follow up. Has fatigue and thinning of hair. Had audiogram 12/13/21 which showed 5dB loss throughout compared to 07/13/21. Notices slight decline in hearing. June 06, 2022 - Here for follow up to discuss whether or not to continue johnson. Here alone. She feels her pain (generalized from shoulders, legs and ankles - joints, muscles) got worse after johnson as it has after prior johnson treatment and therefore she wishes to stop johnson. Her pain got substantially better when she started 6-day steroid pack. Finished steroid taper a few weeks ago and is noticing return of pain. July 13, 2022 - Telephone (failed virtual visit) visit for follow up. Here alone. Pain now 6/10. Pain diffuse. Her legs feel heavy intermittently over the past 6 months. Has had neuropathy - numbness/tingling in feet and in the past few months, in her hands. LE symptoms occurred while on bevacizumab (ojhnson) and got somewhat better when she went off. August 17, 2022 - Virtual visit for follow up. Here alone. Much of the peripheral pain has improved. She still has ankle pain but has noticed relief with topical anti-inflammatory. Did 60-min workout on treadmill 2 days ago. Energy level is also improved. Still has heavy feeling in legs 3-4 times perweek. Episodes last 1-2 minutes. No falls but occasionally bumps into door posts. Her sister was found to have a schwannoma and meningioma and thus also meets criteria for NF2. 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 Barrett. Recent titration 2012 CPAP 14 cm. Other and unspecified hyperlipidemia 10/17/2005 Plantar fasciitis Spinal stenosis in cervical region 05/13/2016 Vestibular schwannoma ([facility]) MEDICATIONS Current Outpatient Medications Medication Sig cholecalciferol, vitamin D3, (VITAMIN D3 ORAL) Take 2,000 mg by mouth once daily. MULTIVITAMIN ORAL Take 1 capsule by mouth once daily. fluticasone-salmeterol (ADVAIR, WIXELA) 250-50 mcg/dose inhaler Inhale 1 Puff as instructed as needed. Uses as needed, originally prescribed as twice daily traZODone (DESYREL) 50 mg tablet Take 2 tablets by mouth daily at bedtime. atorvastatin (LIPITOR) 20 mg tablet Take 1 tablet by mouth daily at bedtime. albuterol HFA (PROAIR HFA) 90 mcg/actuation inhaler Inhale 2 Puffs as instructed every 4 hours as needed. montelukast (SINGULAIR) 10 mg tablet Take 1 tablet by mouth once daily. (Patient taking differently: Take 10 mg by mouth twice daily as needed.) COMPOUNDED PRESCRIPTION CPAP @ 13 cm of water with humidification. Mask (per patient preference) optional chin strap (if indicated) , filters, tubing, humidifier and lifetime supplies. Dx. QUINTIN 327.23 No current facility-administered medications for this visit. ALLERGIES Allergen Reactions Codeine Vomiting Erythromycin Vomiting Percocet [Oxycodone* Vomiting Vicodin [Hydrocodon* Vomiting FAMILY HISTORY: Family History Problem Relation Age of Onset Diabetes Father other (congestive heart failure) Father Diabetes Maternal Aunt other (Lupus) Sister Multiple Sclerosis Sister Lipids Mother None Brother No history of cancer in first degree relatives PHYSICAL EXAMINATION: Patient is in no distress. Mental status: clear Speech: fluent. IMAGING - MRI BRAIN (baseline = ): MRI Report - Impression Only MRI BRAIN WO/W IVCON Exam End: 07/12/2022 10:54 AM (Final result) Impression: IMPRESSION: Stable appearance the brain since 01/03/2022, with bilateral ventricular schwannomas very slightly increased in size since February 2020. Sales And Marketing Agent: MARLI Transcribe Date/Time: Jul 12 2022 12:40P Dictated by : FAHEEM SWENSON MD This examination was interpreted and the report reviewed and electronically signed by: FAHEEM SWENSON MD on Jul 12 2022 12:47PM EST KPS: 80 IMPRESSION (August 17, 2022): NF2 with bilateral vestibular schwannomas. Doing quite well. She wishesto defer Pal Med consult as her symptoms are improving. Options at progression Brigatinib Selumetinib - clinical trial at [facility] allows only pts <45. Everolimus Lapatinib PLAN (August 17, 2022): Surveillance with MRIs q 6 months (next late Dec/early Jan 2023), audiograms q 12 months; sooner ifchange in symptoms Xavier Sidhu MD cc: Dr. Merrill Sapp (work) [address] [place] [address] Concha Montague MD - [facility] Visit/prep/note time: 25 min of which greater than 50 % was spent on education and treatment planning. Services included preparing to see the patient, [id number] patient care, completing clinical documentation, obtaining and/or reviewing separately obtained history, performing a medically appropriate examination, counseling and educating the patient/family/caregiver, ordering medications, tests, or procedures, communicating with other HCPs (not separately reported), independently interpretingresults (not separately reported), communicating results to the patient/family/caregiver and care coordination (not separately reported). This was a virtual visit using HIPAA compliant video platform. I received consent from the patient to perform the visit using this platform. It required patient-provider interaction for the medical decision making as documented. documented in this encounterC[facility]04-04-2023 History of Present illness Narrative* Ada Fitzgerald RT(R) - 08/16/2022 1:00 PM EDT Radiology Service Progress Note DATE OF SERVICE: August 16, 2022 TIME: 1:04 PM PATIENT IDENTITY VERIFICATION COMPLETED USING TWO (2) STANDARD IDENTIFIERS: Name and Date of confirmed by patient verbally. FALL SCREENING: Has the patient had 2 falls in the last year or 1 fall with injury or currently using an Ambulatory Assistive Device (Walker, Cane, Wheelchair, Crutches, etc.)? Yes, Patient High Riskfor Falls What interventions were put in place to prevent falls during this visit? Instructed Patient to Callfor Help if Needed, Offered Assistance with Transfers/Clothing, Instructed Patient to Remain Seated(Not on Exam Table) Until Exam, and Increased Observations by Caregivers PATIENT GENDER DATA: Female. status: : No status: NO. PATIENT RELEVANT IMPLANT DATA REVIEWED: Yes ALLERGIES: Reviewed and unchanged CONTRAST ALLERGY: NO. EXAM: MRI - CONTRAST TYPE: GROUP II PERIPHERAL IV DATA: Ambulatory: A peripheral IV was started in the Right antecubital site with a Angio cath: 22 gauge. RADIOLOGY DEPARTMENT: MR; Exam(s) Completed: Spine: Cervical spine, Thoracic spine, and Lumbar spine SIGNATURE: RT Kody(Daisha) PATIENT NAME: Claire Whiting DATE: August 16, 2022 TIME: 1:04 PM documented in this encounterCleveland Clinic [facility]03-02-2023 Miscellaneous Notes* Telephone Encounter - Lindsay Colón RN - 07/14/2022 2:44 PM EST Upon call to patient per admin: Spoke to patient she would like to the MRI of her spine done before scheduling for Palliative Medicaine * Telephone Encounter - Lindsay Colón RN - 07/14/2022 1:25 PM EST Palliative Medicine consult received and reviewed. Request sent to scheduling. Note that patient does not have any upcoming visits at [facility] per EMR. documented in this encounterCleveland Clinic [facility]03-01-2023 Miscellaneous Notes* Telephone Encounter - Indiana Gilman RN - 07/13/2022 1:42 PM EST Time Frame: DANNY- within 3 weeks if possible Orders: MRI COMPLETE SPINE- AMBER Provider: THEA- EST- VIRTUAL Diagnosis: NF2 Time Frame: DANNY Orders: CONSULT PAL MED Provider: ANY- VIRTUAL? Referring: THEA Diagnosis: NF2, PAIN Thanks Indiana documented in this encounterCleveland Clinic [facility]03-01-2023 History of Present illness Narrative* Xavier Sidhu MD - 07/13/2022 12:55 PM EST [facility] CLINICAL NOTE [facility] Solid Tumor Oncology PATIENT NAME: Claire Whiting [facility] NO.: [id number] ATTENDING PHYSICIAN: Xavier Sidhu MD DATE OF SERVICE: July 13, 2022 - VIRTUAL VISIT DIAGNOSIS: NF2 with bilateral vestibular schwannomas HISTORY OF PRESENT ILLNESS: Aug 2011: Pt developed tingling around the left side of her mouth, left facial drop and incomplete closure of her left eye. 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 Right sided lesion measuring 1.0 x 1.4 cm, left sided lesion measuring 1.3 x 0.7 cm. Audiogram on09/19/11 showed mild hearing loss on the left. Dec 2011: stereotactic radiosurgery (Gamma knife) right Feb 2013: stereotactic radiosurgery (Gamma knife) left Aug 2013: Began 3-month course of bevacizumab for progressive left hearing loss Jul 2014: Restarted bevacizumab with notable improvement in hearing. Jan 2015: Johnson stopped and hearing improvement maintained for 8 months September 2015: Hearing worse treated with steroids with improvement Nov 2015: Hearing began to decline and she restarted steroids. Dec 2015: Began bevacizumab. Mar 2016: Progressive disease clinically in face of MRI improvement. Johnson stopped per patient preference Mar 2021: Restarted bevacizumab. May 2022: Johnson stopped due to intolerance (arthralgias, myalgias) CURRENT MANAGEMENT: bevacizumab (johnson) SUBJECTIVE: January 05, 2016 - Accompanied today by: spouse. Currently, the patient reports stable hearing loss on the left side, wears a hearing aid, stable imbalance sensation/continues to use a cane; no falls, improved left facial droop. Of note, she has trouble with balance and uses a cane intermittently or hangs on to her [facility] when walking. Frequently stumbles. No recent falls. In addition she noticed her short term memory loss has worsened since she started treatment. Patient denies ARORA, weakness, numbness, difficulty walking, difficulty using arms, syncope, seizures, speech difficulty, vision difficulty. No fevers/chills or other constitutional symptoms. April 21, 2016 - Here for follow up. For past 6 weeks she has had worsening LE (R>L) numbness with weakness necessitating transition from cane to walker. Several falls without injury. Hearing went away 5 days ago and restarted prednisone on her own. She now takes 20 mg q am and feels the hearing is returning to level 6 days ago. States that it feels like she has sand in her shoes. Feels exhausted and had HTN necessitating antihypertensives. In fact she had HTNsive crisis with ARORA and BP 260/130. With these effects and the loss of hearing, she does not want further bevacizumab. Progress notes from intervening providers: 09/28/18 - She presents today with her for follow-up with new MRI brain and spine for review. She complains of sharp, shooting, non radiating pain on the right frontal side of her head, occurring multiple times a day and lasting 5 to 30 seconds each time. The head pain started back in Augustand has become more frequent throughout the day. She has not tried taking medication for the pain. She continues to have numbness and tingling (Neuropathy) in bilateral feet and issues with balance. She uses a cane to ambulate and denies any falls. Does admit to 4/10 lower back pain that is worse in the morning and gets better throughout the day. She has since stopped taking the Ritalin for fatigue, and states she did not notice a difference in her fatigue. She is otherwise doing well. 03/09/20 - Here today via VIRTUAL VISIT for follow-up and new imaging to review. Since her last visit, she notes her fatigue has improved. She continues to have headaches, neuropathy, and balance issues, ambulating with a cane. Otherwise she is doing well and denies any new concerns or complaints. 12/29/20 - Presents today unaccompanied via VIRTUAL VISIT for follow-up with new MRI brain for review. Last seen by me 03/09/20; today she states her balance has continued to worsen. She notes gradual decrease even over the last 3 months. She continues to ambulate with a cane. February 02, 2021 - Last seen by me 04/21/16. Has worsened balance; when she stands up from chair she easily falls back. Ambulates with a cane. Has twitching in face - right and left, lateral to chinwith numbness/tingling right upper lip. Deaf in right ear; some hearing in left with a hearing aid in place. Reports runny nose ever since her diagnosis. 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 July 01, 2021 - Virtual visit for follow up. Her hearing is ~ stable. Has episodes of feeling shaky, sweatiness which resolves after eating something. Has fatigue. Has soreness of tongue; very bothersome, especially when she brushes her teeth. This happened with her prior episodes of johnson. Previously it was bad enough that she could not tolerate ketchup. Bowling and working out at gym almost daily. January 05, 2022 - Virtual visit for follow up. Has fatigue and thinning of hair. Had audiogram 12/13/21 which showed 5dB loss throughout compared to 07/13/21. Notices slight decline in hearing. June 06, 2022 - Here for follow up to discuss whether or not to continue johnson. Here alone. She feels her pain (generalized from shoulders, legs and ankles - joints, muscles) got worse after johnson as it has after prior johnson treatment and therefore she wishes to stop johnson. Her pain got substantially better when she started 6-day steroid pack. Finished steroid taper a few weeks ago and is noticing return of pain. July 13, 2022 - Telephone (failed virtual visit) visit for follow up. Here alone. Pain now 10/22. Pain diffuse. Her legs feel heavy intermittently over the past 6 months. Has had neuropathy - numbness/tingling in feet and in the past few months, in her hands. LE symptoms occurred while on bevacizumab (johnson) and got somewhat better when she went off. Her sister was found to have a schwannoma and meningioma and thus also meets criteria for NF2. 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 Barrett. Recent titration 2013 CPAP 14 cm. Other and unspecified hyperlipidemia 10/17/2005 Plantar fasciitis Spinal stenosis in cervical region 05/13/2016 Vestibular schwannoma ([facility]) MEDICATIONS Current Outpatient Medications Medication Sig predniSONE (DELTASONE) 10 mg tablet Take by mouth four (4) tabs x3 days; then three (3) tabs x3days; then two (2) tabs x3 days; then one (1) tab a day x3 days cholecalciferol, vitamin D3, (VITAMIN D3 ORAL) Take 2,000 mg by mouth once daily. MULTIVITAMIN ORAL Take 1 capsule by mouth once daily. bevacizumab (AVASTIN INTRAVENOUS) Inject intravenously every 6 weeks. fluticasone-salmeterol (ADVAIR, WIXELA) 250-50 mcg/dose inhaler Inhale 1 Puff as instructed as needed. Uses as needed, originally prescribed as twice daily traZODone (DESYREL) 50 mg tablet Take 2 tablets by mouth daily at bedtime. atorvastatin (LIPITOR) 20 mg tablet Take 1 tablet by mouth daily at bedtime. albuterol HFA (PROAIR HFA) 90 mcg/actuation inhaler Inhale 2 Puffs as instructed every 4 hours as needed. montelukast (SINGULAIR) 10 mg tablet Take 1 tablet by mouth once daily. (Patient taking differently: Take 10 mg by mouth twice daily as needed.) COMPOUNDED PRESCRIPTION CPAP @ 13 cm of water with humidification. Mask (per patient preference) optional chin strap (if indicated) , filters, tubing, humidifier and lifetime supplies. Dx. QUINTIN 327.23 No current facility-administered medications for this visit. ALLERGIES Allergen Reactions Codeine Vomiting Erythromycin Vomiting Percocet [Oxycodone* Vomiting Vicodin [Hydrocodon* Vomiting FAMILY HISTORY: Family History Problem Relation Age of Onset Diabetes Father other (congestive heart failure) Father Diabetes Maternal Aunt other (Lupus) Sister Multiple Sclerosis Sister Lipids Mother None Brother No history of cancer in first degree relatives PHYSICAL EXAMINATION: Patient is in no distress. Mental status: clear Speech: fluent. IMAGING - MRI BRAIN (baseline = ): MRI Report - Impression Only MRI BRAIN WO/W IVCON Exam End: 07/12/2022 10:54 AM (Final result) Impression: IMPRESSION: Stable appearance the brain since 01/03/2022, with bilateral ventricular schwannomas very slightly increased in size since February 2020. Sales And Marketing Agent: PSCB Transcribe Date/Time: Jul 12 2022 12:40P Dictated by : FAHEEM SWENSON MD This examination was interpreted and the report reviewed and electronically signed by: FAHEEM SWENSON MD on Jul 12 2022 12:47PM EST KPS: 70 IMPRESSION: NF2 with bilateral vestibular schwannomas. Leg heaviness raises question of spinal corddisease. Needs MRI+grady. Would also like pt to consult with Palliative Medicine for management of pain. Options at progression Brigatinib Selumetinib - clinical trial at [facility] allows only pts <45. Everolimus Lapatinib PLAN: MRI spine with grady - first available Pal Med consult for pain management Surveillance with MRIs q 6 months, audiograms q 12 months; sooner if change in symptoms Xavier Sdihu MD cc: Dr. Merrill Sapp (work) [address] [facility] [place] [address] Concha Montague MD - [facility] Visit/prep/note time: 35 min of which greater than 50 % was spent on education and treatment planning. Services included preparing to see the patient, [id number] patient care, completing clinical documentation, obtaining and/or reviewing separately obtained history, performing a medically appropriate examination, counseling and educating the patient/family/caregiver, ordering medications, tests, or procedures, communicating with other HCPs (not separately reported), independently interpretingresults (not separately reported), communicating results to the patient/family/caregiver and care coordination (not separately reported). This was a virtual visit using HIPAA compliant video platform. I received consent from the patient to perform the visit using this platform. It required patient-provider interaction for the medical decision making as documented. documented in this encounterCleveland [facility]02-28-[facility]23 History of Present illness Narrative* Ada Fitzgerald, RT(R) - 07/12/2022 10:00 AM EST Radiology Service Progress Note DATE OF SERVICE: July 12, 2022 TIME: 10:17 AM PATIENT IDENTITY VERIFICATION COMPLETED USING TWO (2) STANDARD IDENTIFIERS: Name and Date of confirmed by patient verbally. FALL SCREENING: Has the patient had 2 falls in the last year or 1 fall with injury or currently using an Ambulatory Assistive Device (Walker, Cane, Wheelchair, Crutches, etc.)? Yes, Patient High Riskfor Falls What interventions were put in place to prevent falls during this visit? Instructed Patient to Callfor Help if Needed, Offered Assistance with Transfers/Clothing, Instructed Patient to Remain Seated(Not on Exam Table) Until Exam, and Increased Observations by Caregivers PATIENT GENDER DATA: Female. status: : No status: NO. PATIENT RELEVANT IMPLANT DATA REVIEWED: Yes ALLERGIES: Reviewed and unchanged CONTRAST ALLERGY: NO. EXAM: MRI - CONTRAST TYPE: GROUP II PERIPHERAL IV DATA: Ambulatory: A peripheral IV was started in the Right antecubital site with a Angio cath: 22 gauge. RADIOLOGY DEPARTMENT: MR; Exam(s) Completed: Head: Routine Brain SIGNATURE: RT Kody(R) PATIENT NAME: Claire Whiting DATE: July 12, 2022 TIME: 10:17 AM documented in this encounterCleveland Clinic Medina Hospital01-27-2023 Miscellaneous Notes* Telephone Encounter - Xavier Sidhu MD - 06/10/2022 3:34 PM EST Brain Tumor Board Opinion: Left is larger by 2 mm over past 2 years. Recommendation: Surveillance At progression: low dose johnson brigatinib (altho used more for meningiomas in NF2) trial of neratinib documented in this encounterCleveland Clinic Med[facility]01-23-2023 History of Present illness Narrative* Xavier Sidhu MD - 06/06/2022 11:13 AM EST [facility] CLINICAL NOTE [facility] Solid Tumor Oncology PATIENT NAME: Claire Whiting [facility] NO.: [id number] ATTENDING PHYSICIAN: Xavier Sidhu MD DATE OF SERVICE: June 06, 2022 - VIRTUAL VISIT DIAGNOSIS: NF2 with bilateral vestibular schwannomas HISTORY OF PRESENT ILLNESS: Aug 2011: Pt developed tingling around the left side of her mouth, left facial drop and incomplete closure of her left eye. 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 Right sided lesion measuring 1.0 x 1.4 cm, left sided lesion measuring 1.3 x 0.7 cm. Audiogram on09/19/11 showed mild hearing loss on the left. Dec 2011: stereotactic radiosurgery (Gamma knife) right Feb 2013: stereotactic radiosurgery (Gamma knife) left Aug 2013: Began 3-month course of bevacizumab for progressive left hearing loss Jul 2014: Restarted bevacizumab with notable improvement in hearing. Jan 2015: Johnson stopped and hearing improvement maintained for 8 months September 2015: Hearing worse treated with steroids with improvement Nov 2015: Hearing began to decline and she restarted steroids. Dec 2015: Began bevacizumab. Mar 2016: Progressive disease clinically in face of MRI improvement. Johnson stopped per patient preference Mar 2021: Restarted bevacizumab. May 2022: Johnson stopped due to intolerance (arthralgias, myalgias) CURRENT MANAGEMENT: bevacizumab (johnson) SUBJECTIVE: January 05, 2016 - Accompanied today by: spouse. Currently, the patient reports stable hearing loss on the left side, wears a hearing aid, stable imbalance sensation/continues to use a cane; no falls, improved left facial droop. Of note, she has trouble with balance and uses a cane intermittently or hangs on to her [facility] when walking. Frequently stumbles. No recent falls. In addition she noticed her short term memory loss has worsened since she started treatment. Patient denies ARORA, weakness, numbness, difficulty walking, difficulty using arms, syncope, seizures, speech difficulty, vision difficulty. No fevers/chills or other constitutional symptoms. April 21, 2016 - Here for follow up. For past 6 weeks she has had worsening LE (R>L) numbness with weakness necessitating transition from cane to walker. Several falls without injury. Hearing went away 5 days ago and restarted prednisone on her own. She now takes 20 mg q am and feels the hearing is returning to level 6 days ago. States that it feels like she has sand in her shoes. Feels exhausted and had HTN necessitating antihypertensives. In fact she had HTNsive crisis with ARORA and BP 260/130. With these effects and the loss of hearing, she does not want further bevacizumab. Progress notes from intervening providers: 09/28/18 - She presents today with her for follow-up with new MRI brain and spine for review. She complains of sharp, shooting, non radiating pain on the right frontal side of her head, occurring multiple times a day and lasting 5 to 30 seconds each time. The head pain started back in Augustand has become more frequent throughout the day. She has not tried taking medication for the pain. She continues to have numbness and tingling (Neuropathy) in bilateral feet and issues with balance. She uses a cane to ambulate and denies any falls. Does admit to 4/10 lower back pain that is worse in the morning and gets better throughout the day. She has since stopped taking the Ritalin for fatigue, and states she did not notice a difference in her fatigue. She is otherwise doing well. 03/09/20 - Here today via VIRTUAL VISIT for follow-up and new imaging to review. Since her last visit, she notes her fatigue has improved. She continues to have headaches, neuropathy, and balance issues, ambulating with a cane. Otherwise she is doing well and denies any new concerns or complaints. 12/29/20 - Presents today unaccompanied via VIRTUAL VISIT for follow-up with new MRI brain for review. Last seen by me 03/09/20; today she states her balance has continued to worsen. She notes gradual decrease even over the last 3 months. She continues to ambulate with a cane. February 02, 2021 - Last seen by me 04/21/16. Has worsened balance; when she stands up from chair she easily falls back. Ambulates with a cane. Has twitching in face - right and left, lateral to chinwith numbness/tingling right upper lip. Deaf in right ear; some hearing in left with a hearing aid in place. Reports runny nose ever since her diagnosis. 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 July 01, 2021 - Virtual visit for follow up. Her hearing is ~ stable. Has episodes of feeling shaky, sweatiness which resolves after eating something. Has fatigue. Has soreness of tongue; very bothersome, especially when she brushes her teeth. This happened with her prior episodes of johnson. Previously it was bad enough that she could not tolerate ketchup. Bowling and working out at gym almost daily. January 05, 2022 - Virtual visit for follow up. Has fatigue and thinning of hair. Had audiogram 12/13/21 which showed 5dB loss throughout compared to 07/13/21. Notices slight decline in hearing. June 06, 2022 - Here for follow up to discuss whether or not to continue johnson. Here alone. She feels her pain (generalized from shoulders, legs and ankles - joints, muscles) got worse after johnson as it has after prior johnson treatment and therefore she wishes to stop johnson. Her pain got substantially better when she started 6-day steroid pack. Finished steroid taper a few weeks ago and is noticing return of pain. Her sister was found to have a schwannoma and meningioma and thus also meets criteria for NF2. 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 Barrett. Recent titration 2012 CPAP 14 cm. Other and unspecified hyperlipidemia 10/17/2005 Plantar fasciitis Spinal stenosis in cervical region 05/13/2016 Vestibular schwannoma ([facility]) MEDICATIONS Current Outpatient Medications Medication Sig predniSONE (DELTASONE) 10 mg tablet Take by mouth four (4) tabs x3 days; then three (3) tabs x3days; then two (2) tabs x3 days; then one (1) tab a day x3 days cholecalciferol, vitamin D3, (VITAMIN D3 ORAL) Take 2,000 mg by mouth once daily. MULTIVITAMIN ORAL Take 1 capsule by mouth once daily. bevacizumab (AVASTIN INTRAVENOUS) Inject intravenously every 6 weeks. fluticasone-salmeterol (ADVAIR, WIXELA) 250-50 mcg/dose inhaler Inhale 1 Puff as instructed as needed. Uses as needed, originally prescribed as twice daily traZODone (DESYREL) 50 mg tablet Take 2 tablets by mouth daily at bedtime. atorvastatin (LIPITOR) 20 mg tablet Take 1 tablet by mouth daily at bedtime. albuterol HFA (PROAIR HFA) 90 mcg/actuation inhaler Inhale 2 Puffs as instructed every 4 hours as needed. montelukast (SINGULAIR) 10 mg tablet Take 1 tablet by mouth once daily. (Patient taking differently: Take 10 mg by mouth twice daily as needed.) COMPOUNDED PRESCRIPTION CPAP @ 13 cm of water with humidification. Mask (per patient preference) optional chin strap (if indicated) , filters, tubing, humidifier and lifetime supplies. Dx. QUINTIN 327.23 No current facility-administered medications for this visit. 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 Place of shinto: Tobacco: never Alcohol: social No illicit drug use FAMILY HISTORY: Family History Problem Relation Age of Onset Diabetes Father other (congestive heart failure) Father Diabetes Maternal Aunt other (Lupus) Sister Multiple Sclerosis Sister Lipids Mother None Brother No history of cancer in first degree relatives PHYSICAL EXAMINATION: Patient is in no distress. Mental status: clear Speech: fluent. IMAGING - MRI BRAIN (baseline = ): MRI Report - Impression Only MRI BRAIN WO/W IVCON Exam End: 01/03/2022 12:25 PM (Final result) Impression: IMPRESSION: Stable bilateral vestibular schwannomas. Sales And Marketing Agent: MARLI Transcribe Date/Time: Jan 03 2022 12:46P Dictated by : ALTHEA BARRIOS MD This examination was interpreted and the report reviewed and electronically signed by: ALTHEA BARRIOS MD on Jan 03 2022 12:56PM EST KPS: 70 IMPRESSION: NF2 with bilateral vestibular schwannomas. Audiograms have been stable on last 2 tests and pt has consulted with Dr. Montague for management of hearing. Given that all is stable we can monitor for now realizing that she might experience johnson withdrawal over the next several months. Options at progression Brigatinib Selumetinib - clinical trial at [facility] allows only pts <45. Everolimus Lapatinib PLAN: Stop johnson due to intolerance Surveillance with MRIs q 6 months, audiograms q 12 months; sooner if change in symptoms Tumor board - tx now vs later? Brigatinib vs other? Evaluate for brigatinib - now vs later? Xavier Sidhu MD cc: Dr. Merrill Sapp (work) [address] [place] [address] Concha Montague MD - [facility] Visit/prep/note time: 35 min of which greater than 50 % was spent on education and treatment planning. Services included preparing to see the patient, [id number] patient care, completing clinical documentation, obtaining and/or reviewing separately obtained history, performing a medically appropriate examination, counseling and educating the patient/family/caregiver, ordering medications, tests, or procedures, communicating with other HCPs (not separately reported), independently interpretingresults (not separately reported), communicating results to the patient/family/caregiver and care coordination (not separately reported). This was a virtual visit using HIPAA compliant video platform. I received consent from the patient to perform the visit using this platform. It required patient-provider interaction for the medical decision making as documented. documented in this encounterCleveland Clinic [facility]11-17-2022 Nurse Note* Diane Mondragon RN - 03/31/2022 11:31 AM EST Tobacco Use: Never Was smoking cessation packet given? N/A - Patient is a non-smoker or quit >1 year ago. Was a referral initiated?N/A Patient is a non-smoker Diane Mondragon RN documented in this encounterCleveland Clinic Med[facility]11-17-2022 History of Present illness Narrative* Concha Montague MD - 03/31/2022 10:59 AM EST Images from the original note were not included. [facility] Patient [facility] New Patient Visit March 31, 2022 03/31/2022 Claire Whiting is a 66 year old female referred by Xavier Sidhu MD for establish care for NF2 History of Present Illness Copied from Hematooncology note Aug 2011: Pt developed tingling around the left side of her mouth, left facial drop and incomplete closure of her left eye. 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 Right sided lesion measuring 1.0 x 1.4 cm, left sided lesion measuring 1.3 x 0.7 cm. Audiogram on09/19/11 showed mild hearing loss on the left. Dec 2011: stereotactic radiosurgery (Gamma knife) right Feb 2013: stereotactic radiosurgery (Gamma knife) left Aug 2013: Began 3-month course of bevacizumab for progressive left hearing loss Jul 2014: Restarted bevacizumab with notable improvement in hearing. Jan 2015: Johnson stopped and hearing improvement maintained for 8 months September 2015: Hearing worse treated with steroids with improvement Nov 2015: Hearing began to decline and she restarted steroids. Dec 2015: Began bevacizumab Mar 2016: Progressive disease clinically in face of MRI improvement. Johnson stopped per patient preference Mar 2021: Restarted johnson. Currently 1 year on Avastin there was growth progression of tumor, current last 2 MRI with stable tumor Hearing Loss: stable hearing loss on the left side over the last 2 years, wears a hearing aid,Left side only, prior to 2 years has had hearing that was progressively declining, has used steroid in the past when drops in hearing Right side complete loss after GK first treatment 6 months after Tinnitus: Central constant Vertigo/ Dysequilibrium: has trouble with balance and uses a cane intermittently or hangs on to herhusband for support when walking Facial Movement: Reports the ability to smile got lost over the last several years especially afterGamma Knife Facial Sensation: Intact Headache: denies Otalgia: denies Otorrhea: denies Otologic Risk Factors: Noise Exposure: denies Ototoxin Exposure: denies Head Trauma: denies Otologic Family History: Father with ? 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 Barrett. Recent titration 2012 CPAP 14 cm. Other and unspecified hyperlipidemia 10/17/2005 Plantar fasciitis Spinal stenosis in cervical region 05/13/2016 Vestibular schwannoma (HCC) PSH: PAST SURGICAL HISTORY Procedure Laterality Date CATARACT EXTRACTION HX Bilateral 2018 COLONOSCOPY 04/24/2018 small adenomatous polyp, repeat in 5 years GAMMA KNIFE 1FX TX DELIVERY 2011, 2012 PAST SURGICAL HISTORY OF Bilateral breast biopsies, benign SCOPE, PLANTAR FASCIOTOMY Bilateral 2006 both feet TOTAL ABDOMINAL HYSTERECT W/WO RMVL TUBE OVARY 2001 Hysterectomy, FAITH, BSO Meds: Current Outpatient Medications Medication Instructions albuterol HFA (PROAIR HFA) 90 mcg/actuation inhaler 2 Puffs, INHALATION, EVERY 4 HOURS NEEDED atorvastatin (LIPITOR) 20 mg, ORAL, AT BEDTIME COMPOUNDED PRESCRIPTION CPAP @ 13 cm of water with humidification. Mask (per patient preference) optional chin strap (if indicated) , filters, tubing, humidifier and lifetime supplies.
Dx. QUINTIN 327.23 fluticasone-salmeterol (ADVAIR DISKUS) 250-50 mcg/dose inhaler 1 Puff, INHALATION, 2 TIMES DAILY montelukast (SINGULAIR) 10 mg, ORAL, DAILY traZODone (DESYREL) 100 mg, ORAL, AT BEDTIME Allergies: ALLERGIES Allergen Reactions Codeine Vomiting Erythromycin Vomiting Percocet [Oxycodone* Vomiting Vicodin [Hydrocodon* Vomiting SH -Smoking: Tobacco Use: Low Risk Smoking Tobacco Use: Never Smokeless Tobacco Use: Never Passive Exposure: Not on file FH family history includes Diabetes in her father and maternal aunt; Lipids in her mother; Lupus in her sister; Multiple Sclerosis in her sister; None in her brother; congestive heart failure in her father. Review of Systems A review of systems was performed and was negative except as indicated above. Physical Exam There were no vitals taken for this visit. Constitutional: Well appearing, no acute distress, oriented, conversant Ears: Patient s ears were examined under the microscope given prior complex history of ear symptomsnecessitating use. Left Pinna:normal External auditory canal:clear Tympanic membrane: intact without perforation without retraction Right Pinna:normal External auditory canal:clear Tympanic membrane: intact without perforation without retraction Neuro: Extraocular movements intact V1-V3 symmetric to light touch symmetric shoulder shrung midline tongue protrusion symmetric palate elevation Facial nerve: Right: I/ House-Brackmann scale Left: I/ House-Brackmann scale With restricted smile Voice: normal with good projection and no evidence of dysphonia Respiratory Effort: unlabored without stridor or stertor Eyes: Extraocular movements intact, no lid or conjunctival inflammation or drainage Face: No gross lesions. Nose: No obvious external deformity or lesions. Oral Cavity/Oropharynx: Mucous membranes are moist and pink, tongue without lesions, no trismus, noobvious mucosal lesions Neck: No masses, adenopathy or tenderness. Trachea midline. Audiometric Testing Imaging Imaging serial MRI personally reviewed, agree with impressions 01/03 IMPRESSION: Stable bilateral vestibular schwannomas. 06/29 IMPRESSION: Stable bilateral vestibular schwannomas. Stable mild chronic change 12/28/20 IMPRESSION: Slight growth of the left vestibular schwannoma and stable appearance of the right vestibular schwannoma. 03/04/20 IMPRESSION: Stable bilateral vestibular schwannomas as discussed. Impression / Recommendations ASSESSMENT/PLAN: 1. Vestibular schwannoma (HCC) - ICD9: 225.1, ICD10: D33.3 2. Sensorineural hearing loss (SNHL) of both ears - ICD9: 389.18, ICD10: H90.3 3. NF2 (neurofibromatosis 2) (HCC) - ICD9: 237.72, ICD10: Q85.02 - discussed the need to monitor hearing Left side closely - Discussed that if hearing drops on the Left side can consider doing a cochlear implant on that side. Since Right side in >10 years out since acute hearing loss with history of radiation to that side, cochlear implant will likely provide suboptimal outcome. Patient only desires at this stage toaddress the Left side when it does happen that she will need additional surgical intervention - Prescription for prednisone sent, just in case of an acute hearing drop - Return to clinic as needed Concha Montague MD Otology/Neurotology/Lateral Skull-Base Surgery [facility] Medical Decision Making: Problems: Moderate: New problem with uncertain prognosis Data: Unique source(s) for external note(s) reviewed: 3+ Unique test result(s) reviewed: 3+ Independent interpretation of test from other physician/QHCP Risk: Moderate: Drug management Medical Decision Making Level: 4 - Moderate documented in this encounterCleveland Clinic Med[facility]11-17-2022 History of Present illness Narrative* SOLA Winston - 03/31/2022 10:00 AM EST [facility] AUDIOLOGIC EVALUATION REPORT Name: Claire Whiting [facility]#: [id number] Date of Service: 03/31/2022 Date of : 1955 Age: [age] year old Referred by: Xavier Sidhu MD [address] [place] [facility] [id number] Referred for: Evaluation of suspected change in hearing, tinnitus, or balance. Referral documented: In an order in [facility] Patient's major complaints: Reduced hearing in both ears, Tinnitus in both ears, Dizziness/vertigo/imbalance Claire Whiting was seen for an initial audiologic evaluation at the request of Concha Montague MD. 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 Previous audiologic evaluation from [facility] revealed moderately-severe sloping to profound sensorineural hearing loss in the left ear with profound sensorineural hearing loss in the right ear. She also reported constant bilateral tinnitus and balance concerns, however denied true vertigo. History is significant for gamma knife radiation. She denied otalgia, otorrhea, and aural fullness. See SmartForm Audiogram for additional reported history and symptoms. Risk of Falls Documentation for over 65 years old: Claire Whiting confirms having 2 or more fallsin past 12 months IMPRESSIONS RIGHT EAR: Sensorineural hearing loss, right greater than left LEFT EAR: Sensorineural hearing loss AUDIOLOGIC EVALUATION Following is a brief interpretation of the obtained findings from the audiologic evaluation. Refer to the Auditory Test Record for complete audiometric results. The patient was counseled about the test findings and appropriate audiologic recommendations were made. SUMMARY: Audiogram can be viewed under Forms/Audiology/SmartForm. OTOSCOPY RIGHT EAR: Otoscopic inspection revealed ear canal was clear with an identifiable cone of light. LEFT EAR: Otoscopic inspection revealed ear canal was clear with an identifiable cone of light. TYMPANOMETRY Description of procedure: This test is an objective evaluation of middle ear function. CPT code: 05163 RIGHT EAR: Normal ME pressure with reduced TM compliance (mobility). LEFT EAR: Normal ME pressure with reduced TM compliance (mobility). ACOUSTIC REFLEXES Description of procedure: This test is an objective measure of auditory and facial nerve pathways. CPT code: 21197, 20828 RIGHT EAR PROBE EAR: (ipsi right stimulus ear; contralateral left stimulus ear): Acoustic Reflex Pattern Did not test Acoustic Reflex Decay (left stimulus ear): Did not test. LEFT EAR PROBE EAR: (ipsi left stimulus ear; contralateral right stimulus ear): Acoustic Reflex Pattern Did not test Acoustic Reflex Decay (right stimulus ear):Did not test. PURE TONE AUDIOMETRY AND SPEECH TESTING Description of procedure: This test is an objective evaluation hearing sensitivity via air and boneconduction and speech recognition testing. CPT code: 53742 RIGHT EAR: Hearing Sensitivity: Moderately-severe sloping to profound hearing loss. No responses obtained at the limits for the equipment 750-8000 Hz. Masked bone conduction documented on previous audiogram from outside facility, no responses at the limits of the equipment. See scanned docs for results. Word Recognition Score: Did not test. LEFT EAR: Hearing Sensitivity: Moderate sloping to severe sensorineural hearing loss. Word Recognition Score: Poor (68%). WRS is consistent with hearing sensitivity. Words were presented at 95 dB HL which is above (greater than or equal to 60 dB HL) intensity level for average conversational speech. The NU-6 Word List (25 words) was used. RECOMMENDATIONS * Continue medical follow-up with Concha Montague MD. 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 * Re-evaluation as medically indicated or if a change in hearing is noted. Margarita Winston, [facility] [employer] [place] Abbrev- iation Definition Degree of hearing sensitivity dB range WNL within normal limits WNL 0 - 20 SNHL sensorineural hearing loss Mild 20-40 CHL conductive hearing loss Moderate 40-55 MHL mixed hearing loss Moderately-Severe 55-70 WRS word recognition score Severe 70-90 ME middle ear Profound 90 + TM tympanic membrane documented in [facility] encounterC[facility] Miscellaneous Notes* Telephone Encounter - Xavier Sidhu MD - 02/04/2022 1:08 PM EDT Brain Tumor Board Opinion: MRI stable back to 2021. Recommendation: Continue johnson Audiogram here Neuro-otology consult. Xavier Sidhu MD documented in this encounterC[facility] History of Present illness Narrative* Xavier Sidhu MD - 01/05/2022 12:51 PM EDT [facility] CLINICAL NOTE [facility] Solid Tumor Oncology PATIENT NAME: Claire Whiting [facility] NO.: [id number] ATTENDING PHYSICIAN: Xavier Sidhu MD DATE OF SERVICE: January 05, 2022 - VIRTUAL VISIT DIAGNOSIS: Bilateral vestibular schwannomas and presumed NF2 HISTORY OF PRESENT ILLNESS: Aug 2011: Pt developed tingling around the left side of her mouth, left facial drop and incomplete closure of her left eye. 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 Right sided lesion measuring 1.0 x 1.4 cm, left sided lesion measuring 1.3 x 0.7 cm. Audiogram on09/19/11 showed mild hearing loss on the left. Dec 2011: stereotactic radiosurgery (Gamma knife) right Feb 2013: stereotactic radiosurgery (Gamma knife) left Aug 2013: Began 3-month course of bevacizumab for progressive left hearing loss Jul 2014: Restarted bevacizumab with notable improvement in hearing. Jan 2015: Johnson stopped and hearing improvement maintained for 8 months September 2015: Hearing worse treated with steroids with improvement Nov 2015: Hearing began to decline and she restarted steroids. Dec 2015: Began bevacizumab Mar 2016: Progressive disease clinically in face of MRI improvement. Johnson stopped per patient preference Mar 2021: Restarted johnson. CURRENT MANAGEMENT: None SUBJECTIVE: January 05, 2016 - Currently, the patient reports stable hearing loss on the left side, wears a hearing aid, stable imbalance sensation/continues to use a cane; no falls, improved left facial droop. Of note, she has trouble with balance and uses a cane intermittently or hangs on to her [facility] when walking. Frequently stumbles. No recent falls. In addition she noticed her short term memory loss has worsened since she started treatment. Patient denies ARORA, weakness, numbness, difficulty walking, difficulty using arms, syncope, seizures, speech difficulty, vision difficulty. No fevers/chills or other constitutional symptoms. April 21, 2016 - Here for follow up. For past 6 weeks she has had worsening LE (R>L) numbness with weakness necessitating transition from cane to walker. Several falls without injury. Hearing went away 5 days ago and restarted prednisone on her own. She now takes 20 mg q am and feels the hearing is returning to level 6 days ago. States that it feels like she has sand in her shoes. Feels exhausted and had HTN necessitating antihypertensives. In fact she had HTNsive crisis with ARORA and BP 260/130. With these effects and the loss of hearing, she does not want further bevacizumab. Progress notes from intervening providers: 09/28/18 - She presents today with her for follow-up with new MRI brain and spine for review. She complains of sharp, shooting, non radiating pain on the right frontal side of her head, occurring multiple times a day and lasting 5 to 30 seconds each time. The head pain started back in Augustand has become more frequent throughout the day. She has not tried taking medication for the pain. She continues to have numbness and tingling (Neuropathy) in bilateral feet and issues with balance. She uses a cane to ambulate and denies any falls. Does admit to 4/10 lower back pain that is worse in the morning and gets better throughout the day. She has since stopped taking the Ritalin for fatigue, and states she did not notice a difference in her fatigue. She is otherwise doing well. 03/09/20 - Here today via VIRTUAL VISIT for follow-up and new imaging to review. Since her last visit, she notes her fatigue has improved. She continues to have headaches, neuropathy, and balance issues, ambulating with a cane. Otherwise she is doing well and denies any new concerns or complaints. 12/29/20 - Presents today unaccompanied via VIRTUAL VISIT for follow-up with new MRI brain for review. Last seen by me 03/09/20; today she states her balance has continued to worsen. She notes gradual decrease even over the last 3 months. She continues to ambulate with a cane. February 02, 2021 - Last seen by me 04/21/16. Has worsened balance; when she stands up from chair she easily falls back. Ambulates with a cane. Has twitching in face - right and left, lateral to chinwith numbness/tingling right upper lip. Deaf in right ear; some hearing in left with a hearing aid in place. Reports runny nose ever since her diagnosis. 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 July 01, 2021 - Virtual visit for follow up. Her hearing is ~ stable. Has episodes of feeling shaky, sweatiness which resolves after eating something. Has fatigue. Has soreness of tongue; very bothersome, especially when she brushes her teeth. This happened with her prior episodes of johnson. Previously it was bad enough that she could not tolerate ketchup. Bowling and working out at gym almost daily. January 05, 2022 - Virtual visit for follow up. Has fatigue and thinning of hair. Had audiogram 12/13/21 which showed 5dB loss throughout compared to 07/13/21. Notices slight decline in hearing. 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 Barrett. Recent titration 2012 CPAP 14 cm. Other and unspecified hyperlipidemia 10/17/2005 Plantar fasciitis Spinal stenosis in cervical region 05/13/2016 Vestibular schwannoma ([facility]) MEDICATIONS Current Outpatient Medications Medication Sig fluticasone-salmeterol (ADVAIR DISKUS) 250-50 mcg/dose inhaler Inhale 1 Puff as instructed twice daily. traZODone (DESYREL) 50 mg tablet Take 2 tablets by mouth daily at bedtime. atorvastatin (LIPITOR) 20 mg tablet Take 1 tablet by mouth daily at bedtime. albuterol HFA (PROAIR HFA) 90 mcg/actuation inhaler Inhale 2 Puffs as instructed every 4 hours as needed. montelukast (SINGULAIR) 10 mg tablet Take 1 tablet by mouth once daily. (Patient taking differently: Take 10 mg by mouth twice daily as needed. ) COMPOUNDED PRESCRIPTION CPAP @ 13 cm of water with humidification. Mask (per patient preference) optional chin strap (if indicated) , filters, tubing, humidifier and lifetime supplies. Dx. QUINTIN 327.23 No current facility-administered medications for this visit. 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 Accompanied today by: spouse Place of shinto: Tobacco: never Alcohol: social No illicit drug use FAMILY HISTORY: Family History Problem Relation Age of Onset Diabetes Father other (congestive heart failure) Father Diabetes Maternal Aunt other (Lupus) Sister Multiple Sclerosis Sister Lipids Mother None Brother No history of cancer in first degree relatives PHYSICAL EXAMINATION: Patient is in no distress. Mental status: clear Speech: fluent. IMAGING - MRI BRAIN (baseline = ): MRI Report - Impression Only MRI BRAIN WO/W IVCON Exam End: 01/03/2022 12:25 PM (Final result) Impression: IMPRESSION: Stable bilateral vestibular schwannomas. Sales And Marketing Agent: MARLI Transcribe Date/Time: Jan 03 2022 12:46P Dictated by : ALTHEA BARRIOS MD This examination was interpreted and the report reviewed and electronically signed by: ALTHEA BARRIOS MD on Jan 03 2022 12:56PM EST KPS: 70 IMPRESSION: Bilateral vestibular schwannomas and presumed NF2. Subjective loss of hearing although audiogram read as stable. Will continue johnson. Options at progression Everolimus Lapatinib PLAN: Tumor board - Progression? How long to continue johnson? Other management options? Beginning with infusion on 01/12/22, will extend interval of johnson to q 6 weeks x 6 months with f/u audiogram and MRI After 6 months will switch to q 8 week johnson Xavier Sidhu MD cc: Micheline Diamond MD - [facility] Neftali Cespedes MD Visit/prep/note time: 30 min documented in this encounterC[facility]08-22-[facility]22 History of Present illness Narrative* Ada Fitzgerald, RT(R) - 01/03/2022 11:20 AM EDT Radiology Service Progress Note DATE OF SERVICE: January 03, 2022 TIME: 12:23 PM PATIENT IDENTITY VERIFICATION COMPLETED USING TWO (2) STANDARD IDENTIFIERS: Name and Date of confirmed by patient verbally. FALL SCREENING: Has the patient had 2 falls in the last year or 1 fall with injury or currently using an Ambulatory Assistive Device (Walker, Cane, Wheelchair, Crutches, etc.)? Yes, Patient High Riskfor Falls What interventions were put in place to prevent falls during this visit? Instructed Patient to Callfor Help if Needed, Offered Assistance with Transfers/Clothing, Instructed Patient to Remain Seated(Not on Exam Table) Until Exam, and Increased Observations by Caregivers PATIENT GENDER DATA: Female. status: : No status: NO. PATIENT RELEVANT IMPLANT DATA REVIEWED: Yes ALLERGIES: Reviewed and unchanged CONTRAST ALLERGY: NO. EXAM: MRI - CONTRAST TYPE: GROUP II PERIPHERAL IV DATA: Ambulatory: A peripheral IV was started in the Right antecubital site with a Angio cath: 22 gauge. RADIOLOGY DEPARTMENT: MR; Exam(s) Completed: Head: Routine Brain SIGNATURE: RT Kody(R) PATIENT NAME: Claire Whiting DATE: January 03, 2022 TIME: 12:23 PM documented in this encounterCleveland Clinic [facility]02-10-2014 History of Past illness Narrative* Problem Noted Date Resolved Date Hearing loss 06/24/2013 07/13/2022 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 Sprain of foot, unspecified site 12/13/2005 01/12/2016 PLANTAR Fasciitis 06/21/2005 01/31/2017 documented as of this encounter (statuses as of 07/13/2022) [facility] of [facility] illness Narrative* Problem Noted Date Resolved Date Hearing loss 06/24/2013 07/13/2022 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 Sprain of foot, unspecified site 12/13/2005 01/12/2016 PLANTAR Fasciitis 06/21/2005 01/31/2017 documented as of this encounter (statuses as of 07/13/2022) [facility] of [facility] illness Narrative* Problem Noted Date Resolved Date Hearing loss 06/24/2013 07/13/2022 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 Sprain of foot, unspecified site 12/13/2005 01/12/2016 PLANTAR Fasciitis 06/21/2005 01/31/2017 documented as of this encounter (statuses as of 07/14/2022) [facility] Narrative* Problem Noted Date Resolved Date Hearing loss 06/24/2013 07/13/2022 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 Sprain of foot, unspecified site 12/13/2005 01/12/2016 PLANTAR Fasciitis 06/21/2005 01/31/2017 documented as of this encounter (statuses as of 07/19/2022) [facility] Narrative* Problem Noted Date Resolved Date Hearing loss 06/24/2013 07/13/2022 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 Sprain of foot, unspecified site 12/13/2005 01/12/2016 PLANTAR Fasciitis 06/21/2005 01/31/2017 documented as of this encounter (statuses as of 08/17/2022) [facility] Narrative* Problem Noted Date Resolved Date Hearing loss 06/24/2013 07/13/2022 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 Sprain of foot, unspecified site 12/13/2005 01/12/2016 PLANTAR Fasciitis 06/21/2005 01/31/2017 documented as of this encounter (statuses as of 08/17/2022) [facility] Narrative* Problem Noted Date Diagnosed Date Resolved Date Hearing loss 06/24/2013 07/13/2022 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 Sprain of foot, unspecified site 12/13/2005 01/12/2016 PLANTAR Fasciitis 06/21/2005 01/31/2017 documented as of this encounter (statuses as of 02/17/2023) [facility] Narrative* Problem Noted Date Diagnosed Date Resolved Date Hearing loss 06/24/2013 07/13/2022 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 Sprain of foot, unspecified site 12/13/2005 01/12/2016 PLANTAR Fasciitis 06/21/2005 01/31/2017 documented as of this encounter (statuses as of 02/20/2023) [facility] Narrative* Problem Noted Date Diagnosed Date Resolved Date Hearing loss 06/24/2013 07/13/2022 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 Sprain of foot, unspecified site 12/13/2005 01/12/2016 PLANTAR Fasciitis 06/21/2005 01/31/2017 documented as of this encounter (statuses as of 03/19/2023) [facility] Narrative* Problem Noted Date Diagnosed Date Resolved Date Hearing loss 06/24/2013 07/13/2022 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 Sprain of foot, unspecified site 12/13/2005 01/12/2016 PLANTAR Fasciitis 06/21/2005 01/31/2017 documented as of this encounter (statuses as of 03/19/2023) [facility] Narrative* Problem Noted Date Diagnosed Date Resolved Date Hearing loss 06/24/2013 07/13/2022 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 Sprain of foot, unspecified site 12/13/2005 01/12/2016 PLANTAR Fasciitis 06/21/2005 01/31/2017 documented as of this encounter (statuses as of 03/19/2023) [facility] Narrative* Problem Noted Date Diagnosed Date Resolved Date Hearing loss 06/24/2013 07/13/2022 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 Sprain of foot, unspecified site 12/13/2005 01/12/2016 PLANTAR Fasciitis 06/21/2005 01/31/2017 documented as of this encounter (statuses as of 07/17/2023) [facility] Narrative* Problem Noted Date Resolved Date 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 Sprain of foot, unspecified site 12/13/2005 01/12/2016 PLANTAR Fasciitis 06/21/2005 01/31/2017 documented as of this encounter (statuses as of 08/16/2021) [facility] Narrative* Problem Noted Date Resolved Date 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 Sprain of foot, unspecified site 12/13/2005 01/12/2016 PLANTAR Fasciitis 06/21/2005 01/31/2017 documented as of this encounter (statuses as of 08/18/2021) [facility] Narrative* Problem Noted Date Resolved Date 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 Sprain of foot, unspecified site 12/13/2005 01/12/2016 PLANTAR Fasciitis 06/21/2005 01/31/2017 documented as of this encounter (statuses as of 09/15/2021) [facility] Narrative* Problem Noted Date Resolved Date 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 Sprain of foot, unspecified site 12/13/2005 01/12/2016 PLANTAR Fasciitis 06/21/2005 01/31/2017 documented as of this encounter (statuses as of 10/12/2021) [facility] Narrative* Problem Noted Date Resolved Date 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 Sprain of foot, unspecified site 12/13/2005 01/12/2016 PLANTAR Fasciitis 06/21/2005 01/31/2017 documented as of this encounter (statuses as of 10/13/2021) [facility] Narrative* Problem Noted Date Resolved Date 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 Sprain of foot, unspecified site 12/13/2005 01/12/2016 PLANTAR Fasciitis 06/21/2005 01/31/2017 documented as of this encounter (statuses as of 11/08/2021) [facility] Narrative* Problem Noted Date Resolved Date 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 Sprain of foot, unspecified site 12/13/2005 01/12/2016 PLANTAR Fasciitis 06/21/2005 01/31/2017 documented as of this encounter (statuses as of 11/10/2021) [facility] Narrative* Problem Noted Date Resolved Date 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 Sprain of foot, unspecified site 12/13/2005 01/12/2016 PLANTAR Fasciitis 06/21/2005 01/31/2017 documented as of this encounter (statuses as of 11/29/2021) [facility]* Problem Noted Date Resolved Date 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 Sprain of foot, unspecified site 12/13/2005 01/12/2016 PLANTAR Fasciitis 06/21/2005 01/31/2017 documented as of this encounter (statuses as of 01/04/2022) [facility]* Problem Noted Date Resolved Date 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 Sprain of foot, unspecified site 12/13/2005 01/12/2016 PLANTAR Fasciitis 06/21/2005 01/31/2017 documented as of this encounter (statuses as of 01/05/2022) [facility]* Problem Noted Date Resolved Date 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 Sprain of foot, unspecified site 12/13/2005 01/12/2016 PLANTAR Fasciitis 06/21/2005 01/31/2017 documented as of this encounter (statuses as of 01/10/2022) [facility]* Problem Noted Date Resolved Date 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 Sprain of foot, unspecified site 12/13/2005 01/12/2016 PLANTAR Fasciitis 06/21/2005 01/31/2017 documented as of this encounter (statuses as of 01/12/2022) [facility]* Problem Noted Date Resolved Date 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 Sprain of foot, unspecified site 12/13/2005 01/12/2016 PLANTAR Fasciitis 06/21/2005 01/31/2017 documented as of this encounter (statuses as of 02/04/2022) [facility]* Problem Noted Date Resolved Date 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 Sprain of foot, unspecified site 12/13/2005 01/12/2016 PLANTAR Fasciitis 06/21/2005 01/31/2017 documented as of this encounter (statuses as of 02/08/2022) [facility]* Problem Noted Date Resolved Date 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 Sprain of foot, unspecified site 12/13/2005 01/12/2016 PLANTAR Fasciitis 06/21/2005 01/31/2017 documented as of this encounter (statuses as of 02/22/2022) [facility]* Problem Noted Date Resolved Date 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 Sprain of foot, unspecified site 12/13/2005 01/12/2016 PLANTAR Fasciitis 06/21/2005 01/31/2017 documented as of this encounter (statuses as of 02/24/2022) [facility]* Problem Noted Date Resolved Date 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 Sprain of foot, unspecified site 12/13/2005 01/12/2016 PLANTAR Fasciitis 06/21/2005 01/31/2017 documented as of this encounter (statuses as of 03/23/2022) [facility]* Problem Noted Date Resolved Date 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 Sprain of foot, unspecified site 12/13/2005 01/12/2016 PLANTAR Fasciitis 06/21/2005 01/31/2017 documented as of this encounter (statuses as of 03/31/2022) [facility]* Problem Noted Date Resolved Date 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 Sprain of foot, unspecified site 12/13/2005 01/12/2016 PLANTAR Fasciitis 06/21/2005 01/31/2017 documented as of this encounter (statuses as of 03/31/2022) [facility]* Problem Noted Date Resolved Date 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 Sprain of foot, unspecified site 12/13/2005 01/12/2016 PLANTAR Fasciitis 06/21/2005 01/31/2017 documented as of this encounter (statuses as of 04/08/2022) [facility]* Problem Noted Date Resolved Date 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 Sprain of foot, unspecified site 12/13/2005 01/12/2016 PLANTAR Fasciitis 06/21/2005 01/31/2017 documented as of this encounter (statuses as of 05/19/2022) [facility]* Problem Noted Date Resolved Date 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 Sprain of foot, unspecified site 12/13/2005 01/12/2016 PLANTAR Fasciitis 06/21/2005 01/31/2017 documented as of this encounter (statuses as of 05/20/2022) [facility]* Problem Noted Date Resolved Date 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 Sprain of foot, unspecified site 12/13/2005 01/12/2016 PLANTAR Fasciitis 06/21/2005 01/31/2017 documented as of this encounter (statuses as of 06/08/2022) [facility]* Problem Noted Date Resolved Date 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 Sprain of foot, unspecified site 12/13/2005 01/12/2016 PLANTAR Fasciitis 06/21/2005 01/31/2017 documented as of this encounter (statuses as of 06/10/2022) [facility] Diagnosis 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, Type 2 (acoustic neurofibromatosis) [facility] this encounter [facility]* Diagnosis 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, Type 2 (acoustic neurofibromatosis) [facility]* Diagnosis 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, Type 2 (acoustic neurofibromatosis) documented in this [facility] Diagnosis Vestibular schwannoma (HCC) Benign neoplasm of cranial nerves Sensorineural hearing loss (SNHL) of both ears NF2 (neurofibromatosis 2) (HCC) Neurofibromatosis, 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 Sensorineural hearing loss (SNHL) of both ears NF2 (neurofibromatosis 2) (HCC) Neurofibromatosis, Type 2 (acoustic neurofibromatosis) [facility] Diagnosis 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 documented in this encounter [facility]* Diagnosis 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 documented in this encounter [facility]* Diagnosis 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, Type 2 (acoustic neurofibromatosis) documented in this encounter [facility]* Diagnosis Onset Date Resolution Status Asthma acute COVID acute Bilateral acoustic neuromas acute High cholesterol acute NF2 (neurofibromatosis 2) ac [place] Primary osteoarthritis of knees, bilateral acute [facility] Work Phone: Evaluation note* Diagnosis 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 Sensorineural hearing loss (SNHL) of both ears NF2 (neurofibromatosis 2) (HCC) Neurofibromatosis, Type 2 (acoustic neurofibromatosis) documented in this encounter [facility] note* Diagnosis 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, Type 2 (acoustic neurofibromatosis) documented in this encounter [facility]* Diagnosis NF2 (neurofibromatosis 2) (HCC)- Primary Neurofibromatosis, Type 2 (acoustic neurofibromatosis) documented in this encounter [facility]* Diagnosis Sensorineural hearing loss, bilateral- Primary Asymmetrical sensorineural hearing loss Sensorineural hearing loss, asymmetrical Tinnitus, bilateral Unspecified tinnitus documented in this encounter [facility]* Diagnosis Vestibular schwannoma (HCC) Benign neoplasm of cranial nerves Sensorineural hearing loss (SNHL) of both ears NF2 (neurofibromatosis 2) (HCC) Neurofibromatosis, Type 2 (acoustic neurofibromatosis) [facility] Diagnosis NF2 (neurofibromatosis 2) (HCC)- Primary Neurofibromatosis, 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 documented in this encounter [facility]* Diagnosis Onset Date Resolution Status Diffuse pain acute High cholesterol acute Muscle pain acute [facility] Work Phone: Evaluation note* Diagnosis 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 [facility] Diagnosis Neurofibromatosis (HCC)- Primary Neurofibromatosis, unspecified NF2 (neurofibromatosis 2) (HCC) Neurofibromatosis, Type 2 (acoustic neurofibromatosis) documented in this encounter [facility]* Diagnosis NF2 (neurofibromatosis 2) (HCC)- Primary Neurofibromatosis, Type 2 (acoustic neurofibromatosis) documented [facility] Diagnosis NF2 (neurofibromatosis 2) (HCC)- Primary Neurofibromatosis, Type 2 (acoustic neurofibromatosis) documented [facility]* Diagnosis Neurofibromatosis (HCC)- Primary Neurofibromatosis, unspecified [facility]* Diagnosis NF2 (neurofibromatosis 2) (HCC)- Primary Neurofibromatosis, Type 2 (acoustic neurofibromatosis) documented [facility]* Diagnosis Neurofibromatosis (HCC)- Primary Neurofibromatosis, unspecified Vestibular schwannoma (HCC) Benign neoplasm of cranial nerves documented [facility] this [facility]* Diagnosis Onset Date Resolution Status Bilateral acoustic neuromas acute Diffuse pain acute High cholesterol acute Muscle pain acute NF2 (neurofibromatosis 2) ac [place] Primary osteoarthritis of knees, bilateral acute [facility] Work Phone: Evaluation note* Diagnosis Vestibular schwannoma (HCC) Benign neoplasm of cranial nerves documented [facility] Diagnosis Neurofibromatosis (HCC) Neurofibromatosis, unspecified [facility]* Diagnosis Neurofibromatosis (HCC) Neurofibromatosis, unspecified NF2 (neurofibromatosis 2) (HCC) Neurofibromatosis, Type 2 (acoustic neurofibromatosis) documented in this encounter [facility]* Diagnosis NF2 (neurofibromatosis 2) (HCC)- Primary Neurofibromatosis, 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 documented in this encounter [facility] note* Diagnosis Neurofibromatosis (HCC) Neurofibromatosis, unspecified Vestibular schwannoma (HCC) Benign neoplasm of cranial nerves documented in this encounter [facility] note* Diagnosis NF2 (neurofibromatosis 2) (HCC)- Primary Neurofibromatosis, Type 2 (acoustic neurofibromatosis) documented in this encounter [facility] note* Diagnosis Neurofibromatosis (HCC)- Primary Neurofibromatosis, unspecified documented in this encounter [facility] note* Diagnosis NF2 (neurofibromatosis 2) (HCC)- Primary Neurofibromatosis, Type 2 (acoustic neurofibromatosis) documented in this encounter [facility] note* Diagnosis Neurofibromatosis (HCC) Neurofibromatosis, unspecified documented in this encounter [facility] note* Diagnosis Neurofibromatosis (HCC) Neurofibromatosis, unspecified documented in this encounter [facility] note* Diagnosis NF2 (neurofibromatosis 2) (HCC)- Primary Neurofibromatosis, Type 2 (acoustic neurofibromatosis) documented in this encounter [facility] note* Diagnosis NF2 (neurofibromatosis 2) (HCC)- Primary Neurofibromatosis, Type 2 (acoustic neurofibromatosis) documented in this encounter [facility] note* Diagnosis NF2 (neurofibromatosis 2) (HCC)- Primary Neurofibromatosis, Type 2 (acoustic neurofibromatosis) documented in this encounter [facility] note* Diagnosis NF2 (neurofibromatosis 2) (HCC) Neurofibromatosis, Type 2 (acoustic neurofibromatosis) documented in this encounter [facility] noteNo assessment information availableWCherrington Hospital Work Phone: Hospital Discharge instructions Additional Instructions Antibiotic as directed for prophylaxis. Ice and elevate your hand when possible. 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 No October 15, 2024 3:22pm Medications Administered Section Inactive Administered Medications - up to 3 most recent administrations Medication Order MAR Action Action Date Dose Rate Site bevacizumab-bvzr 366.5 mg in NaCl 0.9% 100 mL (ZIRABEV) 366.5 mg (5 mg/kg/dose 73.3 kg Treatment plan Recorded weight), INTRAVENOUS, Administer over 30 Minutes, ONCE, 1 dose, On Mon08/18/21 at 1500, Approx Total Volume: - Do Not Shake exp 232908/18/21 (room temp) Refrigerate - EXP: (8 HR) New Bag/Syringe/Bottle 08/18/2021 3:14 PM EDT 366.5 mg Inactive Administered Medications - up to 3 most recent administrations Medication Order MAR Action Action Date Dose Rate Site bevacizumab-bvzr 366.5 mg in NaCl 0.9% 100 mL (ZIRABEV) 366.5 mg (5 mg/kg/dose 73.3 kg Treatment plan Recorded weight), INTRAVENOUS, Administer over 30 Minutes, ONCE, 1 dose, On Mon09/15/21 at 1500, Approx Total Volume - IMMEDIATE USE at room temp - Do Not Shake Refrigerate - EXP: (8 HR) New Bag/Syringe/Bottle 09/15/2021 3:20 PM EDT 366.5 mg Inactive Administered Medications - up to 3 most recent administrations Medication Order MAR Action Action Date Dose Rate Site bevacizumab-bvzr 366.5 mg in NaCl 0.9% 124.66 mL (ZIRABEV) 366.5 mg (5 mg/kg/dose 73.3 kg Treatment plan Recorded weight), INTRAVENOUS, Administer over 30 Minutes, ONCE, 1 dose, On Mon10/13/21 at 1530, exp immediate use (room temp) - Do Not Shake Refrigerate - EXP: (8 HR) New Bag/Syringe/Bottle 10/13/2021 3:30 PM EDT 366.5 mg Inactive Administered Medications - up to 3 most recent administrations Medication Order MAR Action Action Date Dose Rate Site bevacizumab-bvzr 366.5 mg in NaCl 0.9% 124.66 mL (ZIRABEV) 366.5 mg (5 mg/kg/dose 73.3 kg Treatment plan Recorded weight), INTRAVENOUS, Administer over 30 Minutes, ONCE, 1 dose, On Mon11/10/21 at 1530, exp immediate use (room temp) - Do Not Shake Refrigerate - EXP: (8 HR) New Bag/Syringe/Bottle 11/10/2021 3:46 PM EDT 366.5 mg Inactive Administered Medications - up to 3 most recent administrations Medication Order MAR Action Action Date Dose Rate Site bevacizumab-bvzr 366.5 mg in NaCl 0.9% 124.66 mL (ZIRABEV) 366.5 mg (5 mg/kg/dose 73.3 kg Treatment plan Recorded weight), INTRAVENOUS, Administer over 30 Minutes, ONCE, 1 dose, On Mon01/12/22 at 1330, exp immediate use (room temp) - Do Not Shake Refrigerate - EXP: (8 HR) New Bag/Syringe/Bottle 01/12/2022 1:45 PM EDT 366.5 mg Inactive Administered Medications - up to 3 most recent administrations Medication Order MAR Action Action Date Dose Rate Site bevacizumab-bvzr 366.5 mg in NaCl 0.9% 124.66 mL (ZIRABEV) 366.5 mg (5 mg/kg/dose 73.3 kg Treatment plan Recorded weight), INTRAVENOUS, Administer over 30 Minutes, ONCE, 1 dose, On Mon02/24/22 at 1330, exp immediate use (room temp) - Do Not Shake Refrigerate - EXP: (8 HR) New Bag/Syringe/Bottle 02/24/2022 1:39 PM EDT 366.5 mg Inactive Administered Medications - up to 3 most recent administrations Medication Order MAR Action Action Date Dose Rate Site bevacizumab-bvzr 400 mg in NaCl 0.9% 126 mL (ZIRABEV) 400 mg, INTRAVENOUS, Administer over 30 Minutes, ONCE, 1 dose, On Mon04/08/22 at 1300, exp immediate use (room temp) - Do Not Shake Refrigerate - EXP: (8 HR) New Bag/Syringe/Bottle 04/08/2022 1:17 PM EST 400 mg Inactive Administered Medications - up to 3 most recent administrations Medication Order MAR Action Action Date Dose Rate Site bevacizumab-bvzr 400 mg in NaCl 0.9% 126 mL (ZIRABEV) 400 mg, INTRAVENOUS, Administer over 30 Minutes, ONCE, 1 dose, On Mon05/19/22 at 1300, exp immediate use (room temp) - Do Not Shake Refrigerate - EXP: (8 HR) New Bag/Syringe/Bottle 05/19/2022 1:19 PM EST 400 mg Reason for Referral Specialty Diagnoses / Procedures Referred By Lee Ann rasheed Referred To Contact MR IMAGING Diagnoses Vestibular schwannoma (HCC) Sensorineural hearing loss (SNHL) of both ears NF2 (neurofibromatosis 2) (HCC) Procedures MRI BRAIN WO/W IVCON MRI BRAIN BRAIN STEM W/O W/CONTRAST MATERIAL Xavier Sidhu MD [address] [place] [address] Mr Imaging Referral ID Status Reason Start Date Expiration Date V isits Requested Visits Authorized [id number] Closed Auto-Generate d Referral 12/27/2021 06/25/2022 1 1 Specialty Diagnoses / Procedures Referred By Lee Ann rasheed Referred To Contact MR IMAGING Diagnoses Vestibular schwannoma (HCC) Procedures MRI BRAIN WO/W IVCON MRI BRAIN BRAIN STEM W/O W/CONTRAST MATERIAL Xavier Sidhu MD [address] [place] [address] Mr Imaging Referral ID Status Reason Start Date Expiration Date Visits Requested Visits Authorized [id number] Pending Review Auto-Generat ed Referral 01/10/2022 02/09/2023 1 1 Specialty Diagnoses / Procedures Referred By Contac t Referred To Contact Ent - Otolaryngology Diagnoses Vestibular schwannoma (HCC) Sensorineural hearing loss (SNHL) of both ears NF2 (neurofibromatosis 2) (HCC) Procedures CONSULT TO ENT OFFICE/OUTPATIENT NEW HIGH MDM 60-74 MINUTES Xavier Sidhu MD [address] [place] [address] Referral ID Status Reason Start Date Expiration Date Visits Requested Visits Authorized [id number] Pending Review PCP Requested Referral 02/08/2022 02/08/2023 1 1 Specialty Diagnoses / Procedures Referred By Contac t Referred To Contact Diagnoses Vestibular schwannoma (HCC) Sensorineural hearing loss (SNHL) of both ears NF2 (neurofibromatosis 2) (HCC) Procedures HEARING TEST/AUDIOGRAM COMPRE AUDIOMETRY THRESHOLD EVAL SP Xavier Payne MD [address] [place] [address] [facility] [address] [place] [address] Referral ID Status Reason Start Date Expiration Date Visits Requested Visits Authorized [id number] Pending Review Auto-Generat ed Referral 02/08/2022 05/09/2022 1 1 Specialty Diagnoses / Procedures Referred By Contac t Referred To Contact MR IMAGING Diagnoses Neurofibromatosis (HCC) NF2 (neurofibromatosis 2) (HCC) Procedures MRI LUMBAR SPINE WO/W IVCON MRI SPINAL CANAL LUMBAR W/O & W/CONTR MATRL Xavier Sidhu MD [address] [place] [address] Mr Imaging Referral ID Status Reason Start Date Expiration Date Visits Requested Visits Authorized [id number] Pending Review Auto-Generat ed Referral 07/13/2022 08/12/2023 1 1 Specialty Diagnoses / Procedures Referred By Contac t Referred To Contact MR IMAGING Diagnoses Neurofibromatosis (HCC) NF2 (neurofibromatosis 2) (HCC) Procedures MRI THORACIC SPINE WO/W IVCON MRI SPINAL CANAL THORACIC W/O & W/CONTR HEYDIL Xavier Sidhu MD [address] [place] [address] Mr Imaging Referral ID Status Reason Start Date Expiration Date Visits Requested Visits Authorized [id number] Pending Review Auto-Generat ed Referral 07/13/2022 08/12/2023 1 1 Specialty Diagnoses / Procedures Referred By Contac t Referred To Contact MR IMAGING Diagnoses Neurofibromatosis (HCC) NF2 (neurofibromatosis 2) (HCC) Procedures MRI CERVICAL SPINE WO/W IVCON MRI SPINAL CANAL CERVICAL W/O & W/CONTR Xavier Mann MD [address] [place] [address] Mr Imaging Referral ID Status Reason Start Date Expiration Date Visits Requested Visits Authorized [id number] Pending Review Auto-Generat ed Referral 07/13/2022 08/12/2023 1 1 Specialty Diagnoses / Procedures Referred By Contac t Referred To Contact MR IMAGING Diagnoses Neurofibromatosis (HCC) Procedures MRI BRAIN WO/W IVCON MRI BRAIN BRAIN STEM W/O W/CONTRAST MATERIAL Xavier Sidhu MD [address] [place] [address] Mr Imaging Referral ID Status Reason Start Date Expiration Date Visits Requested Visits Authorized [id number] Pending Review Auto-Generat ed Referral 08/17/2022 09/16/2023 1 1 Specialty Diagnoses / Procedures Referred By Contac t Referred To Contact Diagnoses Neurofibromatosis (HCC) Vestibular schwannoma (HCC) Procedures HEARING TEST/AUDIOGRAM COMPRE AUDIOMETRY THRESHOLD EVAL SP Xavier Payne MD [address] [place] [address] [facility] [address] [place], [place] [address] [address] Referral ID Status Reason Start Date Expiration Date Visits Requested Visits Authorized [id number] Pending Review Auto-Generat ed Referral 02/20/2023 05/21/2023 1 1 Specialty Diagnoses / Procedures Referred By Contac t Referred To Contact MR IMAGING Diagnoses Neurofibromatosis (HCC) Vestibular schwannoma (HCC) Procedures MRI BRAIN WO/W IVCON MRI BRAIN BRAIN STEM W/O W/CONTRAST MATERIAL Xavier Sidhu MD [address] [place] [address] Mr Imaging [place] [address] Referral ID Status Reason Start Date Expiration Date Visits Requested Visits Authorized [id number] Pending Review Auto-Generat ed Referral 02/20/2023 03/21/2024 1 1 Specialty Diagnoses / Procedures Referred By Contac t Referred To Contact MR IMAGING Diagnoses Vestibular schwannoma (HCC) Procedures MRI BRAIN WO/W IVCON MRI BRAIN BRAIN STEM W/O W/CONTRAST MATERIAL Xavier Sidhu MD [address] [place] [address] Mr Imaging [place] [address] Referral ID Status Reason Start Date Expiration Date V isits Requested Visits Authorized [id number] Closed Auto-Generate d Referral 07/04/2022 05/14/2023 1 1 Specialty Diagnoses / Procedures Referred By Contac t Referred To Contact MR IMAGING Diagnoses Neurofibromatosis (HCC) Procedures MRI BRAIN WO/W IVCON MRI BRAIN BRAIN STEM W/O W/CONTRAST MATERIAL Xavier Sidhu MD [address] [place] [address] Mr Imaging [place] [address] Referral ID Status Reason Start Date Expiration Date V isits Requested Visits Authorized [id number] Closed Auto-Generate d Referral 02/01/2023 05/14/2023 1 1 Specialty Diagnoses / Procedures Referred By Contac t Referred To Contact MR IMAGING Diagnoses Neurofibromatosis (HCC) NF2 (neurofibromatosis 2) (HCC) Procedures MRI LUMBAR SPINE WO/W IVCON MRI SPINAL CANAL LUMBAR W/O & W/CONTR MATRL Xavier Sidhu MD [address] [place] [address] Mr Imaging [place] [address] Referral ID Status Reason Start Date Expiration Date V isits Requested Visits Authorized [id number] Closed Auto-Generate d Referral 07/29/2022 05/14/2023 1 1 Specialty Diagnoses / Procedures Referred By Contac t Referred To Contact MR IMAGING Diagnoses Neurofibromatosis (HCC) NF2 (neurofibromatosis 2) (HCC) Procedures MRI THORACIC SPINE WO/W IVCON MRI SPINAL CANAL THORACIC W/O & W/CONTR Xavier Mann MD [address] [place] [address] Mr Imaging [place] [address] Referral ID Status Reason Start Date Expiration Date V isits Requested Visits Authorized [id number] Closed Auto-Generate d Referral 07/29/2022 05/14/2023 1 1 Specialty Diagnoses / Procedures Referred By Contac t Referred To Contact MR IMAGING Diagnoses Neurofibromatosis (HCC) NF2 (neurofibromatosis 2) (HCC) Procedures MRI CERVICAL SPINE WO/W IVCON MRI SPINAL CANAL CERVICAL W/O & W/CONTR Xavier Mann MD [address] [place] [address] Mr Imaging [place] [address] Referral ID Status Reason Start Date Expiration Date V isits Requested Visits Authorized [id number] Closed Auto-Generate d Referral 07/29/2022 05/14/2023 1 1 Specialty Diagnoses / Procedures Referred By Contac t Referred To Contact Diagnoses NF2 (neurofibromatosis 2) (HCC) Vestibular schwannoma (HCC) Procedures HEARING TEST/AUDIOGRAM COMPRE AUDIOMETRY THRESHOLD EVAL Xavier Iniguez MD [address] [place] [address] [facility] [place] [address] Referral ID Status Reason Start Date Expiration Date Visits Requested Visits Authorized [id number] Pending Review Auto-Generat ed Referral 07/17/2023 10/15/2023 1 1 Referral ID Status Reason Start Date Expiration Date V isits Requested Visits Authorized [id number] Closed Auto-Generate d Referral 02/06/2024 05/14/2024 1 1 Specialty Diagnoses / Procedures Referred By Contac t Referred To Contact MR IMAGING Diagnoses Neurofibromatosis (HCC) Procedures MRI LUMBAR SPINE WO/W IVCON MRI SPINAL CANAL LUMBAR W/O & W/CONTR HEYDIL Xavier Sidhu MD [address] [place] [address] Mr Imaging [place] [address] Referral ID Status Reason Start Date Expiration Date Visits Requested Visits Authorized [id number] Authorized Auto-Generat ed Referral 04/03/2025 1 1 Specialty Diagnoses / Procedures Referred By Contac t Referred To Contact MR IMAGING Diagnoses Neurofibromatosis (HCC) Procedures MRI THORACIC SPINE WO/W IVCON MRI SPINAL CANAL THORACIC W/O & W/CONTR HEYDIL Xavier Sidhu MD [address] [place] [address] Mr Imaging [place] [address] Referral ID Status Reason Start Date Expiration Date Visits Requested Visits Authorized [id number] Authorized Auto-Generat ed Referral 04/03/2025 1 1 Specialty Diagnoses / Procedures Referred By Contac t Referred To Contact MR IMAGING Diagnoses Neurofibromatosis (HCC) Procedures MRI CERVICAL SPINE WO/W IVCON MRI SPINAL CANAL CERVICAL W/O & W/CONTR HEYDIL Xavier Sidhu MD [address] [place] [address] Mr Imaging [place] [address] Referral ID Status Reason Start Date Expiration Date Visits Requested Visits Authorized [id number] Authorized Auto-Generat ed Referral 04/03/2025 1 1 Specialty Diagnoses / Procedures Referred By Contac t Referred To Contact MR IMAGING Diagnoses NF2 (neurofibromatosis 2) ([facility]) Procedures MRI BRAIN WO/W IVCON MRI BRAIN BRAIN STEM W/O W/CONTRAST MATERIAL Xavier Sidhu MD [address] [place] [address] Mr Imaging [place] [address] Referral ID Status Reason Start Date Expiration Date Visits Requested Visits Authorized [id number] New Request Auto-Generat ed Referral 04/03/2025 1 1 Referral ID Status Reason Start Date Expiration Date V isits Requested Visits Authorized [id number] Closed Auto-Generate d Referral 03/04/2024 04/03/2025 1 1 Referral ID Status Reason Start Date Expiration Date V isits Requested Visits Authorized [id number] Closed Auto-Generate d Referral 03/04/2024 04/03/2025 1 1 Referral ID Status Reason Start Date Expiration Date V isits Requested Visits Authorized [id number] Closed Auto-Generate d Referral 03/04/2024 04/03/2025 1 1 Referral ID Status Reason Start Date Expiration Date Visits Requested Visits Authorized [id number] New Request Auto-Generat ed Referral 04/17/2024 05/17/2025 1 1 Specialty Diagnoses / Procedures Referred By Contac t Referred To Contact Diagnoses NF2 (neurofibromatosis 2) ([facility]) Procedures HEARING TEST/AUDIOGRAM COMPRE AUDIOMETRY THRESHOLD EVAL SP Xavier Payne [facility] [address] [facility] [place] [id number] [facility] [address] [place] [address] Referral ID Status Reason Start Date Expiration Date Visits Requested Visits Authorized [id number] Authorized Auto-Generat ed Referral 06/05/2024 09/03/2024 1 1 Chief Complaint and Reason for Visit Chief Complaint covid + 6 M FU Reason for Visit Asthma COVID Bilateral acoustic neuromas High cholesterol 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, bilateral Chief Complaint Pain throughout body , mostly in lower legs E ORDERS Reason for Visit Diffuse pain High cholesterol Muscle pain Chief Complaint 6 M FU SCREENING Reason for Visit Bilateral acoustic n euromas Diffuse pain High cholesterol Muscle pain 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, bilateral Chief Complaint Admit Date dog bite October 15, 2024 3:12p m Chief Complaint Admit Date Annual/Physical (Flu Shot) February 13, 2025 10:43am Family History No Family History Records Found Relationship Condition Age at Onset Recorded Date/T sergey Not Specified Diabetes mellitus Unknown Cardiac disease Unknown Summary Purpose Additional Source Comments Source Comments (unrecognize d section and content) In the event this informatio n is protected by the Federal Confidentiality of Alcohol and Drug Abuse Patient Records regulations: The Federal rules restrict any use of the information to criminally investigate or prosecute any alcohol or drug abuse patient.[facility] the event this information is protected by the Federal Confidentiality of Alcohol and Drug Abuse Patient Records regulations: The Federal rules restrict any use of the information to criminally investigate or prosecute any alcohol or drug abuse patient.[facility] HospitalIn the event this information is protected by the Federal Confidentiality of Alcohol and Drug Abuse Patient Records regulations: The Federal rules restrict any use of the information to criminally investigate or prosecute any alcohol or drug abuse patient.[facility] HospitalIn the event this information is protected by the Federal Confidentiality of Alcohol and Drug Abuse Patient Records regulations: The Federal rules restrict any use of the information to criminally investigate or prosecute any alcohol or drug abuse patient.[facility] HospitalIn the event this information is protected by the Federal Confidentiality of Alcohol and Drug Abuse Patient Records regulations: The Federal rules restrict any use of the information to criminally investigate or prosecute any alcohol or drug abuse patient.[facility] HospitalIn the event this information is protected by the Federal Confidentiality of Alcohol and Drug Abuse Patient Records regulations: The Federal rules restrict any use of the information to criminally investigate or prosecute any alcohol or drug abuse patient.[facility] HospitalIn the event this information is protected by the Federal Confidentiality of Alcohol and Drug Abuse Patient Records regulations: The Federal rules restrict any use of the information to criminally investigate or prosecute any alcohol or drug abuse patient.[facility] HospitalIn the event this information is protected by the Federal Confidentiality of Alcohol and Drug Abuse Patient Records regulations: The Federal rules restrict any use of the information to criminally investigate or prosecute any alcohol or drug abuse patient.[facility] HospitalIn the event this information is protected by the Federal Confidentiality of Alcohol and Drug Abuse Patient Records regulations: The Federal rules restrict any use of the information to criminally investigate or prosecute any alcohol or drug abuse patient.[facility] HospitalIn the event this information is protected by the Federal Confidentiality of Alcohol and Drug Abuse Patient Records regulations: The Federal rules restrict any use of the information to criminally investigate or prosecute any alcohol or drug abuse patient.[facility] HospitalIn the event this information is protected by the Federal Confidentiality of Alcohol and Drug Abuse Patient Records regulations: The Federal rules restrict any use of the information to criminally investigate or prosecute any alcohol or drug abuse patient.[facility] HospitalIn the event this information is protected by the Federal Confidentiality of Alcohol and Drug Abuse Patient Records regulations: The Federal rules restrict any use of the information to criminally investigate or prosecute any alcohol or drug abuse patient.[facility] HospitalIn the event this information is protected by the Federal Confidentiality of Alcohol and Drug Abuse Patient Records regulations: The Federal rules restrict any use of the information to criminally investigate or prosecute any alcohol or drug abuse patient.[facility] HospitalIn the event this information is protected by the Federal Confidentiality of Alcohol and Drug Abuse Patient Records regulations: The Federal rules restrict any use of the information to criminally investigate or prosecute any alcohol or drug abuse patient.[facility] HospitalIn the event this information is protected by the Federal Confidentiality of Alcohol and Drug Abuse Patient Records regulations: The Federal rules restrict any use of the information to criminally investigate or prosecute any alcohol or drug abuse patient.[facility] HospitalIn the event this information is protected by the Federal Confidentiality of Alcohol and Drug Abuse Patient Records regulations: The Federal rules restrict any use of the information to criminally investigate or prosecute any alcohol or drug abuse patient.[facility] HospitalIn the event this information is protected by the Federal Confidentiality of Alcohol and Drug Abuse Patient Records regulations: The Federal rules restrict any use of the information to criminally investigate or prosecute any alcohol or drug abuse patient.[facility] HospitalIn the event this information is protected by the Federal Confidentiality of Alcohol and Drug Abuse Patient Records regulations: The Federal rules restrict any use of the information to criminally investigate or prosecute any alcohol or drug abuse patient.[facility] HospitalIn the event this information is protected by the Federal Confidentiality of Alcohol and Drug Abuse Patient Records regulations: The Federal rules restrict any use of the information to criminally investigate or prosecute any alcohol or drug abuse patient.[facility] HospitalIn the event this information is protected by the Federal Confidentiality of Alcohol and Drug Abuse Patient Records regulations: The Federal rules restrict any use of the information to criminally investigate or prosecute any alcohol or drug abuse patient.[facility] HospitalIn the event this information is protected by the Federal Confidentiality of Alcohol and Drug Abuse Patient Records regulations: The Federal rules restrict any use of the information to criminally investigate or prosecute any alcohol or drug abuse patient.[facility] HospitalIn the event this information is protected by the Federal Confidentiality of Alcohol and Drug Abuse Patient Records regulations: The Federal rules restrict any use of the information to criminally investigate or prosecute any alcohol or drug abuse patient.[facility] HospitalIn the event this information is protected by the Federal Confidentiality of Alcohol and Drug Abuse Patient Records regulations: The Federal rules restrict any use of the information to criminally investigate or prosecute any alcohol or drug abuse patient.[facility] HospitalIn the event this information is protected by the Federal Confidentiality of Alcohol and Drug Abuse Patient Records regulations: The Federal rules restrict any use of the information to criminally investigate or prosecute any alcohol or drug abuse patient.[facility] HospitalIn the event this information is protected by the Federal Confidentiality of Alcohol and Drug Abuse Patient Records regulations: The Federal rules restrict any use of the information to criminally investigate or prosecute any alcohol or drug abuse patient.[facility] HospitalIn the event this information is protected by the Federal Confidentiality of Alcohol and Drug Abuse Patient Records regulations: The Federal rules restrict any use of the information to criminally investigate or prosecute any alcohol or drug abuse patient.[facility] HospitalIn the event this information is protected by the Federal Confidentiality of Alcohol and Drug Abuse Patient Records regulations: The Federal rules restrict any use of the information to criminally investigate or prosecute any alcohol or drug abuse patient.[facility] HospitalIn the event this information is protected by the Federal Confidentiality of Alcohol and Drug Abuse Patient Records regulations: The Federal rules restrict any use of the information to criminally investigate or prosecute any alcohol or drug abuse patient.[facility] HospitalIn the event this information is protected by the Federal Confidentiality of Alcohol and Drug Abuse Patient Records regulations: The Federal rules restrict any use of the information to criminally investigate or prosecute any alcohol or drug abuse patient.[facility] HospitalIn the event this information is protected by the Federal Confidentiality of Alcohol and Drug Abuse Patient Records regulations: The Federal rules restrict any use of the information to criminally investigate or prosecute any alcohol or drug abuse patient.[facility] HospitalIn the event this information is protected by the Federal Confidentiality of Alcohol and Drug Abuse Patient Records regulations: The Federal rules restrict any use of the information to criminally investigate or prosecute any alcohol or drug abuse patient.[facility] HospitalIn the event this information is protected by the Federal Confidentiality of Alcohol and Drug Abuse Patient Records regulations: The Federal rules restrict any use of the information to criminally investigate or prosecute any alcohol or drug abuse patient.[facility] HospitalIn the event this information is protected by the Federal Confidentiality of Alcohol and Drug Abuse Patient Records regulations: The Federal rules restrict any use of the information to criminally investigate or prosecute any alcohol or drug abuse patient.[facility] HospitalIn the event this information is protected by the Federal Confidentiality of Alcohol and Drug Abuse Patient Records regulations: The Federal rules restrict any use of the information to criminally investigate or prosecute any alcohol or drug abuse patient.[facility] HospitalIn the event this information is protected by the Federal Confidentiality of Alcohol and Drug Abuse Patient Records regulations: The Federal rules restrict any use of the information to criminally investigate or prosecute any alcohol or drug abuse patient.[facility] HospitalIn the event this information is protected by the Federal Confidentiality of Alcohol and Drug Abuse Patient Records regulations: The Federal rules restrict any use of the information to criminally investigate or prosecute any alcohol or drug abuse patient.[facility] HospitalIn the event this information is protected by the Federal Confidentiality of Alcohol and Drug Abuse Patient Records regulations: The Federal rules restrict any use of the information to criminally investigate or prosecute any alcohol or drug abuse patient.[facility] HospitalIn the event this information is protected by the Federal Confidentiality of Alcohol and Drug Abuse Patient Records regulations: The Federal rules restrict any use of the information to criminally investigate or prosecute any alcohol or drug abuse patient.[facility] HospitalIn the event this information is protected by the Federal Confidentiality of Alcohol and Drug Abuse Patient Records regulations: The Federal rules restrict any use of the information to criminally investigate or prosecute any alcohol or drug abuse patient.[facility] HospitalIn the event this information is protected by the Federal Confidentiality of Alcohol and Drug Abuse Patient Records regulations: The Federal rules restrict any use of the information to criminally investigate or prosecute any alcohol or drug abuse patient.[facility] HospitalIn the event this information is protected by the Federal Confidentiality of Alcohol and Drug Abuse Patient Records regulations: The Federal rules restrict any use of the information to criminally investigate or prosecute any alcohol or drug abuse patient.[facility] HospitalIn the event this information is protected by the Federal Confidentiality of Alcohol and Drug Abuse Patient Records regulations: The Federal rules restrict any use of the information to criminally investigate or prosecute any alcohol or drug abuse patient.[facility] HospitalIn the event this information is protected by the Federal Confidentiality of Alcohol and Drug Abuse Patient Records regulations: The Federal rules restrict any use of the information to criminally investigate or prosecute any alcohol or drug abuse patient.[facility] HospitalIn the event this information is protected by the Federal Confidentiality of Alcohol and Drug Abuse Patient Records regulations: The Federal rules restrict any use of the information to criminally investigate or prosecute any alcohol or drug abuse patient.[facility] HospitalIn the event this information is protected by the Federal Confidentiality of Alcohol and Drug Abuse Patient Records regulations: The Federal rules restrict any use of the information to criminally investigate or prosecute any alcohol or drug abuse patient.[facility] HospitalIn the event this information is protected by the Federal Confidentiality of Alcohol and Drug Abuse Patient Records regulations: The Federal rules restrict any use of the information to criminally investigate or prosecute any alcohol or drug abuse patient.[facility] HospitalIn the event this information is protected by the Federal Confidentiality of Alcohol and Drug Abuse Patient Records regulations: The Federal rules restrict any use of the information to criminally investigate or prosecute any alcohol or drug abuse patient.[facility] HospitalIn the event this information is protected by the Federal Confidentiality of Alcohol and Drug Abuse Patient Records regulations: The Federal rules restrict any use of the information to criminally investigate or prosecute any alcohol or drug abuse patient.[facility] HospitalIn the event this information is protected by the Federal Confidentiality of Alcohol and Drug Abuse Patient Records regulations: The Federal rules restrict any use of the information to criminally investigate or prosecute any alcohol or drug abuse patient.[facility] HospitalIn the event this information is protected by the Federal Confidentiality of Alcohol and Drug Abuse Patient Records regulations: The Federal rules restrict any use of the information to criminally investigate or prosecute any alcohol or drug abuse patient.[facility] Care Teams (unrecognized sec tion and content) Construction Project Administrator Relationship Specialty Start Date End Date Leif Rose Chi [address] [address] PCP - General Gerontology 01/27/19 Construction Project Administrator Relationship Specialty Start Date End Date Leif Rose Chi [address] [place] [address] PCP - General Gerontology 01/27/19 Construction Project Administrator Relationship Specialty Start Date End Date Leif Rose Chi [address] [place] [address] PCP - General Gerontology 01/27/19 Construction Project Administrator Relationship Specialty Start Date End Date Leif Rose Chi [address] [place] [address] PCP - General Gerontology 01/27/19 Construction Project Administrator Relationship Specialty Start Date End Date Leif Rose Chi [address] [place] [address] PCP - General Gerontology 01/27/19 Construction Project Administrator Relationship Specialty Start Date End Date Leif Rose Chi [address] [place] [address] PCP - General Gerontology 01/27/19 Construction Project Administrator Relationship Specialty Start Date End Date Leif Rose Chi [address] [place] [address] PCP - General Gerontology 01/27/19 Construction Project Administrator Relationship Specialty Start Date End Date Leif Rose Chi [address] [place] [address] PCP - General Gerontology 01/27/19 Construction Project Administrator Relationship Specialty Start Date End Date Leif Rose Chi [address] [place] [address] PCP - General Gerontology 01/27/19 Construction Project Administrator Relationship Specialty Start Date End Date Leif Rose Chi [address] [place] [address] PCP - General Gerontology 01/27/19 Construction Project Administrator Relationship Specialty Start Date End Date Merrill Sapp MD [address] [place] [address] PCP - General Internal Medicine 01/27/22 Construction Project Administrator Relationship Specialty Start Date End Date Merrill Spap MD [address] [place] [address] PCP - General Internal Medicine 01/27/22 Construction Project Administrator Relationship Specialty Start Date End Date Merrill Sapp MD [address] [place] [address] PCP - General Internal Medicine 01/27/22 Construction Project Administrator Relationship Specialty Start Date End Date Merrill Sapp MD [address] [place] [address] PCP - General Internal Medicine 01/27/22 Construction Project Administrator Relationship Specialty Start Date End Date Merrill Sapp MD [address] [place], [place] [address] PCP - General Internal Medicine 01/27/22 Construction Project Administrator Relationship Specialty Start Date End Date Merrill Sapp MD [address] [place] [address] PCP - General Internal Medicine 01/27/22 Construction Project Administrator Relationship Specialty Start Date End Date Merrill Sapp MD [address] [place], [place] [address] PCP - General Internal Medicine 01/27/22 Construction Project Administrator Relationship Specialty Start Date End Date Merrill Sapp MD [address] [place] [address] PCP - General Internal Medicine 01/27/22 Construction Project Administrator Relationship Specialty Start Date End Date Merrill Sapp MD [address] [place] [address] PCP - General Internal Medicine 01/27/22 Anthony, Chel, [employer] Manufacturing Quality Manager Hematology/Oncology 05/05/22 Construction Project Administrator Relationship Specialty Start Date End Date Merrill Sapp MD [address] [place] [address] PCP - General Internal Medicine 01/27/22 Anthony, Chel, [employer] Manufacturing Quality Manager Hematology/Oncology 05/05/22 Team Status: Active Member Role Status Dates Merrill Sapp MD Primary Care Provider Active Team Status: Inactive Member Role Status Dates Merrill Sapp MD Primary Care Provider Active Dr. Merrill Sapp MD Attending Provider Active Team Status: Inactive Member Role Status Dates Merrill Sapp MD Primary Care Provider Active Dr. Merrill Sapp MD Attending Provider, Referring Provider Active Construction Project Administrator Relationship Specialty Start Date End Date Merrill Sapp MD [address] [place] [address] PCP - General Internal Medicine 01/27/22 Anthony, Chel, [employer] Manufacturing Quality Manager Hematology/Oncology 05/05/22 Construction Project Administrator Relationship Specialty Start Date End Date Merrill Sapp MD [address] [place] [address] PCP - General Internal Medicine 01/27/22 Anthony, Chel, [employer] Manufacturing Quality Manager Hematology/Oncology 05/05/22 Construction Project Administrator Relationship Specialty Start Date End Date Merrill Sapp MD [address] [place] [address] PCP - General Internal Medicine 01/27/22 Anthony, Chel, [employer] Manufacturing Quality Manager Hematology/Oncology 05/05/22 Construction Project Administrator Relationship Specialty Start Date End Date Merrill Sapp MD [address] [place] [address] PCP - General Internal Medicine 01/27/22 Anthony, Chel, [employer] Manufacturing Quality Manager Hematology/Oncology 05/05/22 Construction Project Administrator Relationship Specialty Start Date End Date Merrill Sapp MD [address] [place] [address] PCP - General Internal Medicine 01/27/22 Chel Cruz, [facility] Manufacturing Quality Manager Hematology/Oncology 05/05/22 Construction Project Administrator Relationship Specialty Start Date End Date Merrill Sapp MD [address] [place] [address] PCP - General Internal Medicine 01/27/22 Chel Cruz, [facility] Manufacturing Quality Manager Hematology/Oncology 05/05/22 Concha Montague MD [address] [place], [place] [id number] Ent - Otolaryngology 08/17/22 Construction Project Administrator Relationship Specialty Start Date End Date Merrill Sapp MD [address] [place] [address] PCP - General Internal Medicine 01/27/22 Chel Cruz, [facility] Manufacturing Quality Manager Hematology/Oncology 05/05/22 Concha Montague MD [address] [place] [address] Ent - Otolaryngology 08/17/22 Construction Project Administrator Relationship Specialty Start Date End Date Merrill Sapp MD [address] [place] [address] PCP - General Internal Medicine 01/27/22 Chel Cruz, [facility] Manufacturing Quality Manager Hematology/Oncology 05/05/22 Concha Montague MD [address] [place], [place] [id number] Ent - Otolaryngology 08/17/22 Construction Project Administrator Relationship Specialty Start Date End Date Merrill Sapp MD [address] [place] [address] PCP - General Internal Medicine 01/27/22 Chel Cruz, [facility] Manufacturing Quality Manager Hematology/Oncology 05/05/22 Concha Montague MD [address] [place] [address] Ent - Otolaryngology 08/17/22 Team Status: Active Member Role Status Dates Dr. Merrill Sapp MD Primary Care Provider Active Team Status: Inactive Member Role Status Dates Merrill NORTON MD Primary Care Provider Active Dr. Merrill Sapp MD Attending Provider Active Team Status: Inactive Member Role Status Dates Dr. Merrill Sapp MD Primary Care Pro vider, Attending Provider, Referring Provider Active Construction Project Administrator Relationship Specialty Start Date End Date Merrill Sapp MD [address] [place] [address] PCP - General Internal Medicine 01/27/22 Chel Cruz, [facility] Manufacturing Quality Manager Hematology/Oncology 05/05/22 Construction Project Administrator Relationship Specialty Start Date End Date Merrill Sapp MD [address] [place] [address] PCP - General Internal Medicine 01/27/22 Chel Cruz, [facility] Manufacturing Quality Manager Hematology/Oncology 05/05/22 Concha Montague MD [address] [place], [place] [id number] Ent - Otolaryngology 08/17/22 Construction Project Administrator Relationship Specialty Start Date End Date Merrill Sapp MD [address] [place], [place] [address] PCP - General Internal Medicine 01/27/22 Chel Cruz, [facility] Manufacturing Quality Manager Hematology/Oncology 05/05/22 Construction Project Administrator Relationship Specialty Start Date End Date Merrill Sapp MD [address] [place] [address] PCP - General Internal Medicine 01/27/22 Chel Cruz, [facility] Manufacturing Quality Manager Hematology/Oncology 05/05/22 Concha Montague MD [address] [place] [address] Ent - Otolaryngology 08/17/22 Construction Project Administrator Relationship Specialty Start Date End Date Merrill Sapp MD [address] [place] [address] PCP - General Internal Medicine 01/27/22 Chel Russell, [facility] Manufacturing Quality Manager Hematology/Oncology 05/05/22 Concha Montague MD [address] [place] [address] Ent - Otolaryngology 08/17/22 Construction Project Administrator Relationship Specialty Start Date End Date Merrill Sapp MD [address] [place] [address] PCP - General Internal Medicine 01/27/22 Chel Russell, [facility] Manufacturing Quality Manager Hematology/Oncology 05/05/22 Concha Montague MD [address] [place] [address] Ent - Otolaryngology 08/17/22 Construction Project Administrator Relationship Specialty Start Date End Date Merrill Sapp MD [address] [place], [place] [id number] PCP - General Internal Medicine 01/27/22 Chel Russell, [facility] Manufacturing Quality Manager Hematology/Oncology 05/05/22 Concha Montague MD [address] [place] [address] Ent - Otolaryngology 08/17/22 Construction Project Administrator Relationship Specialty Start Date End Date Merrill Sapp MD [address] [place] [address] PCP - General Internal Medicine 01/27/22 Chel Russell, [facility] Manufacturing Quality Manager Hematology/Oncology 05/05/22 Concha Montague MD [address] [place] [address] Ent - Otolaryngology 08/17/22 Construction Project Administrator Relationship Specialty Start Date End Date Merrill Sapp MD [address] [place] [address] PCP - General Internal Medicine 01/27/22 Chel Russell, [facility] Manufacturing Quality Manager Hematology/Oncology 05/05/22 Concha Montague MD [address] [place] [address] Ent - Otolaryngology 08/17/22 Construction Project Administrator Relationship Specialty Start Date End Date Merrill Sapp MD [address] [place] [address] PCP - General Internal Medicine 01/27/22 Chel Russell, [facility] Manufacturing Quality Manager Hematology/Oncology 05/05/22 Concha Montague MD [address] [place] [address] Ent - Otolaryngology 08/17/22 Construction Project Administrator Relationship Specialty Start Date End Date Merrill Sapp MD [address] [place] [address] PCP - General Internal Medicine 01/27/22 Chel Russell, [facility] Manufacturing Quality Manager Hematology/Oncology 05/05/22 Concha Montague MD [address] [place] [address] Ent - Otolaryngology 08/17/22 Construction Project Administrator Relationship Specialty Start Date End Date Merrill Sapp MD [address] [place] [address] PCP - General Internal Medicine 01/27/22 Chel Russell, [facility] Manufacturing Quality Manager Hematology/Oncology 05/05/22 Concha Montague MD [address] [place] [address] Ent - Otolaryngology 08/17/22 Construction Project Administrator Relationship Specialty Start Date End Date Merrill Sapp MD [address] [place] [address] PCP - General Internal Medicine 01/27/22 Chel Russell, [facility] Manufacturing Quality Manager Hematology/Oncology 05/05/22 Concha Montague MD [address] [place] [address] Ent - Otolaryngology 08/17/22 Team Status: Inactive Member Role Status Dates Dr. Merrill Sapp MD Primary Care Provider Active Start: October 15, 2024 End: October 15, 2024 Asaf Haskins MD Emergency Provider Active Star t: October 15, 2024 End: October 15, 2024 Construction Project Administrator Relationship Specialty Start Date End Date Merrill Sapp MD [address] [place] [address] PCP - General Internal Medicine 01/27/22 Chel Russell, [facility] Manufacturing Quality Manager Hematology/Oncology 05/05/22 Concha Montague MD [address] [place] [address] Ent - Otolaryngology 08/17/22 Team Status: Active Member Role/Relationship Status Dates Dr. Merrill Sapp MD Primary care physician Active Team Status: Inactive Member Role/Relationship Status Dates Dr. Merrill Sapp MD Primary care physician Active Start: February 13, 2025 End: February 13, 2025 Dr. Merrill Sapp MD Attending physician Active Start: February 13, 2025 End: February 13, 2025 Reason for Visit (unrecogniz ed section and content) Reason Comments Chemotherapy Treatment Specialty Diagnoses / Procedures Referred By Contac t Referred To Contact Diagnoses NF2 (neurofibromatosis 2) (HCC) Vestibular schwannoma (HCC) Procedures INJ., CARLITOSRABEV, 10 MG Xavier Sidhu MD [address] [facility] [place] [address] [facility] [address] [place] [address] Referral ID Status Reason Start Date Expiration Date V isits Requested Visits Authorized [id number] Authorized 03/05/2021 05/14/2022 99 99 Reason Comments Non-Chemotherapy Treatment Specialty Diagnoses / Procedures Referred By Contac t Referred To Contact Diagnoses NF2 (neurofibromatosis 2) (HCC) Vestibular schwannoma (HCC) Procedures INJ., JAMEBEV, 10 MG Xavier Sidhu MD [address] [place] [address] [facility] [address] [place] [address] Referral ID Status Reason Start Date Expiration Date V isits Requested Visits Authorized [id number] Pending Review 03/05/2021 05/14/2022 99 99 Specialty Diagnoses / Procedures Referred By Contac t Referred To Contact [facility] Diagnoses Vestibular schwannoma (HCC) Sensorineural hearing loss (SNHL) of both ears NF2 (neurofibromatosis 2) (HCC) Procedures MRI BRAIN WO/W IVCON MRI BRAIN BRAIN STEM W/O W/CONTRAST MATERIAL Xavier Sidhu MD [address] [place] [address] Mr [facility] Referral ID Status Reason Start Date Expiration Date V isits Requested Visits Authorized [id number] Closed Auto-Generate d Referral 12/27/2021 06/25/2022 1 1 Reason Comments Established Patient Reason Comments Tumor Board Brain Reason Comments Hearing Loss Specialty Diagnoses / Procedures Referred By Contac t Referred To Contact Diagnoses Vestibular schwannoma (HCC) Sensorineural hearing loss (SNHL) of both ears NF2 (neurofibromatosis 2) (HCC) Procedures HEARING TEST/AUDIOGRAM COMPRE AUDIOMETRY THRESHOLD EVAL SP RECOGNIJ Xavier Sidhu MD [address] [place] [address] [facility] [address] [place], [place] [address] [address] Referral ID Status Reason Start Date Expiration Date V isits Requested Visits Authorized [id number] Closed Auto-Generate d Referral 02/08/2022 05/09/2022 1 1 Reason Comments New Patient Bilateral hearing lo ss - deaf in right ear (history of brain tumor) Specialty Diagnoses / Procedures Referred By Contact Referred To Contact Ent - Otolaryngology / [facility] Diagnoses Vestibular schwannoma (HCC) Sensorineural hearing loss (SNHL) of both ears NF2 (neurofibromatosis 2) (HCC) Procedures CONSULT TO ENT OFFICE/OUTPATIENT NEW HIGH MDM 60-74 MINUTES Xavier Sidhu MD [address] [place] [address] [facility] [place] [address] Referral ID Status Reason Start Date Expiration Date Visits Requested Visits Authorized [id number] Pending Review PCP Requested Referral 02/08/2022 02/08/2023 1 1 Specialty Diagnoses / Procedures Referred By Contac t Referred To Contact Diagnoses NF2 (neurofibromatosis 2) (HCC) Vestibular schwannoma (HCC) Procedures INJ., ZIRABEV, 10 MG Xavier Sidhu MD [address] [place] [address] [facility] [address] [place] [address] Referral ID Status Reason Start Date Expiration Date V isits Requested Visits Authorized [id number] Authorized 03/05/2021 05/14/2023 99 99 Reason Comments Palliative Care Initial Consult Reason Comments DANNY MRI SPINE Specialty Diagnoses / Procedures Referred By Contac t Referred To Contact [facility] Diagnoses Vestibular schwannoma (HCC) Procedures MRI BRAIN WO/W IVCON MRI BRAIN BRAIN STEM W/O W/CONTRAST MATERIAL Xavier Sidhu MD [address] [place] [address] [facility] [place] [id number] Referral ID Status Reason Start Date Expiration Date V isits Requested Visits Authorized [id number] Closed Auto-Generate d Referral 07/04/2022 05/14/2023 1 1 Specialty Diagnoses / Procedures Referred By Contac t Referred To Contact [facility] Diagnoses Neurofibromatosis (HCC) Procedures MRI BRAIN WO/W IVCON MRI BRAIN BRAIN STEM W/O W/CONTRAST MATERIAL Xavier Sidhu MD [address] [place] [address] [facility] [place] [id number] Referral ID Status Reason Start Date Expiration Date V isits Requested Visits Authorized [id number] Closed Auto-Generate d Referral 02/01/2023 05/14/2023 1 1 Specialty Diagnoses / Procedures Referred By Contac t Referred To Contact [facility] IMAG[facility] Diagnoses Neurofibromatosis (HCC) NF2 (neurofibromatosis 2) (HCC) Procedures MRI LUMBAR SPINE WO/W IVCON MRI SPINAL CANAL LUMBAR W/O & W/CONTR MATRL Xavier Sidhu MD [address] [place] [address] [facility] [place] [id number] Referral ID Status Reason Start Date Expiration Date V isits Requested Visits Authorized [id number] Closed Auto-Generate d Referral 07/29/2022 05/14/2023 1 1 Specialty Diagnoses / Procedures Referred By Contac t Referred To Contact MR IMAGING Diagnoses Neurofibromatosis (HCC) Vestibular schwannoma (HCC) Procedures MRI BRAIN WO/W IVCON MRI BRAIN BRAIN STEM W/O W/CONTRAST MATERIAL Xavier Sidhu MD [address] [place] [address] [facility] [place] [id number] Referral ID Status Reason Start Date Expiration Date V isits Requested Visits Authorized [id number] Closed Auto-Generate d Referral 02/06/2024 05/14/2024 1 1 Reason Comments DANNY MRI SPINE [place] Specialty Diagnoses / Procedures Referred By Contac t Referred To Contact [facility] Diagnoses Neurofibromatosis (HCC) Procedures MRI THORACIC SPINE WO/W IVCON MRI SPINAL CANAL THORACIC W/O & W/CONTR Xavier Mann MD [address] [place] [address] [facility] [place] [id number] Referral ID Status Reason Start Date Expiration Date V isits Requested Visits Authorized [id number] Closed Auto-Generate d Referral 03/04/2024 04/03/2025 1 1 Specialty Diagnoses / Procedures Referred By Contac t Referred To Contact MR IMAGING Diagnoses Neurofibromatosis (HCC) Procedures MRI CERVICAL SPINE WO/W IVCON MRI SPINAL CANAL CERVICAL W/O & W/CONTR Xavier Mann MD [address] [place] [address] [facility] [place] [id number] Referral ID Status Reason Start Date Expiration Date V isits Requested Visits Authorized [id number] Closed Auto-Generate d Referral 03/04/2024 04/03/2025 1 1 Specialty Diagnoses / Procedures Referred By Contac t Referred To Contact MR IMAGING Diagnoses Neurofibromatosis (HCC) Procedures MRI LUMBAR SPINE WO/W IVCON MRI SPINAL CANAL LUMBAR W/O & W/CONTR Xavier Mann MD [address] [place] [address] [facility] [place] [id number] Referral ID Status Reason Start Date Expiration Date V isits Requested Visits Authorized [id number] Closed Auto-Generate d Referral 03/04/2024 04/03/2025 1 1 Reason Comments Radiology MRI Specialty Diagnoses / Procedures Referred By Contac t Referred To Contact MR IMAGING Diagnoses NF2 (neurofibromatosis 2) (HCC) Procedures MRI BRAIN WO/W IVCON MRI BRAIN BRAIN STEM W/O W/CONTRAST MATERIAL Xavier Sidhu MD [address] [place] [address] Phone: tel: fax: [place] [address] Referral ID Status Reason Start Date Expiration Date V isits Requested Visits Authorized [id number] Closed Auto-Generate d Referral 03/04/2024 04/03/2025 1 1 Goals (unrecognized section and content) Goals may be documented in a n alternate sectionGoals may be documented in an alternate sectionGoals may be documented in an alternate sectionGoals may be documented in an alternate sectionGoals may be documented in an alternate section INFORMATION SOURCE (unrecogn ized section and content) DATE CREATED AUTHOR 03/08/2025 [facility] DATE CREATED AUTHOR AUTHOR'S ORGANIZ ATION 03/21/2025 [facility] FOR RECORDS PERTAINING TO PATIENTS WHO ARE OR HAVE BEEN ENROLLED IN A CHEMICAL DEPENDENCY/SUBSTANCEABUSE PROGRAM, SOME INFORMATION MAY BE OMITTED. This clinical summary was aggregated from multiple sources. Caution should be exercised in using it in the provision of clinical care. This summary normalizes information from multiple sources, and as a consequence, information in this document may materially change the coding, format and clinical context of patient data. In addition, data may be omitted in some cases. CLINICAL DECISIONS SHOULD BE BASED ON THE PRIMARY CLINICAL RECORDS. [employer] provides no warranty or guarantee of the accuracy or completeness of information in this document.
--- NOTE | 2025-05-03 10:02 | CM.ED ---
Social Work Date of referral: 05/03/25 Reason for referral: Advanced Care Directives (ACD's) not on file. Referred by: Social Work Identification Patient provided consent to social work visit. Retail Representative requested a copy of ACD's which patient agreed to bring in. Kathryn Murillo, PLATFORM ATTENDANT, DELIVERY AIDE
[2025-05-03 12:12] LABS: Troponin T High Sens 2 HR 80 ng/L (<=14)
--- NOTE | 2025-05-03 12:14 | EKG12_ITS ---
Test Reason : SOB Blood Pressure : */* mmHG Vent. Rate : 107 BPM Atrial Rate : 108 BPM P-R Int : 150 ms QRS Dur : 80 ms QT Int : 320 ms P-R-T Axes : 51 28 15 degrees QTcB Int : 427 ms Sinus tachycardia Nonspecific ST and T wave abnormality Abnormal ECG Reconfirmed by Daniel Rogers ([id number]), newspaper editor AMBER WHEATLEY ([id number]) on 05/05/2025 10:26:56 AM Also confirmed by Daniel Rogers ([id number]), newspaper editor AMBER WHEATLEY ([id number]) on 05/06/2025 8:33:44 AM Referred By: RY Confirmed By: Daniel Rogers
[2025-05-03 14:12] LABS: Troponin T High Sens 4 HR 77 ng/L (<=14)
--- NOTE | 2025-05-03 15:03 | PN.HOSP_ITS ---
Hospitalist Note Called to evaluate patient for possible admission given palpitations before arrival and troponin bump. Initial troponin 21 with repeat of 80 however 4-hour troponin of 77 indicating that there is not further ongoing cardiac injury since resolution of her palpitations. Evaluated patient at bedside, completely asymptomatic at this time, denied any chest pain during the episode. Reports this has only ever happened a couple of times. Discussed risks and benefits of admission versus discharge home with instructions for cardiology follow-up and strict return precautions. 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 She will need further workup but given resolution of symptoms with infrequent events and troponin that downtrended it is reasonable to follow-up on an outp atient basis. Discussed this with patient and that she could be admitted versus outpatient follow-up and given the above patient is comfortable with discharge home and instructed to follow-up with cardiology and she is agreeable that if she has any further symptoms she will return to the emergency department. Did also discuss with cardiology again and they are comfortable with her discharging home and following up in the office in 1 to 2 weeks. Discussed with ED physician and advised that if patient were to have any further symptoms or tachyarrhythmia prior to discharging home to let me know and she can be reconsidered for admission
== END 2025-05-03 15:21 | disposition home or self-care (01) ==
PROVIDERS: Emergency Provider Student in an Organized Health Care Education/Training Program; PCP Internal Medicine; Visit Provider Student in an Organized Health Care Education/Training Program
DX: R00.2 Palpitations (principal); R42 Dizziness and giddiness; E78.00 Pure hypercholesterolemia, unspecified; R06.00 Dyspnea, unspecified; J45.909 Unspecified asthma, uncomplicated
CPT/HCPCS: 36415; 71275; 80048; 83735; 84443; 84484; 85025; 85379; 93005; 96360; 99284; Q9967; A4216